=== PATIENT | female | born 1945 | race Two or more races ===

== ENCOUNTER 2017-03-20 15:29 | Inpatient (IN) | payer MEDICAID, MEDICARE, OTHER ==
[~2017-03-20] VITALS: Ht 167.6 cm; Wt 64.0 kg
[~2017-03-20 15:29] MED LIST: ABILIFY20 MG ORAL; ALENDRONATE SOD70 MG ORAL; AMBIEN5 MG ORAL; ASPIRIN-LOW81 MG ORAL; ATIVAN2 MG ORAL; CATAPRES0.1 MG ORAL; COLACE100 MG ORAL; DEPAKENE250 MG ORAL; DOCUSATE SODIU100 MG ORAL; LEVAQUIN500 MG ORAL; LEXAPRO10 MG ORAL; NORCO 5-325 TA1 EACH ORAL; NORVASC10 MG ORAL; OMEPRAZOLE20 M2 ORAL; TYLENOL325 MG ORAL
[2017-03-20 15:30] VITALS: BP 138/70
--- NOTE | 2017-03-20 16:04 | Emergency Room Report ---
History of Present Illness General Chief Complaint: Abnormal Labs Source: Patient Present Illness HPI 72-year-old female, history of schizophrenia, ? Seizures on valproic acid, presenting with altered mental status. longterm reports that patient had high ammonia level at 72. Unknown history of liver disease, patient denies history of drinking. Currently patient is ANO x3, however is confused, thinks that she lives with her parents She is currently denying any complaints at this time Allergies: Coded Allergies: BENZOCAINE (Unverified Allergy, Unknown, 07/21/14) PENICILLINS (Unverified Allergy, Unknown, 07/21/14) QUETIAPINE (Unverified Allergy, Unknown, 07/21/14) Patient History Past Medical History: see triage record Past Surgical History: none Pertinent Family History: none Reviewed Nursing Documentation: PMH: Agreed, PSxH: Agreed Nursing Documentation-PMH Hx Cardiac Problems: No Hx Hypertension: Yes Hx Diabetes: Yes Hx Cancer: No Hx Gastrointestinal Problems: Yes - GERD Hx Neurological Problems: No Review of Systems All Other Systems: negative except mentioned in HPI Physical Exam Vital Signs Date Time Temp Pulse Resp B/P (MAP) Pulse Ox O2 Delivery O2 Flow Rate FiO2 03/20/17 15:24 97.7 69 20 118/70 95 Room Air Sp02 EP Interpretation: reviewed, normal General Appearance: normal inspection, well appearing, no apparent distress, alert, non-toxic, other - confused however nad Head: normocephalic, atraumatic Eyes: bilateral eye normal inspection, bilateral eye PERRL, bilateral eye EOMI ENT: normal ENT inspection, normal pharynx, normal voice, moist mucus membranes Neck: normal inspection, full range of motion, supple Respiratory: normal inspection, lungs clear, normal breath sounds, no respiratory distress, no retraction, no wheezing, speaking full sentences, chest symmetrical Cardiovascular #1: normal inspection, regular rate, rhythm, no edema, normal capillary refill Cardiovascular #2: 2+ radial (R), 2+ radial (L) Gastrointestinal: normal inspection, non tender, soft, non-distended, no guarding Musculoskeletal: normal inspection, back normal, normal range of motion, non- tender Neurologic: alert, responsive, salesperson 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 III-XII nml as tested, motor strength/tone normal, sensory intact, normal gait, speech normal Psychiatric: other - +delusions, confused, no si/hi, no ah Skin: normal inspection, normal color, no rash, warm/dry, well hydrated, normal turgor Medical Decision Making Diagnostic Impression: Primary Impression: Acute encephalopathy Additional Impression: Confused ER Course 72-year-old female p/w AMS DDX: Sent in for hyperammonemia Dehydration, electrolyte disturbance, infectious UTI/PNA ACS, Neuro: CVA / Intracranial bleed At this time patient is awake alert, oriented x3, however is confused, and no other neurological signs or symptoms on exam, will not perform CT head for now Plan: Accucheck, labs, ua, ammonia, EKG, CXR ER course: Accucheck normal Disposition: Patient is to be admitted to [facility] Discussed with hospitalist Dr Ramsey Please note that this Emergency Department Report was dictated using TimeGeniusimporter or exporter technology software, occasionally this can lead to erroneous entry secondary to interpretation by the dictation equipment EKG Diagnostic Results EP Interpretation: Yes Rate: normal Rhythm: NSR ST Segments: No acute changes ASA given to patient: No Rhythm Strip EP Interpretation: Yes Rate: 64 Rhythm: NSR, no PVCs, no ectopy CXR Ordered: Yes 1 view Indication: AMS EP interpretation: Yes Interpretation: Borderline cardiomegaly, elevation of right hemidiaphragm Impression: Cardiomegaly Electronically signed by Nino Boogie MD Laboratory Tests Test 03/20/17 16:30 03/20/17 16:42 White Blood Count 6.0 K/UL (4.8-10.8) Red Blood Count 4.16 M/UL (4.20-5.40) L Hemoglobin 12.4 G/DL (12.0-16.0) Hematocrit 39.4 % (37.0-47.0) Mean Corpuscular Volume 95 FL (80-99) Mean Corpuscular Hemoglobin 29.7 PG (27.0-31.0) Mean Corpuscular Hemoglobin Concent 31.4 G/DL (32.0-36.0) L Red Cell Distribution Width 13.9 % (11.6-14.8) Platelet Count 124 K/UL (150-450) L Mean Platelet Volume 7.5 FL (6.5-10.1) Neutrophils (%) (Auto) 41.9 % (45.0-75.0) L Lymphocytes (%) (Auto) 46.4 % (20.0-45.0) H Monocytes (%) (Auto) 7.9 % (1.0-10.0) Eosinophils (%) (Auto) 2.7 % (0.0-3.0) Basophils (%) (Auto) 1.0 % (0.0-2.0) Sodium Level 142 MMOL/L (136-145) Potassium Level 4.2 MMOL/L (3.5-5.1) Chloride Level 105 MMOL/L (98-107) Carbon Dioxide Level 37 MMOL/L (21-32) H Anion Gap 0 mmol/L (5-15) L Blood Urea Nitrogen 24 mg/dL (7-18) H Creatinine 0.9 MG/DL (0.55-1.30) Estimate Glomerular Filtration Rate mL/min (>60) Glucose Level 99 MG/DL (74-106) Lactic Acid Level 0.90 mmol/L (0.66-2.22) Calcium Level 9.2 MG/DL (8.5-10.1) Total Bilirubin 0.1 MG/DL (0.2-1.0) L Aspartate Amino Transferase (AST) 20 U/L (15-37) Alanine Aminotransferase (ALT) 49 U/L (12-78) Alkaline Phosphatase 105 U/L (46-116) Ammonia 29 umol/L (11-32) Troponin I 0.009 ng/mL (0.000-0.056) Total Protein 6.5 G/DL (6.4-8.2) Albumin 2.7 G/DL (3.4-5.0) L Globulin 3.8 g/dL Albumin/Globulin Ratio 0.7 (1.0-2.7) L Valproic Acid Level 69 MCG/ML (50-100) Urine Color Pale yellow Urine Appearance Clear Urine pH 6.5 (4.5-8.0) Urine Specific [place] 1.015 (1.005-1.035) Urine Protein Negative (NEGATIVE) Urine Glucose (UA) Negative (NEGATIVE) Urine Ketones Negative (NEGATIVE) Urine Occult Blood Negative (NEGATIVE) Urine Nitrite Negative (NEGATIVE) Urine Bilirubin Negative (NEGATIVE) Urine Urobilinogen Normal MG/DL (0.0-1.0) Urine Leukocyte Esterase 1+ (NEGATIVE) H Urine RBC 0-2 /HPF (0 - 2) Urine WBC 2-4 /HPF (0 - 2) Urine Squamous Epithelial Cells Few /LPF (NONE/OCC) Urine Bacteria Few /HPF (NONE) Last Vital Signs Date Time Temp Pulse Resp B/P (MAP) Pulse Ox O2 Delivery O2 Flow Rate FiO2 03/20/17 15:24 97.7 69 20 118/70 95 Room Air Nino Boogie M.D. Mar 20, 2017 16:03
[2017-03-20 16:30] VITALS: BP 143/65
[2017-03-20] MEDS ORDERED: Morphine Sulfate 2mg/ml Inj IVP PRN (17:00)
[2017-03-20 17:05] LABS: EOSINOPHILS % (AUTO) 2.7 % (0.0-3.0); LYMPHOCYTES % (AUTO) 46.4 % (20.0-45.0); MEAN CORPUSCULAR HEMOGLOBIN 29.7 PG (27.0-31.0); MEAN CORPUSCULAR HGB CONC 31.4 G/DL (32.0-36.0); MEAN CORPUSCULAR VOLUME 95 FL (80-99); MEAN PLATELET VOLUME 7.5 FL (6.5-10.1); MONOCYTES % (AUTO) 7.9 % (1.0-10.0); NEUTROPHILS % (AUTO) 41.9 % (45.0-75.0); PLATELET COUNT 124 K/UL (150-450); RED BLOOD COUNT 4.16 M/UL (4.20-5.40); RED CELL DISTRIBUTION WIDTH 13.9 % (11.6-14.8)
[2017-03-20 17:08] LABS: APPEARANCE,URINE CLEAR; KETONES,URINE NEGATIVE (NEGATIVE); LEUKOCYTE ESTERASE ,URINE 1+ (NEGATIVE); NITRITE,URINE NEGATIVE (NEGATIVE); PH,URINE 6.5 (4.5-8.0); PROTEIN,URINE NEGATIVE (NEGATIVE); UROBILINOGEN,URINE NORMAL MG/DL (0.0-1.0)
--- NOTE | 2017-03-20 17:21 | Diagnostic Imaging Report ---
Indication: Chest pain Technique: One view of the chest Comparison: 07/23/2014 Findings: Again demonstrated is a retrocardiac hiatal hernia, somewhat less evident on the prior exam. There is elevation right hemidiaphragm which is a new finding. There is compressive atelectasis of the right lung base. The lungs and pleural spaces are clear. Heart size is normal. Aorta is calcified. Impression: No definite acute process Hiatal hernia Elevated right hemidiaphragm with right basilar atelectasis
[2017-03-20 17:30] VITALS: BP 161/67
[2017-03-20 17:37] LABS: BACTERIA,URINE FEW /HPF; RBC,URINE 0-2 /HPF (0 - 2); SQUAMOUS EPITHELIAL CELL,UR FEW /LPF (NONE/OCC)
[2017-03-20 17:50] LABS: AMMONIA 29 umol/L (11-32)
[2017-03-20 17:53] LABS: ANION GAP 0 mmol/L (5-15); CALCIUM 9.2 MG/DL (8.5-10.1); CARBON DIOXIDE 37 MMOL/L (21-32); CHLORIDE 105 MMOL/L (98-107); CREATININE 0.9 MG/DL (0.55-1.30); POTASSIUM 4.2 MMOL/L (3.5-5.1); SODIUM 142 MMOL/L (136-145)
[2017-03-20] MEDS ORDERED: ATIVAN1 MG ORAL (17:59)
[2017-03-20 18:04] LABS: ALANINE AMINOTRANSFERASE 49 U/L (12-78); ALBUMIN/GLOBULIN RATIO 0.7 (1.0-2.7); ASPARTATE AMINO TRANSFERASE 20 U/L (15-37); TOTAL PROTEIN 6.5 G/DL (6.4-8.2)
[2017-03-20] MEDS ORDERED: DOCUSATE SODIU100 M2 ORAL (18:23)
[2017-03-20] MEDS ORDERED: BACLOFEN10 MG ORAL (18:23)
[2017-03-20] MEDS ORDERED: CRANBERRY TABL1 EACH PO (18:23)
[2017-03-20] MEDS ORDERED: LACTULOSE20 GM/301 ORAL (18:23)
[2017-03-20] MEDS ORDERED: DIVALPROEX SOD500 MG PO (18:23)
[2017-03-20] MEDS ORDERED: DULCOLAX10 MG RC (18:23)
[2017-03-20] MEDS ORDERED: ACETAMINOPHEN325 M1 ORAL (18:23)
[2017-03-20] MEDS ORDERED: GABAPENTIN100 MG ORAL (18:23)
[2017-03-20] MEDS ORDERED: MOM30 ML ORAL (18:23)
[2017-03-20] MEDS ORDERED: TRAMADOL HCL100 M2 ORAL (18:23)
[2017-03-20] MEDS ORDERED: IBUPROFEN600 MG ORAL ×2 (18:23)
[2017-03-20 18:30] VITALS: BP 151/65
[2017-03-20 20:00] VITALS: BP 140/77
[2017-03-20] MEDS: D5 1/2NS 1,000 ML IV SCH (21:34)
[2017-03-20] MEDS: Heparin 5000 units/ml inj SUBQ SCH (21:36)
--- NOTE | 2017-03-20 21:49 | Consultation ---
History of Present Illness General Date patient seen: Mar 20, 2017 Chief Complaint: Acute weakness Referring physician: Dr. Ramsey Reason for Consultation: Abnormal chest radiograph Present Illness HPI The patient is a 72 yo gente lady with pmhx HTN, seizure disorder, severe bilateral hip and lower extremity pains uses wheel chair for mobility presents to [facility] Emergency room from custodial [facility] with a complaint of increasing weakness and confusional state. The patient appears disoriented at this time history was obtained by discussion with emergency room doctor and the patients coat agent. A preliminary chest radiograph obtained in the emergency room reveals right lung collapse with no signs of acute infiltration or pleural fluids. I was asked to consult from a pulmonary point of view regarding the abnormal chest radiograph and internal medicine point of view. The patients oxygen saturation appears adequate and no signs of rapid shallow breathing or accessory muscle use with his breathing. Due to the patients confusional state he poses a high risk for a aspiration event, strict aspiration precautions have been initiated. Allergies: Coded Allergies: BENZOCAINE (Unverified Allergy, Unknown, 07/21/14) PENICILLINS (Unverified Allergy, Unknown, 07/21/14) QUETIAPINE (Unverified Allergy, Unknown, 07/21/14) Medication History Scheduled Alendronate Sodium* (Fosamax*), 70 MG ORAL ONCE A WEEK, (Reported) Alprazolam (Alprazolam), 2 MG ORAL Q6HR, (Reported) Amlodipine Besylate (Norvasc), 10 MG ORAL DAILY, (Reported) Aripiprazole* (Abilify*), 20 MG ORAL DAILY, (Reported) Aspirin (Aspirin EC), 81 MG ORAL DAILY, (Reported) Baclofen* (Baclofen*), 10 MG ORAL THREE TIMES A DAY, (Reported) Cranberry Conc/C/Bacill Coag (Cranberry Tablet), 1 EACH PO DAILY, (Reported) Divalproex Sodium (Divalproex Sodium), 500 MG PO BID, (Reported) Docusate Sodium* (Colace*), 100 MG ORAL DAILY, (Reported) Escitalopram Oxalate* (Lexapro*), 10 MG ORAL DAILY, (Reported) Gabapentin* (Gabapentin*), 100 MG ORAL THREE TIMES A DAY, (Reported) Ibuprofen* (Motrin*), 600 MG ORAL BID, (Reported) Lactulose (Lactulose*), 44 ML ORAL BID, (Reported) Levofloxacin* (Levaquin*), 500 MG ORAL DAILY Lorazepam (Lorazepam), 0.5 GM MC Q4HR, (Reported) Lorazepam* (Lorazepam*), 0.5 MG ORAL Q4HR, (Reported) Omeprazole (Omeprazole), MG ORAL BEFORE BREAKFAST, (Reported) Valproate Sodium (Valproic Acid), 1,000 MG ORAL Q12HR, (Reported) Valproic Acid (Depakene), 1,000 MG ORAL TWICE A DAY Valproic Acid (Valproic Acid), 1,000 MG PO Q12HR, (Reported) Scheduled PRN Acetaminophen* (Acetaminophen 325MG Tablet*), 650 MG ORAL Q4H PRN for Prn Headache/Temp > 101, (Reported) Bisacodyl (Dulcolax), 10 MG RC for Constipation, (Reported) Clonidine Hcl* (Catapres*), 0.1 MG ORAL EVERY 8 HOURS PRN for For High Blood Pressure, (Reported) Hydrocodone Bit/Acetaminophen 5-325* ([place] 5-325*), 2 TAB ORAL Q6HR PRN for For Pain, (Reported) Hydrocodone/Acetaminophen 5-325* (Hydrocodone/Acetaminophen 5-325*), 1 TAB ORAL Q12HR PRN for For Pain, (Reported) Lorazepam* (Ativan*), 2 MG ORAL Q6HR PRN for For Anxiety, (Reported) Lorazepam* (Ativan*), 1 MG ORAL Q6HR PRN for For Anxiety, (Reported) Magnesium Hydroxide (Milk of Magnesia), 30 ML ORAL DAILY PRN for Constipation, ( Reported) Ondansetron (Zofran), 4 MG ORAL Q6H PRN for Nausea & Vomiting, (Reported) Tramadol Hcl (Tramadol Hcl), 50 MG ORAL Q6HR PRN for Pain Scale (6-10), ( Reported) Zolpidem Tartrate* (Ambien*), 5 MG ORAL BEDTIME PRN for Insomnia, (Reported) Patient History Healthcare decision maker Resuscitation status Advanced Directive on File Past Medical/Surgical History Past Medical/Surgical History: (1) HTN (hypertension) (2) Epileptic seizure, generalized (3) Hepatic encephalopathy (4) Acute encephalopathy (5) Hypokalemia (6) Aspiration pneumonia (7) possible rectal bleed (8) UTI (urinary tract infection) (9) Epileptic seizure, generalized (10) Aspiration pneumonia Review of Systems Constitutional: Reports: malaise, weakness Neurological: Reports: seizure, other - increased confusion Physical Exam General Appearance: confused, mild distress Lines, tubes and drains: peripheral HEENT: normocephalic, atraumatic, anicteric, PERRL Neck: non-tender, normal alignment, supple Respiratory/Chest: chest wall non-tender, lungs clear, no respiratory distress , no accessory muscle use Breasts: no masses Cardiovascular/Chest: normal peripheral pulses, normal rate, regular rhythm, no JVD Abdomen: soft, no organomegaly, no mass Genitourinary/Rectal: normal genital exam, normal rectal exam Extremities: normal inspection, no calf tenderness, normal capillary refill, trace edema Skin Exam: normal pigmentation, warm/dry 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: 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 II-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 grossly normal, responsive, disoriented Musculoskeletal: atrophy Last 24 Hour Vital Signs Date Time Temp Pulse Resp B/P (MAP) Pulse Ox O2 Delivery O2 Flow Rate FiO2 03/20/17 20:00 97.0 77 20 140/77 95 Room Air 03/20/17 18:45 78 21 151/65 100 Room Air 03/20/17 18:30 97.9 78 21 151/65 100 Room Air 03/20/17 17:30 73 21 161/67 100 Room Air 03/20/17 16:30 72 13 143/65 98 Room Air 03/20/17 15:30 97.7 66 14 138/70 98 Room Air 03/20/17 15:24 97.7 69 20 118/70 95 Room Air Intake and Output 03/20/17 03/21/17 19:00 07:00 Intake Total 0 ml Output Total 30 ml Balance -30 ml Intake Oral 0 ml Output Urine Total 30 ml Laboratory Tests Test 03/20/17 16:30 03/20/17 16:42 White Blood Count 6.0 K/UL (4.8-10.8) Red Blood Count 4.16 M/UL (4.20-5.40) L Hemoglobin 12.4 G/DL (12.0-16.0) Hematocrit 39.4 % (37.0-47.0) Mean Corpuscular Volume 95 FL (80-99) Mean Corpuscular Hemoglobin 29.7 PG (27.0-31.0) Mean Corpuscular Hemoglobin Concent 31.4 G/DL (32.0-36.0) L Red Cell Distribution Width 13.9 % (11.6-14.8) Platelet Count 124 K/UL (150-450) L Mean Platelet Volume 7.5 FL (6.5-10.1) Neutrophils (%) (Auto) 41.9 % (45.0-75.0) L Lymphocytes (%) (Auto) 46.4 % (20.0-45.0) H Monocytes (%) (Auto) 7.9 % (1.0-10.0) Eosinophils (%) (Auto) 2.7 % (0.0-3.0) Basophils (%) (Auto) 1.0 % (0.0-2.0) Sodium Level 142 MMOL/L (136-145) Potassium Level 4.2 MMOL/L (3.5-5.1) Chloride Level 105 MMOL/L (98-107) Carbon Dioxide Level 37 MMOL/L (21-32) H Anion Gap 0 mmol/L (5-15) L Blood Urea Nitrogen 24 mg/dL (7-18) H Creatinine 0.9 MG/DL (0.55-1.30) Estimat Glomerular Filtration Rate mL/min (>60) Glucose Level 99 MG/DL (74-106) Lactic Acid Level 0.90 mmol/L (0.66-2.22) Calcium Level 9.2 MG/DL (8.5-10.1) Total Bilirubin 0.1 MG/DL (0.2-1.0) L Aspartate Amino Transf (AST/SGOT) 20 U/L (15-37) Alanine Aminotransferase (ALT/SGPT) 49 U/L (12-78) Alkaline Phosphatase 105 U/L (46-116) Ammonia 29 umol/L (11-32) Troponin I 0.009 ng/mL (0.000-0.056) Total Protein 6.5 G/DL (6.4-8.2) Albumin 2.7 G/DL (3.4-5.0) L Globulin 3.8 g/dL Albumin/Globulin Ratio 0.7 (1.0-2.7) L Valproic Acid (Depakene) Level 69 MCG/ML (50-100) Urine Color Pale yellow Urine Appearance Clear Urine pH 6.5 (4.5-8.0) Urine Specific [place] 1.015 (1.005-1.035) Urine Protein Negative (NEGATIVE) Urine Glucose (UA) Negative (NEGATIVE) Urine Ketones Negative (NEGATIVE) Urine Occult Blood Negative (NEGATIVE) Urine Nitrite Negative (NEGATIVE) Urine Bilirubin Negative (NEGATIVE) Urine Urobilinogen Normal MG/DL (0.0-1.0) Urine Leukocyte Esterase 1+ (NEGATIVE) H Urine RBC 0-2 /HPF (0 - 2) Urine WBC 2-4 /HPF (0 - 2) Urine Squamous Epithelial Cells Few /LPF (NONE/OCC) Urine Bacteria Few /HPF (NONE) Height (Feet): 5 Height (Inches): 6.00 Weight (Pounds): 140 Medications Current Medications Medications (Trade) Dose Ordered Sig/Desire Route PRN Reason Start Time Stop Time Status Last Admin Dose Admin Amlodipine Besylate (Norvasc) 10 mg DAILY ORAL 03/21/17 09:00 04/20/17 08:59 Aripiprazole (Abilify) 20 mg DAILY ORAL 03/21/17 09:00 04/20/17 08:59 Dextrose (Dextrose 50%) STAT PRN IV Hypoglycemia 03/20/17 17:00 04/19/17 16:59 Dextrose/Sodium Chloride 1,000 ml @ 50 mls/hr Q20H IV 03/20/17 17:30 04/19/17 17:29 03/20/17 21:34 Heparin Sodium (Porcine) (Heparin 5000 units/ml) 5,000 units EVERY 12 HOURS SUBQ 03/20/17 21:00 04/19/17 20:59 03/20/17 21:36 Lorazepam (Ativan 2mg/ml 1ml) 0.5 mg Q4H PRN IV For Anxiety 03/20/17 17:00 03/27/17 16:59 Morphine Sulfate (Morphine Sulfate) 1 mg Q4H PRN IVP For Pain 03/20/17 17:00 03/27/17 16:59 Ondansetron HCl (Zofran) 4 mg Q6H PRN IVP Nausea & Vomiting 03/20/17 17:00 04/19/17 16:59 Valproic Acid (Depakene) 1,000 mg Q12HR ORAL 03/20/17 21:00 04/19/17 20:59 Assessment/Plan Status: stable, progressing Assessment/Plan Acute alteration of mental status Seizure disorder Schizophrenia HTN DM Possible malnutrition GERD Abnormal gait Plan Chest radiograph not significant for acute process Aspiration precautions Incentive spirometry for collapsed right lung IVF hydration DVT prophylaxis Seizure precautions, PT/OT eval and Rx Psych evaluation requested JANA HENLEY Mar 20, 2017 21:49
[2017-03-21] VITALS (7 sets, daily range): BP systolic 114–148; BP diastolic 52–84
[2017-03-21 07:09] LABS: BASOPHILS % (AUTO) 0.6 % (0.0-2.0); EOSINOPHILS % (AUTO) 0.4 % (0.0-3.0); LYMPHOCYTES % (AUTO) 28.1 % (20.0-45.0); MEAN CORPUSCULAR HGB CONC 31.9 G/DL (32.0-36.0); MEAN CORPUSCULAR VOLUME 94 FL (80-99); MONOCYTES % (AUTO) 6.8 % (1.0-10.0); NEUTROPHILS % (AUTO) 64.2 % (45.0-75.0); PLATELET COUNT 133 K/UL (150-450); RED BLOOD COUNT 4.43 M/UL (4.20-5.40); RED CELL DISTRIBUTION WIDTH 13.7 % (11.6-14.8); WHITE BLOOD COUNT 4.8 K/UL (4.8-10.8)
[2017-03-21 07:44] LABS: ALANINE AMINOTRANSFERASE 46 U/L (12-78); ALBUMIN/GLOBULIN RATIO 0.7 (1.0-2.7); ANION GAP 5 mmol/L (5-15); ASPARTATE AMINO TRANSFERASE 19 U/L (15-37); CALCIUM 9.4 MG/DL (8.5-10.1); CARBON DIOXIDE 33 MMOL/L (21-32); CHLORIDE 104 MMOL/L (98-107); CREATININE 0.6 MG/DL (0.55-1.30); POTASSIUM 3.6 MMOL/L (3.5-5.1); SODIUM 142 MMOL/L (136-145); TOTAL PROTEIN 6.8 G/DL (6.4-8.2)
--- NOTE | 2017-03-21 08:01 | Pulmonology Progress Note ---
Assessment/Plan Assessment/Plan ASSESSMENT acute toxic metabolic encephalopathy seizure disorder schizophrenia HTN DM possible malnutrition GERD abnormal gait PLAN OF CARE MS floor IVF BP management with CCB and optimize further as needed DVT prophylaxis pain management seizure precautions, continue Depakote ( level ok) continue with Abilify ammonia level wnl neuro eval appreciated PT/OT eval and Rx psych eval appreciated, psych meds as per psych dietary eval case discussed and evaluated by supervising physician Subjective Allergies: Coded Allergies: BENZOCAINE (Unverified Allergy, Unknown, 07/21/14) PENICILLINS (Unverified Allergy, Unknown, 07/21/14) QUETIAPINE (Unverified Allergy, Unknown, 07/21/14) Subjective no CP, no SOB no seizure activity afebrile, no leukocytosis Objective Last 24 Hour Vital Signs Date Time Temp Pulse Resp B/P (MAP) Pulse Ox O2 Delivery O2 Flow Rate FiO2 03/21/17 03:55 98.0 87 18 141/81 97 Room Air 03/21/17 00:00 97.7 78 20 147/84 96 Room Air 03/20/17 20:00 97.0 77 20 140/77 95 Room Air 03/20/17 18:45 78 21 151/65 100 Room Air 03/20/17 18:30 97.9 78 21 151/65 100 Room Air 03/20/17 17:30 73 21 161/67 100 Room Air 03/20/17 16:30 72 13 143/65 98 Room Air 03/20/17 15:30 97.7 66 14 138/70 98 Room Air 03/20/17 15:24 97.7 69 20 118/70 95 Room Air General Appearance: WD/WN, no acute distress HEENT: normocephalic, atraumatic, anicteric, mucous membranes moist Respiratory/Chest: lungs clear, no respiratory distress, no accessory muscle use Cardiovascular: normal peripheral pulses, normal rate, regular rhythm, no JVD Abdomen: normal bowel sounds, soft, non tender, non distended Extremities: no edema, pedal pulses normal Neurologic/Psychiatric: abnormal gait, alert, responsive Musculoskeletal: atrophy - BLE Laboratory Tests 03/20/17 16:30: White Blood Count 6.0, Red Blood Count 4.16L, Hemoglobin 12.4, Hematocrit 39.4, Mean Corpuscular Volume 95, Mean Corpuscular Hemoglobin 29.7, Mean Corpuscular Hemoglobin Concent 31.4L, Red Cell Distribution Width 13.9, Platelet Count 124L , Mean Platelet Volume 7.5, Neutrophils (%) (Auto) 41.9L, Lymphocytes (%) (Auto ) 46.4H, Monocytes (%) (Auto) 7.9, Eosinophils (%) (Auto) 2.7, Basophils (%) ( Auto) 1.0, Sodium Level 142, Potassium Level 4.2, Chloride Level 105, Carbon Dioxide Level 37H, Anion Gap 0L, Blood Urea Nitrogen 24H, Creatinine 0.9, Estimat Glomerular Filtration Rate , Glucose Level 99, Lactic Acid Level 0.90, Calcium Level 9.2, Total Bilirubin 0.1L, Aspartate Amino Transf (AST/SGOT) 20, Alanine Aminotransferase (ALT/SGPT) 49, Alkaline Phosphatase 105, Ammonia 29, Troponin I 0.009, Total Protein 6.5, Albumin 2.7L, Globulin 3.8, Albumin/ Globulin Ratio 0.7L, Valproic Acid (Depakene) Level 69 03/20/17 16:42: Urine Color Pale yellow, Urine Appearance Clear, Urine pH 6.5, Urine Specific [place] 1.015, Urine Protein Negative, Urine Glucose (UA) Negative, Urine Ketones Negative, Urine Occult Blood Negative, Urine Nitrite Negative, Urine Bilirubin Negative, Urine Urobilinogen Normal, Urine Leukocyte Esterase 1+H, Urine RBC 0-2, Urine WBC 2-4, Urine Squamous Epithelial Cells Few, Urine Bacteria Few 03/21/17 06:25: White Blood Count 4.8, Red Blood Count 4.43, Hemoglobin 13.3, Hematocrit 41.7, Mean Corpuscular Volume 94, Mean Corpuscular Hemoglobin 30.0, Mean Corpuscular Hemoglobin Concent 31.9L, Red Cell Distribution Width 13.7, Platelet Count 133L , Mean Platelet Volume 8.0, Neutrophils (%) (Auto) 64.2, Lymphocytes (%) (Auto) 28.1, Monocytes (%) (Auto) 6.8, Eosinophils (%) (Auto) 0.4, Basophils (%) (Auto ) 0.6, Sodium Level 142, Potassium Level 3.6, Chloride Level 104, Carbon Dioxide Level 33H, Anion Gap 5, Blood Urea Nitrogen 14, Creatinine 0.6, Estimat Glomerular Filtration Rate , Glucose Level 105, Calcium Level 9.4, Total Bilirubin 0.3, Aspartate Amino Transf (AST/SGOT) 19, Alanine Aminotransferase ( ALT/SGPT) 46, Alkaline Phosphatase 113, Total Protein 6.8, Albumin 2.9L, Globulin 3.9, Albumin/Globulin Ratio 0.7L Current Medications Medications (Trade) Dose Ordered Sig/Desire Route PRN Reason Start Time Stop Time Status Last Admin Dose Admin Amlodipine Besylate (Norvasc) 10 mg DAILY ORAL 03/21/17 09:00 04/20/17 08:59 Aripiprazole (Abilify) 20 mg DAILY ORAL 03/21/17 09:00 04/20/17 08:59 Dextrose (Dextrose 50%) STAT PRN IV Hypoglycemia 03/20/17 17:00 04/19/17 16:59 Dextrose/Sodium Chloride 1,000 ml @ 50 mls/hr Q20H IV 03/20/17 17:30 04/19/17 17:29 03/20/17 21:34 Heparin Sodium (Porcine) (Heparin 5000 units/ml) 5,000 units EVERY 12 HOURS SUBQ 03/20/17 21:00 04/19/17 20:59 03/20/17 21:36 Lorazepam (Ativan 2mg/ml 1ml) 0.5 mg Q4H PRN IV For Anxiety 03/20/17 17:00 03/27/17 16:59 Morphine Sulfate (Morphine Sulfate) 1 mg Q4H PRN IVP For Pain 03/20/17 17:00 03/27/17 16:59 Ondansetron HCl (Zofran) 4 mg Q6H PRN IVP Nausea & Vomiting 03/20/17 17:00 04/19/17 16:59 Valproic Acid (Depakene) 1,000 mg Q12HR ORAL 03/20/17 21:00 04/19/17 20:59 Madeleine Holley NP ([place]) Mar 21, 2017 08:01
[2017-03-21] MEDS: ARIPiprazole 10mg tab ORAL SCH (08:27)
[2017-03-21] MEDS: LORazepam Inj 2mg/ml 1ml IV PRN ×3 (08:28→18:44)
[2017-03-21] MEDS: Heparin 5000 units/ml inj SUBQ SCH ×2 (08:29→21:24)
[2017-03-21] MEDS: D5 1/2NS 1,000 ML IV SCH (12:59)
--- NOTE | 2017-03-21 15:34 | Consultation ---
History of Present Illness General Date patient seen: Mar 21, 2017 Chief Complaint: Abnormal Labs Present Illness HPI 72-year-old female, history of schizophrenia, presenting with altered mental status. [facility] reports that patient had high ammonia level at 72. the pt is on depakote for mood d/o, she was agitated and yelling this am. the pt has cognitive impairment. the pt is easily agitated the pt wanted lithium however agreed to remain on depakote Allergies: Coded Allergies: BENZOCAINE (Unverified Allergy, Unknown, 07/21/14) PENICILLINS (Unverified Allergy, Unknown, 07/21/14) QUETIAPINE (Unverified Allergy, Unknown, 07/21/14) Medication History Scheduled Alendronate Sodium* (Fosamax*), 70 MG ORAL ONCE A WEEK, (Reported) Amlodipine Besylate (Norvasc), 10 MG ORAL DAILY, (Reported) Aripiprazole* (Abilify*), 20 MG ORAL HS, (Reported) Aspirin (Aspirin EC), 81 MG ORAL DAILY, (Reported) Baclofen* (Baclofen*), 10 MG ORAL THREE TIMES A DAY, (Reported) Cranberry Conc/C/Bacill Coag (Cranberry Tablet), 1 EACH PO DAILY, (Reported) Divalproex Sodium (Divalproex Sodium), 500 MG PO BID, (Reported) Docusate Sodium (Docusate Sodium), 100 MG ORAL TWICE A DAY, (Reported) Docusate Sodium* (Colace*), 100 MG ORAL DAILY, (Reported) Docusate Sodium* (Docusate Sodium*), 100 MG ORAL DAILY, (Reported) Escitalopram Oxalate* (Lexapro*), 10 MG ORAL DAILY, (Reported) Gabapentin* (Gabapentin*), 100 MG ORAL THREE TIMES A DAY, (Reported) Ibuprofen* (Motrin*), 600 MG ORAL FOUR TIMES A DAY, (Reported) Ibuprofen* (Motrin*), 600 MG ORAL BID, (Reported) Lactulose (Lactulose*), 44 ML ORAL BID, (Reported) Levofloxacin* (Levaquin*), 500 MG ORAL DAILY Omeprazole (Omeprazole), MG ORAL BEFORE BREAKFAST, (Reported) Valproic Acid (Depakene), 1,000 MG ORAL TWICE A DAY Scheduled PRN Acetaminophen (Tylenol), 650 MG ORAL Q4HR PRN for Mild Pain (Pain Scale 1-3), ( Reported) Acetaminophen* (Acetaminophen 325MG Tablet*), 650 MG ORAL Q4H PRN for Fever/ Headache/Mild Pain, (Reported) Acetaminophen* (Acetaminophen 325MG Tablet*), 650 MG ORAL Q4H PRN for Fever/ Headache/Mild Pain, (Reported) Bisacodyl (Dulcolax), 10 MG RC for Constipation, (Reported) Clonidine Hcl* (Catapres*), 0.1 MG ORAL EVERY 8 HOURS PRN for For High Blood Pressure, (Reported) Hydrocodone Bit/Acetaminophen 5-325* (Stephan 5-325*), 2 TAB ORAL Q6HR PRN for For Pain, (Reported) Lorazepam* (Ativan*), 2 MG ORAL Q6HR PRN for For Anxiety, (Reported) Lorazepam* (Ativan*), 1 MG ORAL Q6HR PRN for For Anxiety, (Reported) Magnesium Hydroxide (Milk of Magnesia), 30 ML ORAL DAILY PRN for Constipation, ( Reported) Tramadol Hcl (Tramadol Hcl), 50 MG ORAL Q6HR PRN for Pain Scale (6-10), ( Reported) Zolpidem Tartrate* (Ambien*), 5 MG ORAL BEDTIME PRN for Insomnia, (Reported) Patient History Limited by: medical condition History Provided By: Patient, Medical Record, PMD Healthcare decision maker N/A Resuscitation status Full Code Advanced Directive on File No Past Medical/Surgical History Past Medical/Surgical History: (1) Epileptic seizure, generalized (2) Aspiration pneumonia (3) Epileptic seizure, generalized (4) Aspiration pneumonia (5) HTN (hypertension) (6) possible rectal bleed (7) Confused (8) Acute encephalopathy Review of Systems Psychiatric: Reports: prior hx, anxiety, depressed feelings, emotional problems , hallucinations Physical Exam General Appearance: no apparent distress, alert, agitated Neurologic: alert, responsive, depressed affect Last 24 Hour Vital Signs Date Time Temp Pulse Resp B/P (MAP) Pulse Ox O2 Delivery O2 Flow Rate FiO2 03/21/17 12:00 97.9 20 18 138/70 94 03/21/17 08:30 Room Air 03/21/17 08:30 97.7 78 18 143/56 100 03/21/17 08:27 87 141/81 03/21/17 03:55 98.0 87 18 141/81 97 Room Air 03/21/17 00:00 97.7 78 20 147/84 96 Room Air 03/20/17 20:00 97.0 77 20 140/77 95 Room Air 03/20/17 18:45 78 21 151/65 100 Room Air 03/20/17 18:30 97.9 78 21 151/65 100 Room Air 03/20/17 17:30 73 21 161/67 100 Room Air 03/20/17 16:30 72 13 143/65 98 Room Air 03/20/17 15:30 97.7 66 14 138/70 98 Room Air Laboratory Tests Test 03/20/17 16:30 03/20/17 16:42 03/21/17 06:25 White Blood Count 6.0 K/UL (4.8-10.8) 4.8 K/UL (4.8-10.8) Red Blood Count 4.16 M/UL (4.20-5.40) L 4.43 M/UL (4.20-5.40) Hemoglobin 12.4 G/DL (12.0-16.0) 13.3 G/DL (12.0-16.0) Hematocrit 39.4 % (37.0-47.0) 41.7 % (37.0-47.0) Mean Corpuscular Volume 95 FL (80-99) 94 FL (80-99) Mean Corpuscular Hemoglobin 29.7 PG (27.0-31.0) 30.0 PG (27.0-31.0) Mean Corpuscular Hemoglobin Concent 31.4 G/DL (32.0-36.0) L 31.9 G/DL (32.0-36.0) L Red Cell Distribution Width 13.9 % (11.6-14.8) 13.7 % (11.6-14.8) Platelet Count 124 K/UL (150-450) L 133 K/UL (150-450) L Mean Platelet Volume 7.5 FL (6.5-10.1) 8.0 FL (6.5-10.1) Neutrophils (%) (Auto) 41.9 % (45.0-75.0) L 64.2 % (45.0-75.0) Lymphocytes (%) (Auto) 46.4 % (20.0-45.0) H 28.1 % (20.0-45.0) Monocytes (%) (Auto) 7.9 % (1.0-10.0) 6.8 % (1.0-10.0) Eosinophils (%) (Auto) 2.7 % (0.0-3.0) 0.4 % (0.0-3.0) Basophils (%) (Auto) 1.0 % (0.0-2.0) 0.6 % (0.0-2.0) Sodium Level 142 MMOL/L (136-145) 142 MMOL/L (136-145) Potassium Level 4.2 MMOL/L (3.5-5.1) 3.6 MMOL/L (3.5-5.1) Chloride Level 105 MMOL/L (98-107) 104 MMOL/L (98-107) Carbon Dioxide Level 37 MMOL/L (21-32) H 33 MMOL/L (21-32) H Anion Gap 0 mmol/L (5-15) L 5 mmol/L (5-15) Blood Urea Nitrogen 24 mg/dL (7-18) H 14 mg/dL (7-18) Creatinine 0.9 MG/DL (0.55-1.30) 0.6 MG/DL (0.55-1.30) Estimat Glomerular Filtration Rate mL/min (>60) mL/min (>60) Glucose Level 99 MG/DL (74-106) 105 MG/DL (74-106) Lactic Acid Level 0.90 mmol/L (0.66-2.22) Calcium Level 9.2 MG/DL (8.5-10.1) 9.4 MG/DL (8.5-10.1) Total Bilirubin 0.1 MG/DL (0.2-1.0) L 0.3 MG/DL (0.2-1.0) Aspartate Amino Transf (AST/SGOT) 20 U/L (15-37) 19 U/L (15-37) Alanine Aminotransferase (ALT/SGPT) 49 U/L (12-78) 46 U/L (12-78) Alkaline Phosphatase 105 U/L (46-116) 113 U/L (46-116) Ammonia 29 umol/L (11-32) Troponin I 0.009 ng/mL (0.000-0.056) Total Protein 6.5 G/DL (6.4-8.2) 6.8 G/DL (6.4-8.2) Albumin 2.7 G/DL (3.4-5.0) L 2.9 G/DL (3.4-5.0) L Globulin 3.8 g/dL 3.9 g/dL Albumin/Globulin Ratio 0.7 (1.0-2.7) L 0.7 (1.0-2.7) L Valproic Acid (Depakene) Level 69 MCG/ML (50-100) Urine Color Pale yellow Urine Appearance Clear Urine pH 6.5 (4.5-8.0) Urine Specific Regent 1.015 (1.005-1.035) Urine Protein Negative (NEGATIVE) Urine Glucose (UA) Negative (NEGATIVE) Urine Ketones Negative (NEGATIVE) Urine Occult Blood Negative (NEGATIVE) Urine Nitrite Negative (NEGATIVE) Urine Bilirubin Negative (NEGATIVE) Urine Urobilinogen Normal MG/DL (0.0-1.0) Urine Leukocyte Esterase 1+ (NEGATIVE) H Urine RBC 0-2 /HPF (0 - 2) Urine WBC 2-4 /HPF (0 - 2) Urine Squamous Epithelial Cells Few /LPF (NONE/OCC) Urine Bacteria Few /HPF (NONE) Height (Feet): 5 Height (Inches): 6.00 Weight (Pounds): 141 Medications Current Medications Medications (Trade) Dose Ordered Sig/Desire Route PRN Reason Start Time Stop Time Status Last Admin Dose Admin Acetaminophen (Tylenol) 650 mg Q4H PRN ORAL Mild Pain/Temp > 100.5 03/21/17 12:00 04/20/17 11:59 03/21/17 13:06 Amlodipine Besylate (Norvasc) 10 mg DAILY ORAL 03/21/17 09:00 04/20/17 08:59 03/21/17 08:27 Aripiprazole (Abilify) 20 mg DAILY ORAL 03/21/17 09:00 04/20/17 08:59 03/21/17 08:27 Dextrose (Dextrose 50%) STAT PRN IV Hypoglycemia 03/20/17 17:00 04/19/17 16:59 Heparin Sodium (Porcine) (Heparin 5000 units/ml) 5,000 units EVERY 12 HOURS SUBQ 03/20/17 21:00 04/19/17 20:59 03/21/17 08:29 Lorazepam (Ativan 2mg/ml 1ml) 0.5 mg Q4H PRN IV For Anxiety 03/20/17 17:00 03/27/17 16:59 03/21/17 13:06 Morphine Sulfate (Morphine Sulfate) 1 mg Q4H PRN IVP For Pain 03/20/17 17:00 03/27/17 16:59 Ondansetron HCl (Zofran) 4 mg Q6H PRN IVP Nausea & Vomiting 03/20/17 17:00 04/19/17 16:59 Valproic Acid (Depakene) 500 mg Q12HR ORAL 03/21/17 21:00 04/20/17 20:59 Assessment/Plan Status: stable Assessment/Plan schizophrenia -increase depakote dose cont Tavia Diaz M.D. Mar 21, 2017 15:34
--- NOTE | 2017-03-21 16:46 | Neurology Progress Note ---
Objective Physical Exam Last Vital Signs Date Time Temp Pulse Resp B/P (MAP) Pulse Ox O2 Delivery O2 Flow Rate FiO2 03/21/17 12:00 Room Air 03/21/17 12:00 97.9 20 18 138/70 94 Laboratory Tests Test 03/21/17 06:25 White Blood Count 4.8 K/UL (4.8-10.8) Red Blood Count 4.43 M/UL (4.20-5.40) Hemoglobin 13.3 G/DL (12.0-16.0) Hematocrit 41.7 % (37.0-47.0) Mean Corpuscular Volume 94 FL (80-99) Mean Corpuscular Hemoglobin 30.0 PG (27.0-31.0) Mean Corpuscular Hemoglobin Concent 31.9 G/DL (32.0-36.0) L Red Cell Distribution Width 13.7 % (11.6-14.8) Platelet Count 133 K/UL (150-450) L Mean Platelet Volume 8.0 FL (6.5-10.1) Neutrophils (%) (Auto) 64.2 % (45.0-75.0) Lymphocytes (%) (Auto) 28.1 % (20.0-45.0) Monocytes (%) (Auto) 6.8 % (1.0-10.0) Eosinophils (%) (Auto) 0.4 % (0.0-3.0) Basophils (%) (Auto) 0.6 % (0.0-2.0) Sodium Level 142 MMOL/L (136-145) Potassium Level 3.6 MMOL/L (3.5-5.1) Chloride Level 104 MMOL/L (98-107) Carbon Dioxide Level 33 MMOL/L (21-32) H Anion Gap 5 mmol/L (5-15) Blood Urea Nitrogen 14 mg/dL (7-18) Creatinine 0.6 MG/DL (0.55-1.30) Estimat Glomerular Filtration Rate mL/min (>60) Glucose Level 105 MG/DL (74-106) Calcium Level 9.4 MG/DL (8.5-10.1) Total Bilirubin 0.3 MG/DL (0.2-1.0) Aspartate Amino Transf (AST/SGOT) 19 U/L (15-37) Alanine Aminotransferase (ALT/SGPT) 46 U/L (12-78) Alkaline Phosphatase 113 U/L (46-116) Total Protein 6.8 G/DL (6.4-8.2) Albumin 2.9 G/DL (3.4-5.0) L Globulin 3.9 g/dL Albumin/Globulin Ratio 0.7 (1.0-2.7) L Impression/Recommendations Status: stable Recommendations # [id number] EL COTTO Mar 21, 2017 16:46
--- NOTE | 2017-03-21 19:15 | History and Physical Report ---
DATE OF ADMISSION: 03/20/2017 TIME SEEN: At 1 p.m. ATTENDING PHYSICIAN: Maninder Ramsey D.O. BUS REPAIR SUPERVISOR: 1. Mamadou Tobias M.D. 2. Bertram Jesus M.D. 3. Griffin Hassan M.D. CHIEF COMPLAINT: Altered mental status. BRIEF HISTORY: This is a 72-year-old female from [facility], presented with above-mentioned diagnosis. History of hepatic encephalopathy with elevated ammonia level in long term. The patient now transferred to [place], diagnosed with the above, admitted to medical floor for treatment. Currently, calm, confused in bed, not talking much. No chest pain. No shortness of breath. No nausea, vomiting, or diarrhea. PAST MEDICAL HISTORY: Includes seizure, encephalopathy, and hypertension. PAST SURGICAL HISTORY: Per patient gallbladder. ALLERGIES: Benzocaine, penicillin, and quetiapine. MEDICATIONS: Include Norvasc, Tylenol, valproic, heparin, Ativan, Zofran and morphine. SOCIAL HISTORY: No smoking. Occasional alcohol. No intravenous drug abuse. FAMILY HISTORY: Noncontributory. PHYSICAL EXAMINATION: GENERAL: Calm, confused in bed, oriented x1, in no acute distress. VITAL SIGNS: Show temperature 97, pulse 78, respirations 18, and blood pressure 138/70. CARDIOVASCULAR: No murmur. LUNGS: Distant and clear. ABDOMEN: Bowel sounds positive. Nontender and nondistended. EXTREMITIES: No edema. NEUROLOGIC: The patient moves all extremities but slightly weak. LABORATORY DATA: Labs at this time show platelets 133, otherwise CBC is normal. CO2 is 33. Troponin is 0.009. Ammonia level initially was 29 repeat in the ER. Urinalysis 1+ leukocyte esterase. Urine tox is not given. Valproic 69. ASSESSMENT: 1. Urinary tract infection. 2. Altered mental status. 3. Heart disease. 4. Hypertension. 5. History of myocardial infarction. 6. Encephalopathy. 7. Seizure. PLAN: 1. Continue premedications. 2. Antibiotics per Infectious Disease. 3. OT, PT, and dietary evaluation. 4. CBC and BMP in the morning. 5. Resume home medications. 6. Blood pressure control. 7. Dr. Tobias, Dr. Jesus, Dr. Sr and Dr. Hutchison to consult. Maninder Ramsey D.O. DR: KADI JOB#: [id number] CC:
--- NOTE | 2017-03-21 20:30 | Consultation ---
DATE OF CONSULTATION: 03/21/2017 INFECTIOUS DISEASES CONSULTATION PRIMARY ATTENDING: Maninder Ramsey D.O. REASON FOR CONSULT: UTI. HISTORY OF PRESENT ILLNESS: A 72-year-old female, who is a assisted resident admitted yesterday with altered mental status. According to the assisted, had high ammonia level at 72. She felt it is not clear that altered mental status is because of seizure or another issue. The patient states that she had pus in the urine. PAST MEDICAL HISTORY: Positive for schizophrenia, seizure disorder, diabetes mellitus, hypertension, and gastroesophageal reflux disease. MEDICATIONS: Tylenol, amlodipine, Abilify, valproic acid, lorazepam, Zofran, and morphine. ALLERGIES: Allergic to benzocaine, penicillin, and quetiapine. SOCIAL HISTORY: [facility] resident, , has no child, twice. She was heavy smoker before, smoked three packs cigarettes. REVIEW OF SYSTEMS: No fever. No chills. No coughing. No shortness of breath. No problem passing urine. She has knee pain in the right knee. She had difficulty walking, but can use bedside commode. PHYSICAL EXAMINATION: VITAL SIGNS: Temperature 97.9 degrees, blood pressure 138/70, and pulse 78. GENERAL APPEARANCE: No acute distress, awake, alert, verbal communicative. HEAD AND NECK: [place] conjunctiva. HEART: Regular. LUNGS: Clear. ABDOMEN: Soft and nontender. EXTREMITIES: She has no edema. She has arthritic changes in the right knee. LABORATORY AND DIAGNOSTIC DATA: WBC 4.8, hemoglobin 13.3, hematocrit 41.7, and platelets 133. Sodium 142, potassium 3.6, chloride 104, bicarbonate 33, BUN 14, creatinine 0.6, and glucose 105. LFTs are within normal limits. Ammonia level was also 29. UA also showed WBC of 2 to 4, leukocyte esterase 1+, nitrite negative. IMPRESSION: Altered mental status with seizure disorder less likely metabolic toxic encephalopathy. At this time, doubt any urinary tract infection. The patient has no fever, no leukocytosis, and has no significant pyuria. The patient has hiatal hernia in chest x-ray. She has diabetes mellitus, hypertension, seizure disorder, and schizophrenia. RECOMMENDATION: We will observe off antibiotics. We will follow up the cultures ordered at the time of admission. At the end of my exam, I thank Dr. Maninder Ramsey, for involving me in the care of this patient. Austyn Mckeon M.D. DR: Jose JOB#: [id number] CC: CARISSA
--- NOTE | 2017-03-21 21:16 | Consultation ---
DATE OF CONSULTATION: 03/21/2017 NEUROLOGICAL CONSULTATION CONSULTING PHYSICIAN: Mamadou Tobias M.D. REQUESTING PHYSICIAN: Maninder Ramsey D.O. HISTORY OF PRESENT ILLNESS: This 72-year-old female is seen in neurological consultation to evaluate acute onset of confusion and disorientation. The patient is known to this facility, when in 2014, she presented with episodes of seizures. Prior to admission, she had several episodes of transient unresponsiveness, felt that patient may suffer from chronic seizure disorder and placed on Depakote. The patient was brought to this hospital with the changes in mental status with also elevated ammonia level of 72. On admission, she was quite confused stating that she lives with her parents. Her vital signs were stable. She was afebrile. Her EKG, normal sinus rhythm. Chest x-ray, borderline cardiomegaly and elevation of right hemidiaphragm. Her laboratory work included unremarkable CBC studies except platelets of 124,000. Her chemistry panel with BUN of 24, albumin 2.7, otherwise unremarkable study. Toxicology panel, Depakote level of 69. Urinalysis, normal. Imaging studies, limited to chest x-ray only. Since admission till present, there were no further paroxysmal events. The patient was described at times screaming. PAST MEDICAL HISTORY: The patient has a history of chronic psychiatric disorder, history of hypertension, and diabetes type 2. The patient now indicated that she had a bone marrow malignancy and leukemia several years ago. No evidence of this from the records noted. She continued to have episodes of which appears to hypersomnia, when she was sitting in a wheelchair get asleep, but would be arousable if necessary. She has a history of degenerative joint disease, severe bilateral hip and knee pain, this affected her ambulation so she is using wheelchair now. She is able to transfer from the bed to the wheelchair as necessary. MEDICATIONS: Her treatment prior to admission included a Fosamax, Norvasc, Abilify 20 mg at bedtime, aspirin, baclofen 10 mg t.i.d., Dulcolax, clonidine, Depakote 500 mg b.i.d., docusate, Lexapro 10 mg, gabapentin 100 mg t.i.d., Clute as needed for pain, ibuprofen, Ativan p.r.n., omeprazole, tramadol 50 mg as needed, and valproic acid 1000 mg b.i.d. The patient was seen by psychiatrist. She was described as being agitated and yelling this morning. She had cognitive impairment and easily agitated. She requested lithium, but agreed to remain on Depakote. ALLERGIES: Benzocaine, penicillin, and quetiapine. SOCIAL HISTORY: Resident of nursing facility. REVIEW OF SYSTEMS: Episodes of hypersomnia, episodes of chest pain, pain in her both hips demanding immediately MRI studies, and pain in her both knees, more on the left side, and inability to ambulate due to pain in her legs. She is unaware of having seizures. PHYSICAL EXAMINATION: GENERAL: This is a well-developed and well-nourished female, not in acute distress, lying comfortably in bed. VITAL SIGNS: Her current vital signs are stable. Blood pressure 138/70, heart rate 78, and afebrile. HEENT: Head normocephalic. There is no evidence of trauma. Eyes, ears, and throat are clear. NECK: Supple. No meningeal signs. MUSCULOSKELETAL: Palpable tenderness in both knees, ankles, and hips. Peripheral pulses 1+ and symmetric. MENTAL STATUS: She is alert and oriented to her name and age. She is a poor historian and forgetful. At times, appears somewhat incoherent and inappropriate. No aphasia or apraxia noted. CRANIAL NERVE II: Pupils both responding to light and accommodation. Extraocular movements intact. No nystagmus. CRANIAL NERVE V: Normal corneal responses. CRANIAL NERVE VII: No facial asymmetry. CRANIAL NERVE VIII: Grossly normal hearing. CRANIAL NERVES IX THROUGH XII: Tongue is in midline. Symmetric palate elevation. MOTOR EXAMINATION: Revealed normal muscle tone. Strength 5/5 in all extremities. No involuntary movement. Deep tendon reflexes 1+ and symmetric with downgoing toes on both sides. Linwood uncomfortable lifting left leg due to pain in the hip. SENSORY EXAMINATION: Normal to pin stimulation. GAIT: Not tested. The patient indicates she is unable to ambulate although she was noted today being able to transfer from bed to wheelchair. IMPRESSION: 1. This is a 72-year-old female with a history of transient unresponsiveness and single episode of seizure activity in the past, now being treated for seizure disorder. 2. Chronic psychiatric disorder, maintained on Depakote and Abilify as well as Ativan. 3. Transient elevation of ammonia level with normal liver function. 4. History of gastroesophageal reflux disease. 5. Abnormal gait, multifactorial. 6. History of hypertension. RECOMMENDATIONS: Elevation of ammonia may relate to use of Depakote although at this time, ammonia back to normal to 29 and liver function is normal. I feel the patient will need a periodic monitoring of liver enzymes at least once in 3 months given that she is on Depakote. The patient with exacerbation of underlying psychiatric disorder, which is addressed by Psychiatry. Get PT/OT. Start mobility protocol. Evaluate reason for poor ambulation including x-rays of the hips and knees. Thank you for allowing me to see this interesting patient in neurological consultation. Mamadou Tobias M.D. DR: EDWARD JOB#: [id number] CC:
[2017-03-22 04:00] VITALS: BP 149/72
[2017-03-22] MEDS: LORazepam Inj 2mg/ml 1ml IV PRN ×3 (04:35→20:46)
[2017-03-22 07:49] LABS: BASOPHILS % (AUTO) 1.5 % (0.0-2.0); EOSINOPHILS % (AUTO) 0.7 % (0.0-3.0); LYMPHOCYTES % (AUTO) 50.3 % (20.0-45.0); MEAN CORPUSCULAR HEMOGLOBIN 29.2 PG (27.0-31.0); MEAN CORPUSCULAR HGB CONC 31.1 G/DL (32.0-36.0); MEAN CORPUSCULAR VOLUME 94 FL (80-99); MEAN PLATELET VOLUME 9.8 FL (6.5-10.1); MONOCYTES % (AUTO) 4.1 % (1.0-10.0); NEUTROPHILS % (AUTO) 43.5 % (45.0-75.0); PLATELET COUNT 150 K/UL (150-450); RED BLOOD COUNT 4.84 M/UL (4.20-5.40); RED CELL DISTRIBUTION WIDTH 14.2 % (11.6-14.8); WHITE BLOOD COUNT 6.2 K/UL (4.8-10.8)
[2017-03-22 07:58] LABS: ANION GAP 4 mmol/L (5-15); CALCIUM 9.7 MG/DL (8.5-10.1); CARBON DIOXIDE 33 MMOL/L (21-32); CHLORIDE 102 MMOL/L (98-107); CREATININE 0.7 MG/DL (0.55-1.30); POTASSIUM 3.4 MMOL/L (3.5-5.1); SODIUM 139 MMOL/L (136-145)
[2017-03-22 08:00] VITALS: BP 135/56
[2017-03-22] MEDS: ARIPiprazole 10mg tab ORAL SCH (08:36)
[2017-03-22] MEDS: Heparin 5000 units/ml inj SUBQ SCH ×2 (08:37→20:43)
--- NOTE | 2017-03-22 09:00 | General Progress Note ---
Assessment/Plan Problem List: (1) UTI (urinary tract infection) ICD Codes: N39.0 - Urinary tract infection, site not specified SNOMED: 26474613 (2) Confused ICD Codes: R41.0 - Disorientation, unspecified SNOMED: 889061679 (3) HTN (hypertension) ICD Codes: I10 - HTN (hypertension) SNOMED: 44076808 (4) Epileptic seizure, generalized ICD Codes: G40.909 - Epilepsy, unspecified, not intractable, without status epilepticus SNOMED: 71585854 (5) Acute encephalopathy ICD Codes: G93.40 - Encephalopathy, unspecified SNOMED: 4976986 Status: stable, progressing, tolerating diet Assessment/Plan ot pt diet abx cbc bmp am neuro psyc f/u Subjective Constitutional: Reports: weakness Allergies: Coded Allergies: BENZOCAINE (Unverified Allergy, Unknown, 07/21/14) PENICILLINS (Unverified Allergy, Unknown, 07/21/14) QUETIAPINE (Unverified Allergy, Unknown, 07/21/14) All Systems: reviewed and negative except above Subjective confused sleepy Objective Last 24 Hour Vital Signs Date Time Temp Pulse Resp B/P (MAP) Pulse Ox O2 Delivery O2 Flow Rate FiO2 03/22/17 08:36 79 135/56 03/22/17 08:00 97.7 79 19 135/56 95 Room Air 03/22/17 04:00 98.2 65 18 149/72 96 Room Air 03/21/17 23:43 97.9 75 20 148/75 95 Room Air 03/21/17 19:45 98.1 63 20 114/52 91 Room Air 03/21/17 16:55 96.8 78 20 132/52 98 03/21/17 12:00 Room Air 03/21/17 12:00 97.9 20 18 138/70 94 Laboratory Tests 03/22/17 05:40: White Blood Count 6.2, Red Blood Count 4.84, Hemoglobin 14.2, Hematocrit 45.6, Mean Corpuscular Volume 94, Mean Corpuscular Hemoglobin 29.2, Mean Corpuscular Hemoglobin Concent 31.1L, Red Cell Distribution Width 14.2, Platelet Count 150, Mean Platelet Volume 9.8, Neutrophils (%) (Auto) 43.5L, Lymphocytes (%) (Auto) 50.3H, Monocytes (%) (Auto) 4.1, Eosinophils (%) (Auto) 0.7, Basophils (%) (Auto ) 1.5, Sodium Level 139, Potassium Level 3.4L, Chloride Level 102, Carbon Dioxide Level 33H, Anion Gap 4L, Blood Urea Nitrogen 21H, Creatinine 0.7, Estimat Glomerular Filtration Rate , Glucose Level 159H, Calcium Level 9.7 Height (Feet): 5 Height (Inches): 6.00 Weight (Pounds): 141 General Appearance: lethargic, confused EENT: normal ENT inspection Neck: normal alignment Cardiovascular: normal peripheral pulses, normal rate, regular rhythm Respiratory/Chest: chest wall non-tender, lungs clear, normal breath sounds Abdomen: normal bowel sounds, non tender, soft Extremities: normal inspection Edema: no edema noted Arm (L), no edema noted Arm (R), no edema noted Leg (L), no edema noted Leg (R), no edema noted Pedal (L), no edema noted Pedal (R), no edema noted Generalized Neurologic: motor weakness Skin: normal pigmentation, warm/dry YVES AYOUB Mar 22, 2017 08:59
--- NOTE | 2017-03-22 11:12 | Infectious Diseases Prog Note ---
Assessment/Plan Assessment/Plan antibiotics : none A 1. encephalopathy improving 2. seizures 3. DM 4. HTN 5. schizophrenia P 1. continue off antibiotics Subjective Constitutional: Denies: fever, chills Respiratory: Denies: shortness of breath, dry cough Gastrointestinal/Abdominal: Denies: nausea, vomiting, diarrhea Musculoskeletal: Reports: pain Allergies: Coded Allergies: BENZOCAINE (Unverified Allergy, Unknown, 07/21/14) PENICILLINS (Unverified Allergy, Unknown, 07/21/14) QUETIAPINE (Unverified Allergy, Unknown, 07/21/14) Objective Vital Signs Last 24 Hour Vital Signs Date Time Temp Pulse Resp B/P (MAP) Pulse Ox O2 Delivery O2 Flow Rate FiO2 03/22/17 08:36 79 135/56 03/22/17 08:00 Room Air 03/22/17 08:00 97.7 79 19 135/56 95 Room Air 03/22/17 04:00 98.2 65 18 149/72 96 Room Air 03/21/17 23:43 97.9 75 20 148/75 95 Room Air 03/21/17 19:45 98.1 63 20 114/52 91 Room Air 03/21/17 16:55 96.8 78 20 132/52 98 03/21/17 12:00 Room Air 03/21/17 12:00 97.9 20 18 138/70 94 Height (Feet): 5 Height (Inches): 6.00 Weight (Pounds): 141 Respiratory/Chest: lungs clear Cardiovascular: normal rate, regular rhythm, no gallop/murmur Abdomen: soft, non tender Extremities: no edema Microbiology Date/Time Source Procedure Growth Status 03/20/17 16:40 Blood Blood Culture - Preliminary NO GROWTH AFTER 24 HOURS Resulted 03/20/17 16:30 Blood Blood Culture - Preliminary NO GROWTH AFTER 24 HOURS Resulted 03/20/17 17:26 Nasal Nares MRSA Culture - Final NO METHICILLIN RESISTANT STAPH AUREUS... Complete Laboratory Tests Test 03/22/17 05:40 White Blood Count 6.2 K/UL (4.8-10.8) Red Blood Count 4.84 M/UL (4.20-5.40) Hemoglobin 14.2 G/DL (12.0-16.0) Hematocrit 45.6 % (37.0-47.0) Mean Corpuscular Volume 94 FL (80-99) Mean Corpuscular Hemoglobin 29.2 PG (27.0-31.0) Mean Corpuscular Hemoglobin Concent 31.1 G/DL (32.0-36.0) L Red Cell Distribution Width 14.2 % (11.6-14.8) Platelet Count 150 K/UL (150-450) Mean Platelet Volume 9.8 FL (6.5-10.1) Neutrophils (%) (Auto) 43.5 % (45.0-75.0) L Lymphocytes (%) (Auto) 50.3 % (20.0-45.0) H Monocytes (%) (Auto) 4.1 % (1.0-10.0) Eosinophils (%) (Auto) 0.7 % (0.0-3.0) Basophils (%) (Auto) 1.5 % (0.0-2.0) Sodium Level 139 MMOL/L (136-145) Potassium Level 3.4 MMOL/L (3.5-5.1) L Chloride Level 102 MMOL/L (98-107) Carbon Dioxide Level 33 MMOL/L (21-32) H Anion Gap 4 mmol/L (5-15) L Blood Urea Nitrogen 21 mg/dL (7-18) H Creatinine 0.7 MG/DL (0.55-1.30) Estimat Glomerular Filtration Rate mL/min (>60) Glucose Level 159 MG/DL (74-106) H Calcium Level 9.7 MG/DL (8.5-10.1) DENISE MEDINA Mar 22, 2017 11:12
[2017-03-22 12:00] VITALS: BP 132/73
--- NOTE | 2017-03-22 13:58 | Pulmonology Progress Note ---
Assessment/Plan Assessment/Plan ASSESSMENT acute toxic metabolic encephalopathy -resolving seizure disorder schizophrenia HTN DM possible malnutrition GERD abnormal gait PLAN OF CARE MS floor IVF BP management with CCB and optimize further as needed DVT prophylaxis pain management seizure precautions, continue Depakote ( level ok) continue with Abilify ammonia level wnl neuro eval appreciated PT/OT eval and Rx psych eval appreciated, psych meds as per psych dietary eval X ray knee additional K case discussed and evaluated by supervising physician Subjective Allergies: Coded Allergies: BENZOCAINE (Unverified Allergy, Unknown, 07/21/14) PENICILLINS (Unverified Allergy, Unknown, 07/21/14) QUETIAPINE (Unverified Allergy, Unknown, 07/21/14) Subjective no CP, no SOB no seizure activity afebrile, no leukocytosis reports doing better Objective Last 24 Hour Vital Signs Date Time Temp Pulse Resp B/P (MAP) Pulse Ox O2 Delivery O2 Flow Rate FiO2 03/22/17 12:00 97.7 72 18 132/73 95 Room Air 03/22/17 08:36 79 135/56 03/22/17 08:00 Room Air 03/22/17 08:00 97.7 79 19 135/56 95 Room Air 03/22/17 04:00 98.2 65 18 149/72 96 Room Air 03/21/17 23:43 97.9 75 20 148/75 95 Room Air 03/21/17 19:45 98.1 63 20 114/52 91 Room Air 03/21/17 16:55 96.8 78 20 132/52 98 Objective General Appearance: WD/WN, no acute distress HEENT: normocephalic, atraumatic, anicteric, mucous membranes moist Respiratory/Chest: lungs clear, no respiratory distress, no accessory muscle use Cardiovascular: normal peripheral pulses, normal rate, regular rhythm, no JVD Abdomen: normal bowel sounds, soft, non tender, non distended Extremities: no edema, pedal pulses normal Neurologic/Psychiatric: abnormal gait, alert, responsive Musculoskeletal: atrophy - BLE Microbiology Date/Time Source Procedure Growth Status 03/20/17 16:40 Blood Blood Culture - Preliminary NO GROWTH AFTER 24 HOURS Resulted 03/20/17 16:30 Blood Blood Culture - Preliminary NO GROWTH AFTER 24 HOURS Resulted 03/20/17 17:26 Nasal Nares MRSA Culture - Final NO METHICILLIN RESISTANT STAPH AUREUS... Complete Laboratory Tests 03/22/17 05:40: White Blood Count 6.2, Red Blood Count 4.84, Hemoglobin 14.2, Hematocrit 45.6, Mean Corpuscular Volume 94, Mean Corpuscular Hemoglobin 29.2, Mean Corpuscular Hemoglobin Concent 31.1L, Red Cell Distribution Width 14.2, Platelet Count 150, Mean Platelet Volume 9.8, Neutrophils (%) (Auto) 43.5L, Lymphocytes (%) (Auto) 50.3H, Monocytes (%) (Auto) 4.1, Eosinophils (%) (Auto) 0.7, Basophils (%) (Auto ) 1.5, Sodium Level 139, Potassium Level 3.4L, Chloride Level 102, Carbon Dioxide Level 33H, Anion Gap 4L, Blood Urea Nitrogen 21H, Creatinine 0.7, Estimat Glomerular Filtration Rate , Glucose Level 159H, Calcium Level 9.7 Current Medications Medications (Trade) Dose Ordered Sig/Desire Route PRN Reason Start Time Stop Time Status Last Admin Dose Admin Acetaminophen (Tylenol) 650 mg Q4H PRN ORAL Mild Pain/Temp > 100.5 03/21/17 12:00 04/20/17 11:59 03/22/17 01:26 Amlodipine Besylate (Norvasc) 10 mg DAILY ORAL 03/21/17 09:00 04/20/17 08:59 03/22/17 08:36 Aripiprazole (Abilify) 20 mg DAILY ORAL 03/21/17 09:00 04/20/17 08:59 03/22/17 08:36 Dextrose (Dextrose 50%) STAT PRN IV Hypoglycemia 03/20/17 17:00 04/19/17 16:59 Heparin Sodium (Porcine) (Heparin 5000 units/ml) 5,000 units EVERY 12 HOURS SUBQ 03/20/17 21:00 04/19/17 20:59 03/22/17 08:37 Lorazepam (Ativan 2mg/ml 1ml) 0.5 mg Q4H PRN IV For Anxiety 03/20/17 17:00 03/27/17 16:59 03/22/17 10:49 Morphine Sulfate (Morphine Sulfate) 1 mg Q4H PRN IVP For Pain 03/20/17 17:00 03/27/17 16:59 03/22/17 13:17 Ondansetron HCl (Zofran) 4 mg Q6H PRN IVP Nausea & Vomiting 03/20/17 17:00 04/19/17 16:59 Valproic Acid (Depakene) 1,000 mg Q12HR ORAL 03/21/17 21:00 04/20/17 20:59 03/22/17 08:36 [facility]kinsG[facility] HospitalMadeleine Davidson NP Mar 22, 2017 13:58
[2017-03-22] MEDS ORDERED: D5NS 1000ml IV ONE (15:33)
[2017-03-22] MEDS ORDERED: D5 1/2NS 1000ml IV ONE (15:33)
[2017-03-22 16:00] VITALS: BP 130/59
--- NOTE | 2017-03-22 18:29 | Cardiology Report ---
APPROVED REPORT EKG Measurement Heart [id number] Normal sinus rhythm Normal ECG
[2017-03-22 19:45] VITALS: BP 111/72
[2017-03-22 23:43] VITALS: BP 137/67
[2017-03-23 04:00] VITALS: BP 132/89
[2017-03-23 07:51] LABS: LYMPHOCYTES % (AUTO) 36.1 % (20.0-45.0); MEAN CORPUSCULAR HEMOGLOBIN 30.6 PG (27.0-31.0); MEAN CORPUSCULAR HGB CONC 32.3 G/DL (32.0-36.0); MEAN CORPUSCULAR VOLUME 95 FL (80-99); MEAN PLATELET VOLUME 7.3 FL (6.5-10.1); MONOCYTES % (AUTO) 6.8 % (1.0-10.0); PLATELET COUNT 132 K/UL (150-450); RED BLOOD COUNT 4.45 M/UL (4.20-5.40); RED CELL DISTRIBUTION WIDTH 14.2 % (11.6-14.8); WHITE BLOOD COUNT 5.2 K/UL (4.8-10.8)
[2017-03-23 08:11] LABS: ANION GAP 6 mmol/L (5-15); CALCIUM 9.3 MG/DL (8.5-10.1); CARBON DIOXIDE 28 MMOL/L (21-32); CHLORIDE 105 MMOL/L (98-107); CREATININE 0.6 MG/DL (0.55-1.30); POTASSIUM 3.8 MMOL/L (3.5-5.1); SODIUM 139 MMOL/L (136-145)
--- NOTE | 2017-03-23 08:22 | General Progress Note ---
Assessment/Plan Problem List: (1) UTI (urinary tract infection) ICD Codes: N39.0 - Urinary tract infection, site not specified SNOMED: 62783534 (2) Confused ICD Codes: R41.0 - Disorientation, unspecified SNOMED: 289690846 (3) HTN (hypertension) ICD Codes: I10 - HTN (hypertension) SNOMED: 98280336 (4) Epileptic seizure, generalized ICD Codes: G40.909 - Epilepsy, unspecified, not intractable, without status epilepticus SNOMED: 72025875 (5) Acute encephalopathy ICD Codes: G93.40 - Encephalopathy, unspecified SNOMED: 2722105 Status: stable, progressing, tolerating diet Assessment/Plan ot pt diet abx cbc bmp am neuro psyc f/u dc plan Subjective Constitutional: Reports: weakness Allergies: Coded Allergies: BENZOCAINE (Unverified Allergy, Unknown, 07/21/14) PENICILLINS (Unverified Allergy, Unknown, 07/21/14) QUETIAPINE (Unverified Allergy, Unknown, 07/21/14) All Systems: reviewed and negative except above Subjective confused sleepy Objective Last 24 Hour Vital Signs Date Time Temp Pulse Resp B/P (MAP) Pulse Ox O2 Delivery O2 Flow Rate FiO2 03/23/17 04:00 97.5 78 20 132/89 98 03/22/17 23:43 97.5 79 20 137/67 95 Room Air 03/22/17 20:00 Room Air 03/22/17 19:45 96.4 68 20 111/72 93 Room Air 03/22/17 16:00 98.1 70 20 130/59 95 Room Air 03/22/17 12:00 97.7 72 18 132/73 95 Room Air 03/22/17 12:00 Room Air 03/22/17 08:36 79 135/56 Laboratory Tests 03/23/17 06:15: White Blood Count 5.2, Red Blood Count 4.45, Hemoglobin 13.6, Hematocrit 42.1, Mean Corpuscular Volume 95, Mean Corpuscular Hemoglobin 30.6, Mean Corpuscular Hemoglobin Concent 32.3, Red Cell Distribution Width 14.2, Platelet Count 132L, Mean Platelet Volume 7.3, Neutrophils (%) (Auto) 55.0, Lymphocytes (%) (Auto) 36.1, Monocytes (%) (Auto) 6.8, Eosinophils (%) (Auto) 1.0, Basophils (%) (Auto ) 1.0, Sodium Level 139, Potassium Level 3.8, Chloride Level 105, Carbon Dioxide Level 28, Anion Gap 6, Blood Urea Nitrogen 29H, Creatinine 0.6, Estimat Glomerular Filtration Rate , Glucose Level 91, Calcium Level 9.3 Height (Feet): 5 Height (Inches): 6.00 Weight (Pounds): 141 General Appearance: lethargic, confused EENT: normal ENT inspection Neck: normal alignment Cardiovascular: normal peripheral pulses, normal rate, regular rhythm Respiratory/Chest: chest wall non-tender, lungs clear, normal breath sounds Abdomen: normal bowel sounds, non tender, soft Extremities: normal inspection Edema: no edema noted Arm (L), no edema noted Arm (R), no edema noted Leg (L), no edema noted Leg (R), no edema noted Pedal (L), no edema noted Pedal (R), no edema noted Generalized Neurologic: motor weakness Skin: normal pigmentation, warm/dry YVES AYOUB Mar 23, 2017 08:22
[2017-03-23] MEDS: ARIPiprazole 10mg tab ORAL SCH (08:43)
[2017-03-23] MEDS: Heparin 5000 units/ml inj SUBQ SCH ×2 (08:44→20:07)
[2017-03-23 08:47] VITALS: BP 132/67
--- NOTE | 2017-03-23 10:02 | Infectious Diseases Prog Note ---
Assessment/Plan Assessment/Plan A 1. encephalopathy improving 2. seizures 3. DM 4. HTN 5. schizophrenia P 1. continue off antibiotics Subjective ROS Limited/Unobtainable: No Constitutional: Reports: no symptoms Respiratory: Reports: no symptoms Gastrointestinal/Abdominal: Reports: no symptoms Genitourinary: Reports: no symptoms Musculoskeletal: Reports: pain Allergies: Coded Allergies: BENZOCAINE (Unverified Allergy, Unknown, 07/21/14) PENICILLINS (Unverified Allergy, Unknown, 07/21/14) QUETIAPINE (Unverified Allergy, Unknown, 07/21/14) Objective Vital Signs Last 24 Hour Vital Signs Date Time Temp Pulse Resp B/P (MAP) Pulse Ox O2 Delivery O2 Flow Rate FiO2 03/23/17 08:47 97.7 75 18 132/67 97 Room Air 03/23/17 08:43 75 132/67 03/23/17 04:00 97.5 78 20 132/89 98 03/22/17 23:43 97.5 79 20 137/67 95 Room Air 03/22/17 20:00 Room Air 03/22/17 19:45 96.4 68 20 111/72 93 Room Air 03/22/17 16:00 98.1 70 20 130/59 95 Room Air 03/22/17 12:00 97.7 72 18 132/73 95 Room Air 03/22/17 12:00 Room Air Height (Feet): 5 Height (Inches): 6.00 Weight (Pounds): 141 General Appearance: no acute distress HEENT: mucous membranes moist Respiratory/Chest: lungs clear Cardiovascular: normal rate Abdomen: soft, non tender Extremities: no edema Neurologic/Psychiatric: alert, oriented x 3, responsive Microbiology Date/Time Source Procedure Growth Status 03/20/17 16:40 Blood Blood Culture - Preliminary NO GROWTH AFTER 48 HOURS Resulted 03/20/17 16:30 Blood Blood Culture - Preliminary NO GROWTH AFTER 48 HOURS Resulted 03/20/17 17:26 Nasal Nares MRSA Culture - Final NO METHICILLIN RESISTANT STAPH AUREUS... Complete 03/20/17 17:26 Rectum VRE Culture - Final NO VANCOMYCIN RESISTANT ENTEROCOCCUS ... Complete Laboratory Tests Test 03/23/17 06:15 White Blood Count 5.2 K/UL (4.8-10.8) Red Blood Count 4.45 M/UL (4.20-5.40) Hemoglobin 13.6 G/DL (12.0-16.0) Hematocrit 42.1 % (37.0-47.0) Mean Corpuscular Volume 95 FL (80-99) Mean Corpuscular Hemoglobin 30.6 PG (27.0-31.0) Mean Corpuscular Hemoglobin Concent 32.3 G/DL (32.0-36.0) Red Cell Distribution Width 14.2 % (11.6-14.8) Platelet Count 132 K/UL (150-450) L Mean Platelet Volume 7.3 FL (6.5-10.1) Neutrophils (%) (Auto) 55.0 % (45.0-75.0) Lymphocytes (%) (Auto) 36.1 % (20.0-45.0) Monocytes (%) (Auto) 6.8 % (1.0-10.0) Eosinophils (%) (Auto) 1.0 % (0.0-3.0) Basophils (%) (Auto) 1.0 % (0.0-2.0) Sodium Level 139 MMOL/L (136-145) Potassium Level 3.8 MMOL/L (3.5-5.1) Chloride Level 105 MMOL/L (98-107) Carbon Dioxide Level 28 MMOL/L (21-32) Anion Gap 6 mmol/L (5-15) Blood Urea Nitrogen 29 mg/dL (7-18) H Creatinine 0.6 MG/DL (0.55-1.30) Estimat Glomerular Filtration Rate mL/min (>60) Glucose Level 91 MG/DL (74-106) Calcium Level 9.3 MG/DL (8.5-10.1) Current Medications Medications (Trade) Dose Ordered Sig/Desire Route PRN Reason Start Time Stop Time Status Last Admin Dose Admin Acetaminophen (Tylenol) 650 mg Q4H PRN ORAL Mild Pain/Temp > 100.5 03/21/17 12:00 04/20/17 11:59 03/23/17 05:26 Amlodipine Besylate (Norvasc) 10 mg DAILY ORAL 03/21/17 09:00 04/20/17 08:59 03/23/17 08:43 Aripiprazole (Abilify) 20 mg DAILY ORAL 03/21/17 09:00 04/20/17 08:59 03/23/17 08:43 Dextrose (Dextrose 50%) STAT PRN IV Hypoglycemia 03/20/17 17:00 04/19/17 16:59 Heparin Sodium (Porcine) (Heparin 5000 units/ml) 5,000 units EVERY 12 HOURS SUBQ 03/20/17 21:00 04/19/17 20:59 03/23/17 08:44 Lorazepam (Ativan 2mg/ml 1ml) 0.5 mg Q4H PRN IV For Anxiety 03/20/17 17:00 03/27/17 16:59 03/22/17 20:46 Morphine Sulfate (Morphine Sulfate) 1 mg Q4H PRN IVP For Pain 03/20/17 17:00 03/27/17 16:59 03/22/17 13:17 Ondansetron HCl (Zofran) 4 mg Q6H PRN IVP Nausea & Vomiting 03/20/17 17:00 04/19/17 16:59 Valproic Acid (Depakene) 1,000 mg Q12HR ORAL 03/21/17 21:00 04/20/17 20:59 03/23/17 08:43 MARVIN KLINE Mar 23, 2017 10:02
--- NOTE | 2017-03-23 10:56 | Diagnostic Imaging Report ---
Indication: Pain 2 views of the right knee were obtained. Findings: There is joint space narrowing with marginal osteophyte formation and subchondral sclerosis. No acute fracture identified. Vascular calcifications are present. Impression: No acute injury identified
--- NOTE | 2017-03-23 10:56 | Diagnostic Imaging Report ---
Indication: Pain Comparison: None Findings: Two views of the right tibia and fibula were obtained. No acute fracture, malalignment, or periosteal reaction are identified. Bones are osteopenic. Osteoarthritis of the knee noted. Soft tissues are unremarkable. Impression: Negative examination of the tibia and fibula
[2017-03-23 12:00] VITALS: BP 130/61
--- NOTE | 2017-03-23 13:00 | Pulmonology Progress Note ---
Assessment/Plan Assessment/Plan ASSESSMENT acute toxic metabolic encephalopathy -resolving seizure disorder schizophrenia HTN DM possible malnutrition GERD abnormal gait PLAN OF CARE MS floor IVF BP management with CCB and optimize further as needed DVT prophylaxis pain management seizure precautions, continue Depakote ( level ok) continue with Abilify ammonia level wnl neuro eval appreciated PT/OT eval and Rx psych eval appreciated, psych meds as per psych dietary eval X ray knee no acute injury stable for discharge dc plan as per PMD case discussed and evaluated by supervising physician Subjective Allergies: Coded Allergies: BENZOCAINE (Unverified Allergy, Unknown, 07/21/14) PENICILLINS (Unverified Allergy, Unknown, 07/21/14) QUETIAPINE (Unverified Allergy, Unknown, 07/21/14) Subjective no CP, no SOB no seizure activity afebrile, no leukocytosis clinically improving Objective Last 24 Hour Vital Signs Date Time Temp Pulse Resp B/P (MAP) Pulse Ox O2 Delivery O2 Flow Rate FiO2 03/23/17 08:47 97.7 75 18 132/67 97 Room Air 03/23/17 08:43 75 132/67 03/23/17 04:00 97.5 78 20 132/89 98 03/22/17 23:43 97.5 79 20 137/67 95 Room Air 03/22/17 20:00 Room Air 03/22/17 19:45 96.4 68 20 111/72 93 Room Air 03/22/17 16:00 98.1 70 20 130/59 95 Room Air Objective General Appearance: WD/WN, no acute distress HEENT: normocephalic, atraumatic, anicteric, mucous membranes moist Respiratory/Chest: lungs clear, no respiratory distress, no accessory muscle use Cardiovascular: normal peripheral pulses, normal rate, regular rhythm, no JVD Abdomen: normal bowel sounds, soft, non tender, non distended Extremities: no edema, pedal pulses normal Neurologic/Psychiatric: abnormal gait, alert, responsive Musculoskeletal: atrophy - BLE Microbiology Date/Time Source Procedure Growth Status 03/20/17 16:40 Blood Blood Culture - Preliminary NO GROWTH AFTER 48 HOURS Resulted 03/20/17 16:30 Blood Blood Culture - Preliminary NO GROWTH AFTER 48 HOURS Resulted 03/20/17 17:26 Nasal Nares MRSA Culture - Final NO METHICILLIN RESISTANT STAPH AUREUS... Complete 03/20/17 17:26 Rectum VRE Culture - Final NO VANCOMYCIN RESISTANT ENTEROCOCCUS ... Complete Laboratory Tests 03/23/17 06:15: White Blood Count 5.2, Red Blood Count 4.45, Hemoglobin 13.6, Hematocrit 42.1, Mean Corpuscular Volume 95, Mean Corpuscular Hemoglobin 30.6, Mean Corpuscular Hemoglobin Concent 32.3, Red Cell Distribution Width 14.2, Platelet Count 132L, Mean Platelet Volume 7.3, Neutrophils (%) (Auto) 55.0, Lymphocytes (%) (Auto) 36.1, Monocytes (%) (Auto) 6.8, Eosinophils (%) (Auto) 1.0, Basophils (%) (Auto ) 1.0, Sodium Level 139, Potassium Level 3.8, Chloride Level 105, Carbon Dioxide Level 28, Anion Gap 6, Blood Urea Nitrogen 29H, Creatinine 0.6, Estimat Glomerular Filtration Rate , Glucose Level 91, Calcium Level 9.3 Current Medications Medications (Trade) Dose Ordered Sig/Desire Route PRN Reason Start Time Stop Time Status Last Admin Dose Admin Acetaminophen (Tylenol) 650 mg Q4H PRN ORAL Mild Pain/Temp > 100.5 03/21/17 12:00 04/20/17 11:59 03/23/17 05:26 Amlodipine Besylate (Norvasc) 10 mg DAILY ORAL 03/21/17 09:00 04/20/17 08:59 03/23/17 08:43 Aripiprazole (Abilify) 20 mg DAILY ORAL 03/21/17 09:00 04/20/17 08:59 03/23/17 08:43 Dextrose (Dextrose 50%) STAT PRN IV Hypoglycemia 03/20/17 17:00 04/19/17 16:59 Heparin Sodium (Porcine) (Heparin 5000 units/ml) 5,000 units EVERY 12 HOURS SUBQ 03/20/17 21:00 04/19/17 20:59 03/23/17 08:44 Lorazepam (Ativan 2mg/ml 1ml) 0.5 mg Q4H PRN IV For Anxiety 03/20/17 17:00 03/27/17 16:59 03/22/17 20:46 Morphine Sulfate (Morphine Sulfate) 1 mg Q4H PRN IVP For Pain 03/20/17 17:00 03/27/17 16:59 03/22/17 13:17 Ondansetron HCl (Zofran) 4 mg Q6H PRN IVP Nausea & Vomiting 03/20/17 17:00 04/19/17 16:59 Valproic Acid (Depakene) 1,000 mg Q12HR ORAL 03/21/17 21:00 04/20/17 20:59 03/23/17 08:43 [facility]Madeleine Davidson NP Mar 23, 2017 13:00
[2017-03-23] MEDS: LORazepam 0.5mg tab ORAL PRN ×2 (16:03→20:06)
[2017-03-23] MEDS: Norco 5mg/325mg tab ORAL PRN (16:31)
[2017-03-23 16:32] VITALS: BP 128/58
[2017-03-23 20:00] VITALS: BP 121/71
[2017-03-24] VITALS: BP 134/59
[2017-03-24 04:00] VITALS: BP 141/89
[2017-03-24] MEDS: Norco 5mg/325mg tab ORAL PRN (04:27)
[2017-03-24] MEDS: LORazepam 0.5mg tab ORAL PRN ×3 (06:23→15:14)
[2017-03-24 08:00] VITALS: BP 108/55
[2017-03-24 08:15] LABS: BASOPHILS % (AUTO) 0.6 % (0.0-2.0); EOSINOPHILS % (AUTO) 0.8 % (0.0-3.0); LYMPHOCYTES % (AUTO) 43.9 % (20.0-45.0); MEAN CORPUSCULAR HEMOGLOBIN 29.1 PG (27.0-31.0); MEAN CORPUSCULAR HGB CONC 30.9 G/DL (32.0-36.0); MEAN CORPUSCULAR VOLUME 94 FL (80-99); MEAN PLATELET VOLUME 7.4 FL (6.5-10.1); MONOCYTES % (AUTO) 5.5 % (1.0-10.0); NEUTROPHILS % (AUTO) 49.2 % (45.0-75.0); PLATELET COUNT 162 K/UL (150-450); RED BLOOD COUNT 5.08 M/UL (4.20-5.40); RED CELL DISTRIBUTION WIDTH 13.9 % (11.6-14.8)
[2017-03-24 08:25] LABS: ANION GAP 5 mmol/L (5-15); CALCIUM 9.7 MG/DL (8.5-10.1); CARBON DIOXIDE 33 MMOL/L (21-32); CHLORIDE 102 MMOL/L (98-107); CREATININE 0.7 MG/DL (0.55-1.30); POTASSIUM 3.5 MMOL/L (3.5-5.1); SODIUM 140 MMOL/L (136-145)
[2017-03-24] MEDS: ARIPiprazole 10mg tab ORAL SCH (09:02)
[2017-03-24] MEDS: Heparin 5000 units/ml inj SUBQ SCH (09:05)
--- NOTE | 2017-03-24 09:50 | Infectious Diseases Prog Note ---
Assessment/Plan Assessment/Plan A 1. encephalopathy resolved 2. seizures 3. DM 4. HPN 5. schizophrenia P 1. continue off antibiotics Subjective ROS Limited/Unobtainable: No Constitutional: Reports: no symptoms Cardiovascular: Reports: no symptoms Gastrointestinal/Abdominal: Reports: no symptoms Genitourinary: Reports: no symptoms Allergies: Coded Allergies: BENZOCAINE (Unverified Allergy, Unknown, 07/21/14) PENICILLINS (Unverified Allergy, Unknown, 07/21/14) QUETIAPINE (Unverified Allergy, Unknown, 07/21/14) Objective Vital Signs Last 24 Hour Vital Signs Date Time Temp Pulse Resp B/P (MAP) Pulse Ox O2 Delivery O2 Flow Rate FiO2 03/24/17 09:01 68 148/78 03/24/17 08:00 97.2 78 17 108/55 96 Room Air 03/24/17 05:26 97.1 03/24/17 04:00 Room Air 03/24/17 04:00 97.1 74 20 141/89 95 Room Air 03/24/17 00:00 Room Air 03/24/17 00:00 97.3 77 20 134/59 95 Room Air 03/23/17 22:03 97.5 03/23/17 20:00 Room Air 03/23/17 20:00 97.5 76 20 121/71 95 Room Air 03/23/17 16:32 98.6 77 15 128/58 97 Room Air 03/23/17 16:00 Room Air 03/23/17 12:00 Room Air 03/23/17 12:00 97.7 77 18 130/61 97 Room Air Height (Feet): 5 Height (Inches): 6.00 Weight (Pounds): 141 General Appearance: no acute distress HEENT: mucous membranes moist Respiratory/Chest: lungs clear Cardiovascular: normal rate Abdomen: soft, non tender Neurologic/Psychiatric: alert, oriented x 3, responsive Laboratory Tests Test 03/24/17 06:37 White Blood Count 5.0 K/UL (4.8-10.8) Red Blood Count 5.08 M/UL (4.20-5.40) Hemoglobin 14.8 G/DL (12.0-16.0) Hematocrit 47.8 % (37.0-47.0) H Mean Corpuscular Volume 94 FL (80-99) Mean Corpuscular Hemoglobin 29.1 PG (27.0-31.0) Mean Corpuscular Hemoglobin Concent 30.9 G/DL (32.0-36.0) L Red Cell Distribution Width 13.9 % (11.6-14.8) Platelet Count 162 K/UL (150-450) Mean Platelet Volume 7.4 FL (6.5-10.1) Neutrophils (%) (Auto) 49.2 % (45.0-75.0) Lymphocytes (%) (Auto) 43.9 % (20.0-45.0) Monocytes (%) (Auto) 5.5 % (1.0-10.0) Eosinophils (%) (Auto) 0.8 % (0.0-3.0) Basophils (%) (Auto) 0.6 % (0.0-2.0) Sodium Level 140 MMOL/L (136-145) Potassium Level 3.5 MMOL/L (3.5-5.1) Chloride Level 102 MMOL/L (98-107) Carbon Dioxide Level 33 MMOL/L (21-32) H Anion Gap 5 mmol/L (5-15) Blood Urea Nitrogen 27 mg/dL (7-18) H Creatinine 0.7 MG/DL (0.55-1.30) Estimat Glomerular Filtration Rate mL/min (>60) Glucose Level 90 MG/DL (74-106) Calcium Level 9.7 MG/DL (8.5-10.1) Current Medications Medications (Trade) Dose Ordered Sig/Desire Route PRN Reason Start Time Stop Time Status Last Admin Dose Admin Acetaminophen (Tylenol) 650 mg Q4H PRN ORAL Mild Pain/Temp > 100.5 03/21/17 12:00 04/20/17 11:59 03/24/17 09:13 Acetaminophen/ Hydrocodone Bitart ([place] 5/325) 1 tab Q12H PRN ORAL Moderate Pain (Pain Scale 4-6) 03/23/17 16:30 03/30/17 16:29 03/24/17 04:27 Amlodipine Besylate (Norvasc) 10 mg DAILY ORAL 03/21/17 09:00 04/20/17 08:59 03/24/17 09:01 Aripiprazole (Abilify) 20 mg DAILY ORAL 03/21/17 09:00 04/20/17 08:59 03/24/17 09:02 Dextrose (Dextrose 50%) STAT PRN IV Hypoglycemia 03/20/17 17:00 04/19/17 16:59 Heparin Sodium (Porcine) (Heparin 5000 units/ml) 5,000 units EVERY 12 HOURS SUBQ 03/20/17 21:00 04/19/17 20:59 03/24/17 09:05 Lorazepam (Ativan) 0.5 mg Q4H PRN ORAL For Anxiety 03/23/17 16:00 03/30/17 15:59 03/24/17 06:23 Morphine Sulfate (Morphine Sulfate) 1 mg Q4H PRN IVP For Pain 03/20/17 17:00 03/27/17 16:59 03/22/17 13:17 Ondansetron HCl (Zofran) 4 mg Q6H PRN IVP Nausea & Vomiting 03/20/17 17:00 04/19/17 16:59 Valproic Acid (Depakene) 1,000 mg Q12HR ORAL 03/21/17 21:00 04/20/17 20:59 03/24/17 09:02 MARVIN KLINE Mar 24, 2017 09:50
[2017-03-24 12:00] VITALS: BP 177/85
--- NOTE | 2017-03-24 13:29 | General Progress Note ---
Assessment/Plan Problem List: (1) UTI (urinary tract infection) ICD Codes: N39.0 - Urinary tract infection, site not specified SNOMED: 69743919 (2) Confused ICD Codes: R41.0 - Disorientation, unspecified SNOMED: 770266039 (3) HTN (hypertension) ICD Codes: I10 - HTN (hypertension) SNOMED: 67217659 (4) Epileptic seizure, generalized ICD Codes: G40.909 - Epilepsy, unspecified, not intractable, without status epilepticus SNOMED: 93496382 (5) Acute encephalopathy ICD Codes: G93.40 - Encephalopathy, unspecified SNOMED: 3900569 Status: stable, progressing, tolerating diet Assessment/Plan ot pt diet abx dc to snf Subjective Constitutional: Reports: weakness Allergies: Coded Allergies: BENZOCAINE (Unverified Allergy, Unknown, 07/21/14) PENICILLINS (Unverified Allergy, Unknown, 07/21/14) QUETIAPINE (Unverified Allergy, Unknown, 07/21/14) All Systems: reviewed and negative except above Subjective sl confused sleepy Objective Last 24 Hour Vital Signs Date Time Temp Pulse Resp B/P (MAP) Pulse Ox O2 Delivery O2 Flow Rate FiO2 03/24/17 12:00 97.0 75 19 177/85 97 Room Air 03/24/17 10:12 97.2 03/24/17 09:01 68 148/78 03/24/17 08:00 97.2 78 17 108/55 96 Room Air 03/24/17 05:26 97.1 03/24/17 04:00 Room Air 03/24/17 04:00 97.1 74 20 141/89 95 Room Air 03/24/17 00:00 Room Air 03/24/17 00:00 97.3 77 20 134/59 95 Room Air 03/23/17 20:00 Room Air 03/23/17 20:00 97.5 76 20 121/71 95 Room Air 03/23/17 16:32 98.6 77 15 128/58 97 Room Air 03/23/17 16:00 Room Air Intake and Output 03/24/17 03/25/17 19:00 07:00 Intake Total 250 ml Balance 250 ml Intake Oral 250 ml # Voids 1 Laboratory Tests 03/24/17 06:37: White Blood Count 5.0, Red Blood Count 5.08, Hemoglobin 14.8, Hematocrit 47.8H, Mean Corpuscular Volume 94, Mean Corpuscular Hemoglobin 29.1, Mean Corpuscular Hemoglobin Concent 30.9L, Red Cell Distribution Width 13.9, Platelet Count 162, Mean Platelet Volume 7.4, Neutrophils (%) (Auto) 49.2, Lymphocytes (%) (Auto) 43.9, Monocytes (%) (Auto) 5.5, Eosinophils (%) (Auto) 0.8, Basophils (%) (Auto ) 0.6, Sodium Level 140, Potassium Level 3.5, Chloride Level 102, Carbon Dioxide Level 33H, Anion Gap 5, Blood Urea Nitrogen 27H, Creatinine 0.7, Estimat Glomerular Filtration Rate , Glucose Level 90, Calcium Level 9.7 Height (Feet): 5 Height (Inches): 6.00 Weight (Pounds): 141 General Appearance: confused EENT: normal ENT inspection Neck: normal alignment Cardiovascular: normal peripheral pulses, normal rate, regular rhythm Respiratory/Chest: chest wall non-tender, lungs clear, normal breath sounds Abdomen: normal bowel sounds, non tender, soft Extremities: normal inspection Edema: no edema noted Arm (L), no edema noted Arm (R), no edema noted Leg (L), no edema noted Leg (R), no edema noted Pedal (L), no edema noted Pedal (R), no edema noted Generalized Neurologic: responsive, motor weakness Skin: normal pigmentation, warm/dry YVES AYOUB Mar 24, 2017 13:29
[2017-03-24] MEDS ORDERED: ALPRAZolam 0.5mg tab ORAL PRN (14:00)
[2017-03-24] MEDS ORDERED: ABILIFY20 MG ORAL (14:58)
[2017-03-24] MEDS ORDERED: ACETAMINOPHEN325 M1 ORAL (14:58)
[2017-03-24] MEDS ORDERED: HYDROCODON-ACE1 EA15 ORAL (14:59)
[2017-03-24] MEDS ORDERED: LORAZEPAM0.5 GM MC (15:00)
[2017-03-24] MEDS ORDERED: VALPROIC A500 MG/10 ORAL (15:02)
[2017-03-24] MEDS ORDERED: ZOFRAN4 M1 ORAL (15:03)
[2017-03-24] MEDS ORDERED: NORVASC10 MG ORAL (15:03)
[2017-03-24] MEDS ORDERED: ALPRAZOLAM2 MG ORAL (15:04)
[2017-03-24] MEDS ORDERED: LORAZEPAM0.5 MG ORAL (15:13)
[2017-03-24] MEDS ORDERED: XANAX2 MG ORAL (15:14)
[2017-03-24] MEDS ORDERED: VALPROIC ACID250 MG PO (15:14)
[2017-03-24 15:25] VITALS: BP 127/57
--- NOTE | 2017-03-24 16:32 | Pulmonology Progress Note ---
Assessment/Plan Problems: (1) Acute encephalopathy (2) HTN (hypertension) (3) UTI (urinary tract infection) Assessment/Plan improving respiratory treatment symptomatic treatment pt/ot dc planning in progress. Subjective ROS Limited/Unobtainable: No Interval Events: no new complains Allergies: Coded Allergies: BENZOCAINE (Unverified Allergy, Unknown, 07/21/14) PENICILLINS (Unverified Allergy, Unknown, 07/21/14) QUETIAPINE (Unverified Allergy, Unknown, 07/21/14) Objective Last 24 Hour Vital Signs Date Time Temp Pulse Resp B/P (MAP) Pulse Ox O2 Delivery O2 Flow Rate FiO2 03/24/17 15:25 73 20 127/57 96 Room Air 03/24/17 12:00 97.0 75 19 177/85 97 Room Air 03/24/17 10:12 97.2 03/24/17 09:01 68 148/78 03/24/17 08:00 97.2 78 17 108/55 96 Room Air 03/24/17 05:26 97.1 03/24/17 04:00 Room Air 03/24/17 04:00 97.1 74 20 141/89 95 Room Air 03/24/17 00:00 Room Air 03/24/17 00:00 97.3 77 20 134/59 95 Room Air 03/23/17 20:00 Room Air 03/23/17 20:00 97.5 76 20 121/71 95 Room Air 03/23/17 16:32 98.6 77 15 128/58 97 Room Air Intake and Output 03/24/17 03/25/17 19:00 07:00 Intake Total 250 ml Balance 250 ml Intake Oral 250 ml # Voids 1 General Appearance: WD/WN, no acute distress HEENT: normocephalic, atraumatic Respiratory/Chest: chest wall non-tender, lungs clear Breasts: no masses Cardiovascular: normal peripheral pulses, normal rate Abdomen: normal bowel sounds, no organomegaly Extremities: no cyanosis, no clubbing Skin: no rash 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 Lymphatic: no neck adenopathy Musculoskeletal: normal muscle bulk Laboratory Tests 03/24/17 06:37: White Blood Count 5.0, Red Blood Count 5.08, Hemoglobin 14.8, Hematocrit 47.8H, Mean Corpuscular Volume 94, Mean Corpuscular Hemoglobin 29.1, Mean Corpuscular Hemoglobin Concent 30.9L, Red Cell Distribution Width 13.9, Platelet Count 162, Mean Platelet Volume 7.4, Neutrophils (%) (Auto) 49.2, Lymphocytes (%) (Auto) 43.9, Monocytes (%) (Auto) 5.5, Eosinophils (%) (Auto) 0.8, Basophils (%) (Auto ) 0.6, Sodium Level 140, Potassium Level 3.5, Chloride Level 102, Carbon Dioxide Level 33H, Anion Gap 5, Blood Urea Nitrogen 27H, Creatinine 0.7, Estimat Glomerular Filtration Rate , Glucose Level 90, Calcium Level 9.7 Current Medications Medications (Trade) Dose Ordered Sig/Desire Route PRN Reason Start Time Stop Time Status Last Admin Dose Admin Acetaminophen (Tylenol) 650 mg Q4H PRN ORAL Mild Pain/Temp > 100.5 03/21/17 12:00 04/20/17 11:59 03/24/17 09:13 Acetaminophen/ Hydrocodone Bitart ([place] 5/325) 1 tab Q12H PRN ORAL Moderate Pain (Pain Scale 4-6) 03/23/17 16:30 03/30/17 16:29 03/24/17 04:27 Alprazolam (Xanax) 2 mg Q6H PRN ORAL For Anxiety 03/24/17 14:00 03/31/17 13:59 UNV Amlodipine Besylate (Norvasc) 10 mg DAILY ORAL 03/21/17 09:00 04/20/17 08:59 03/24/17 09:01 Aripiprazole (Abilify) 20 mg DAILY ORAL 03/21/17 09:00 04/20/17 08:59 03/24/17 09:02 Dextrose (Dextrose 50%) STAT PRN IV Hypoglycemia 03/20/17 17:00 04/19/17 16:59 Heparin Sodium (Porcine) (Heparin 5000 units/ml) 5,000 units EVERY 12 HOURS SUBQ 03/20/17 21:00 04/19/17 20:59 03/24/17 09:05 Lorazepam (Ativan) 0.5 mg Q4H PRN ORAL For Anxiety 03/23/17 16:00 03/30/17 15:59 03/24/17 15:14 Morphine Sulfate (Morphine Sulfate) 1 mg Q4H PRN IVP For Pain 03/20/17 17:00 03/27/17 16:59 03/22/17 13:17 Ondansetron HCl (Zofran) 4 mg Q6H PRN IVP Nausea & Vomiting 03/20/17 17:00 04/19/17 16:59 Valproic Acid (Depakene) 1,000 mg Q12HR ORAL 03/21/17 21:00 04/20/17 20:59 03/24/17 09:02 JANA HENLEY Mar 24, 2017 16:32
--- NOTE | 2017-03-24 23:16 | General Progress Note ---
Assessment/Plan Status: stable Subjective Date patient seen: Mar 24, 2017 Neurologic/Psychiatric: Reports: anxiety Allergies: Coded Allergies: BENZOCAINE (Unverified Allergy, Unknown, 07/21/14) PENICILLINS (Unverified Allergy, Unknown, 07/21/14) QUETIAPINE (Unverified Allergy, Unknown, 07/21/14) Subjective the pt is doing well still responds to internal stimuli Objective Last 24 Hour Vital Signs Date Time Temp Pulse Resp B/P (MAP) Pulse Ox O2 Delivery O2 Flow Rate FiO2 03/24/17 15:25 73 20 127/57 96 Room Air 03/24/17 12:00 97.0 75 19 177/85 97 Room Air 03/24/17 10:12 97.2 03/24/17 09:01 68 148/78 03/24/17 08:00 97.2 78 17 108/55 96 Room Air 03/24/17 05:26 97.1 03/24/17 04:00 Room Air 03/24/17 04:00 97.1 74 20 141/89 95 Room Air 03/24/17 00:00 Room Air 03/24/17 00:00 97.3 77 20 134/59 95 Room Air Intake and Output 03/24/17 03/25/17 19:00 07:00 Intake Total 250 ml Balance 250 ml Intake Oral 250 ml # Voids 1 Laboratory Tests 03/24/17 06:37: White Blood Count 5.0, Red Blood Count 5.08, Hemoglobin 14.8, Hematocrit 47.8H, Mean Corpuscular Volume 94, Mean Corpuscular Hemoglobin 29.1, Mean Corpuscular Hemoglobin Concent 30.9L, Red Cell Distribution Width 13.9, Platelet Count 162, Mean Platelet Volume 7.4, Neutrophils (%) (Auto) 49.2, Lymphocytes (%) (Auto) 43.9, Monocytes (%) (Auto) 5.5, Eosinophils (%) (Auto) 0.8, Basophils (%) (Auto ) 0.6, Sodium Level 140, Potassium Level 3.5, Chloride Level 102, Carbon Dioxide Level 33H, Anion Gap 5, Blood Urea Nitrogen 27H, Creatinine 0.7, Estimat Glomerular Filtration Rate , Glucose Level 90, Calcium Level 9.7 Height (Feet): 5 Height (Inches): 6.00 Weight (Pounds): 141 General Appearance: WD/WN, no apparent distress, alert Neurologic: alert, oriented x 3, responsive Tavia Schwab M.D. Mar 24, 2017 23:16
--- NOTE | 2017-03-24 23:17 | Geriatric Progress Note ---
Assessment/Plan Discussed with: patient Subjective Interval Events 03/23/17 Mood/Memory: Reports: prior hx, anxiety, depressed feelings Psychiatric: Reports: hallucinations Geriatric Geriatric Last 24 Hour Vital Signs Date Time Temp Pulse Resp B/P (MAP) Pulse Ox O2 Delivery O2 Flow Rate FiO2 03/24/17 15:25 73 20 127/57 96 Room Air 03/24/17 12:00 97.0 75 19 177/85 97 Room Air 03/24/17 10:12 97.2 03/24/17 09:01 68 148/78 03/24/17 08:00 97.2 78 17 108/55 96 Room Air 03/24/17 05:26 97.1 03/24/17 04:00 Room Air 03/24/17 04:00 97.1 74 20 141/89 95 Room Air 03/24/17 00:00 Room Air 03/24/17 00:00 97.3 77 20 134/59 95 Room Air Intake and Output 03/24/17 03/25/17 19:00 07:00 Intake Total 250 ml Balance 250 ml Intake Oral 250 ml # Voids 1 Laboratory Tests Test 03/24/17 06:37 White Blood Count 5.0 K/UL (4.8-10.8) Red Blood Count 5.08 M/UL (4.20-5.40) Hemoglobin 14.8 G/DL (12.0-16.0) Hematocrit 47.8 % (37.0-47.0) H Mean Corpuscular Volume 94 FL (80-99) Mean Corpuscular Hemoglobin 29.1 PG (27.0-31.0) Mean Corpuscular Hemoglobin Concent 30.9 G/DL (32.0-36.0) L Red Cell Distribution Width 13.9 % (11.6-14.8) Platelet Count 162 K/UL (150-450) Mean Platelet Volume 7.4 FL (6.5-10.1) Neutrophils (%) (Auto) 49.2 % (45.0-75.0) Lymphocytes (%) (Auto) 43.9 % (20.0-45.0) Monocytes (%) (Auto) 5.5 % (1.0-10.0) Eosinophils (%) (Auto) 0.8 % (0.0-3.0) Basophils (%) (Auto) 0.6 % (0.0-2.0) Sodium Level 140 MMOL/L (136-145) Potassium Level 3.5 MMOL/L (3.5-5.1) Chloride Level 102 MMOL/L (98-107) Carbon Dioxide Level 33 MMOL/L (21-32) H Anion Gap 5 mmol/L (5-15) Blood Urea Nitrogen 27 mg/dL (7-18) H Creatinine 0.7 MG/DL (0.55-1.30) Estimat Glomerular Filtration Rate mL/min (>60) Glucose Level 90 MG/DL (74-106) Calcium Level 9.7 MG/DL (8.5-10.1) Height (Feet): 5 Height (Inches): 6.00 Weight (Pounds): 141 Psychiatric Orientation: person, place, time Tavia Schwab M.D. Mar 24, 2017 23:16
--- NOTE | 2017-03-25 07:46 | Consultation ---
DATE OF CONSULTATION: 03/24/2017 NOTE: POOR AUDIO QUALITY. CONSULTING PHYSICIAN: Griffin Hassan M.D. REFERRING PHYSICIAN: Maninder Ramsey D.O. HISTORY OF PRESENT ILLNESS: The patient is a 72-year-old female patient with altered mental status. This patient came to the hospital transferred from the facility to the custodial from the [facility]. She got extreme mood lability and agitation diagnosed with bipolar 2. Psychiatric consultation was requested by primary physician. ALLERGIES: Penicillin and Seroquel. PSYCHIATRIC HISTORY: Bipolar 2 with multiple psychiatric admissions. SUBSTANCE ABUSE HISTORY: Denies drug or alcohol use. MENTAL STATUS EXAMINATION: This is a 72-year-old with psychomotor agitation. Mood is irritable and agitated. Affect is labile . Mood depressed and anxious. . Orientation x3. Speech is pressured. Thought process disorganized and illogical. Thought content, she has some paranoid delusion. Insight and judgment is poor. DIAGNOSIS: Schizoaffective, bipolar type. PLAN: My plan is to treat her with 1000 mg twice a day. Also, I am going to discontinue her Ativan and change her to Xanax 2 mg q.6 h. as needed. Chart reviewed. Discussed with staff. Seen and assessed at bedside. I would like to thank Dr. Maninder Ramsey for this interesting consultation. Griffin Hassan M.D. DR: GJ/V JOB#: [id number] CC:
--- NOTE | 2017-03-26 02:45 | Consultation ---
DATE OF CONSULTATION: 03/24/2017 PSYCHOTHERAPY CONSULTATION PROGRESS NOTE CONSULTING PHYSICIAN: Jae Plaza M.D. TREATING ATTENDING PHYSICIAN: Maninder Ramsey D.O. HISTORY OF PRESENT ILLNESS: This patient is a 72-year-old female patient from [facility]. The patient was brought to the hospital for altered mental status. The patient has been confused and agitated. The patient has also been very aggressive and has had poor frustration tolerance. The patient is unable to care for her basic needs. She has had increased agitation, irritability, threatening harm towards others. The patient has been unstable with mood. She has a history of schizoaffective disorder. PAST MEDICAL HISTORY: Includes a history of seizure, encephalopathy, and hypertension. ALLERGIES: The patient is allergic to benzocaine, penicillin, and quetiapine. SUBSTANCE HISTORY: The patient denies history of alcohol use, illicit substance use, or smoking cigarettes. PSYCHIATRIC HISTORY: The patient has a history of possible bipolar disorder, rule out schizoaffective disorder. The patient has been treated with psychotropic medications in the past. SOCIAL HISTORY: The patient is a 72-year-old female patient from [facility]. The patient is financially sustained through [employer]. MENTAL STATUS EXAMINATION: The patient is alert and oriented x2, person and place. Mood is irritable. Affect is congruent. Thought process is disorganized. Thought content is confused. The patient has poor attention and concentration. Poor insight, judgment, and impulse control. The patient states that she has been feeling very agitated, does not know why. The patient states she wants to go home. She has no logical or viable plan for her self-care or her safety at this time. DIAGNOSIS: Schizoaffective disorder, bipolar type. ASSESSMENT AND PLAN: This clinician assessed the patient, assessed the patient's mental status. , addressed the patient's agitation, irritability, and poor frustration tolerance. Provided the patient with reality orientation and supportive psychotherapy. Encouraging the patient to articulate any instructions with communication skills. Continue with behavioral management. This clinician has reviewed the patient's chart and discussed the treatment with treatment team. Jae Plaza PsyD. DR: JESSY JOB#: [id number] CC:
--- NOTE | 2017-03-26 12:50 | Discharge Summary ---
Discharge Summary Hospital Course Date of Admission Mar 20, 2017 at 16:32 Date of Discharge Mar 24, 2017 at 17:43 Admitting Diagnosis ALT MENTAL STATUS HPI Cindy Luis is a 72 year old female who was admitted on Mar 20, 2017 at 16:32 for Altered Mental Status Hospital Course dc summary #[id number] Discharge Medications Continued Medications: Acetaminophen* (Acetaminophen 325MG Tablet*) 325 Mg Tablet 650 MG ORAL Q4H PRN for Fever/Headache/Mild Pain, TAB Alprazolam* (Xanax*) 2 Mg Tablet 2 MG ORAL Q6HR, #30 TAB 0 Refills Amlodipine Besylate (Norvasc) 10 Mg Tablet 10 MG ORAL DAILY, TAB Aripiprazole* (Abilify*) 20 Mg Tablet 20 MG ORAL HS, TAB Hydrocodone/Acetaminophen 5-325* (Hydrocodone/Acetaminophen 5-325*) 1 Each Tablet 1 TAB ORAL Q12HR PRN for For Pain, #30 TAB 0 Refills Lorazepam* (Lorazepam*) 0.5 Mg Tablet 0.5 MG ORAL Q4HR, TAB Ondansetron (Zofran) 4 Mg Tablet 4 MG ORAL Q6H PRN for Nausea & Vomiting, TAB Valproic Acid (Valproic Acid) 250 Mg Capsule 1000 MG PO Q12HR, CAP Discharge Condition Upon Discharge: stable Discharge Disposition Patient was discharged to SNF/Subacute Facility(03) Discharge Diagnoses: Kishan (Soren)Madeleine NP Mar 26, 2017 12:50
--- NOTE | 2017-03-27 02:15 | Discharge Summary 2 SIG ---
DATE OF ADMISSION: 03/20/2017 DATE OF DISCHARGE: 03/24/2017 REASON FOR ADMISSION: 72-year-old female, resident of long-term facility with history of schizophrenia and seizure disorder presented with altered mental status. snf reported high ammonia level -72. There was no known history of liver disease. No history of alcohol abuse. The patient also with a history of hypertension, diabetes, and GERD. Vital signs were stable. The patient appeared to be awake, alert, and oriented, but confused. No neurological signs. No gross focal. CT of the head was not performed. Accu-Chek was within normal limits. EKG revealed normal sinus rhythm. No PVC. No ectopy. No ischemic changes. Chest x-ray revealed borderline cardiomegaly with elevation of right hemidiaphragm. No acute cardiopulmonary pathology. No leukocytosis. Stable hemoglobin and hematocrit. Stable electrolytes. Lactic acid within normal limits. Troponin was negative. Depakote level - 69, within normal limits. Ammonia level -29, within normal limits. Urinalysis revealed +1 leukocyte esterase, but few bacteria and normal WBC. The patient was admitted with acute encephalopathy. HOSPITAL COURSE: The patient was admitted to Med/Surg floor. Neurology, ID, and psych consults were requested. Per neurologist, the patient had a history of transient unresponsiveness and single episode of seizure disorder in the past. She currently was treated for seizure disorder with Depakote and Keppra. Patient with evidence of chronic psychiatric disorder, was on Depakote and Abilify at home. Transient elevation of ammonia,resolved, normal liver function. According to neurologist, elevation of ammonia might have been related to use of Depakote, but at this time ammonia already back to normal and liver function within normal limits. Recommended periodic monitoring of liver enzyme every 3 months given that patient taking Depakote. The patient had exacerbation of underlying psychiatric disorder. Psychiatry evaluation was requested. The patient was diagnosed with schizoaffective disorder and psychiatric medication regimen was optimized. Neurologist also recommended to start mobility protocol and PT and OT evaluation. X-ray of the hip and knee revealed no evidence of acute bony injury. The patient was working with physical and occupational therapists. ID followed the patient, but no evidence of infection. The patient was kept off antibiotic and remained stable. Blood sugar was managed with sliding scale of insulin and was stable. Blood pressure was managed with calcium channel christopher and was stable. DVT prophylaxis provided. Initially patient was on IV fluids. Pain management provided. Seizure precautions were maintained. The patient was continued on Depakote. Level therapeutic. Patient was started on Ensure as per stockkeeper recommendations. The patient was stable for discharge back to long-term facility. FINAL DIAGNOSES: 1. Acute toxic metabolic encephalopathy, resolving, likely due to the exacerbation of psychiatric disorder 2. Seizure disorder. 3. Schizophrenia. 4. Schizoaffective disorder bipolar type 5. Hypertension. 6. Diabetes. 7. Possible malnutrition. 8. Gastroesophageal reflux disease. 9. Abnormal gait. DISCHARGE MEDICATIONS: See medication reconciliation list. DISCHARGE INSTRUCTIONS: The patient was discharged to long-term facility. Follow up with medical doctor at the facility. Maninder Ramsey D.O. Madeleine AtkinsWmchealthLety N.POmi DR: DWAYNE JOB#: [id number] CC: CARISSA
== END 2017-03-24 17:43 | DRG 92 ==
LOC: EDBD 15:29 → EDBEDREQ 16:03 → EMR 16:21 → 4E 16:32 → ENRESERV 17:29 → EDBEDREQ 17:38
DX: G92 Toxic encephalopathy (principal); E46 Unspecified protein-calorie malnutrition; N39.0 Urinary tract infection, site not specified; F25.0 Schizoaffective disorder, bipolar type; E11.9 Type 2 diabetes mellitus without complications; G40.909 Epilepsy, unspecified, not intractable, without status epilepticus; I10 Essential (primary) hypertension; Z88.4 Allergy status to anesthetic agent; Z88.0 Allergy status to penicillin; Z88.8 Allergy status to other drugs, medicaments and biological substances; I25.2 Old myocardial infarction; K21.9 Gastro-esophageal reflux disease without esophagitis; F39 Unspecified mood [affective] disorder; Z87.891 Personal history of nicotine dependence; R26.9 Unspecified abnormalities of gait and mobility
CPT/HCPCS: 36415; 71010; 80048; 80053; 80164; 81003; 82140; 83605; 84484; 85025; 87040; 87081; 93005; 99285; J8499

== ENCOUNTER 2017-03-27 17:55 | Inpatient (IN) | payer MEDICARE ==
[~2017-03-27] VITALS: Ht 167.6 cm; Wt 76.2 kg
[~2017-03-27 17:55] MED LIST changes: +ACETAMINOPHEN325 M1 ORAL; +ALPRAZOLAM2 MG ORAL; +ATIVAN1 MG ORAL; +BACLOFEN10 MG ORAL; +CRANBERRY TABL1 EACH PO; +DIVALPROEX SOD500 MG PO; +DOCUSATE SODIU100 M2 ORAL; +DULCOLAX10 MG RC; +GABAPENTIN100 MG ORAL; +HYDROCODON-ACE1 EA15 ORAL; +IBUPROFEN600 MG ORAL; +LACTULOSE20 GM/301 ORAL; +LORAZEPAM0.5 GM MC; +LORAZEPAM0.5 MG ORAL; +MOM30 ML ORAL; +TRAMADOL HCL100 M2 ORAL; +VALPROIC A500 MG/10 ORAL; +VALPROIC ACID250 MG PO; +XANAX2 MG ORAL; +ZOFRAN4 M1 ORAL
[2017-03-28] VITALS (7 sets, daily range): BP systolic 128–159; BP diastolic 49–75
[2017-03-28] MEDS ORDERED: D5 1/2NS 1,000 ML IV SCH (03:15)
[2017-03-28] MEDS ORDERED: Morphine Sulfate 2mg/ml Inj IVP PRN (03:15)
[2017-03-28] MEDS ORDERED: Miralax 17gm pkt ORAL PRN (06:45)
[2017-03-28] MEDS ORDERED: Nitroglycerin Subl 0.4mg tab SL PRN (06:45)
[2017-03-28] MEDS ORDERED: Mylanta II UD 30ml ORAL PRN (06:45)
[2017-03-28] MEDS ORDERED: Phytonadione 10 MG in D5W 55 ML IVPB ONE (06:45)
[2017-03-28] MEDS: D5 1/2NS 1,000 ML IV SCH ×2 (07:05→19:57)
[2017-03-28] MEDS: ARIPiprazole 10mg tab ORAL SCH (08:57)
[2017-03-28] MEDS: Lactulose 20gm/30ml UDC ORAL SCH ×2 (08:58→17:12)
[2017-03-28] MEDS: LORazepam 0.5mg tab ORAL SCH ×4 (08:58→21:00)
[2017-03-28] MEDS ORDERED: Depakote 500mg tab ORAL SCH (09:00)
[2017-03-28 09:53] LABS: BASOPHILS % (AUTO) 0.5 % (0.0-2.0); EOSINOPHILS % (AUTO) 0.7 % (0.0-3.0); LYMPHOCYTES % (AUTO) 17.8 % (20.0-45.0); MEAN CORPUSCULAR HEMOGLOBIN 30.5 PG (27.0-31.0); MEAN CORPUSCULAR HGB CONC 31.8 G/DL (32.0-36.0); MEAN CORPUSCULAR VOLUME 96 FL (80-99); MEAN PLATELET VOLUME 7.4 FL (6.5-10.1); MONOCYTES % (AUTO) 4.3 % (1.0-10.0); NEUTROPHILS % (AUTO) 76.8 % (45.0-75.0); PLATELET COUNT 163 K/UL (150-450); RED BLOOD COUNT 3.94 M/UL (4.20-5.40); RED CELL DISTRIBUTION WIDTH 14.5 % (11.6-14.8); WHITE BLOOD COUNT 6.7 K/UL (4.8-10.8)
[2017-03-28 10:06] LABS: PROTHROMBIN TIME 10.9 SEC (9.30-11.50)
[2017-03-28 10:22] LABS: ALANINE AMINOTRANSFERASE 174 U/L (12-78); ALBUMIN/GLOBULIN RATIO 0.7 (1.0-2.7); ANION GAP 1 mmol/L (5-15); ASPARTATE AMINO TRANSFERASE 72 U/L (15-37); CALCIUM 8.9 MG/DL (8.5-10.1); CARBON DIOXIDE 34 MMOL/L (21-32); CHLORIDE 109 MMOL/L (98-107); CREATININE 0.5 MG/DL (0.55-1.30); POTASSIUM 3.3 MMOL/L (3.5-5.1); SODIUM 144 MMOL/L (136-145); TOTAL PROTEIN 5.6 G/DL (6.4-8.2)
[2017-03-28] MEDS ORDERED: Haloperidol 5mg/ml Inj IM PRN (11:15)
[2017-03-28] MEDS: Heparin 5000 units/ml inj SUBQ SCH ×2 (13:49→21:00)
--- NOTE | 2017-03-28 14:29 | Consultation ---
History of Present Illness General Date patient seen: Mar 28, 2017 Referring physician: Dr. Ramsey Reason for Consultation: inpatient management Present Illness HPI 72 with hx of depression and cirrhosis brought in directly from [facility] ER. she was c/o 10/10 aching back pain. . Vital signs stable, and Sinus rhythm at 64 /min on the monitor. Pt periodically screams out loud about calling her doctor' s at [facility]. Pt is admitted for acute encephalopathy. Allergies: Coded Allergies: BENZOCAINE (Unverified Allergy, Unknown, 07/21/14) PENICILLINS (Unverified Allergy, Unknown, 07/21/14) QUETIAPINE (Unverified Allergy, Unknown, 07/21/14) Medication History Scheduled Alendronate Sodium* (Fosamax*), 70 MG ORAL ONCE A WEEK, (Reported) Alprazolam (Alprazolam), 2 MG ORAL Q6HR, (Reported) Amlodipine Besylate (Norvasc), 10 MG ORAL DAILY, (Reported) Aripiprazole* (Abilify*), 20 MG ORAL DAILY, (Reported) Aspirin (Aspirin EC), 81 MG ORAL DAILY, (Reported) Baclofen* (Baclofen*), 10 MG ORAL THREE TIMES A DAY, (Reported) Cranberry Conc/C/Bacill Coag (Cranberry Tablet), 1 EACH PO DAILY, (Reported) Divalproex Sodium (Divalproex Sodium), 500 MG PO BID, (Reported) Docusate Sodium* (Colace*), 100 MG ORAL DAILY, (Reported) Escitalopram Oxalate* (Lexapro*), 10 MG ORAL DAILY, (Reported) Gabapentin* (Gabapentin*), 100 MG ORAL THREE TIMES A DAY, (Reported) Ibuprofen* (Motrin*), 600 MG ORAL BID, (Reported) Lactulose (Lactulose*), 44 ML ORAL BID, (Reported) Levofloxacin* (Levaquin*), 500 MG ORAL DAILY Lorazepam (Lorazepam), 0.5 GM MC Q4HR, (Reported) Lorazepam* (Lorazepam*), 0.5 MG ORAL Q4HR, (Reported) Omeprazole (Omeprazole), MG ORAL BEFORE BREAKFAST, (Reported) Valproate Sodium (Valproic Acid), 1,000 MG ORAL Q12HR, (Reported) Valproic Acid (Depakene), 1,000 MG ORAL TWICE A DAY Valproic Acid (Valproic Acid), 1,000 MG PO Q12HR, (Reported) Scheduled PRN Acetaminophen* (Acetaminophen 325MG Tablet*), 650 MG ORAL Q4H PRN for Prn Headache/Temp > 101, (Reported) Bisacodyl (Dulcolax), 10 MG RC for Constipation, (Reported) Clonidine Hcl* (Catapres*), 0.1 MG ORAL EVERY 8 HOURS PRN for For High Blood Pressure, (Reported) Hydrocodone Bit/Acetaminophen 5-325* ([place] 5-325*), 2 TAB ORAL Q6HR PRN for For Pain, (Reported) Hydrocodone/Acetaminophen 5-325* (Hydrocodone/Acetaminophen 5-325*), 1 TAB ORAL Q12HR PRN for For Pain, (Reported) Lorazepam* (Ativan*), 2 MG ORAL Q6HR PRN for For Anxiety, (Reported) Lorazepam* (Ativan*), 1 MG ORAL Q6HR PRN for For Anxiety, (Reported) Magnesium Hydroxide (Milk of Magnesia), 30 ML ORAL DAILY PRN for Constipation, ( Reported) Ondansetron (Zofran), 4 MG ORAL Q6H PRN for Nausea & Vomiting, (Reported) Tramadol Hcl (Tramadol Hcl), 50 MG ORAL Q6HR PRN for Pain Scale (6-10), ( Reported) Zolpidem Tartrate* (Ambien*), 5 MG ORAL BEDTIME PRN for Insomnia, (Reported) Discontinued Medications Docusate Sodium (Docusate Sodium), 100 MG ORAL TWICE A DAY, (Reported) Discontinued Reason: discontinued med Ibuprofen* (Motrin*), 600 MG ORAL FOUR TIMES A DAY, (Reported) Discontinued Reason: MD discontinued med Patient History Healthcare decision maker Resuscitation status Full Code Advanced Directive on File Past Medical/Surgical History Past Medical/Surgical History: (1) HTN (hypertension) (2) Epileptic seizure, generalized Review of Systems Constitutional: Reports: no symptoms Eye: Reports: no symptoms ENT: Reports: no symptoms Physical Exam General Appearance: WD/WN Lines, tubes and drains: peripheral HEENT: anicteric Neck: non-tender, normal alignment Respiratory/Chest: chest wall non-tender, lungs clear Abdomen: normal bowel sounds, non tender Genitourinary/Rectal: normal rectal exam Skin Exam: warm/dry Last 24 Hour Vital Signs Date Time Temp Pulse Resp B/P (MAP) Pulse Ox O2 Delivery O2 Flow Rate FiO2 03/28/17 12:00 96.8 75 18 151/70 Room Air 03/28/17 11:44 75 03/28/17 09:59 75 18 145/63 97 Room Air 03/28/17 08:57 75 145/63 03/28/17 08:00 97.6 60 19 159/68 03/28/17 07:55 71 03/28/17 04:00 97.9 81 20 131/62 94 Nasal Cannula 2.0 03/28/17 04:00 64 03/28/17 00:00 57 03/28/17 00:00 97.2 63 20 136/71 99 Laboratory Tests Test 03/28/17 08:45 White Blood Count 6.7 K/UL (4.8-10.8) Red Blood Count 3.94 M/UL (4.20-5.40) L Hemoglobin 12.0 G/DL (12.0-16.0) Hematocrit 37.9 % (37.0-47.0) Mean Corpuscular Volume 96 FL (80-99) Mean Corpuscular Hemoglobin 30.5 PG (27.0-31.0) Mean Corpuscular Hemoglobin Concent 31.8 G/DL (32.0-36.0) L Red Cell Distribution Width 14.5 % (11.6-14.8) Platelet Count 163 K/UL (150-450) Mean Platelet Volume 7.4 FL (6.5-10.1) Neutrophils (%) (Auto) 76.8 % (45.0-75.0) H Lymphocytes (%) (Auto) 17.8 % (20.0-45.0) L Monocytes (%) (Auto) 4.3 % (1.0-10.0) Eosinophils (%) (Auto) 0.7 % (0.0-3.0) Basophils (%) (Auto) 0.5 % (0.0-2.0) Prothrombin Time 10.9 SEC (9.30-11.50) Prothromb Time International Ratio 1.0 (0.9-1.1) Activated Partial Thromboplast Time 28 SEC (23-33) Sodium Level 144 MMOL/L (136-145) Potassium Level 3.3 MMOL/L (3.5-5.1) L Chloride Level 109 MMOL/L (98-107) H Carbon Dioxide Level 34 MMOL/L (21-32) H Anion Gap 1 mmol/L (5-15) L Blood Urea Nitrogen 15 mg/dL (7-18) Creatinine 0.5 MG/DL (0.55-1.30) L Estimat Glomerular Filtration Rate mL/min (>60) Glucose Level 117 MG/DL (74-106) H Calcium Level 8.9 MG/DL (8.5-10.1) Total Bilirubin 0.3 MG/DL (0.2-1.0) Aspartate Amino Transf (AST/SGOT) 72 U/L (15-37) H Alanine Aminotransferase (ALT/SGPT) 174 U/L (12-78) H Alkaline Phosphatase 131 U/L (46-116) H Ammonia 44 umol/L (11-32) H Total Protein 5.6 G/DL (6.4-8.2) L Albumin 2.3 G/DL (3.4-5.0) L Globulin 3.3 g/dL Albumin/Globulin Ratio 0.7 (1.0-2.7) L Height (Feet): 5 Height (Inches): 6.00 Weight (Pounds): 168 Medications Current Medications Medications (Trade) Dose Ordered Sig/Desire Route PRN Reason Start Time Stop Time Status Last Admin Dose Admin Acetaminophen (Tylenol) 650 mg Q4H PRN ORAL fever 03/28/17 06:45 04/27/17 06:44 Al Hydroxide/Mg Hydroxide (Mylanta II) 30 ml Q6H PRN ORAL dyspepsia 03/28/17 06:45 04/27/17 06:44 Amlodipine Besylate (Norvasc) 10 mg DAILY ORAL 03/28/17 09:00 04/27/17 08:59 03/28/17 08:57 Aripiprazole (Abilify) 20 mg DAILY ORAL 03/28/17 09:00 04/27/17 08:59 03/28/17 08:57 Dextrose (Dextrose 50%) STAT PRN IV Hypoglycemia 03/28/17 06:45 04/27/17 06:44 Dextrose/Sodium Chloride 1,000 ml @ 75 mls/hr [id number] IV 03/28/17 06:37 04/27/17 06:36 03/28/17 07:05 Diphenhydramine HCl (Benadryl) 25 mg Q6H PRN ORAL Itching/Pruritis 03/28/17 06:45 04/27/17 06:44 Escitalopram Oxalate (Lexapro) 10 mg DAILY ORAL 03/28/17 09:00 04/27/17 08:59 03/28/17 08:57 Gabapentin (Neurontin) 100 mg THREE TIMES A DAY ORAL 03/28/17 09:00 04/27/17 08:59 03/28/17 13:48 Haloperidol Lactate (Haldol) 5 mg Q6H PRN IM Agitation 03/28/17 11:15 04/27/17 11:14 Heparin Sodium (Porcine) (Heparin 5000 units/ml) 5,000 units EVERY 12 HOURS SUBQ 03/28/17 12:30 04/27/17 12:29 03/28/17 13:49 Lactulose (Cephulac) 29.332 gm BID ORAL 03/28/17 09:00 04/27/17 08:59 03/28/17 08:58 Lorazepam (Ativan) 0.5 mg Q4HR ORAL 03/28/17 09:00 04/04/17 08:59 03/28/17 13:48 Morphine Sulfate (Morphine Sulfate) 2 mg EVERY 4 HOURS PRN IVP severe Pain (Pain Scale 7-10) 03/28/17 06:45 04/04/17 06:44 Nitroglycerin (Ntg) 0.4 mg Q5M X 3 DOSES PRN SL Prn Chest Pain 03/28/17 06:45 04/27/17 06:44 Ondansetron HCl (Zofran) 4 mg Q6H PRN IVP Nausea & Vomiting 03/28/17 06:45 04/27/17 06:44 Polyethylene Glycol (Miralax) 17 gm HSPRN PRN ORAL Constipation 03/28/17 06:45 04/27/17 06:44 Temazepam (Restoril) 15 mg HSPRN PRN ORAL Insomnia 03/28/17 06:45 04/04/17 06:44 Valproic Acid (Depakene) 1,000 mg Q12HR ORAL 03/28/17 11:00 04/27/17 10:59 03/28/17 12:30 Assessment/Plan Problem List: (1) Acute encephalopathy ICD Codes: G93.40 - Encephalopathy, unspecified SNOMED: 0988067 (2) Hepatic encephalopathy ICD Codes: K72.90 - Hepatic failure, unspecified without coma SNOMED: 52778990 (3) Hypokalemia ICD Codes: E87.6 - Hypokalemia SNOMED: 62095962 (4) Epileptic seizure, generalized ICD Codes: G40.909 - Epilepsy, unspecified, not intractable, without status epilepticus SNOMED: 87104464 Assessment/Plan telemetry monitoring f/u ammonia levels psych evaluation dvt prophylaxis JANA HENLEY Mar 28, 2017 14:29
--- NOTE | 2017-03-28 14:41 | GI Initial Consult Note ---
VanessaMaame Akhil N.POmi 03/28/17 1441: History of Present Illness General Date patient seen: Mar 28, 2017 Time patient seen: 14:40 Reason for Hospitalization: Hepatic Enccephalopathy Referring physician: Dr. Ramsey Reason for Consultation: Hepatic Enccephalopathy Present Illness HPI 72 with hx of depression and cirrhosis brought in directly from [facility] ER. she was c/o 10/10 aching back pain. . Vital signs stable, and Sinus rhythm at 64 /min on the monitor. Pt periodically screams out loud about calling her doctor' s at [facility]. Pt is admitted for acute encephalopathy. GI consulted for hepatic encephalopathy. HPI as noted above. ROS limited, patient agitated screaming. Denies any abdominal pain at this time. She presents today with transaminitis, elevated alkaline phosphatase and ammonia. Unknown history of endoscopic / colonoscopies. Home Meds Active Scripts Levofloxacin* (LEVAQUIN*) 500 Mg Tablet, 500 MG ORAL DAILY, #5 TAB Prov:Kishan (Vanchtein)Madeleine STRATEGY SPECIALIST 07/23/14 Valproic Acid (Depakene) 250 Mg Cap, 1000 MG ORAL TWICE A DAY, #60 CAP Prov:Kishan (Vanchtein)Madeleine STRATEGY SPECIALIST 07/23/14 Reported Medications Valproic Acid (VALPROIC ACID) 250 Mg Capsule, 1000 MG PO Q12HR, CAP 03/24/17 Lorazepam* (LORAZEPAM*) 0.5 Mg Tablet, 0.5 MG ORAL Q4HR, TAB 03/24/17 Alprazolam (ALPRAZOLAM) 2 Mg Tablet, 2 MG ORAL Q6HR, TAB 03/24/17 Amlodipine Besylate (Norvasc) 10 Mg Tablet, 10 MG ORAL DAILY, TAB 03/24/17 Ondansetron (Zofran) 4 Mg Tablet, 4 MG ORAL Q6H Y for Nausea & Vomiting, TAB 03/24/17 Valproate Sodium (VALPROIC ACID) 500 Mg/10 Ml Solution, 1000 MG ORAL Q12HR, ML 03/24/17 Lorazepam (LORAZEPAM) 0.5 Gm Powder, 0.5 GM MC Q4HR, GM 03/24/17 Hydrocodone/Acetaminophen 5-325* (HYDROCODONE/ACETAMINOPHEN 5-325*) 1 Each Tablet, 1 TAB ORAL Q12HR Y for For Pain, #30 TAB 0 Refills 03/24/17 Aripiprazole* (ABILIFY*) 20 Mg Tablet, 20 MG ORAL DAILY, TAB 03/24/17 Acetaminophen* (ACETAMINOPHEN 325MG TABLET*) 325 Mg Tablet, 650 MG ORAL Q4H Y for Prn Headache/Temp > 101, TAB 03/24/17 Tramadol Hcl (TRAMADOL HCL) 100 Mg Tab.er.24h, 50 MG ORAL Q6HR Y for Pain Scale (6-10), TAB 03/20/17 Magnesium Hydroxide (Milk of Magnesia) 400 Mg/5 Ml Oral.susp, 30 ML ORAL DAILY Y for Constipation, ML 03/20/17 Lactulose (LACTULOSE*) 20 Gm/30 Ml Solution, 44 ML ORAL BID, ML 0 Refills 03/20/17 Ibuprofen* (MOTRIN*) 600 Mg Tablet, 600 MG ORAL BID, #30 TAB 0 Refills 03/20/17 Gabapentin* (GABAPENTIN*) 100 Mg Capsule, 100 MG ORAL THREE TIMES A DAY, CAP 03/20/17 Bisacodyl (DULCOLAX) 10 Mg Supp.rect, 10 MG RC Y for Constipation, SUPP 03/20/17 Divalproex Sodium (DIVALPROEX SODIUM) 500 Mg Tablet.dr, 500 MG PO BID, TAB 03/20/17 Cranberry Conc/C/Bacill Coag (CRANBERRY TABLET) 1 Each Tablet, 1 EACH PO DAILY, TAB 03/20/17 Baclofen* (BACLOFEN*) 10 Mg Tablet, 10 MG ORAL THREE TIMES A DAY, TAB 03/20/17 Lorazepam* (ATIVAN*) 1 Mg Tablet, 1 MG ORAL Q6HR Y for For Anxiety, TAB 03/20/17 Omeprazole (OMEPRAZOLE) 20 Mg Capsule.dr, MG ORAL BEFORE BREAKFAST, CAP 07/21/14 Hydrocodone Bit/Acetaminophen 5-325* ([place] 5-325*) 1 Each Tablet, 2 TAB ORAL Q6HR Y for For Pain, TAB 0 Refills 07/21/14 Escitalopram Oxalate* (LEXAPRO*) 10 Mg Tablet, 10 MG ORAL DAILY, TAB 07/21/14 Alendronate Sodium* (FOSAMAX*) 70 Mg Tablet, 70 MG ORAL ONCE A WEEK, TAB Take with 6-8 oz water at least 30 minutes before first food; Sit upright for at least 30min after medication administration 07/21/14 Docusate Sodium* (COLACE*) 100 Mg Capsule, 100 MG ORAL DAILY, CAP 07/21/14 Clonidine Hcl* (CATAPRES*) 0.1 Mg Tablet, 0.1 MG ORAL EVERY 8 HOURS Y for For High Blood Pressure, TAB 07/21/14 Lorazepam* (ATIVAN*) 2 Mg Tablet, 2 MG ORAL Q6HR Y for For Anxiety, TAB 07/21/14 Aspirin (Aspirin EC) 81 Mg Tabec, 81 MG ORAL DAILY, TAB 07/21/14 Zolpidem Tartrate* (AMBIEN*) 5 Mg Tablet, 5 MG ORAL BEDTIME Y for Insomnia, TAB 07/21/14 Discontinued Reported Medications Ibuprofen* (MOTRIN*) 600 Mg Tablet, 600 MG ORAL FOUR TIMES A DAY, #30 TAB 0 Refills 03/20/17 Docusate Sodium (DOCUSATE SODIUM) 100 Mg Tablet, 100 MG ORAL TWICE A DAY, #60 TAB 0 Refills 03/20/17 Med list reviewed/reconciled: Yes Allergies: Coded Allergies: BENZOCAINE (Unverified Allergy, Unknown, 07/21/14) PENICILLINS (Unverified Allergy, Unknown, 07/21/14) QUETIAPINE (Unverified Allergy, Unknown, 07/21/14) Patient History PMH Narrative (1) HTN (hypertension) (2) Epileptic seizure, generalized Social History: Reports: alcohol use Review of Systems All Other Systems: negative except mentioned in HPI Physical Exam Vital Signs Date Time Temp Pulse Resp B/P (MAP) Pulse Ox O2 Delivery O2 Flow Rate FiO2 03/28/17 00:00 97.2 63 20 136/71 99 03/28/17 04:00 Nasal Cannula 2.0 Sp02 EP Interpretation: reviewed, normal Labs Laboratory Tests Test 03/28/17 08:45 White Blood Count 6.7 K/UL (4.8-10.8) Red Blood Count 3.94 M/UL (4.20-5.40) L Hemoglobin 12.0 G/DL (12.0-16.0) Hematocrit 37.9 % (37.0-47.0) Mean Corpuscular Volume 96 FL (80-99) Mean Corpuscular Hemoglobin 30.5 PG (27.0-31.0) Mean Corpuscular Hemoglobin Concent 31.8 G/DL (32.0-36.0) L Red Cell Distribution Width 14.5 % (11.6-14.8) Platelet Count 163 K/UL (150-450) Mean Platelet Volume 7.4 FL (6.5-10.1) Neutrophils (%) (Auto) 76.8 % (45.0-75.0) H Lymphocytes (%) (Auto) 17.8 % (20.0-45.0) L Monocytes (%) (Auto) 4.3 % (1.0-10.0) Eosinophils (%) (Auto) 0.7 % (0.0-3.0) Basophils (%) (Auto) 0.5 % (0.0-2.0) Prothrombin Time 10.9 SEC (9.30-11.50) Prothromb Time International Ratio 1.0 (0.9-1.1) Activated Partial Thromboplast Time 28 SEC (23-33) Sodium Level 144 MMOL/L (136-145) Potassium Level 3.3 MMOL/L (3.5-5.1) L Chloride Level 109 MMOL/L (98-107) H Carbon Dioxide Level 34 MMOL/L (21-32) H Anion Gap 1 mmol/L (5-15) L Blood Urea Nitrogen 15 mg/dL (7-18) Creatinine 0.5 MG/DL (0.55-1.30) L Estimat Glomerular Filtration Rate mL/min (>60) Glucose Level 117 MG/DL (74-106) H Calcium Level 8.9 MG/DL (8.5-10.1) Total Bilirubin 0.3 MG/DL (0.2-1.0) Aspartate Amino Transf (AST/SGOT) 72 U/L (15-37) H Alanine Aminotransferase (ALT/SGPT) 174 U/L (12-78) H Alkaline Phosphatase 131 U/L (46-116) H Ammonia 44 umol/L (11-32) H Total Protein 5.6 G/DL (6.4-8.2) L Albumin 2.3 G/DL (3.4-5.0) L Globulin 3.3 g/dL Albumin/Globulin Ratio 0.7 (1.0-2.7) L General Appearance: well appearing, no apparent distress, alert, other - periods of agitation Head: normocephalic EENT: PERRL/EOMI, normal ENT inspection Neck: supple Respiratory: normal breath sounds, no respiratory distress Cardiovascular: normal rate Gastrointestinal: normal inspection, non tender, soft, normal bowel sounds, non -distended Rectal: deferred Genitourinary: no CVA tenderness Musculoskeletal: normal inspection, back normal Neurologic: alert, responsive Skin: normal inspection, normal color, no rash, warm/dry, palpation normal, well hydrated Lymphatic: normal inspection, no adenopathy Current Medications Current Medications Medications (Trade) Dose Ordered Sig/Desire Route PRN Reason Start Time Stop Time Status Last Admin Dose Admin Acetaminophen (Tylenol) 650 mg Q4H PRN ORAL fever 03/28/17 06:45 04/27/17 06:44 Al Hydroxide/Mg Hydroxide (Mylanta II) 30 ml Q6H PRN ORAL dyspepsia 03/28/17 06:45 04/27/17 06:44 Amlodipine Besylate (Norvasc) 10 mg DAILY ORAL 03/28/17 09:00 04/27/17 08:59 03/28/17 08:57 Aripiprazole (Abilify) 20 mg DAILY ORAL 03/28/17 09:00 04/27/17 08:59 03/28/17 08:57 Dextrose (Dextrose 50%) STAT PRN IV Hypoglycemia 03/28/17 06:45 04/27/17 06:44 Dextrose/Sodium Chloride 1,000 ml @ 75 mls/hr [id number] IV 03/28/17 06:37 04/27/17 06:36 03/28/17 07:05 Diphenhydramine HCl (Benadryl) 25 mg Q6H PRN ORAL Itching/Pruritis 03/28/17 06:45 04/27/17 06:44 Escitalopram Oxalate (Lexapro) 10 mg DAILY ORAL 03/28/17 09:00 04/27/17 08:59 03/28/17 08:57 Gabapentin (Neurontin) 100 mg THREE TIMES A DAY ORAL 03/28/17 09:00 04/27/17 08:59 03/28/17 13:48 Haloperidol Lactate (Haldol) 5 mg Q6H PRN IM Agitation 03/28/17 11:15 04/27/17 11:14 Heparin Sodium (Porcine) (Heparin 5000 units/ml) 5,000 units EVERY 12 HOURS SUBQ 03/28/17 12:30 04/27/17 12:29 03/28/17 13:49 Lactulose (Cephulac) 29.332 gm BID ORAL 03/28/17 09:00 04/27/17 08:59 03/28/17 08:58 Lorazepam (Ativan) 0.5 mg Q4HR ORAL 03/28/17 09:00 04/04/17 08:59 03/28/17 13:48 Morphine Sulfate (Morphine Sulfate) 2 mg EVERY 4 HOURS PRN IVP severe Pain (Pain Scale 7-10) 03/28/17 06:45 04/04/17 06:44 Nitroglycerin (Ntg) 0.4 mg Q5M X 3 DOSES PRN SL Prn Chest Pain 03/28/17 06:45 04/27/17 06:44 Ondansetron HCl (Zofran) 4 mg Q6H PRN IVP Nausea & Vomiting 03/28/17 06:45 04/27/17 06:44 Polyethylene Glycol (Miralax) 17 gm HSPRN PRN ORAL Constipation 03/28/17 06:45 04/27/17 06:44 Temazepam (Restoril) 15 mg HSPRN PRN ORAL Insomnia 03/28/17 06:45 04/04/17 06:44 Valproic Acid (Depakene) 1,000 mg Q12HR ORAL 03/28/17 11:00 04/27/17 10:59 03/28/17 12:30 GI: Plan Problems: (1) Acute encephalopathy (2) Hepatic encephalopathy (3) possible rectal bleed (4) Aspiration pneumonia Plan fu abdominal U/S prn paracentesis cont lactulose, add Xifaxan cardiac diet after imaging studies electrolyte replacement ppi fu labs, hep panel will consider GI procedures pending work up Discussed with Dr. Avina. Thank you for this patient referral, we will follow. HERNANDO AVINA 03/30/17 1330: History of Present Illness General Reason for Hospitalization: Hepatic Enccephalopathy Present Illness Home Meds Active Scripts Levofloxacin* (LEVAQUIN*) 500 Mg Tablet, 500 MG ORAL DAILY, #5 TAB Prov:Kishan (Soren)Madeleine STRATEGY SPECIALIST 07/23/14 Valproic Acid (Depakene) 250 Mg Cap, 1000 MG ORAL TWICE A DAY, #60 CAP Prov:Kishan (Soren)Madeleine STRATEGY SPECIALIST 07/23/14 Reported Medications Valproic Acid (VALPROIC ACID) 250 Mg Capsule, 1000 MG PO Q12HR, CAP 03/24/17 Lorazepam* (LORAZEPAM*) 0.5 Mg Tablet, 0.5 MG ORAL Q4HR, TAB 03/24/17 Alprazolam (ALPRAZOLAM) 2 Mg Tablet, 2 MG ORAL Q6HR, TAB 03/24/17 Amlodipine Besylate (Norvasc) 10 Mg Tablet, 10 MG ORAL DAILY, TAB 03/24/17 Ondansetron (Zofran) 4 Mg Tablet, 4 MG ORAL Q6H Y for Nausea & Vomiting, TAB 03/24/17 Valproate Sodium (VALPROIC ACID) 500 Mg/10 Ml Solution, 1000 MG ORAL Q12HR, ML 03/24/17 Lorazepam (LORAZEPAM) 0.5 Gm Powder, 0.5 GM MC Q4HR, GM 03/24/17 Hydrocodone/Acetaminophen 5-325* (HYDROCODONE/ACETAMINOPHEN 5-325*) 1 Each Tablet, 1 TAB ORAL Q12HR Y for For Pain, #30 TAB 0 Refills 03/24/17 Aripiprazole* (ABILIFY*) 20 Mg Tablet, 20 MG ORAL DAILY, TAB 03/24/17 Acetaminophen* (ACETAMINOPHEN 325MG TABLET*) 325 Mg Tablet, 650 MG ORAL Q4H Y for Prn Headache/Temp > 101, TAB 03/24/17 Tramadol Hcl (TRAMADOL HCL) 100 Mg Tab.er.24h, 50 MG ORAL Q6HR Y for Pain Scale (6-10), TAB 03/20/17 Magnesium Hydroxide (Milk of Magnesia) 400 Mg/5 Ml Oral.susp, 30 ML ORAL DAILY Y for Constipation, ML 03/20/17 Lactulose (LACTULOSE*) 20 Gm/30 Ml Solution, 44 ML ORAL BID, ML 0 Refills 03/20/17 Ibuprofen* (MOTRIN*) 600 Mg Tablet, 600 MG ORAL BID, #30 TAB 0 Refills 03/20/17 Gabapentin* (GABAPENTIN*) 100 Mg Capsule, 100 MG ORAL THREE TIMES A DAY, CAP 03/20/17 Bisacodyl (DULCOLAX) 10 Mg Supp.rect, 10 MG RC Y for Constipation, SUPP 03/20/17 Divalproex Sodium (DIVALPROEX SODIUM) 500 Mg Tablet.dr, 500 MG PO BID, TAB 03/20/17 Cranberry Conc/C/Bacill Coag (CRANBERRY TABLET) 1 Each Tablet, 1 EACH PO DAILY, TAB 03/20/17 Baclofen* (BACLOFEN*) 10 Mg Tablet, 10 MG ORAL THREE TIMES A DAY, TAB 03/20/17 Lorazepam* (ATIVAN*) 1 Mg Tablet, 1 MG ORAL Q6HR Y for For Anxiety, TAB 03/20/17 Omeprazole (OMEPRAZOLE) 20 Mg Capsule.dr, MG ORAL BEFORE BREAKFAST, CAP 07/21/14 Hydrocodone Bit/Acetaminophen 5-325* (NORCO 5-325*) 1 Each Tablet, 2 TAB ORAL Q6HR Y for For Pain, TAB 0 Refills 07/21/14 Escitalopram Oxalate* (LEXAPRO*) 10 Mg Tablet, 10 MG ORAL DAILY, TAB 07/21/14 Alendronate Sodium* (FOSAMAX*) 70 Mg Tablet, 70 MG ORAL ONCE A WEEK, TAB Take with 6-8 oz water at least 30 minutes before first food; Sit upright for at least 30min after medication administration 07/21/14 Docusate Sodium* (COLACE*) 100 Mg Capsule, 100 MG ORAL DAILY, CAP 07/21/14 Clonidine Hcl* (CATAPRES*) 0.1 Mg Tablet, 0.1 MG ORAL EVERY 8 HOURS Y for For High Blood Pressure, TAB 07/21/14 Lorazepam* (ATIVAN*) 2 Mg Tablet, 2 MG ORAL Q6HR Y for For Anxiety, TAB 07/21/14 Aspirin (Aspirin EC) 81 Mg Tabec, 81 MG ORAL DAILY, TAB 07/21/14 Zolpidem Tartrate* (AMBIEN*) 5 Mg Tablet, 5 MG ORAL BEDTIME Y for Insomnia, TAB 07/21/14 Discontinued Reported Medications Ibuprofen* (MOTRIN*) 600 Mg Tablet, 600 MG ORAL FOUR TIMES A DAY, #30 TAB 0 Refills 03/20/17 Docusate Sodium (DOCUSATE SODIUM) 100 Mg Tablet, 100 MG ORAL TWICE A DAY, #60 TAB 0 Refills 03/20/17 Allergies: Coded Allergies: BENZOCAINE (Unverified Allergy, Unknown, 07/21/14) PENICILLINS (Unverified Allergy, Unknown, 07/21/14) QUETIAPINE (Unverified Allergy, Unknown, 07/21/14) GI: Plan Plan The patient was seen and examined at bedside and all new and available data was reviewed in the patients chart. I agree with the above findings, impression and plan. (Patient seen earlier today. Signature stamp does not reflect patient encounter time.). - [facility] Akhil N.POmi Mar 28, 2017 14:41 HERNANDO AVINA Mar 30, 2017 13:30
[2017-03-28] MEDS: Morphine Sulfate 2mg/ml Inj IVP PRN (15:15)
--- NOTE | 2017-03-28 18:07 | Neurology Progress Note ---
Objective Physical Exam Last Vital Signs Date Time Temp Pulse Resp B/P (MAP) Pulse Ox O2 Delivery O2 Flow Rate FiO2 03/28/17 16:18 68 03/28/17 16:00 97.5 17 149/75 Room Air 03/28/17 09:59 97 03/28/17 04:00 2.0 Laboratory Tests Test 03/28/17 08:45 White Blood Count 6.7 K/UL (4.8-10.8) Red Blood Count 3.94 M/UL (4.20-5.40) L Hemoglobin 12.0 G/DL (12.0-16.0) Hematocrit 37.9 % (37.0-47.0) Mean Corpuscular Volume 96 FL (80-99) Mean Corpuscular Hemoglobin 30.5 PG (27.0-31.0) Mean Corpuscular Hemoglobin Concent 31.8 G/DL (32.0-36.0) L Red Cell Distribution Width 14.5 % (11.6-14.8) Platelet Count 163 K/UL (150-450) Mean Platelet Volume 7.4 FL (6.5-10.1) Neutrophils (%) (Auto) 76.8 % (45.0-75.0) H Lymphocytes (%) (Auto) 17.8 % (20.0-45.0) L Monocytes (%) (Auto) 4.3 % (1.0-10.0) Eosinophils (%) (Auto) 0.7 % (0.0-3.0) Basophils (%) (Auto) 0.5 % (0.0-2.0) Prothrombin Time 10.9 SEC (9.30-11.50) Prothromb Time International Ratio 1.0 (0.9-1.1) Activated Partial Thromboplast Time 28 SEC (23-33) Sodium Level 144 MMOL/L (136-145) Potassium Level 3.3 MMOL/L (3.5-5.1) L Chloride Level 109 MMOL/L (98-107) H Carbon Dioxide Level 34 MMOL/L (21-32) H Anion Gap 1 mmol/L (5-15) L Blood Urea Nitrogen 15 mg/dL (7-18) Creatinine 0.5 MG/DL (0.55-1.30) L Estimat Glomerular Filtration Rate mL/min (>60) Glucose Level 117 MG/DL (74-106) H Calcium Level 8.9 MG/DL (8.5-10.1) Total Bilirubin 0.3 MG/DL (0.2-1.0) Aspartate Amino Transf (AST/SGOT) 72 U/L (15-37) H Alanine Aminotransferase (ALT/SGPT) 174 U/L (12-78) H Alkaline Phosphatase 131 U/L (46-116) H Ammonia 44 umol/L (11-32) H Total Protein 5.6 G/DL (6.4-8.2) L Albumin 2.3 G/DL (3.4-5.0) L Globulin 3.3 g/dL Albumin/Globulin Ratio 0.7 (1.0-2.7) L Impression/Recommendations Problems: (1) Hepatic encephalopathy (2) Epileptic seizure, generalized (3) UTI (urinary tract infection) (4) HTN (hypertension) Status: unchanged Recommendations #[id number] [place] Mar 28, 2017 18:07
--- NOTE | 2017-03-28 22:15 | History and Physical Report ---
DATE OF ADMISSION: 03/27/2017 TIME: At 12 noon. CONSULTANTS: 1. Bertram Jesus M.D. 2. Mamadou Tobias M.D. 3. Griffin Hassan M.D. CHIEF COMPLAINT: Encephalopathy, altered mental status. BRIEF HISTORY: This is a 72-year-old female from [facility] presented with the above-mentioned diagnosis, admitted to telemetry for further care. Currently, slightly confused in bed, anxious. No complaints. REVIEW OF SYSTEMS: No chest pain. No shortness of breath. No nausea, vomiting, or diarrhea. PAST MEDICAL HISTORY: Encephalopathy, seizure, and hypertension. PAST SURGICAL HISTORY: Gallbladder. MEDICATIONS: Haldol, Depakene, heparin, Norvasc, Abilify, Lexapro, Neurontin, ____, Ativan, Tylenol, MiraLAX, and Restoril. ALLERGIES: Benzocaine, penicillin, and quetiapine. SOCIAL HISTORY: No smoking. Occasional alcohol. No intravenous drug abuse. FAMILY HISTORY: Noncontributory. PHYSICAL EXAMINATION: GENERAL: Slightly confused in bed, oriented x2, in no acute distress. VITAL SIGNS: Temperature is 97 degrees, pulse 75, respirations 18, and blood pressure 145/63. CARDIOVASCULAR: No murmur. LUNGS: Distant and clear. ABDOMEN: Bowel sounds positive. Nontender. Nondistended. EXTREMITIES: No cyanosis, clubbing, or edema. NEUROLOGIC: The patient moves all extremities, slightly weak. LABORATORY AND DIAGNOSTIC DATA: CBC is normal. BMP shows potassium 3.3, chloride 109, creatinine 0.5, and glucose 117. Ammonia level is 44. Albumin 2.3. INR is 1.0. ASSESSMENT: 1. Hepatic encephalopathy. 2. Altered mental status. 3. Seizure. 4. Hypertension. 5. Hypokalemia. 6. . 7. Malnutrition. PLAN: 1. Continue premedications. 2. OT/PT. 3. Dietary evaluation. 4. CBC and BMP in morning. 5. Intravenous fluids. 6. Blood pressure and seizure control. 7. Dietary followup. 8. Dr. Jesus, Dr. Tobias, Dr. Hassan, Dr. Avina and Dr. Tapia to consult. Maninder Ramsey D.O. DR: SHEREEN JOB#: [id number] CC:
[2017-03-29] VITALS (7 sets, daily range): BP systolic 111–156; BP diastolic 56–69
[2017-03-29] MEDS: LORazepam 0.5mg tab ORAL SCH ×6 (00:59→20:47)
--- NOTE | 2017-03-29 01:30 | Consultation ---
DATE OF CONSULTATION: 03/28/2017 NEUROLOGICAL CONSULTATION CONSULTING PHYSICIAN: Mamadou Tobias M.D. REQUESTING PHYSICIAN: Maninder Ramsey D.O. HISTORY OF PRESENT ILLNESS: This is a 72-year-old female, resident of a nursing facility, who initially was brought to [facility] where she was complaining of severe low back pain, described as being confused, occasionally screaming. She appears to be encephalopathic. Initial laboratory studies revealed presence of abnormal liver function. She was brought to this facility for further assessment and treatment. Laboratory work was repeated. This revealed unremarkable CBC study and the coagulation panel, but chemistry panel was abnormal with potassium 3.3, carbon dioxide of 34, elevated AST 72, ALT 174, and alkaline phosphatase of 44. Since admission until present, she remained lethargic, drowsy, and at times moaning. The patient initially was seen 1-1/2 weeks ago. She was known to this facility in 2014 when she had a seizure episode, subsequently was placed on Depakote. Her mental status changes on admission were related to underlying elevated ammonia of 72. Her EKG was normal sinus rhythm. Her chest x-ray revealed borderline cardiomegaly, elevated right hemidiaphragm. Her Depakote level was therapeutic at 69. She appeared to have abnormal gait, but no lateralizing deficit. The patient had only elevation of ammonia, but normal liver function. This is different. On current admission, the patient has obviously abnormal liver function with elevated ammonia level. The patient was improved and discharged to longterm facility. She became alert and oriented, although slightly confused, which is her baseline. Her final diagnoses included diabetes, hypertension, and schizoaffective disorder, bipolar type. MEDICATIONS: Treatment prior to admission included Fosamax, Norvasc, Abilify, aspirin, baclofen, Depakote 500 mg b.i.d., Lexapro, gabapentin, as needed [place], ibuprofen, tramadol, and valproic acid 1000 mg b.i.d. ALLERGIES: Benzocaine, penicillin, and quetiapine. PAST MEDICAL HISTORY: 1. GERD. 2. Hypertension. 3. Chronic psychiatric disorder. 4. History of seizure disorder. 5. History of abnormal gait, multifactorial. REVIEW OF SYSTEMS: The patient is currently very drowsy, gave brief answers stating that she has no headache, but she still has pain in her low back and both hips. She feels that she has UTI. PHYSICAL EXAMINATION: GENERAL: A well-developed, well-nourished lady, found to be asleep. She was comfortable. VITAL SIGNS: Her vital signs were stable, blood pressure 149/75 and temperature 97.5 degrees. HEENT: Her head is normocephalic. There was no evidence of trauma. Eyes, ears, and throat are clear. NECK: Supple. No meningeal signs. MUSCULOSKELETAL: Tenderness on palpation of both hips and lower back. CRANIAL NERVE II: Pupils both responding to light and accommodation. Extraocular movements intact. No nystagmus. CRANIAL NERVE V: Normal corneal responses. CRANIAL NERVE VII: No facial asymmetry. CRANIAL NERVE VIII: Normal hearing. CRANIAL NERVE IX THROUGH XII: With normal limits. MOTOR EXAMINATION: Normal muscle tone. Strength 5/5 in both upper extremities, but reduced strength in both lower extremities. The patient was able to lift against the gravity very briefly both legs. Deep tendon reflexes 1+ bilaterally symmetric. SENSORY EXAMINATION: Consistent response with touch with a pin. Gait not tested. The patient was unable sit or stand stating that she is weak. IMPRESSION: 1. New onset of lethargy, rule out hepatic encephalopathy, rule out urosepsis. 2. Acute hepatitis. 3. Chronic seizure disorder. 4. Chronic psychiatric disorder. 5. History of gastroesophageal reflux disease. 6. History of polypharmacy. RECOMMENDATION: 1. Abnormal liver function, maybe related to treatment with valproic acid. Other etiologies including hepatitis should be considered. 2. I will put on hold Depakote. 3. Recheck hepatitis panel. 4. Monitor liver function. 5. Psychiatry will need to adjust psychiatric treatment. 6. Hold baclofen. 7. Continue with aspirin. 8. Reduce alprazolam, currently 2 mg q.6 h. 9. Obtain MRI of the brain without contrast. 10. We will follow with you. Thank you for allowing me to see this interesting patient in neurological consultation. Mamadou Tobias M.D. DR: PERRY JOB#: [id number] CC:
--- NOTE | 2017-03-29 07:14 | General Progress Note ---
Assessment/Plan Problem List: (1) HTN (hypertension) ICD Codes: I10 - HTN (hypertension) SNOMED: 39420249 (2) Hepatic encephalopathy ICD Codes: K72.90 - Hepatic failure, unspecified without coma SNOMED: 99508759 (3) Epileptic seizure, generalized ICD Codes: G40.909 - Epilepsy, unspecified, not intractable, without status epilepticus SNOMED: 95854277 Assessment/Plan dc IVF cont xifaxan fu abd us cardiac diet Subjective ROS Limited/Unobtainable: Yes Allergies: Coded Allergies: BENZOCAINE (Unverified Allergy, Unknown, 07/21/14) PENICILLINS (Unverified Allergy, Unknown, 07/21/14) QUETIAPINE (Unverified Allergy, Unknown, 07/21/14) Subjective wants to go home Objective Last 24 Hour Vital Signs Date Time Temp Pulse Resp B/P (MAP) Pulse Ox O2 Delivery O2 Flow Rate FiO2 03/29/17 06:00 98.1 66 18 138/56 91 Room Air 03/29/17 04:00 98.1 66 18 138/56 91 Room Air 03/29/17 00:00 97.7 64 18 111/64 93 Room Air 03/28/17 20:00 97.7 67 18 128/49 91 Room Air 03/28/17 16:18 68 03/28/17 16:00 97.5 79 17 149/75 Room Air 03/28/17 15:45 96.8 03/28/17 12:00 96.8 75 18 151/70 Room Air 03/28/17 11:44 75 03/28/17 09:59 75 18 145/63 97 Room Air 03/28/17 08:57 75 145/63 03/28/17 08:00 97.6 60 19 159/68 03/28/17 07:55 71 Laboratory Tests 03/28/17 08:45: White Blood Count 6.7, Red Blood Count 3.94L, Hemoglobin 12.0, Hematocrit 37.9, Mean Corpuscular Volume 96, Mean Corpuscular Hemoglobin 30.5, Mean Corpuscular Hemoglobin Concent 31.8L, Red Cell Distribution Width 14.5, Platelet Count 163, Mean Platelet Volume 7.4, Neutrophils (%) (Auto) 76.8H, Lymphocytes (%) (Auto) 17.8L, Monocytes (%) (Auto) 4.3, Eosinophils (%) (Auto) 0.7, Basophils (%) (Auto ) 0.5, Prothrombin Time 10.9, Prothromb Time International Ratio 1.0, Activated Partial Thromboplast Time 28, Sodium Level 144, Potassium Level 3.3L, Chloride Level 109H, Carbon Dioxide Level 34H, Anion Gap 1L, Blood Urea Nitrogen 15, Creatinine 0.5L, Estimat Glomerular Filtration Rate , Glucose Level 117H, Calcium Level 8.9, Total Bilirubin 0.3, Aspartate Amino Transf (AST/SGOT) 72H, Alanine Aminotransferase (ALT/SGPT) 174H, Alkaline Phosphatase 131H, Ammonia 44H , Total Protein 5.6L, Albumin 2.3L, Globulin 3.3, Albumin/Globulin Ratio 0.7L Height (Feet): 5 Height (Inches): 6.00 Weight (Pounds): 168 HERNANDO RUBALCAVA Mar 29, 2017 07:13
[2017-03-29 07:46] LABS: BASOPHILS % (AUTO) 0.7 % (0.0-2.0); EOSINOPHILS % (AUTO) 1.6 % (0.0-3.0); LYMPHOCYTES % (AUTO) 44.9 % (20.0-45.0); MEAN CORPUSCULAR HEMOGLOBIN 30.7 PG (27.0-31.0); MEAN CORPUSCULAR HGB CONC 32.3 G/DL (32.0-36.0); MEAN CORPUSCULAR VOLUME 95 FL (80-99); MEAN PLATELET VOLUME 7.5 FL (6.5-10.1); NEUTROPHILS % (AUTO) 45.8 % (45.0-75.0); PLATELET COUNT 160 K/UL (150-450); RED BLOOD COUNT 3.69 M/UL (4.20-5.40); RED CELL DISTRIBUTION WIDTH 14.5 % (11.6-14.8); WHITE BLOOD COUNT 5.7 K/UL (4.8-10.8)
[2017-03-29 08:02] LABS: ALANINE AMINOTRANSFERASE 120 U/L (12-78); ALBUMIN/GLOBULIN RATIO 0.7 (1.0-2.7); ANION GAP 2 mmol/L (5-15); ASPARTATE AMINO TRANSFERASE 41 U/L (15-37); CALCIUM 8.8 MG/DL (8.5-10.1); CARBON DIOXIDE 34 MMOL/L (21-32); CHLORIDE 106 MMOL/L (98-107); CREATININE 0.5 MG/DL (0.55-1.30); SODIUM 142 MMOL/L (136-145); TOTAL PROTEIN 5.6 G/DL (6.4-8.2)
[2017-03-29] MEDS: Lactulose 20gm/30ml UDC ORAL SCH ×2 (08:32→17:30)
[2017-03-29] MEDS: ARIPiprazole 10mg tab ORAL SCH (08:33)
[2017-03-29] MEDS: Morphine Sulfate 2mg/ml Inj IVP PRN (08:35)
[2017-03-29] MEDS: Heparin 5000 units/ml inj SUBQ SCH ×2 (08:43→20:48)
[2017-03-29] MEDS ORDERED: Pantoprazole Inj IVP SCH (09:00)
--- NOTE | 2017-03-29 09:19 | General Progress Note ---
Assessment/Plan Problem List: (1) Epileptic seizure, generalized ICD Codes: G40.909 - Epilepsy, unspecified, not intractable, without status epilepticus SNOMED: 14441272 (2) HTN (hypertension) ICD Codes: I10 - HTN (hypertension) SNOMED: 37909908 (3) Hepatic encephalopathy ICD Codes: K72.90 - Hepatic failure, unspecified without coma SNOMED: 40604947 (4) Hypokalemia ICD Codes: E87.6 - Hypokalemia SNOMED: 01725085 Status: stable, progressing, tolerating diet Assessment/Plan ot pt diet bp seizre control neuro psyc eval cbc bmp am Subjective Constitutional: Reports: weakness Allergies: Coded Allergies: BENZOCAINE (Unverified Allergy, Unknown, 07/21/14) PENICILLINS (Unverified Allergy, Unknown, 07/21/14) QUETIAPINE (Unverified Allergy, Unknown, 07/21/14) All Systems: reviewed and negative except above Subjective calm in bed Objective Last 24 Hour Vital Signs Date Time Temp Pulse Resp B/P (MAP) Pulse Ox O2 Delivery O2 Flow Rate FiO2 03/29/17 08:32 61 156/69 03/29/17 08:00 97.7 61 18 156/69 93 03/29/17 06:00 98.1 66 18 138/56 91 Room Air 03/29/17 04:00 98.1 66 18 138/56 91 Room Air 03/29/17 04:00 58 03/29/17 00:00 97.7 64 18 111/64 93 Room Air 03/29/17 00:00 64 03/28/17 20:00 65 03/28/17 20:00 97.7 67 18 128/49 91 Room Air 03/28/17 16:18 68 03/28/17 16:00 97.5 79 17 149/75 Room Air 03/28/17 15:45 96.8 03/28/17 12:00 96.8 75 18 151/70 Room Air 03/28/17 11:44 75 03/28/17 09:59 75 18 145/63 97 Room Air Laboratory Tests 03/29/17 05:47: White Blood Count 5.7, Red Blood Count 3.69L, Hemoglobin 11.4L, Hematocrit 35.1L , Mean Corpuscular Volume 95, Mean Corpuscular Hemoglobin 30.7, Mean Corpuscular Hemoglobin Concent 32.3, Red Cell Distribution Width 14.5, Platelet Count 160, Mean Platelet Volume 7.5, Neutrophils (%) (Auto) 45.8, Lymphocytes (% ) (Auto) 44.9, Monocytes (%) (Auto) 7.0, Eosinophils (%) (Auto) 1.6, Basophils ( %) (Auto) 0.7, Activated Partial Thromboplast Time 25, Sodium Level 142, Potassium Level 3.0L, Chloride Level 106, Carbon Dioxide Level 34H, Anion Gap 2L , Blood Urea Nitrogen 9, Creatinine 0.5L, Estimat Glomerular Filtration Rate , Glucose Level 100, Calcium Level 8.8, Total Bilirubin 0.2, Aspartate Amino Transf (AST/SGOT) 41H, Alanine Aminotransferase (ALT/SGPT) 120H, Alkaline Phosphatase 120H, Total Protein 5.6L, Albumin 2.3L, Globulin 3.3, Albumin/ Globulin Ratio 0.7L, Hepatitis A IgM Antibody [Pending], Hepatitis B Surface Antigen [Pending], Hepatitis B Core IgM Antibody [Pending], Hepatitis C Antibody [Pending] Height (Feet): 5 Height (Inches): 6.00 Weight (Pounds): 168 General Appearance: lethargic EENT: normal ENT inspection Neck: normal alignment Cardiovascular: normal peripheral pulses, normal rate, regular rhythm Respiratory/Chest: chest wall non-tender, lungs clear, normal breath sounds Abdomen: normal bowel sounds, non tender, soft Extremities: normal inspection Edema: no edema noted Arm (L), no edema noted Arm (R), no edema noted Leg (L), no edema noted Leg (R), no edema noted Pedal (L), no edema noted Pedal (R), no edema noted Generalized Neurologic: motor weakness Skin: normal pigmentation, warm/dry YVES AYOUB Mar 29, 2017 09:19
--- NOTE | 2017-03-29 11:11 | Diagnostic Imaging Report ---
Indication: Elevated liver function tests/abdominal pain Technique: Ultrasound of the abdomen. Comparison: None Findings: Pancreas is not well-visualized. Liver measures 15.4 cm and demonstrates mild increased echogenicity. No focal liver lesions are identified. Visualized portions of the main portal vein and the hepatic veins are grossly unremarkable although incompletely evaluated. Gallbladder is absent. Common bile duct measures 9 mm. Bilateral kidneys demonstrate normal echogenicity. There is apparent cortical scarring of the right kidney although a small hyperechoic lesion cannot be excluded. There is no hydronephrosis. No echogenic renal stones are identified. Spleen is not well seen. The visualized aorta is normal in caliber. Atherosclerotic changes are noted. Visualized portions of the inferior vena cava are unremarkable. Impression: Gallbladder nonvisualized reportedly removed. Mild nonspecific prominence of the common bile that measuring 9 mm. Clinical correlation recommended. Mild increased echogenicity of the liver may suggest mild fatty infiltration or hepatocellular disease. Clinical correlation recommended. Atherosclerotic changes. Apparent cortical scarring of the right kidney. Peripheral echogenicity adjacent to the scarring could represent adjacent perinephric fat but a small hyperechoic lesion of the right kidney cannot be excluded. Further evaluation with CT recommended as indicated.
--- NOTE | 2017-03-29 14:51 | Pulmonology Progress Note ---
Assessment/Plan Problems: (1) Acute encephalopathy (2) Hepatic encephalopathy (3) Hypokalemia (4) Epileptic seizure, generalized Assessment/Plan improving continue current meds all reviewed check labs in am med/surg d/w nurse Subjective ROS Limited/Unobtainable: No Constitutional: Reports: no symptoms HEENT: Repors: no symptoms Respiratory: Reports: no symptoms Allergies: Coded Allergies: BENZOCAINE (Unverified Allergy, Unknown, 07/21/14) PENICILLINS (Unverified Allergy, Unknown, 07/21/14) QUETIAPINE (Unverified Allergy, Unknown, 07/21/14) Objective Last 24 Hour Vital Signs Date Time Temp Pulse Resp B/P (MAP) Pulse Ox O2 Delivery O2 Flow Rate FiO2 03/29/17 12:00 98.1 61 19 140/61 94 03/29/17 08:32 61 156/69 03/29/17 08:00 97.7 61 18 156/69 93 03/29/17 08:00 63 03/29/17 06:00 98.1 66 18 138/56 91 Room Air 03/29/17 04:00 98.1 66 18 138/56 91 Room Air 03/29/17 04:00 58 03/29/17 00:00 97.7 64 18 111/64 93 Room Air 03/29/17 00:00 64 03/28/17 20:00 65 03/28/17 20:00 97.7 67 18 128/49 91 Room Air 03/28/17 16:18 68 03/28/17 16:00 97.5 79 17 149/75 Room Air 03/28/17 15:45 96.8 Objective General Appearance: WD/WN HEENT: normocephalic, atraumatic Respiratory/Chest: chest wall non-tender, normal breath sounds Breasts: no masses Cardiovascular: normal peripheral pulses Abdomen: normal bowel sounds Extremities: no cyanosis Skin: no lesions Laboratory Tests 03/29/17 05:47: White Blood Count 5.7, Red Blood Count 3.69L, Hemoglobin 11.4L, Hematocrit 35.1L , Mean Corpuscular Volume 95, Mean Corpuscular Hemoglobin 30.7, Mean Corpuscular Hemoglobin Concent 32.3, Red Cell Distribution Width 14.5, Platelet Count 160, Mean Platelet Volume 7.5, Neutrophils (%) (Auto) 45.8, Lymphocytes (% ) (Auto) 44.9, Monocytes (%) (Auto) 7.0, Eosinophils (%) (Auto) 1.6, Basophils ( %) (Auto) 0.7, Activated Partial Thromboplast Time 25, Sodium Level 142, Potassium Level 3.0L, Chloride Level 106, Carbon Dioxide Level 34H, Anion Gap 2L , Blood Urea Nitrogen 9, Creatinine 0.5L, Estimat Glomerular Filtration Rate , Glucose Level 100, Calcium Level 8.8, Total Bilirubin 0.2, Aspartate Amino Transf (AST/SGOT) 41H, Alanine Aminotransferase (ALT/SGPT) 120H, Alkaline Phosphatase 120H, Total Protein 5.6L, Albumin 2.3L, Globulin 3.3, Albumin/ Globulin Ratio 0.7L, Hepatitis A IgM Antibody [Pending], Hepatitis B Surface Antigen [Pending], Hepatitis B Core IgM Antibody [Pending], Hepatitis C Antibody [Pending] Current Medications Medications (Trade) Dose Ordered Sig/Desire Route PRN Reason Start Time Stop Time Status Last Admin Dose Admin Acetaminophen (Tylenol) 650 mg Q4H PRN ORAL fever 03/28/17 06:45 04/27/17 06:44 03/29/17 13:02 Al Hydroxide/Mg Hydroxide (Mylanta II) 30 ml Q6H PRN ORAL dyspepsia 03/28/17 06:45 04/27/17 06:44 Amlodipine Besylate (Norvasc) 10 mg DAILY ORAL 03/28/17 09:00 04/27/17 08:59 03/29/17 08:32 Aripiprazole (Abilify) 20 mg DAILY ORAL 03/28/17 09:00 04/27/17 08:59 03/29/17 08:33 Dextrose (Dextrose 50%) STAT PRN IV Hypoglycemia 03/28/17 06:45 04/27/17 06:44 Diphenhydramine HCl (Benadryl) 25 mg Q6H PRN ORAL Itching/Pruritis 03/28/17 06:45 04/27/17 06:44 Escitalopram Oxalate (Lexapro) 10 mg DAILY ORAL 03/28/17 09:00 04/27/17 08:59 03/29/17 08:32 Gabapentin (Neurontin) 100 mg THREE TIMES A DAY ORAL 03/28/17 09:00 1/7/18 08:59 03/29/17 12:52 Haloperidol Lactate (Haldol) 5 mg Q6H PRN IM Agitation 03/28/17 11:15 04/27/17 11:14 Heparin Sodium (Porcine) (Heparin 5000 units/ml) 5,000 units EVERY 12 HOURS SUBQ 03/28/17 12:30 04/27/17 12:29 03/29/17 08:43 Lactulose (Cephulac) 30 gm BID ORAL 03/29/17 09:00 04/27/17 08:59 03/29/17 08:32 Lorazepam (Ativan) 0.5 mg Q4HR ORAL 03/28/17 09:00 04/04/17 08:59 03/29/17 12:54 Morphine Sulfate (Morphine Sulfate) 2 mg EVERY 4 HOURS PRN IVP severe Pain (Pain Scale 7-10) 03/28/17 06:45 04/04/17 06:44 03/29/17 08:35 Nitroglycerin (Ntg) 0.4 mg Q5M X 3 DOSES PRN SL Prn Chest Pain 03/28/17 06:45 04/27/17 06:44 Ondansetron HCl (Zofran) 4 mg Q6H PRN IVP Nausea & Vomiting 03/28/17 06:45 04/27/17 06:44 Pantoprazole (Protonix) 40 mg DAILY IVP 03/29/17 09:00 04/28/17 08:59 03/29/17 08:32 Polyethylene Glycol (Miralax) 17 gm HSPRN PRN ORAL Constipation 03/28/17 06:45 04/27/17 06:44 Rifaximin (Xifaxan) 550 mg EVERY 12 HOURS ORAL 03/28/17 21:00 04/04/17 20:59 03/29/17 08:33 Temazepam (Restoril) 15 mg HSPRN PRN ORAL Insomnia 03/28/17 06:45 04/04/17 06:44 JANA HENLEY Mar 29, 2017 14:51
[2017-03-29] MEDS ORDERED: Nitroglycerin Subl 0.4mg tab SL PRN (18:30)
[2017-03-29] MEDS ORDERED: Mylanta II UD 30ml ORAL PRN (18:45)
[2017-03-29] MEDS ORDERED: Haloperidol 5mg/ml Inj IM PRN (23:15)
[2017-03-30] VITALS: BP 151/57
[2017-03-30] MEDS: LORazepam 0.5mg tab ORAL SCH ×6 (01:27→20:47)
[2017-03-30 04:00] VITALS: BP 143/61
--- NOTE | 2017-03-30 06:38 | General Progress Note ---
Assessment/Plan Problem List: (1) HTN (hypertension) ICD Codes: I10 - HTN (hypertension) SNOMED: 80358339 (2) Hepatic encephalopathy ICD Codes: K72.90 - Hepatic failure, unspecified without coma SNOMED: 43313045 (3) Epileptic seizure, generalized ICD Codes: G40.909 - Epilepsy, unspecified, not intractable, without status epilepticus SNOMED: 16130978 Assessment/Plan dc lactulose cont xifaxan abd us reviewed cardiac diet Subjective Allergies: Coded Allergies: BENZOCAINE (Unverified Allergy, Unknown, 07/21/14) PENICILLINS (Unverified Allergy, Unknown, 07/21/14) QUETIAPINE (Unverified Allergy, Unknown, 07/21/14) Subjective wants to go home diarrhea no vomiting confused Objective Last 24 Hour Vital Signs Date Time Temp Pulse Resp B/P (MAP) Pulse Ox O2 Delivery O2 Flow Rate FiO2 03/30/17 04:00 98.5 75 20 143/61 93 Room Air 03/30/17 00:09 97.9 03/30/17 00:00 97.7 70 18 151/57 92 Room Air 03/29/17 20:00 97.9 79 20 148/66 93 Room Air 03/29/17 16:00 97.5 74 18 142/60 92 03/29/17 12:00 98.1 61 19 140/61 94 03/29/17 08:32 61 156/69 03/29/17 08:00 97.7 61 18 156/69 93 03/29/17 08:00 63 Laboratory Tests 03/29/17 11:30: Stool Occult Blood [Pending] Impression: Gallbladder nonvisualized reportedly removed. Mild nonspecific prominence of the common bile that measuring 9 mm. Clinical correlation recommended. Mild increased echogenicity of the liver may suggest mild fatty infiltration or hepatocellular disease. Clinical correlation recommended. Atherosclerotic changes. Apparent cortical scarring of the right kidney. Peripheral echogenicity adjacent to the scarring could represent adjacent perinephric fat but a small hyperechoic lesion of the right kidney cannot be excluded. Further evaluation with CT recommended as indicated. Height (Feet): 5 Height (Inches): 6.00 Weight (Pounds): 168 General Appearance: alert, confused EENT: normal ENT inspection Neck: supple Cardiovascular: normal rate Respiratory/Chest: lungs clear Abdomen: normal bowel sounds, non tender, soft Extremities: non-tender HERNANDO RUBALCAVA Mar 30, 2017 06:38
[2017-03-30] MEDS ORDERED: Miralax 17gm pkt ORAL PRN (06:45)
[2017-03-30 08:15] VITALS: BP 137/59
--- NOTE | 2017-03-30 08:16 | General Progress Note ---
Assessment/Plan Problem List: (1) Epileptic seizure, generalized ICD Codes: G40.909 - Epilepsy, unspecified, not intractable, without status epilepticus SNOMED: 74143956 (2) HTN (hypertension) ICD Codes: I10 - HTN (hypertension) SNOMED: 59998104 (3) Hepatic encephalopathy ICD Codes: K72.90 - Hepatic failure, unspecified without coma SNOMED: 22264202 (4) Hypokalemia ICD Codes: E87.6 - Hypokalemia SNOMED: 43812888 Status: stable, progressing, tolerating diet Assessment/Plan ot pt diet bp seizre control neuro psyc eval cbc bmp am Subjective Constitutional: Reports: weakness Allergies: Coded Allergies: BENZOCAINE (Unverified Allergy, Unknown, 07/21/14) PENICILLINS (Unverified Allergy, Unknown, 07/21/14) QUETIAPINE (Unverified Allergy, Unknown, 07/21/14) All Systems: reviewed and negative except above Subjective calm in bed Objective Last 24 Hour Vital Signs Date Time Temp Pulse Resp B/P (MAP) Pulse Ox O2 Delivery O2 Flow Rate FiO2 03/30/17 04:00 98.5 75 20 143/61 93 Room Air 03/30/17 00:09 97.9 03/30/17 00:00 97.7 70 18 151/57 92 Room Air 03/29/17 20:00 97.9 79 20 148/66 93 Room Air 03/29/17 16:00 97.5 74 18 142/60 92 03/29/17 12:00 98.1 61 19 140/61 94 03/29/17 08:32 61 156/69 Laboratory Tests 03/29/17 11:30: Stool Occult Blood [Pending] 03/30/17 06:50: White Blood Count [Pending], Red Blood Count [Pending], Hemoglobin [Pending], Hematocrit [Pending], Mean Corpuscular Volume [Pending], Mean Corpuscular Hemoglobin [Pending], Mean Corpuscular Hemoglobin Concent [Pending], Red Cell Distribution Width [Pending], Platelet Count [Pending], Mean Platelet Volume [ Pending], Neutrophils (%) (Auto) [Pending], Lymphocytes (%) (Auto) [Pending], Monocytes (%) (Auto) [Pending], Eosinophils (%) (Auto) [Pending], Basophils (%) (Auto) [Pending], Sodium Level [Pending], Potassium Level [Pending], Chloride Level [Pending], Carbon Dioxide Level [Pending], Blood Urea Nitrogen [Pending], Creatinine [Pending], Estimat Glomerular Filtration Rate [Pending], Glucose Level [Pending], Calcium Level [Pending], Total Bilirubin [Pending], Aspartate Amino Transf (AST/SGOT) [Pending], Alanine Aminotransferase (ALT/SGPT) [Pending] , Alkaline Phosphatase [Pending], Total Protein [Pending], Albumin [Pending], Globulin [Pending], Alpha Fetoprotein [Pending] Height (Feet): 5 Height (Inches): 6.00 Weight (Pounds): 168 General Appearance: lethargic EENT: normal ENT inspection Neck: normal alignment Cardiovascular: normal peripheral pulses, normal rate, regular rhythm Respiratory/Chest: chest wall non-tender, lungs clear, normal breath sounds Abdomen: normal bowel sounds, non tender, soft Extremities: normal inspection Edema: no edema noted Arm (L), no edema noted Arm (R), no edema noted Leg (L), no edema noted Leg (R), no edema noted Pedal (L), no edema noted Pedal (R), no edema noted Generalized Neurologic: motor weakness Skin: normal pigmentation, warm/dry YVES AYOUB Mar 30, 2017 08:16
[2017-03-30 08:21] LABS: BASOPHILS % (AUTO) 0.4 % (0.0-2.0); EOSINOPHILS % (AUTO) 0.7 % (0.0-3.0); MEAN CORPUSCULAR HEMOGLOBIN 31.1 PG (27.0-31.0); MEAN CORPUSCULAR VOLUME 94 FL (80-99); MEAN PLATELET VOLUME 6.6 FL (6.5-10.1); MONOCYTES % (AUTO) 7.8 % (1.0-10.0); NEUTROPHILS % (AUTO) 65.2 % (45.0-75.0); PLATELET COUNT 199 K/UL (150-450); RED CELL DISTRIBUTION WIDTH 13.9 % (11.6-14.8); WHITE BLOOD COUNT 7.8 K/UL (4.8-10.8)
[2017-03-30 08:51] LABS: ALANINE AMINOTRANSFERASE 101 U/L (12-78); ALBUMIN/GLOBULIN RATIO 0.7 (1.0-2.7); ANION GAP 4 mmol/L (5-15); ASPARTATE AMINO TRANSFERASE 32 U/L (15-37); CALCIUM 8.9 MG/DL (8.5-10.1); CARBON DIOXIDE 34 MMOL/L (21-32); CHLORIDE 105 MMOL/L (98-107); CREATININE 0.6 MG/DL (0.55-1.30); POTASSIUM 3.5 MMOL/L (3.5-5.1); SODIUM 143 MMOL/L (136-145); TOTAL PROTEIN 6.4 G/DL (6.4-8.2)
[2017-03-30] MEDS ORDERED: Lactulose 20gm/30ml UDC ORAL SCH (09:00)
[2017-03-30] MEDS: Pantoprazole Inj IVP SCH (09:33)
[2017-03-30] MEDS: ARIPiprazole 10mg tab ORAL SCH (09:35)
[2017-03-30] MEDS: Heparin 5000 units/ml inj SUBQ SCH ×2 (09:38→20:48)
[2017-03-30 12:02] VITALS: BP 153/56
[2017-03-30 16:12] VITALS: BP 120/49
[2017-03-30] MEDS ORDERED: D5 1/2NS 1000ml IV ONE (16:37)
--- NOTE | 2017-03-30 17:44 | Pulmonology Progress Note ---
Assessment/Plan Problems: (1) Acute encephalopathy (2) Hepatic encephalopathy (3) Hypokalemia (4) Epileptic seizure, generalized Assessment/Plan improving continue current meds all reviewed check labs in am med/surg d/w nurse dc planning soon Subjective ROS Limited/Unobtainable: No Allergies: Coded Allergies: BENZOCAINE (Unverified Allergy, Unknown, 07/21/14) PENICILLINS (Unverified Allergy, Unknown, 07/21/14) QUETIAPINE (Unverified Allergy, Unknown, 07/21/14) Objective Last 24 Hour Vital Signs Date Time Temp Pulse Resp B/P (MAP) Pulse Ox O2 Delivery O2 Flow Rate FiO2 03/30/17 16:12 97.4 69 20 120/49 99 Room Air 03/30/17 12:02 97.0 70 20 153/56 96 Room Air 03/30/17 09:36 75 137/59 03/30/17 08:15 97.9 75 21 137/59 97 Room Air 03/30/17 04:00 98.5 75 20 143/61 93 Room Air 03/30/17 00:09 97.9 03/30/17 00:00 97.7 70 18 151/57 92 Room Air 03/29/17 20:00 97.9 79 20 148/66 93 Room Air Intake and Output 03/30/17 03/31/17 19:00 07:00 Intake Total 480 ml Balance 480 ml Intake Oral 480 ml Objective General Appearance: WD/WN HEENT: normocephalic, atraumatic Respiratory/Chest: chest wall non-tender, normal breath sounds Breasts: no masses Cardiovascular: normal peripheral pulses Abdomen: normal bowel sounds Extremities: no cyanosis Skin: no lesions Microbiology Date/Time Source Procedure Growth Status 03/28/17 05:33 Nasal Nares MRSA Culture - Final NO METHICILLIN RESISTANT STAPH AUREUS... Complete 03/28/17 05:33 Rectum VRE Culture - Final NO VANCOMYCIN RESISTANT ENTEROCOCCUS ... Complete Laboratory Tests 03/30/17 06:50: White Blood Count 7.8, Red Blood Count 4.10L, Hemoglobin 12.8, Hematocrit 38.6, Mean Corpuscular Volume 94, Mean Corpuscular Hemoglobin 31.1H, Mean Corpuscular Hemoglobin Concent 33.0, Red Cell Distribution Width 13.9, Platelet Count 199, Mean Platelet Volume 6.6, Neutrophils (%) (Auto) 65.2, Lymphocytes (%) (Auto) 26.0, Monocytes (%) (Auto) 7.8, Eosinophils (%) (Auto) 0.7, Basophils (%) (Auto ) 0.4, Sodium Level 143, Potassium Level 3.5, Chloride Level 105, Carbon Dioxide Level 34H, Anion Gap 4L, Blood Urea Nitrogen 8, Creatinine 0.6, Estimat Glomerular Filtration Rate , Glucose Level 105, Calcium Level 8.9, Total Bilirubin 0.2, Aspartate Amino Transf (AST/SGOT) 32, Alanine Aminotransferase ( ALT/SGPT) 101H, Alkaline Phosphatase 126H, Total Protein 6.4, Albumin 2.6L, Globulin 3.8, Albumin/Globulin Ratio 0.7L, Alpha Fetoprotein [Pending] Current Medications Medications (Trade) Dose Ordered Sig/Desire Route PRN Reason Start Time Stop Time Status Last Admin Dose Admin Acetaminophen (Tylenol) 650 mg Q4H PRN ORAL TEMP 03/29/17 22:45 04/28/17 22:44 03/30/17 05:01 Al Hydroxide/Mg Hydroxide (Mylanta II) 30 ml Q6H PRN ORAL dyspepsia 03/29/17 18:45 04/27/17 06:44 Amlodipine Besylate (Norvasc) 10 mg DAILY ORAL 03/30/17 09:00 04/27/17 08:59 03/30/17 09:36 Aripiprazole (Abilify) 20 mg DAILY ORAL 03/30/17 09:00 04/27/17 08:59 03/30/17 09:35 Dextrose (Dextrose 50%) STAT PRN IV Hypoglycemia 03/30/17 06:45 04/27/17 06:44 Diphenhydramine HCl (Benadryl) 25 mg Q6H PRN ORAL Itching/Pruritis 03/29/17 18:45 04/27/17 06:44 Escitalopram Oxalate (Lexapro) 10 mg DAILY ORAL 03/30/17 09:00 04/27/17 08:59 03/30/17 09:35 Gabapentin (Neurontin) 100 mg THREE TIMES A DAY ORAL 03/30/17 09:00 04/27/17 08:59 03/30/17 17:00 Haloperidol Lactate (Haldol) 5 mg Q6H PRN IM Agitation 03/29/17 23:15 04/27/17 11:14 Heparin Sodium (Porcine) (Heparin 5000 units/ml) 5,000 units EVERY 12 HOURS SUBQ 03/29/17 21:00 04/27/17 12:29 03/30/17 09:38 Lorazepam (Ativan) 0.5 mg Q4HR ORAL 03/29/17 21:00 04/04/17 08:59 03/30/17 16:54 Morphine Sulfate (Morphine Sulfate) 2 mg EVERY 4 HOURS PRN IVP severe Pain (Pain Scale 7-10) 03/29/17 21:00 04/04/17 06:44 Nitroglycerin (Ntg) 0.4 mg Q5M X 3 DOSES PRN SL Prn Chest Pain 03/29/17 18:30 04/27/17 06:44 Ondansetron HCl (Zofran) 4 mg Q6H PRN IVP Nausea & Vomiting 03/29/17 18:45 04/27/17 06:44 Pantoprazole (Protonix) 40 mg DAILY IVP 03/30/17 09:00 04/28/17 08:59 03/30/17 09:33 Polyethylene Glycol (Miralax) 17 gm HSPRN PRN ORAL Constipation 03/30/17 06:45 04/27/17 06:44 Rifaximin (Xifaxan) 550 mg EVERY 12 HOURS ORAL 03/29/17 21:00 04/04/17 20:59 03/30/17 09:36 Temazepam (Restoril) 15 mg HSPRN PRN ORAL Insomnia 03/30/17 06:45 04/04/17 06:44 JANA HENLEY Mar 30, 2017 17:44
[2017-03-30 20:00] VITALS: BP 135/74
[2017-03-31] VITALS: BP 133/70
[2017-03-31] MEDS: Morphine Sulfate 2mg/ml Inj IVP PRN ×3 (00:28→17:03)
[2017-03-31] MEDS: LORazepam 0.5mg tab ORAL SCH ×6 (01:11→20:39)
[2017-03-31 04:00] VITALS: BP 146/64
[2017-03-31 06:42] LABS: BASOPHILS % (AUTO) 1.1 % (0.0-2.0); EOSINOPHILS % (AUTO) 1.3 % (0.0-3.0); LYMPHOCYTES % (AUTO) 38.8 % (20.0-45.0); MEAN CORPUSCULAR HEMOGLOBIN 31.5 PG (27.0-31.0); MEAN CORPUSCULAR HGB CONC 33.2 G/DL (32.0-36.0); MEAN CORPUSCULAR VOLUME 95 FL (80-99); MONOCYTES % (AUTO) 6.9 % (1.0-10.0); NEUTROPHILS % (AUTO) 51.9 % (45.0-75.0); PLATELET COUNT 225 K/UL (150-450); RED CELL DISTRIBUTION WIDTH 14.3 % (11.6-14.8); WHITE BLOOD COUNT 8.1 K/UL (4.8-10.8)
[2017-03-31 07:03] LABS: ANION GAP 5 mmol/L (5-15); CALCIUM 9.2 MG/DL (8.5-10.1); CARBON DIOXIDE 32 MMOL/L (21-32); CHLORIDE 103 MMOL/L (98-107); CREATININE 0.5 MG/DL (0.55-1.30); POTASSIUM 3.4 MMOL/L (3.5-5.1); SODIUM 140 MMOL/L (136-145)
[2017-03-31 08:15] VITALS: BP 129/57
[2017-03-31] MEDS: Pantoprazole Inj IVP SCH (09:03)
[2017-03-31] MEDS: ARIPiprazole 10mg tab ORAL SCH (09:04)
[2017-03-31] MEDS: Heparin 5000 units/ml inj SUBQ SCH ×2 (09:09→20:40)
--- NOTE | 2017-03-31 09:33 | General Progress Note ---
Assessment/Plan Problem List: (1) Epileptic seizure, generalized ICD Codes: G40.909 - Epilepsy, unspecified, not intractable, without status epilepticus SNOMED: 98784417 (2) HTN (hypertension) ICD Codes: I10 - HTN (hypertension) SNOMED: 51907419 (3) Hepatic encephalopathy ICD Codes: K72.90 - Hepatic failure, unspecified without coma SNOMED: 15166898 (4) Hypokalemia ICD Codes: E87.6 - Hypokalemia SNOMED: 61734431 Status: stable, progressing, tolerating diet Assessment/Plan ot pt diet bp seizre control neuro psyc eval cbc bmp am pending mri Subjective Allergies: Coded Allergies: BENZOCAINE (Unverified Allergy, Unknown, 07/21/14) PENICILLINS (Unverified Allergy, Unknown, 07/21/14) QUETIAPINE (Unverified Allergy, Unknown, 07/21/14) All Systems: reviewed and negative except above Subjective calm in bed sl dizzy Objective Last 24 Hour Vital Signs Date Time Temp Pulse Resp B/P (MAP) Pulse Ox O2 Delivery O2 Flow Rate FiO2 03/31/17 09:03 75 129/57 03/31/17 08:15 97.7 75 20 129/57 98 Room Air 03/31/17 04:00 97.9 65 20 146/64 93 03/31/17 00:00 98.2 69 21 133/70 92 03/30/17 20:00 97.9 63 20 135/74 93 03/30/17 20:00 Room Air 03/30/17 16:12 97.4 69 20 120/49 99 Room Air 03/30/17 12:02 97.0 70 20 153/56 96 Room Air 03/30/17 09:36 75 137/59 Intake and Output 03/31/17 04/01/17 19:00 07:00 Intake Total 240 ml Balance 240 ml Intake Oral 240 ml Laboratory Tests 03/31/17 05:40: White Blood Count 8.1, Red Blood Count 4.10L, Hemoglobin 12.9, Hematocrit 38.8, Mean Corpuscular Volume 95, Mean Corpuscular Hemoglobin 31.5H, Mean Corpuscular Hemoglobin Concent 33.2, Red Cell Distribution Width 14.3, Platelet Count 225, Mean Platelet Volume 7.0, Neutrophils (%) (Auto) 51.9, Lymphocytes (%) (Auto) 38.8, Monocytes (%) (Auto) 6.9, Eosinophils (%) (Auto) 1.3, Basophils (%) (Auto ) 1.1, Sodium Level 140, Potassium Level 3.4L, Chloride Level 103, Carbon Dioxide Level 32, Anion Gap 5, Blood Urea Nitrogen 17, Creatinine 0.5L, Estimat Glomerular Filtration Rate , Glucose Level 119H, Calcium Level 9.2 Height (Feet): 5 Height (Inches): 6.00 Weight (Pounds): 168 General Appearance: lethargic EENT: normal ENT inspection Neck: normal alignment Cardiovascular: normal peripheral pulses, normal rate, regular rhythm Respiratory/Chest: chest wall non-tender, lungs clear, normal breath sounds Abdomen: normal bowel sounds, non tender, soft Extremities: normal inspection Edema: no edema noted Arm (L), no edema noted Arm (R), no edema noted Leg (L), no edema noted Leg (R), no edema noted Pedal (L), no edema noted Pedal (R), no edema noted Generalized Neurologic: motor weakness Skin: normal pigmentation, warm/dry YVES AYOUB Mar 31, 2017 09:33
--- NOTE | 2017-03-31 10:55 | GI Progress Note ---
Assessment/Plan Problems: (1) Acute encephalopathy ICD Codes: G93.40 - Encephalopathy, unspecified SNOMED: 5277103 (2) Hepatic encephalopathy ICD Codes: K72.90 - Hepatic failure, unspecified without coma SNOMED: 14315867 Status: stable Status Narrative Discussed with Dr. Avina. Assessment/Plan abd us reviewed >> Mild increased echogenicity of the liver may suggest mild fatty infiltration or hepatocellular disease. hep panel >> negative lactulose daily, cont xifaxan cardiac diet electrolyte replacement ppi fu labs dc planning Subjective Gastrointestinal/Abdominal: Reports: no symptoms Subjective ready to go home Objective Last 24 Hour Vital Signs Date Time Temp Pulse Resp B/P (MAP) Pulse Ox O2 Delivery O2 Flow Rate FiO2 03/31/17 09:03 75 129/57 03/31/17 08:15 97.7 75 20 129/57 98 Room Air 03/31/17 04:00 97.9 65 20 146/64 93 03/31/17 00:00 98.2 69 21 133/70 92 03/30/17 20:00 97.9 63 20 135/74 93 03/30/17 20:00 Room Air 03/30/17 16:12 97.4 69 20 120/49 99 Room Air 03/30/17 12:02 97.0 70 20 153/56 96 Room Air Intake and Output 03/31/17 04/01/17 19:00 07:00 Intake Total 240 ml Balance 240 ml Intake Oral 240 ml Laboratory Tests Test 03/31/17 05:40 White Blood Count 8.1 K/UL (4.8-10.8) Red Blood Count 4.10 M/UL (4.20-5.40) L Hemoglobin 12.9 G/DL (12.0-16.0) Hematocrit 38.8 % (37.0-47.0) Mean Corpuscular Volume 95 FL (80-99) Mean Corpuscular Hemoglobin 31.5 PG (27.0-31.0) H Mean Corpuscular Hemoglobin Concent 33.2 G/DL (32.0-36.0) Red Cell Distribution Width 14.3 % (11.6-14.8) Platelet Count 225 K/UL (150-450) Mean Platelet Volume 7.0 FL (6.5-10.1) Neutrophils (%) (Auto) 51.9 % (45.0-75.0) Lymphocytes (%) (Auto) 38.8 % (20.0-45.0) Monocytes (%) (Auto) 6.9 % (1.0-10.0) Eosinophils (%) (Auto) 1.3 % (0.0-3.0) Basophils (%) (Auto) 1.1 % (0.0-2.0) Sodium Level 140 MMOL/L (136-145) Potassium Level 3.4 MMOL/L (3.5-5.1) L Chloride Level 103 MMOL/L (98-107) Carbon Dioxide Level 32 MMOL/L (21-32) Anion Gap 5 mmol/L (5-15) Blood Urea Nitrogen 17 mg/dL (7-18) Creatinine 0.5 MG/DL (0.55-1.30) L Estimat Glomerular Filtration Rate mL/min (>60) Glucose Level 119 MG/DL (74-106) H Calcium Level 9.2 MG/DL (8.5-10.1) Height (Feet): 5 Height (Inches): 6.00 Weight (Pounds): 168 General Appearance: WD/WN, no apparent distress, alert Cardiovascular: normal rate Respiratory/Chest: normal breath sounds, no respiratory distress Abdominal Exam: normal bowel sounds, non tender, soft Extremities: normal range of motion, non-tender Maame Mendez N.P. Mar 31, 2017 10:55
[2017-03-31 12:15] VITALS: BP 146/57
--- NOTE | 2017-03-31 13:03 | Consultation ---
History of Present Illness General Referring physician: Dr. Ramsey Reason for Consultation: Hypokalemia Present Illness HPI This is a 72-year-old female, skilled nursing resident, with a PMHx significant for GERD, Hypertension, Chronic psychiatric disorder, seizure disorder. who was initially admitted to [facility] with complaint of severe low back pain, also due to confusion. Laboratory studies revealed abnormal liver function as well as low potassium. Allergies: Coded Allergies: BENZOCAINE (Unverified Allergy, Unknown, 07/21/14) PENICILLINS (Unverified Allergy, Unknown, 07/21/14) QUETIAPINE (Unverified Allergy, Unknown, 07/21/14) Medication History Scheduled Alendronate Sodium* (Fosamax*), 70 MG ORAL ONCE A WEEK, (Reported) Alprazolam (Alprazolam), 2 MG ORAL Q6HR, (Reported) Amlodipine Besylate (Norvasc), 10 MG ORAL DAILY, (Reported) Aripiprazole* (Abilify*), 20 MG ORAL DAILY, (Reported) Aspirin (Aspirin EC), 81 MG ORAL DAILY, (Reported) Baclofen* (Baclofen*), 10 MG ORAL THREE TIMES A DAY, (Reported) Cranberry Conc/C/Bacill Coag (Cranberry Tablet), 1 EACH PO DAILY, (Reported) Divalproex Sodium (Divalproex Sodium), 500 MG PO BID, (Reported) Docusate Sodium* (Colace*), 100 MG ORAL DAILY, (Reported) Escitalopram Oxalate* (Lexapro*), 10 MG ORAL DAILY, (Reported) Gabapentin* (Gabapentin*), 100 MG ORAL THREE TIMES A DAY, (Reported) Ibuprofen* (Motrin*), 600 MG ORAL BID, (Reported) Lactulose (Lactulose*), 44 ML ORAL BID, (Reported) Levofloxacin* (Levaquin*), 500 MG ORAL DAILY Lorazepam (Lorazepam), 0.5 GM MC Q4HR, (Reported) Lorazepam* (Lorazepam*), 0.5 MG ORAL Q4HR, (Reported) Omeprazole (Omeprazole), MG ORAL BEFORE BREAKFAST, (Reported) Valproate Sodium (Valproic Acid), 1,000 MG ORAL Q12HR, (Reported) Valproic Acid (Depakene), 1,000 MG ORAL TWICE A DAY Valproic Acid (Valproic Acid), 1,000 MG PO Q12HR, (Reported) Scheduled PRN Acetaminophen* (Acetaminophen 325MG Tablet*), 650 MG ORAL Q4H PRN for Prn Headache/Temp > 101, (Reported) Bisacodyl (Dulcolax), 10 MG RC for Constipation, (Reported) Clonidine Hcl* (Catapres*), 0.1 MG ORAL EVERY 8 HOURS PRN for For High Blood Pressure, (Reported) Hydrocodone Bit/Acetaminophen 5-325* ([place] 5-325*), 2 TAB ORAL Q6HR PRN for For Pain, (Reported) Hydrocodone/Acetaminophen 5-325* (Hydrocodone/Acetaminophen 5-325*), 1 TAB ORAL Q12HR PRN for For Pain, (Reported) Lorazepam* (Ativan*), 2 MG ORAL Q6HR PRN for For Anxiety, (Reported) Lorazepam* (Ativan*), 1 MG ORAL Q6HR PRN for For Anxiety, (Reported) Magnesium Hydroxide (Milk of Magnesia), 30 ML ORAL DAILY PRN for Constipation, ( Reported) Ondansetron (Zofran), 4 MG ORAL Q6H PRN for Nausea & Vomiting, (Reported) Tramadol Hcl (Tramadol Hcl), 50 MG ORAL Q6HR PRN for Pain Scale (6-10), ( Reported) Zolpidem Tartrate* (Ambien*), 5 MG ORAL BEDTIME PRN for Insomnia, (Reported) Patient History Limited by: medical condition History Provided By: Patient, Medical Record Healthcare decision maker Resuscitation status Full Code Advanced Directive on File Past Medical/Surgical History Past Medical/Surgical History: (1) Epileptic seizure, generalized (2) Hepatic encephalopathy (3) Aspiration pneumonia (4) UTI (urinary tract infection) Social History Social History: (1) Non-smoker (2) No illicit drug use (3) No history of alcohol use Review of Systems Constitutional: Reports: weakness Eye: Denies: no symptoms, see HPI, eye pain, blurred vision, tearing, double vision, nose pain, nose congestion, acuity changes, discharge, other ENT: Denies: no symptoms, see HPI, ear pain, ear discharge, nose pain, nose congestion, throat pain, throat swelling, mouth pain, hearing loss, nasal discharge, other Respiratory: Denies: no symptoms, see HPI, cough, orthopnea, shortness of breath, stridor, wheezing, GUTIERREZ, sputum, other Cardiovascular: Denies: no symptoms, see HPI, chest pain, edema, palpitations, syncope, PND, other Gastrointestinal: Denies: no symptoms, see HPI, abdominal pain, constipation, diarrhea, nausea, vomiting, melena, hematemesis, other Genitourinary: Denies: no symptoms, see HPI, discharge, dysuria, frequency, hematuria, pain, retention, incontinence, urgency, vag bleed/dc, other Musculoskeletal: Reports: joint pain Skin: Denies: no symptoms, see HPI, rash, change in color, change in hair/nails , dryness, lesions, other Psychiatric: Reports: anxiety Neurological: Reports: seizure Endocrine: Denies: no symptoms, see HPI, excessive sweating, flushing, intolerance to temperature, increased thirst, increased urine, unexplained weight loss, other Hematologic/Lymphatic: Denies: no symptoms, see HPI, anemia, blood clots, easy bleeding, easy bruising, swollen glands, diathesis, other Physical Exam General Appearance: no apparent distress, alert Lines, tubes and drains: peripheral HEENT: normocephalic, atraumatic Neck: non-tender, normal alignment Respiratory/Chest: lungs clear Cardiovascular/Chest: normal rate, regular rhythm Abdomen: non tender, soft, no organomegaly Extremities: non-tender, normal inspection Skin Exam: warm/dry Neurologic: alert, responsive Last 24 Hour Vital Signs Date Time Temp Pulse Resp B/P (MAP) Pulse Ox O2 Delivery O2 Flow Rate FiO2 03/31/17 12:15 98.6 72 21 146/57 99 Room Air 03/31/17 11:03 97.7 03/31/17 09:03 75 129/57 03/31/17 08:15 97.7 75 20 129/57 98 Room Air 03/31/17 04:00 97.9 65 20 146/64 93 03/31/17 00:00 98.2 69 21 133/70 92 03/30/17 20:00 97.9 63 20 135/74 93 03/30/17 20:00 Room Air 03/30/17 16:12 97.4 69 20 120/49 99 Room Air Intake and Output 03/31/17 04/01/17 19:00 07:00 Intake Total 240 ml Balance 240 ml Intake Oral 240 ml Laboratory Tests Test 03/31/17 05:40 White Blood Count 8.1 K/UL (4.8-10.8) Red Blood Count 4.10 M/UL (4.20-5.40) L Hemoglobin 12.9 G/DL (12.0-16.0) Hematocrit 38.8 % (37.0-47.0) Mean Corpuscular Volume 95 FL (80-99) Mean Corpuscular Hemoglobin 31.5 PG (27.0-31.0) H Mean Corpuscular Hemoglobin Concent 33.2 G/DL (32.0-36.0) Red Cell Distribution Width 14.3 % (11.6-14.8) Platelet Count 225 K/UL (150-450) Mean Platelet Volume 7.0 FL (6.5-10.1) Neutrophils (%) (Auto) 51.9 % (45.0-75.0) Lymphocytes (%) (Auto) 38.8 % (20.0-45.0) Monocytes (%) (Auto) 6.9 % (1.0-10.0) Eosinophils (%) (Auto) 1.3 % (0.0-3.0) Basophils (%) (Auto) 1.1 % (0.0-2.0) Sodium Level 140 MMOL/L (136-145) Potassium Level 3.4 MMOL/L (3.5-5.1) L Chloride Level 103 MMOL/L (98-107) Carbon Dioxide Level 32 MMOL/L (21-32) Anion Gap 5 mmol/L (5-15) Blood Urea Nitrogen 17 mg/dL (7-18) Creatinine 0.5 MG/DL (0.55-1.30) L Estimat Glomerular Filtration Rate mL/min (>60) Glucose Level 119 MG/DL (74-106) H Calcium Level 9.2 MG/DL (8.5-10.1) Height (Feet): 5 Height (Inches): 6.00 Weight (Pounds): 168 Medications Current Medications Medications (Trade) Dose Ordered Sig/Desire Route PRN Reason Start Time Stop Time Status Last Admin Dose Admin Acetaminophen (Tylenol) 650 mg Q4H PRN ORAL TEMP 03/29/17 22:45 1/8/18 22:44 03/30/17 05:01 Al Hydroxide/Mg Hydroxide (Mylanta II) 30 ml Q6H PRN ORAL dyspepsia 03/29/17 18:45 04/27/17 06:44 Amlodipine Besylate (Norvasc) 10 mg DAILY ORAL 03/30/17 09:00 04/27/17 08:59 03/31/17 09:03 Aripiprazole (Abilify) 20 mg DAILY ORAL 03/30/17 09:00 04/27/17 08:59 03/31/17 09:04 Dextrose (Dextrose 50%) STAT PRN IV Hypoglycemia 03/30/17 06:45 04/27/17 06:44 Diphenhydramine HCl (Benadryl) 25 mg Q6H PRN ORAL Itching/Pruritis 03/29/17 18:45 04/27/17 06:44 Escitalopram Oxalate (Lexapro) 10 mg DAILY ORAL 03/30/17 09:00 04/27/17 08:59 03/31/17 09:03 Gabapentin (Neurontin) 100 mg THREE TIMES A DAY ORAL 03/30/17 09:00 04/27/17 08:59 03/31/17 12:12 Haloperidol Lactate (Haldol) 5 mg Q6H PRN IM Agitation 03/29/17 23:15 04/27/17 11:14 Heparin Sodium (Porcine) (Heparin 5000 units/ml) 5,000 units EVERY 12 HOURS SUBQ 03/29/17 21:00 04/27/17 12:29 03/31/17 09:09 Lorazepam (Ativan) 0.5 mg Q4HR ORAL 03/29/17 21:00 04/04/17 08:59 03/31/17 12:12 Morphine Sulfate (Morphine Sulfate) 2 mg EVERY 4 HOURS PRN IVP severe Pain (Pain Scale 7-10) 03/29/17 21:00 04/04/17 06:44 03/31/17 10:33 Nitroglycerin (Ntg) 0.4 mg Q5M X 3 DOSES PRN SL Prn Chest Pain 03/29/17 18:30 04/27/17 06:44 Ondansetron HCl (Zofran) 4 mg Q6H PRN IVP Nausea & Vomiting 03/29/17 18:45 1/7/18 06:44 Pantoprazole (Protonix) 40 mg DAILY IVP 03/30/17 09:00 04/28/17 08:59 03/31/17 09:03 Polyethylene Glycol (Miralax) 17 gm HSPRN PRN ORAL Constipation 03/30/17 06:45 04/27/17 06:44 Rifaximin (Xifaxan) 550 mg EVERY 12 HOURS ORAL 03/29/17 21:00 04/04/17 20:59 03/31/17 09:04 Temazepam (Restoril) 15 mg HSPRN PRN ORAL Insomnia 03/30/17 06:45 04/04/17 06:44 Assessment/Plan Problem List: (1) HTN (hypertension) ICD Codes: I10 - HTN (hypertension) SNOMED: 27127097 (2) Epileptic seizure, generalized ICD Codes: G40.909 - Epilepsy, unspecified, not intractable, without status epilepticus SNOMED: 10514445 (3) Hepatic encephalopathy ICD Codes: K72.90 - Hepatic failure, unspecified without coma SNOMED: 44171485 (4) Hypokalemia ICD Codes: E87.6 - Hypokalemia SNOMED: 60425187 Assessment/Plan Replete K, monitor Monitor lites, correct prn Monitor neuro status Pain management PRN DVT prophylaxis AM labs Cari Muñoz N.P. Mar 31, 2017 13:03
--- NOTE | 2017-03-31 14:32 | Diagnostic Imaging Report ---
Indication: Altered level of consciousness Technique: Due to patient being claustrophobic, only a single diffusion sequence could be obtained. Comparison: 07/21/[address] Findings: Exam is extremely limited, as only a diffusion sequence was obtained. No abnormal foci of restricted diffusion are demonstrated Impression: Exam limited to a single diffusion sequence. Negative for evidence of acute infarct. No other diagnostic information available
[2017-03-31 16:17] VITALS: BP 118/63
--- NOTE | 2017-03-31 16:32 | Consultation ---
History of Present Illness General Referring physician: Dr. Ramsey Reason for Consultation: Hypokalemia Present Illness HPI 72-year-old female, [facility], with a PMHx significant for GERD, Hypertension, schizoaffective d/o. the pt endorses anxiety more lucid and organized since previous admission Allergies: Coded Allergies: BENZOCAINE (Unverified Allergy, Unknown, 07/21/14) PENICILLINS (Unverified Allergy, Unknown, 07/21/14) QUETIAPINE (Unverified Allergy, Unknown, 07/21/14) Medication History Scheduled Alendronate Sodium* (Fosamax*), 70 MG ORAL ONCE A WEEK, (Reported) Alprazolam (Alprazolam), 2 MG ORAL Q6HR, (Reported) Amlodipine Besylate (Norvasc), 10 MG ORAL DAILY, (Reported) Aripiprazole* (Abilify*), 20 MG ORAL DAILY, (Reported) Aspirin (Aspirin EC), 81 MG ORAL DAILY, (Reported) Baclofen* (Baclofen*), 10 MG ORAL THREE TIMES A DAY, (Reported) Cranberry Conc/C/Bacill Coag (Cranberry Tablet), 1 EACH PO DAILY, (Reported) Divalproex Sodium (Divalproex Sodium), 500 MG PO BID, (Reported) Docusate Sodium* (Colace*), 100 MG ORAL DAILY, (Reported) Escitalopram Oxalate* (Lexapro*), 10 MG ORAL DAILY, (Reported) Gabapentin* (Gabapentin*), 100 MG ORAL THREE TIMES A DAY, (Reported) Ibuprofen* (Motrin*), 600 MG ORAL BID, (Reported) Lactulose (Lactulose*), 44 ML ORAL BID, (Reported) Levofloxacin* (Levaquin*), 500 MG ORAL DAILY Lorazepam (Lorazepam), 0.5 GM MC Q4HR, (Reported) Lorazepam* (Lorazepam*), 0.5 MG ORAL Q4HR, (Reported) Omeprazole (Omeprazole), MG ORAL BEFORE BREAKFAST, (Reported) Valproate Sodium (Valproic Acid), 1,000 MG ORAL Q12HR, (Reported) Valproic Acid (Depakene), 1,000 MG ORAL TWICE A DAY Valproic Acid (Valproic Acid), 1,000 MG PO Q12HR, (Reported) Scheduled PRN Acetaminophen* (Acetaminophen 325MG Tablet*), 650 MG ORAL Q4H PRN for Prn Headache/Temp > 101, (Reported) Bisacodyl (Dulcolax), 10 MG RC for Constipation, (Reported) Clonidine Hcl* (Catapres*), 0.1 MG ORAL EVERY 8 HOURS PRN for For High Blood Pressure, (Reported) Hydrocodone Bit/Acetaminophen 5-325* ([place] 5-325*), 2 TAB ORAL Q6HR PRN for For Pain, (Reported) Hydrocodone/Acetaminophen 5-325* (Hydrocodone/Acetaminophen 5-325*), 1 TAB ORAL Q12HR PRN for For Pain, (Reported) Lorazepam* (Ativan*), 2 MG ORAL Q6HR PRN for For Anxiety, (Reported) Lorazepam* (Ativan*), 1 MG ORAL Q6HR PRN for For Anxiety, (Reported) Magnesium Hydroxide (Milk of Magnesia), 30 ML ORAL DAILY PRN for Constipation, ( Reported) Ondansetron (Zofran), 4 MG ORAL Q6H PRN for Nausea & Vomiting, (Reported) Tramadol Hcl (Tramadol Hcl), 50 MG ORAL Q6HR PRN for Pain Scale (6-10), ( Reported) Zolpidem Tartrate* (Ambien*), 5 MG ORAL BEDTIME PRN for Insomnia, (Reported) Discontinued Medications Docusate Sodium (Docusate Sodium), 100 MG ORAL TWICE A DAY, (Reported) Discontinued Reason: MD discontinued med Ibuprofen* (Motrin*), 600 MG ORAL FOUR TIMES A DAY, (Reported) Discontinued Reason: MD discontinued med Patient History Limited by: medical condition History Provided By: Patient, Medical Record, PMD Healthcare decision maker Resuscitation status Full Code Advanced Directive on File Past Medical/Surgical History Past Medical/Surgical History: (1) Aspiration pneumonia (2) HTN (hypertension) (3) Epileptic seizure, generalized (4) Hepatic encephalopathy (5) Acute encephalopathy (6) Hypokalemia (7) Aspiration pneumonia (8) possible rectal bleed (9) UTI (urinary tract infection) (10) Epileptic seizure, generalized Review of Systems Psychiatric: Reports: prior hx, anxiety, emotional problems Physical Exam General Appearance: no apparent distress, alert Neurologic: alert, oriented x 3, responsive, depressed affect Last 24 Hour Vital Signs Date Time Temp Pulse Resp B/P (MAP) Pulse Ox O2 Delivery O2 Flow Rate FiO2 03/31/17 16:17 98.1 69 20 118/63 99 Room Air 03/31/17 12:15 98.6 72 21 146/57 99 Room Air 03/31/17 11:03 97.7 03/31/17 09:03 75 129/57 03/31/17 08:15 97.7 75 20 129/57 98 Room Air 03/31/17 04:00 97.9 65 20 146/64 93 03/31/17 00:00 98.2 69 21 133/70 92 03/30/17 20:00 97.9 63 20 135/74 93 03/30/17 20:00 Room Air Intake and Output 03/31/17 04/01/17 19:00 07:00 Intake Total 480 ml Balance 480 ml Intake Oral 480 ml Laboratory Tests Test 03/31/17 05:40 White Blood Count 8.1 K/UL (4.8-10.8) Red Blood Count 4.10 M/UL (4.20-5.40) L Hemoglobin 12.9 G/DL (12.0-16.0) Hematocrit 38.8 % (37.0-47.0) Mean Corpuscular Volume 95 FL (80-99) Mean Corpuscular Hemoglobin 31.5 PG (27.0-31.0) H Mean Corpuscular Hemoglobin Concent 33.2 G/DL (32.0-36.0) Red Cell Distribution Width 14.3 % (11.6-14.8) Platelet Count 225 K/UL (150-450) Mean Platelet Volume 7.0 FL (6.5-10.1) Neutrophils (%) (Auto) 51.9 % (45.0-75.0) Lymphocytes (%) (Auto) 38.8 % (20.0-45.0) Monocytes (%) (Auto) 6.9 % (1.0-10.0) Eosinophils (%) (Auto) 1.3 % (0.0-3.0) Basophils (%) (Auto) 1.1 % (0.0-2.0) Sodium Level 140 MMOL/L (136-145) Potassium Level 3.4 MMOL/L (3.5-5.1) L Chloride Level 103 MMOL/L (98-107) Carbon Dioxide Level 32 MMOL/L (21-32) Anion Gap 5 mmol/L (5-15) Blood Urea Nitrogen 17 mg/dL (7-18) Creatinine 0.5 MG/DL (0.55-1.30) L Estimat Glomerular Filtration Rate mL/min (>60) Glucose Level 119 MG/DL (74-106) H Calcium Level 9.2 MG/DL (8.5-10.1) Height (Feet): 5 Height (Inches): 6.00 Weight (Pounds): 168 Medications Current Medications Medications (Trade) Dose Ordered Sig/Desire Route PRN Reason Start Time Stop Time Status Last Admin Dose Admin Acetaminophen (Tylenol) 650 mg Q4H PRN ORAL TEMP 03/29/17 22:45 04/28/17 22:44 03/30/17 05:01 Al Hydroxide/Mg Hydroxide (Mylanta II) 30 ml Q6H PRN ORAL dyspepsia 03/29/17 18:45 04/27/17 06:44 Amlodipine Besylate (Norvasc) 10 mg DAILY ORAL 03/30/17 09:00 04/27/17 08:59 03/31/17 09:03 Aripiprazole (Abilify) 20 mg DAILY ORAL 03/30/17 09:00 04/27/17 08:59 03/31/17 09:04 Dextrose (Dextrose 50%) STAT PRN IV Hypoglycemia 03/30/17 06:45 04/27/17 06:44 Diphenhydramine HCl (Benadryl) 25 mg Q6H PRN ORAL Itching/Pruritis 03/29/17 18:45 04/27/17 06:44 Escitalopram Oxalate (Lexapro) 10 mg DAILY ORAL 03/30/17 09:00 04/27/17 08:59 03/31/17 09:03 Gabapentin (Neurontin) 100 mg THREE TIMES A DAY ORAL 03/30/17 09:00 04/27/17 08:59 03/31/17 12:12 Haloperidol Lactate (Haldol) 5 mg Q6H PRN IM Agitation 03/29/17 23:15 04/27/17 11:14 Heparin Sodium (Porcine) (Heparin 5000 units/ml) 5,000 units EVERY 12 HOURS SUBQ 03/29/17 21:00 04/27/17 12:29 12/11/17 09:09 Lactulose (Cephulac) 30 gm DAILY ORAL 04/01/17 15:30 05/01/17 15:29 Lorazepam (Ativan) 0.5 mg Q4HR ORAL 03/29/17 21:00 04/04/17 08:59 03/31/17 12:12 Morphine Sulfate (Morphine Sulfate) 2 mg EVERY 4 HOURS PRN IVP severe Pain (Pain Scale 7-10) 03/29/17 21:00 04/04/17 06:44 03/31/17 10:33 Nitroglycerin (Ntg) 0.4 mg Q5M X 3 DOSES PRN SL Prn Chest Pain 03/29/17 18:30 04/27/17 06:44 Ondansetron HCl (Zofran) 4 mg Q6H PRN IVP Nausea & Vomiting 03/29/17 18:45 04/27/17 06:44 Pantoprazole (Protonix) 40 mg DAILY IVP 03/30/17 09:00 04/28/17 08:59 03/31/17 09:03 Polyethylene Glycol (Miralax) 17 gm HSPRN PRN ORAL Constipation 03/30/17 06:45 04/27/17 06:44 Rifaximin (Xifaxan) 550 mg EVERY 12 HOURS ORAL 03/29/17 21:00 04/04/17 20:59 03/31/17 09:04 Temazepam (Restoril) 15 mg HSPRN PRN ORAL Insomnia 03/30/17 06:45 04/04/17 06:44 Assessment/Plan Status: stable Assessment/Plan schizoaffective d/o -abilify 30mg Tavia Mixon M.D. Mar 31, 2017 16:31
--- NOTE | 2017-03-31 16:40 | Pulmonology Progress Note ---
Assessment/Plan Problems: (1) Acute encephalopathy (2) Hepatic encephalopathy (3) Hypokalemia (4) Epileptic seizure, generalized Assessment/Plan mri bran pending improving continue current meds all reviewed check labs in am med/surg d/w nurse neuro f/u Subjective ROS Limited/Unobtainable: No Allergies: Coded Allergies: BENZOCAINE (Unverified Allergy, Unknown, 07/21/14) PENICILLINS (Unverified Allergy, Unknown, 07/21/14) QUETIAPINE (Unverified Allergy, Unknown, 07/21/14) Objective Last 24 Hour Vital Signs Date Time Temp Pulse Resp B/P (MAP) Pulse Ox O2 Delivery O2 Flow Rate FiO2 03/31/17 16:17 98.1 69 20 118/63 99 Room Air 03/31/17 12:15 98.6 72 21 146/57 99 Room Air 03/31/17 11:03 97.7 03/31/17 09:03 75 129/57 03/31/17 08:15 97.7 75 20 129/57 98 Room Air 03/31/17 04:00 97.9 65 20 146/64 93 03/31/17 00:00 98.2 69 21 133/70 92 03/30/17 20:00 97.9 63 20 135/74 93 03/30/17 20:00 Room Air Intake and Output 03/31/17 04/01/17 19:00 07:00 Intake Total 480 ml Balance 480 ml Intake Oral 480 ml Objective General Appearance: WD/WN HEENT: normocephalic, atraumatic Respiratory/Chest: chest wall non-tender, normal breath sounds Breasts: no masses Cardiovascular: normal peripheral pulses Abdomen: normal bowel sounds Extremities: no cyanosis Skin: no lesions Laboratory Tests 03/31/17 05:40: White Blood Count 8.1, Red Blood Count 4.10L, Hemoglobin 12.9, Hematocrit 38.8, Mean Corpuscular Volume 95, Mean Corpuscular Hemoglobin 31.5H, Mean Corpuscular Hemoglobin Concent 33.2, Red Cell Distribution Width 14.3, Platelet Count 225, Mean Platelet Volume 7.0, Neutrophils (%) (Auto) 51.9, Lymphocytes (%) (Auto) 38.8, Monocytes (%) (Auto) 6.9, Eosinophils (%) (Auto) 1.3, Basophils (%) (Auto ) 1.1, Sodium Level 140, Potassium Level 3.4L, Chloride Level 103, Carbon Dioxide Level 32, Anion Gap 5, Blood Urea Nitrogen 17, Creatinine 0.5L, Estimat Glomerular Filtration Rate , Glucose Level 119H, Calcium Level 9.2 Current Medications Medications (Trade) Dose Ordered Sig/Desire Route PRN Reason Start Time Stop Time Status Last Admin Dose Admin Acetaminophen (Tylenol) 650 mg Q4H PRN ORAL TEMP 03/29/17 22:45 04/28/17 22:44 03/30/17 05:01 Al Hydroxide/Mg Hydroxide (Mylanta II) 30 ml Q6H PRN ORAL dyspepsia 03/29/17 18:45 04/27/17 06:44 Amlodipine Besylate (Norvasc) 10 mg DAILY ORAL 03/30/17 09:00 04/27/17 08:59 03/31/17 09:03 Aripiprazole (Abilify) 20 mg DAILY ORAL 03/30/17 09:00 04/27/17 08:59 03/31/17 09:04 Aripiprazole (Abilify) 20 mg DAILY ORAL 04/01/17 09:00 05/01/17 08:59 Dextrose (Dextrose 50%) STAT PRN IV Hypoglycemia 03/30/17 06:45 04/27/17 06:44 Diphenhydramine HCl (Benadryl) 25 mg Q6H PRN ORAL Itching/Pruritis 03/29/17 18:45 04/27/17 06:44 Escitalopram Oxalate (Lexapro) 10 mg DAILY ORAL 03/30/17 09:00 04/27/17 08:59 03/31/17 09:03 Gabapentin (Neurontin) 100 mg THREE TIMES A DAY ORAL 03/30/17 09:00 04/27/17 08:59 03/31/17 12:12 Haloperidol Lactate (Haldol) 5 mg Q6H PRN IM Agitation 03/29/17 23:15 04/27/17 11:14 Heparin Sodium (Porcine) (Heparin 5000 units/ml) 5,000 units EVERY 12 HOURS SUBQ 03/29/17 21:00 04/27/17 12:29 03/31/17 09:09 Lactulose (Cephulac) 30 gm DAILY ORAL 04/01/17 15:30 05/01/17 15:29 Lorazepam (Ativan) 0.5 mg Q4HR ORAL 03/29/17 21:00 04/04/17 08:59 03/31/17 12:12 Morphine Sulfate (Morphine Sulfate) 2 mg EVERY 4 HOURS PRN IVP severe Pain (Pain Scale 7-10) 03/29/17 21:00 04/04/17 06:44 03/31/17 10:33 Nitroglycerin (Ntg) 0.4 mg Q5M X 3 DOSES PRN SL Prn Chest Pain 03/29/17 18:30 04/27/17 06:44 Ondansetron HCl (Zofran) 4 mg Q6H PRN IVP Nausea & Vomiting 03/29/17 18:45 04/27/17 06:44 Pantoprazole (Protonix) 40 mg DAILY IVP 03/30/17 09:00 04/28/17 08:59 03/31/17 09:03 Polyethylene Glycol (Miralax) 17 gm HSPRN PRN ORAL Constipation 03/30/17 06:45 04/27/17 06:44 Rifaximin (Xifaxan) 550 mg EVERY 12 HOURS ORAL 03/29/17 21:00 04/04/17 20:59 03/31/17 09:04 Temazepam (Restoril) 15 mg HSPRN PRN ORAL Insomnia 03/30/17 06:45 04/04/17 06:44 JANA HENLEY Mar 31, 2017 16:40
[2017-03-31 20:00] VITALS: BP 113/72
[2017-04-01] VITALS: BP 128/69
[2017-04-01] MEDS: LORazepam 0.5mg tab ORAL SCH ×4 (00:56→14:18)
[2017-04-01 04:00] VITALS: BP 123/61
[2017-04-01] MEDS: Morphine Sulfate 2mg/ml Inj IVP PRN (04:27)
[2017-04-01 06:40] LABS: BASOPHILS % (AUTO) 0.8 % (0.0-2.0); EOSINOPHILS % (AUTO) 3.1 % (0.0-3.0); LYMPHOCYTES % (AUTO) 32.4 % (20.0-45.0); MEAN CORPUSCULAR HEMOGLOBIN 31.9 PG (27.0-31.0); MEAN CORPUSCULAR HGB CONC 33.6 G/DL (32.0-36.0); MEAN CORPUSCULAR VOLUME 95 FL (80-99); MEAN PLATELET VOLUME 6.8 FL (6.5-10.1); MONOCYTES % (AUTO) 8.7 % (1.0-10.0); PLATELET COUNT 237 K/UL (150-450); RED BLOOD COUNT 3.81 M/UL (4.20-5.40); RED CELL DISTRIBUTION WIDTH 14.4 % (11.6-14.8); WHITE BLOOD COUNT 8.1 K/UL (4.8-10.8)
[2017-04-01 07:33] LABS: ANION GAP 4 mmol/L (5-15); CARBON DIOXIDE 33 MMOL/L (21-32); CHLORIDE 104 MMOL/L (98-107); CREATININE 0.6 MG/DL (0.55-1.30); POTASSIUM 3.9 MMOL/L (3.5-5.1); SODIUM 141 MMOL/L (136-145)
[2017-04-01 08:00] VITALS: BP 138/55
[2017-04-01] MEDS ORDERED: ARIPiprazole 10mg tab ORAL SCH (09:00)
[2017-04-01 09:45] VITALS: BP 141/61
[2017-04-01] MEDS: Pantoprazole Inj IVP SCH (09:47)
[2017-04-01] MEDS: Heparin 5000 units/ml inj SUBQ SCH (09:50)
[2017-04-01 12:00] VITALS: BP 122/59
--- NOTE | 2017-04-01 13:09 | GI Progress Note ---
Assessment/Plan Problems: (1) Acute encephalopathy ICD Codes: G93.40 - Encephalopathy, unspecified SNOMED: 6532899 (2) Hepatic encephalopathy ICD Codes: K72.90 - Hepatic failure, unspecified without coma SNOMED: 65214544 Status: stable Status Narrative Discussed with Dr. Avina. Assessment/Plan abd us reviewed >> Mild increased echogenicity of the liver may suggest mild fatty infiltration or hepatocellular disease. hep panel >> negative okay for DC per GI standpoint lactulose daily, cont xifaxan cardiac diet electrolyte replacement ppi fu labs dc planning Subjective Subjective ready to go home Objective Last 24 Hour Vital Signs Date Time Temp Pulse Resp B/P (MAP) Pulse Ox O2 Delivery O2 Flow Rate FiO2 04/01/17 12:00 97.3 64 20 122/59 92 04/01/17 09:48 72 143/61 04/01/17 09:45 72 141/61 04/01/17 08:00 97.3 70 20 138/55 93 04/01/17 08:00 Room Air 04/01/17 04:57 97.7 04/01/17 04:00 98.4 90 20 123/61 96 04/01/17 04:00 96 Room Air 04/01/17 00:00 97.7 66 20 128/69 94 04/01/17 00:00 94 Room Air 03/31/17 20:00 92 Room Air 03/31/17 20:00 97.6 66 20 113/72 92 03/31/17 16:17 98.1 69 20 118/63 99 Room Air Laboratory Tests Test 04/01/17 05:15 White Blood Count 8.1 K/UL (4.8-10.8) Red Blood Count 3.81 M/UL (4.20-5.40) L Hemoglobin 12.2 G/DL (12.0-16.0) Hematocrit 36.2 % (37.0-47.0) L Mean Corpuscular Volume 95 FL (80-99) Mean Corpuscular Hemoglobin 31.9 PG (27.0-31.0) H Mean Corpuscular Hemoglobin Concent 33.6 G/DL (32.0-36.0) Red Cell Distribution Width 14.4 % (11.6-14.8) Platelet Count 237 K/UL (150-450) Mean Platelet Volume 6.8 FL (6.5-10.1) Neutrophils (%) (Auto) 55.0 % (45.0-75.0) Lymphocytes (%) (Auto) 32.4 % (20.0-45.0) Monocytes (%) (Auto) 8.7 % (1.0-10.0) Eosinophils (%) (Auto) 3.1 % (0.0-3.0) H Basophils (%) (Auto) 0.8 % (0.0-2.0) Sodium Level 141 MMOL/L (136-145) Potassium Level 3.9 MMOL/L (3.5-5.1) Chloride Level 104 MMOL/L (98-107) Carbon Dioxide Level 33 MMOL/L (21-32) H Anion Gap 4 mmol/L (5-15) L Blood Urea Nitrogen 21 mg/dL (7-18) H Creatinine 0.6 MG/DL (0.55-1.30) Estimat Glomerular Filtration Rate mL/min (>60) Glucose Level 102 MG/DL (74-106) Calcium Level 9.0 MG/DL (8.5-10.1) Height (Feet): 5 Height (Inches): 6.00 Weight (Pounds): 168 General Appearance: WD/WN, no apparent distress, alert Cardiovascular: normal rate Respiratory/Chest: normal breath sounds, no respiratory distress Abdominal Exam: normal bowel sounds, non tender, soft Extremities: normal range of motion, non-tender Maame Mendez N.P. Apr 01, 2017 13:09
--- NOTE | 2017-04-01 14:11 | General Progress Note ---
Assessment/Plan Problem List: (1) Epileptic seizure, generalized ICD Codes: G40.909 - Epilepsy, unspecified, not intractable, without status epilepticus SNOMED: 83891050 (2) HTN (hypertension) ICD Codes: I10 - HTN (hypertension) SNOMED: 30662100 (3) Hepatic encephalopathy ICD Codes: K72.90 - Hepatic failure, unspecified without coma SNOMED: 93583699 (4) Hypokalemia ICD Codes: E87.6 - Hypokalemia SNOMED: 80838896 Status: stable, progressing, tolerating diet Assessment/Plan ot pt diet bp seizre control neuro psyc dc plan Subjective Constitutional: Reports: weakness Allergies: Coded Allergies: BENZOCAINE (Unverified Allergy, Unknown, 07/21/14) PENICILLINS (Unverified Allergy, Unknown, 07/21/14) QUETIAPINE (Unverified Allergy, Unknown, 07/21/14) All Systems: reviewed and negative except above Subjective calm in bed Objective Last 24 Hour Vital Signs Date Time Temp Pulse Resp B/P (MAP) Pulse Ox O2 Delivery O2 Flow Rate FiO2 04/01/17 12:00 97.3 64 20 122/59 92 04/01/17 09:48 72 143/61 04/01/17 09:45 72 141/61 04/01/17 08:00 97.3 70 20 138/55 93 04/01/17 08:00 Room Air 04/01/17 04:57 97.7 04/01/17 04:00 98.4 90 20 123/61 96 04/01/17 04:00 96 Room Air 04/01/17 00:00 97.7 66 20 128/69 94 04/01/17 00:00 94 Room Air 03/31/17 20:00 92 Room Air 03/31/17 20:00 97.6 66 20 113/72 92 03/31/17 16:17 98.1 69 20 118/63 99 Room Air Laboratory Tests 04/01/17 05:15: White Blood Count 8.1, Red Blood Count 3.81L, Hemoglobin 12.2, Hematocrit 36.2L , Mean Corpuscular Volume 95, Mean Corpuscular Hemoglobin 31.9H, Mean Corpuscular Hemoglobin Concent 33.6, Red Cell Distribution Width 14.4, Platelet Count 237, Mean Platelet Volume 6.8, Neutrophils (%) (Auto) 55.0, Lymphocytes (% ) (Auto) 32.4, Monocytes (%) (Auto) 8.7, Eosinophils (%) (Auto) 3.1H, Basophils (%) (Auto) 0.8, Sodium Level 141, Potassium Level 3.9, Chloride Level 104, Carbon Dioxide Level 33H, Anion Gap 4L, Blood Urea Nitrogen 21H, Creatinine 0.6 , Estimat Glomerular Filtration Rate , Glucose Level 102, Calcium Level 9.0 Height (Feet): 5 Height (Inches): 6.00 Weight (Pounds): 168 General Appearance: lethargic EENT: normal ENT inspection Neck: normal alignment Cardiovascular: normal peripheral pulses, normal rate, regular rhythm Respiratory/Chest: chest wall non-tender, lungs clear, no respiratory distress Abdomen: normal bowel sounds, non tender, soft Extremities: normal inspection Edema: no edema noted Arm (L), no edema noted Arm (R), no edema noted Leg (L), no edema noted Leg (R), no edema noted Pedal (L), no edema noted Pedal (R), no edema noted Generalized Neurologic: responsive, motor weakness Skin: normal pigmentation, warm/dry YVES AYOUB Apr 01, 2017 14:11
[2017-04-01] MEDS ORDERED: Lactulose 20gm/30ml UDC ORAL SCH (15:30)
[2017-04-01 16:00] VITALS: BP 123/62
--- NOTE | 2017-04-01 16:52 | Pulmonology Progress Note ---
Assessment/Plan Problems: (1) Acute encephalopathy (2) Hepatic encephalopathy (3) Hypokalemia (4) Epileptic seizure, generalized Assessment/Plan asymptoamtic improving continue current meds all reviewed check labs in am med/surg d/w nurse neuro f/u dc planning Subjective Allergies: Coded Allergies: BENZOCAINE (Unverified Allergy, Unknown, 07/21/14) PENICILLINS (Unverified Allergy, Unknown, 07/21/14) QUETIAPINE (Unverified Allergy, Unknown, 07/21/14) Objective Last 24 Hour Vital Signs Date Time Temp Pulse Resp B/P (MAP) Pulse Ox O2 Delivery O2 Flow Rate FiO2 04/01/17 16:00 98.2 67 20 123/62 92 04/01/17 14:16 97 Room Air 04/01/17 12:00 97.3 64 20 122/59 92 04/01/17 12:00 Room Air 04/01/17 09:48 72 143/61 04/01/17 09:45 72 141/61 04/01/17 08:00 97.3 70 20 138/55 93 04/01/17 08:00 Room Air 04/01/17 04:57 97.7 04/01/17 04:00 98.4 90 20 123/61 96 04/01/17 04:00 96 Room Air 04/01/17 00:00 97.7 66 20 128/69 94 04/01/17 00:00 94 Room Air 03/31/17 20:00 92 Room Air 03/31/17 20:00 97.6 66 20 113/72 92 Objective General Appearance: WD/WN HEENT: normocephalic, atraumatic Respiratory/Chest: chest wall non-tender, normal breath sounds Breasts: no masses Cardiovascular: normal peripheral pulses Abdomen: normal bowel sounds Extremities: no cyanosis Skin: no lesions Laboratory Tests 04/01/17 05:15: White Blood Count 8.1, Red Blood Count 3.81L, Hemoglobin 12.2, Hematocrit 36.2L , Mean Corpuscular Volume 95, Mean Corpuscular Hemoglobin 31.9H, Mean Corpuscular Hemoglobin Concent 33.6, Red Cell Distribution Width 14.4, Platelet Count 237, Mean Platelet Volume 6.8, Neutrophils (%) (Auto) 55.0, Lymphocytes (% ) (Auto) 32.4, Monocytes (%) (Auto) 8.7, Eosinophils (%) (Auto) 3.1H, Basophils (%) (Auto) 0.8, Sodium Level 141, Potassium Level 3.9, Chloride Level 104, Carbon Dioxide Level 33H, Anion Gap 4L, Blood Urea Nitrogen 21H, Creatinine 0.6 , Estimat Glomerular Filtration Rate , Glucose Level 102, Calcium Level 9.0 Current Medications Medications (Trade) Dose Ordered Sig/Desire Route PRN Reason Start Time Stop Time Status Last Admin Dose Admin Acetaminophen (Tylenol) 650 mg Q4H PRN ORAL TEMP 03/29/17 22:45 04/28/17 22:44 03/30/17 05:01 Al Hydroxide/Mg Hydroxide (Mylanta II) 30 ml Q6H PRN ORAL dyspepsia 03/29/17 18:45 04/27/17 06:44 Amlodipine Besylate (Norvasc) 10 mg DAILY ORAL 03/30/17 09:00 04/27/17 08:59 04/01/17 09:48 Aripiprazole (Abilify) 20 mg DAILY ORAL 04/01/17 09:00 05/01/17 08:59 04/01/17 09:47 Dextrose (Dextrose 50%) STAT PRN IV Hypoglycemia 03/30/17 06:45 04/27/17 06:44 Diphenhydramine HCl (Benadryl) 25 mg Q6H PRN ORAL Itching/Pruritis 03/29/17 18:45 04/27/17 06:44 Escitalopram Oxalate (Lexapro) 10 mg DAILY ORAL 03/30/17 09:00 04/27/17 08:59 04/01/17 09:48 Gabapentin (Neurontin) 100 mg THREE TIMES A DAY ORAL 03/30/17 09:00 04/27/17 08:59 04/01/17 14:17 Haloperidol Lactate (Haldol) 5 mg Q6H PRN IM Agitation 03/29/17 23:15 04/27/17 11:14 Heparin Sodium (Porcine) (Heparin 5000 units/ml) 5,000 units EVERY 12 HOURS SUBQ 03/29/17 21:00 04/27/17 12:29 04/01/17 09:50 Lactulose (Cephulac) 30 gm DAILY ORAL 04/01/17 15:30 05/01/17 15:29 04/01/17 16:19 Lorazepam (Ativan) 0.5 mg Q4HR ORAL 03/29/17 21:00 04/04/17 08:59 04/01/17 14:18 Morphine Sulfate (Morphine Sulfate) 2 mg EVERY 4 HOURS PRN IVP severe Pain (Pain Scale 7-10) 03/29/17 21:00 04/04/17 06:44 04/01/17 04:27 Nitroglycerin (Ntg) 0.4 mg Q5M X 3 DOSES PRN SL Prn Chest Pain 03/29/17 18:30 04/27/17 06:44 Ondansetron HCl (Zofran) 4 mg Q6H PRN IVP Nausea & Vomiting 03/29/17 18:45 04/27/17 06:44 Pantoprazole (Protonix) 40 mg DAILY IVP 03/30/17 09:00 04/28/17 08:59 04/01/17 09:47 Polyethylene Glycol (Miralax) 17 gm HSPRN PRN ORAL Constipation 03/30/17 06:45 04/27/17 06:44 Rifaximin (Xifaxan) 550 mg EVERY 12 HOURS ORAL 03/29/17 21:00 04/04/17 20:59 04/01/17 09:48 Temazepam (Restoril) 15 mg HSPRN PRN ORAL Insomnia 03/30/17 06:45 04/04/17 06:44 JANA HENLEY Apr 01, 2017 16:52
--- NOTE | 2017-04-01 23:05 | General Progress Note ---
Assessment/Plan Status: stable Subjective Neurologic/Psychiatric: Reports: anxiety, depressed, emotional problems Allergies: Coded Allergies: BENZOCAINE (Unverified Allergy, Unknown, 07/21/14) PENICILLINS (Unverified Allergy, Unknown, 07/21/14) QUETIAPINE (Unverified Allergy, Unknown, 07/21/14) Objective Last 24 Hour Vital Signs Date Time Temp Pulse Resp B/P (MAP) Pulse Ox O2 Delivery O2 Flow Rate FiO2 04/01/17 16:00 98.2 67 20 123/62 92 04/01/17 14:16 97 Room Air 04/01/17 12:00 97.3 64 20 122/59 92 04/01/17 12:00 Room Air 04/01/17 09:48 72 143/61 04/01/17 09:45 72 141/61 04/01/17 08:00 97.3 70 20 138/55 93 04/01/17 08:00 Room Air 04/01/17 04:57 97.7 04/01/17 04:00 98.4 90 20 123/61 96 04/01/17 04:00 96 Room Air 04/01/17 00:00 97.7 66 20 128/69 94 04/01/17 00:00 94 Room Air Laboratory Tests 04/01/17 05:15: White Blood Count 8.1, Red Blood Count 3.81L, Hemoglobin 12.2, Hematocrit 36.2L , Mean Corpuscular Volume 95, Mean Corpuscular Hemoglobin 31.9H, Mean Corpuscular Hemoglobin Concent 33.6, Red Cell Distribution Width 14.4, Platelet Count 237, Mean Platelet Volume 6.8, Neutrophils (%) (Auto) 55.0, Lymphocytes (% ) (Auto) 32.4, Monocytes (%) (Auto) 8.7, Eosinophils (%) (Auto) 3.1H, Basophils (%) (Auto) 0.8, Sodium Level 141, Potassium Level 3.9, Chloride Level 104, Carbon Dioxide Level 33H, Anion Gap 4L, Blood Urea Nitrogen 21H, Creatinine 0.6 , Estimat Glomerular Filtration Rate , Glucose Level 102, Calcium Level 9.0 Height (Feet): 5 Height (Inches): 6.00 Weight (Pounds): 168 General Appearance: no apparent distress, alert, confused Neurologic: alert, responsive, depressed affect Farhadi,Pantea M.D. Apr 01, 2017 23:05
--- NOTE | 2017-04-01 23:05 | General Progress Note ---
Assessment/Plan Status: progressing Subjective Date patient seen: Mar 30, 2017 Neurologic/Psychiatric: Reports: anxiety, depressed, emotional problems Allergies: Coded Allergies: BENZOCAINE (Unverified Allergy, Unknown, 07/21/14) PENICILLINS (Unverified Allergy, Unknown, 07/21/14) QUETIAPINE (Unverified Allergy, Unknown, 07/21/14) Objective Last 24 Hour Vital Signs Date Time Temp Pulse Resp B/P (MAP) Pulse Ox O2 Delivery O2 Flow Rate FiO2 04/01/17 16:00 98.2 67 20 123/62 92 04/01/17 14:16 97 Room Air 04/01/17 12:00 97.3 64 20 122/59 92 04/01/17 12:00 Room Air 04/01/17 09:48 72 143/61 04/01/17 09:45 72 141/61 04/01/17 08:00 97.3 70 20 138/55 93 04/01/17 08:00 Room Air 04/01/17 04:57 97.7 04/01/17 04:00 98.4 90 20 123/61 96 04/01/17 04:00 96 Room Air 04/01/17 00:00 97.7 66 20 128/69 94 04/01/17 00:00 94 Room Air Laboratory Tests 04/01/17 05:15: White Blood Count 8.1, Red Blood Count 3.81L, Hemoglobin 12.2, Hematocrit 36.2L , Mean Corpuscular Volume 95, Mean Corpuscular Hemoglobin 31.9H, Mean Corpuscular Hemoglobin Concent 33.6, Red Cell Distribution Width 14.4, Platelet Count 237, Mean Platelet Volume 6.8, Neutrophils (%) (Auto) 55.0, Lymphocytes (% ) (Auto) 32.4, Monocytes (%) (Auto) 8.7, Eosinophils (%) (Auto) 3.1H, Basophils (%) (Auto) 0.8, Sodium Level 141, Potassium Level 3.9, Chloride Level 104, Carbon Dioxide Level 33H, Anion Gap 4L, Blood Urea Nitrogen 21H, Creatinine 0.6 , Estimat Glomerular Filtration Rate , Glucose Level 102, Calcium Level 9.0 Height (Feet): 5 Height (Inches): 6.00 Weight (Pounds): 168 General Appearance: no apparent distress, alert, confused Farhadi,Pantea M.D. Apr 01, 2017 23:05
--- NOTE | 2017-04-02 08:30 | Consultation ---
DATE OF CONSULTATION: 03/31/2017 PSYCHOTHERAPY CONSULTATION PROGRESS NOTE CONSULTING PHYSICIAN: Jae Plaza M.D. TREATING ATTENDING PHYSICIAN: Maninder Ramsey D.O. HISTORY OF PRESENT ILLNESS: The patient has a history of schizoaffective disorder. The patient was admitted to the hospital at [facility]. The patient [facility]. The patient was admitted to the hospital for encephalopathy, alerted mental status and anxiety. The patient is referred for psychotherapy because of her history of current anxiety, confusion, and disorganization. This clinician assessed the patient. The patient denies suicidal or homicidal thoughts of ideation. Denies any auditory or visual hallucinations. The patient is slightly confused. She states that she has cancer in her head and states that the cancer she will . She somatic complaints . This clinician assessed the patient. The patient has been confused and disorganized. PAST MEDICAL HISTORY: History of seizure, hypertension, and encephalopathy. ALLERGIES: The patient is allergic to benzocaine, penicillin, and quetiapine. SUBSTANCE ABUSE HISTORY: The patient denies history of alcohol use, illicit substance use, or smoking cigarettes. PSYCHIATRIC HISTORY: The patient has history of schizoaffective disorder, bipolar type. The patient has been treated with psychotropic medications in the past. psychiatric hospitals. SOCIAL HISTORY: The patient is a 72-year-old female patient from [facility]. She has a significant . Financially sustained through [employer]. MENTAL STATUS EXAMINATION: The patient is alert and oriented x2, person and place. Her mood is anxious. Affect is congruent. Thought process, disorganized. Thought content, slight disorganization. The patient has poor attention and concentration. Poor insight, judgment, and impulse control. This clinician assessed this patient. the patient states that she is feeling anxious. the patient's thought process. Provided her with reality orientation and supportive psychotherapy. Encouraging patient to articulate her needs utilizing communication skills the patient's and addressing current symptomatology. Continue with medication management and behavioral management. This clinician has been the patient's chart. Discussed the treatment with team. Jae Plaza PsyD. DR: NADINE JOB#: [id number] CC:
--- NOTE | 2017-04-02 21:30 | Electroencephalogram ---
DATE OF PROCEDURE: 03/28/2017 ELECTROENCEPHALOGRAPHY REPORT REQUESTING PHYSICIAN: Maninder Ramsey D.O. READING PHYSICIAN: Mamadou Tobias M.D. HISTORY: This is a 72-year-old female with a history of hepatic encephalopathy, seizure activity, hypertension, but normal CT of the brain. Currently, treated with Neurontin, Abilify, Haldol, and Norvasc. TECHNIQUE: EEG was done using 18 electrodes placed hxfjz-ek-vmiqk, uelgv-jk-qom montages according to 10/20 International System. During the recording, most wakeful background activity consists of well regulated 7 to 9 cycles hnu-uq-eyadsw voltage activities with good response to physiological stimulation. As recording progressed, there was further attenuation of background with predominance of theta wave activities from 6 to 7 bilaterally. There was no spike or wave activities. No paroxysmal event noted. IMPRESSION: Mildly abnormal EEG in an axis of slow-wave activities. COMMENT: Above abnormality may indicate a mild toxic or metabolic derangement. Absence of paroxysmal event does not rule out seizure disorder. Mamadou Tobias M.D. DR: EDWARD JOB#: [id number] CC:
--- NOTE | 2017-04-03 11:01 | Diagnostic Imaging Report ---
APPROVED REPORT CPT Code: 11964 Present Symptoms Shortness of breath BILATERAL LOWER EXTREMITY VENOUS DUPLEX: Imaging reveals a patent deep venous system bilaterally. There is no evidence of thrombus within the femoral, popliteal or tibial segments. The greater saphenous veins are also within normal limits. Doppler indicates normal spontaneous flow within these segments.
--- NOTE | 2017-04-03 15:10 | Discharge Summary ---
Discharge Summary Hospital Course Date of Admission Mar 27, 2017 at 23:05 Date of Discharge Apr 01, 2017 at 18:30 Admitting Diagnosis HPI Cindy Luis is a 72 year old female who was admitted on Mar 27, 2017 at 23:05 for Hepatic Encephalopathy Hospital Course [id number] Discharge Discharge Disposition Patient was discharged to [facility] (04) Discharge Diagnoses: Melissa Harris NP Apr 03, 2017 15:10
--- NOTE | 2017-04-04 05:00 | Discharge Summary 2 SIG ---
DATE OF ADMISSION: 03/27/2017 DATE OF DISCHARGE: 04/01/2017 CONSULTANTS: 1. Bertram Jesus M.D. 2. Mamadou Tobias M.D. 3. Jae Plaza M.D. 4. Tavia Schwab M.D. 5. Waqar Avina M.D. BRIEF HOSPITAL COURSE: The patient is a 72-year-old female from [facility], presented with encephalopathy and altered mental status. She has history of depression and cirrhosis and was a direct admit from [facility]. She was admitted for acute encephalopathy and was admitted to telemetry for neuro checks and psychiatric evaluation. She was seen by Dr. Tobias. She had elevated LFTs and was lethargic, drowsy, and moaning. She has history of seizure disorder and has been placed on Depakote. Depakote level was therapeutic at 69. She was continued on aspirin. MRI of the brain done showed limited exam, but was negative for acute infarct. She had an EEG that showed mildly abnormal EEG in axis of slow wave activities. She had elevated alkaline phosphatase and ammonia level. She was continued on lactulose and Xifaxan was added. Hepatitis panel was negative. Abdominal ultrasound showed mild increased echogenicity in the liver suggestive of mild fatty infiltration or hepatocellular disease. She underwent psychiatric evaluation as the patient was diagnosed with schizoaffective disorder and was given Abilify 30 mg every morning and continued on Depakote and Ativan. She had episodes of hypokalemia and was given potassium supplements. Venous duplex of lower extremities were negative for DVT. She was given PT evaluation and mobility treatment. Rod catheter was eventually discontinued. She was cleared for discharge back to care home. FINAL DIAGNOSES: 1. Acute hepatic encephalopathy. 2. Hypokalemia. 3. Seizure disorder. 4. Schizoaffective disorder. 5. Hypertension. DISPOSITION: The patient was discharged back to [facility]. DISCHARGE MEDICATIONS: Refer to medication list. Maninder Ramsey D.O. I have been assigned to dictate discharge summary on this account and I was not involved in the patient's management. Melissa Harris N.P. DR: Rg JOB#: [id number] CC: CARISSA
== END 2017-04-01 18:30 | DRG 442 ==
LOC: 2E 23:05 → 4E 03-29 18:06
DX: K72.90 Hepatic failure, unspecified without coma (principal); N39.0 Urinary tract infection, site not specified; G40.409 Other generalized epilepsy and epileptic syndromes, not intractable, without status epilepticus; E11.9 Type 2 diabetes mellitus without complications; F25.0 Schizoaffective disorder, bipolar type; I10 Essential (primary) hypertension; E87.6 Hypokalemia; Z88.4 Allergy status to anesthetic agent; Z88.0 Allergy status to penicillin; Z88.8 Allergy status to other drugs, medicaments and biological substances; K21.9 Gastro-esophageal reflux disease without esophagitis
CPT/HCPCS: 36415; 70551; 76700; 80048; 80053; 82105; 82140; 82270; 85025; 85610; 85730; 86705; 86709; 86803; 87081; 87340; 89050; 93970; 95819; 97803; J8499

== ENCOUNTER 2018-12-08 13:11 | Inpatient (IN) | payer MEDICARE, OTHER ==
[~2018-12-08] VITALS: Ht 167.6 cm; Wt 81.3 kg
[2018-12-08 13:20] VITALS: BP 147/81
--- NOTE | 2018-12-08 13:20 | NUR ---
ED Nurse Note: pt brought in to ER by ambulance from [facility] due to posterial neck pain 8/10 which radiates to both arms. pt aao 2 and bedbound. skin clean and intact but pale. calm and cooperative. no N/V/D. 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
--- NOTE | 2018-12-08 13:22 | NUR ---
ED Nurse Note: inner thigh redness noted on both.
--- NOTE | 2018-12-08 13:48 | Emergency Room Report ---
History of Present Illness General Chief Complaint: Pain Source: Patient Present Illness HPI 73-year-old female history of schizophrenia, COPD, diabetes, hypertension presents with acute altered mental status prior to arrival, patient unable to give a history, patient transferred for generalized weakness, worsening altered mental status, patient denies any fevers or chills, she endorses a chronic neck pain saying that someone walked all over her month prior. Unknown aggravating or alleviating factors, severity is severe. Characterization is acute psychosis Allergies: Coded Allergies: BENZOCAINE (Unverified Allergy, Unknown, 07/21/14) PENICILLINS (Unverified Allergy, Unknown, 07/21/14) QUETIAPINE (Unverified Allergy, Unknown, 07/21/14) Patient History Limited by: medical condition - Psychosis Past Medical History: see triage record Now: No Reviewed Nursing Documentation: PMH: Agreed; PSxH: Agreed Nursing Documentation-PMH Past Medical History: No History, Except For Hx Cardiac Problems: No Hx Hypertension: Yes Hx COPD: Yes Hx Diabetes: Yes Hx Cancer: No Hx Gastrointestinal Problems: Yes - GERD Hx Neurological Problems: Yes - Polyneuropathy Hx Dementia: Yes Hx Seizures: Yes Hx Weakness: Yes Hx Fatigue: Yes Review of Systems All Other Systems: limited - Psychosis, schizoaffective disorder Physical Exam Vital Signs Date Time Temp Pulse Resp B/P (MAP) Pulse Ox O2 Delivery O2 Flow Rate FiO2 12/08/18 13:22 97.7 88 20 99/53 (68) 93 Room Air Sp02 EP Interpretation: reviewed, normal General Appearance: well appearing, no apparent distress, alert Head: normocephalic, atraumatic Eyes: bilateral eye PERRL, bilateral eye EOMI ENT: uvula midline, moist mucus membranes, other - No C-spine tenderness Neck: supple, thyroid normal, supple/symm/no masses Respiratory: lungs clear, no respiratory distress, no retraction, no accessory muscle use Cardiovascular #1: normal peripheral pulses, regular rate, rhythm, no edema, no gallop, no murmur Gastrointestinal: non tender, soft, no guarding, no rebound Musculoskeletal: normal inspection Neurologic: alert, responsive, other - Alert to self Psychiatric: mood/affect normal Skin: no rash, warm/dry Medical Decision Making Diagnostic Impression: Primary Impression: Acute encephalopathy Additional Impressions: Altered mental status Qualified Codes: R41.82 - Altered mental status, unspecified UTI (urinary tract infection) Qualified Codes: N30.00 - Acute cystitis without hematuria ER Course 73-year-old female presents with acute altered mental status On the differential includes UTI, worsening psychosis, patient found to have a UTI, normal lactic acid, will start ceftriaxone, will admit patient to [facility] Patient admitted to Hospitalist Maninder Ramsey. Laboratory Tests Test 12/08/18 14:20 12/08/18 14:35 White Blood Count 7.6 K/UL (4.8-10.8) Red Blood Count 4.30 M/UL (4.20-5.40) Hemoglobin 12.9 G/DL (12.0-16.0) Hematocrit 41.6 % (37.0-47.0) Mean Corpuscular Volume 97 FL (80-99) Mean Corpuscular Hemoglobin 30.0 PG (27.0-31.0) Mean Corpuscular Hemoglobin Concent 31.1 G/DL (32.0-36.0) L Red Cell Distribution Width 14.5 % (11.6-14.8) Platelet Count 131 K/UL (150-450) L Mean Platelet Volume 6.3 FL (6.5-10.1) L Neutrophils (%) (Auto) 46.2 % (45.0-75.0) Lymphocytes (%) (Auto) 41.3 % (20.0-45.0) Monocytes (%) (Auto) 8.7 % (1.0-10.0) Eosinophils (%) (Auto) 2.7 % (0.0-3.0) Basophils (%) (Auto) 1.1 % (0.0-2.0) Prothrombin Time 10.7 SEC (9.30-11.50) Prothrombin Time INR 1.0 (0.9-1.1) PTT 20 SEC (23-33) L Sodium Level 138 MMOL/L (136-145) Potassium Level 5.2 MMOL/L (3.5-5.1) H Chloride Level 102 MMOL/L (98-107) Carbon Dioxide Level 34 MMOL/L (21-32) H Anion Gap 2 mmol/L (5-15) L Blood Urea Nitrogen 19 mg/dL (7-18) H Creatinine 0.5 MG/DL (0.55-1.30) L Estimate Glomerular Filtration Rate mL/min (>60) Glucose Level 110 MG/DL (74-106) H Lactic Acid Level 0.80 mmol/L (0.4-2.0) Calcium Level 9.2 MG/DL (8.5-10.1) Phosphorus Level 3.8 MG/DL (2.5-4.9) Magnesium Level 1.8 MG/DL (1.8-2.4) Total Bilirubin 0.3 MG/DL (0.2-1.0) Aspartate Amino Transferase (AST) 29 U/L (15-37) Alanine Aminotransferase (ALT) 9 U/L (12-78) L Alkaline Phosphatase 84 U/L (46-116) Total Creatine Kinase 100 U/L (26-308) Creatine Kinase MB 0.6 NG/ML (0.0-3.6) Creatine Kinase MB Relative Index 0.6 Troponin I 0.000 ng/mL (0.000-0.056) Pro-B-Type Natriuretic Peptide 184 pg/mL (0-125) H Total Protein 6.4 G/DL (6.4-8.2) Albumin 2.3 G/DL (3.4-5.0) L Globulin 4.1 g/dL Albumin/Globulin Ratio 0.6 (1.0-2.7) L Lipase 55 U/L (73-393) L Urine Color Yellow Urine Appearance Slightly cloudy Urine pH 5 (4.5-8.0) Urine Specific [place] 1.015 (1.005-1.035) Urine Protein 1+ (NEGATIVE) H Urine Glucose (UA) Negative (NEGATIVE) Urine Ketones Negative (NEGATIVE) Urine Blood 2+ (NEGATIVE) H Urine Nitrite Positive (NEGATIVE) H Urine Bilirubin Negative (NEGATIVE) Urine Urobilinogen Normal MG/DL (0.0-1.0) Urine Leukocyte Esterase 3+ (NEGATIVE) H Urine RBC 2-4 /HPF (0 - 2) H Urine WBC Tntc /HPF (0 - 2) H Urine Squamous Epithelial Cells Occasional /LPF Urine Bacteria Few /HPF (NONE) EKG Diagnostic Results EKG Time: 14:05 EP Interpretation: NSR, rate 83, QTc 453, no acute ST elevations, normal axis Rate: normal Rhythm: NSR ST Segments: no acute changes Rhythm Strip Diag. Results Rhythm Strip Time: 14:11 EP Interpretation: yes Rate: 84 Rhythm: NSR, no PVC's, no ectopy Chest X-Ray Diagnostic Results Chest X-Ray Diagnostic Results : Chest X-Ray Ordered: Yes # of Views/Limited/Complete: 1 View Indication: Other - ams EP Interpretation: Yes Interpretation: no consolidation, no effusion, no pneumothorax, no acute cardiopulmonary disease Impression: No acute disease - old right upper lung scarring Electronically Signed by: Ortega Wang MD CT/MRI/US Diagnostic Results CT/MRI/US Diagnostic Results : Impression Per radiology CT brain, C-spine negative for acute processes Last Vital Signs Date Time Temp Pulse Resp B/P (MAP) Pulse Ox O2 Delivery O2 Flow Rate FiO2 12/08/18 13:22 97.7 88 20 99/53 (68) 93 Room Air Disposition: ADMITTED INPATIENT Condition: Stable Ortega Wang MD Dec 08, 2018 13:48
--- NOTE | 2018-12-08 13:48 | NUR ---
ED Nurse Note: pt went down for CT scan in stable condition.
[2018-12-08] MEDS ORDERED: IBUPROFEN600 MG ORAL (13:56)
[2018-12-08] MEDS ORDERED: MIRTAZAPINE7.5 MG ORAL (13:56)
[2018-12-08] MEDS ORDERED: ASPIR 8181 MG ORAL (13:56)
[2018-12-08] MEDS ORDERED: ACETAMINOPHEN325 M1 ORAL (13:56)
[2018-12-08] MEDS ORDERED: DOCUSATE SODIU100 MG ORAL (13:56)
[2018-12-08] MEDS ORDERED: AMLODIPINE BESY10 MG ORAL (13:56)
[2018-12-08] MEDS ORDERED: RISPERDAL2 MG ORAL (13:56)
[2018-12-08] MEDS ORDERED: MILK OF MA400 MG/51 ORAL (13:56)
--- NOTE | 2018-12-08 14:04 | NUR ---
ED Nurse Note: pt came back from CT scan in stable condition.
--- NOTE | 2018-12-08 14:10 | NUR ---
ED Nurse Note: EKG at bedside.
--- NOTE | 2018-12-08 14:14 | NUR ---
ED Nurse Note: x-ray at bedside.
--- NOTE | 2018-12-08 14:28 | Diagnostic Imaging Report ---
Indications: Acute altered mental status Technique: Spiral acquisitions obtained through the brain. Angled axial and coronal 5 x 5 mm slices were reconstructed. Total dose length product 1718.5 mGycm. CTDI vol(s) 70.38,13.53 mGy. Dose reduction achieved using automated exposure control Comparison: 07/21/2014. Reference also made to brain MRI dated 03/31/2017 which only has diffusion weighted images Findings: There is again demonstrated age-related enlargement of the extra-axial CSF spaces, particularly in the frontal and anterior parietal regions, and to lesser extent the ventricles. No acute intracranial hemorrhage or edema. No mass effect nor midline shift. Normal osman-white differentiation. Visualized orbits are unremarkable. The calvarium is intact. The mastoids are clear. The included sinuses are clear. No significant interim change Impression: Age-related volume loss. Negative for acute intracranial bleed or mass effect The CT scanner at [facility] is accredited by the [employer] and the scans are performed using protocols designed to limit radiation exposure to as low as reasonably achievable to attain images of sufficient resolution adequate for diagnostic evaluation.
--- NOTE | 2018-12-08 14:37 | Diagnostic Imaging Report ---
Indication: Chronic neck pain for over a month, severe Technique: Spiral acquisitions obtained through the cervical spine. No IV contrast utilized. Multiplanar reconstructions were generated. Total dose length product 1718.5 mGycm. CTDIvol(s) 70.38,13.53 mGy. Dose reduction achieved using automated exposure control. Comparison: none Findings: Exam is somewhat limited due to motion artifact slightly degrading the images There is slight straightening of the normal cervical lordosis. Otherwise normal bony alignment. No acute fractures. No dislocations. The vertebral body heights are preserved. There is degenerative narrowing of the anterior atlantoaxial joint. At C2-3, there is mild bilateral facet arthrosis. No significant disc bulge or protrusion, disc space narrowing, spinal stenosis, or neural foraminal stenosis. At C3-4, C4-5, and C6-7 no significant disc bulge or protrusion, disc space narrowing, spinal stenosis, or neural foraminal stenosis. At C5-6, there is moderate degenerative disc space narrowing. No significant disc bulge or protrusion or spinal stenosis. There is mild right and moderate left neural foraminal stenosis. The included extraspinal soft tissues are unremarkable Impression: No acute bony trauma Mild degenerative changes as described above The CT scanner at [facility] is accredited by the [employer] and the scans are performed using protocols designed to limit radiation exposure to as low as reasonably achievable to attain images of sufficient resolution adequate for diagnostic evaluation.
[2018-12-08 14:39] LABS: BASOPHILS % (AUTO) 1.1 % (0.0-2.0); EOSINOPHILS % (AUTO) 2.7 % (0.0-3.0); HEMATOCRIT 41.6 % (37.0-47.0); HEMOGLOBIN 12.9 G/DL (12.0-16.0); LYMPHOCYTES % (AUTO) 41.3 % (20.0-45.0); MEAN CORPUSCULAR VOLUME 97 FL (80-99); MONOCYTES % (AUTO) 8.7 % (1.0-10.0); NEUTROPHILS % (AUTO) 46.2 % (45.0-75.0); PLATELET COUNT 131 K/UL (150-450); RED CELL DISTRIBUTION WIDTH 14.5 % (11.6-14.8); WHITE BLOOD COUNT 7.6 K/UL (4.8-10.8)
--- NOTE | 2018-12-08 14:41 | Diagnostic Imaging Report ---
Indication: Cough Technique: One view of the chest Comparison: 03/20/2017 Findings: The right hemidiaphragm is elevated. There is persistent opacity in the inferior right upper lobe, which appears similar to the previous exam. The left lung and bilateral pleural spaces are grossly clear. There is a large retrocardiac hiatal hernia which is not clearly evident previously but was visible on an even earlier exam of 2014. Impression: Inferior right upper lobe density. This is similar to prior exam of 03/20/2017. This may reflect recurrent acute infiltrate, chronic scarring, or recurrent atelectasis No acute process otherwise Large retrocardiac hiatal hernia
[2018-12-08 14:53] LABS: ANION GAP 2 mmol/L (5-15); BLOOD UREA NITROGEN 19 mg/dL (7-18); CALCIUM 9.2 MG/DL (8.5-10.1); CARBON DIOXIDE 34 MMOL/L (21-32); CHLORIDE 102 MMOL/L (98-107); CREATININE 0.5 MG/DL (0.55-1.30); POTASSIUM 5.2 MMOL/L (3.5-5.1); SODIUM 138 MMOL/L (136-145)
[2018-12-08 15:05] LABS: ALANINE AMINOTRANSFERASE 9 U/L (12-78); ALBUMIN 2.3 G/DL (3.4-5.0); ALBUMIN/GLOBULIN RATIO 0.6 (1.0-2.7); ALKALINE PHOSPHATASE 84 U/L (46-116); ASPARTATE AMINO TRANSFERASE 29 U/L (15-37); BILIRUBIN,TOTAL 0.3 MG/DL (0.2-1.0); CKMB 0.6 NG/ML (0.0-3.6); CREATINE KINASE 100 U/L (26-308); PHOSPHORUS 3.8 MG/DL (2.5-4.9)
[2018-12-08 15:09] LABS: APPEARANCE,URINE SLIGHTLY CLOUDY; BILIRUBIN, URINE NEGATIVE (NEGATIVE); GLUCOSE, URINE (UA) NEGATIVE (NEGATIVE); KETONES,URINE NEGATIVE (NEGATIVE); LEUKOCYTE ESTERASE ,URINE 3+ (NEGATIVE); NITRITE,URINE POSITIVE (NEGATIVE); PH,URINE 5 (4.5-8.0); PROTEIN,URINE 1+ (NEGATIVE); UROBILINOGEN,URINE NORMAL MG/DL (0.0-1.0)
[2018-12-08 15:10] LABS: COLOR,URINE YELLOW
[2018-12-08] MEDS ORDERED: cefTRIAXone 1 GM in NS 55 ML IVPB ONE (15:15)
--- NOTE | 2018-12-08 17:04 | NUR ---
ED Nurse Note: report given to NICK Regalado
--- NOTE | 2018-12-08 17:09 | NUR ---
ED Nurse Note: pt left unit with 1 residential service technician in stable condition.
--- NOTE | 2018-12-08 17:10 | NUR ---
NURSE NOTES: patient admitted to room 403[address] freedman care. dx of AMS. oriented person and place. alert. verbally responsive. no respiratory distress on o2 2l/min via NC. no pain at this time. IV on KORIN 22g. intact. skin assessment done. no pressure injury noted. redness on perineal area d/t incontinent urine. checked belongings. bed in the lowest positiion. call light within reach. notified Dr. freedman for admission orders.
--- NOTE | 2018-12-08 19:02 | NUR ---
NURSE NOTES: called dr. freedman office for new admission orders. teletray operator gave a after hour phone no. [phone]. this is for Dr. camargo phone no. called dr. freedman of cell phone and left message.
--- NOTE | 2018-12-08 19:35 | NUR ---
NURSE NOTES: Received report from NICK Singh. Patient A&O2-3. On nasal cannula 2L/min. No signs of distress or labored breathing. IV intact, patent, and saline locked. Bed in lowest position with call light in reach. Awaiting admission orders. Contacted MD after receiving report but no response.
--- NOTE | 2018-12-08 19:38 | NUR ---
HAND-OFF: Report given to NICK Light.
[2018-12-08 20:00] VITALS: BP 114/71
[2018-12-08] MEDS ORDERED: cefTRIAXone 1 GM in D5W 55 ML IVPB SCH (20:00)
[2018-12-08] MEDS ORDERED: Milk of Magnesia 30ml Ud ORAL PRN (20:45)
--- NOTE | 2018-12-08 20:45 | NUR ---
NURSE NOTES: RN informed construction plumber MD (Dr. Gipson) of 5.2 potassium. No orders were given.
[2018-12-08] MEDS: Depakote ER 500mg tab ORAL SCH (22:42)
[2018-12-09 04:00] VITALS: BP 114/60
[2018-12-09 06:44] LABS: EOSINOPHILS % (AUTO) 3.6 % (0.0-3.0); HEMATOCRIT 38.5 % (37.0-47.0); HEMOGLOBIN 11.9 G/DL (12.0-16.0); LYMPHOCYTES % (AUTO) 50.2 % (20.0-45.0); MEAN CORPUSCULAR VOLUME 98 FL (80-99); MONOCYTES % (AUTO) 8.1 % (1.0-10.0); NEUTROPHILS % (AUTO) 37.1 % (45.0-75.0); PLATELET COUNT 124 K/UL (150-450); RED BLOOD COUNT 3.92 M/UL (4.20-5.40); RED CELL DISTRIBUTION WIDTH 14.8 % (11.6-14.8); WHITE BLOOD COUNT 6.1 K/UL (4.8-10.8)
[2018-12-09 07:18] LABS: ALANINE AMINOTRANSFERASE 8 U/L (12-78); ALBUMIN 2.2 G/DL (3.4-5.0); ALBUMIN/GLOBULIN RATIO 0.6 (1.0-2.7); ALKALINE PHOSPHATASE 73 U/L (46-116); ANION GAP -2 mmol/L (5-15); ASPARTATE AMINO TRANSFERASE 12 U/L (15-37); BILIRUBIN,TOTAL 0.2 MG/DL (0.2-1.0); BLOOD UREA NITROGEN 18 mg/dL (7-18); CARBON DIOXIDE 39 MMOL/L (21-32); CHLORIDE 107 MMOL/L (98-107); CREATININE 0.6 MG/DL (0.55-1.30); POTASSIUM 4.5 MMOL/L (3.5-5.1); SODIUM 144 MMOL/L (136-145)
--- NOTE | 2018-12-09 07:42 | NUR ---
NURSE NOTES: Received pt in bed, sleeping. On nasal canula 2 L/min. Currently on NPO for abdominal US. R AC 22g, intact and patent, with saline lock. Bed in the lowest, locked, and alarm on. Call light within reach. Will continue to monitor
[2018-12-09 08:00] VITALS: BP 120/63
--- NOTE | 2018-12-09 08:41 | General Progress Note ---
Progress Note Progress Note pt seen and examined full note dictated Sera Snyder MD Dec 09, 2018 08:41
[2018-12-09] MEDS ORDERED: celeBREX 200mg Cap **SURGERY PATIENTS ONLY ORAL SCH (09:00)
[2018-12-09] MEDS: Depakote ER 500mg tab ORAL SCH ×2 (09:05→20:56)
[2018-12-09] MEDS: Docusate 100mg cap ORAL SCH (09:05)
[2018-12-09] MEDS: Aspirin EC 81mg tab ORAL SCH (09:06)
--- NOTE | 2018-12-09 09:09 | Cardiology Progress Note ---
Assessment/Plan Assessment/Plan The patient is seen and examined, full consult will be dictated. Objective Last 24 Hour Vital Signs Date Time Temp Pulse Resp B/P (MAP) Pulse Ox O2 Delivery O2 Flow Rate FiO2 12/09/18 09:04 75 120/63 12/09/18 08:00 98.0 75 20 120/63 (82) 96 12/09/18 04:00 97.6 71 20 114/60 (78) 93 12/08/18 21:00 Nasal Cannula 2.0 12/08/18 20:00 97.5 77 20 114/71 (85) 97 12/08/18 17:33 Nasal Cannula 2.0 12/08/18 17:10 98.2 81 20 107/78 98 Nasal Cannula 2.0 12/08/18 13:22 97.7 88 20 99/53 (68) 93 Room Air 12/08/18 13:20 98.2 84 17 147/81 98 Room Air Intake and Output 12/08/18 12/09/18 19:00 07:00 Intake Total 1055 ml Output Total 800 ml Balance 1055 ml -800 ml Intake Oral 0 ml IV Total 1055 ml Output Urine Total 800 ml # Voids 3 Laboratory Tests Test 12/08/18 14:20 12/08/18 14:35 12/09/18 05:10 White Blood Count 7.6 K/UL (4.8-10.8) 6.1 K/UL (4.8-10.8) Red Blood Count 4.30 M/UL (4.20-5.40) 3.92 M/UL (4.20-5.40) L Hemoglobin 12.9 G/DL (12.0-16.0) 11.9 G/DL (12.0-16.0) L Hematocrit 41.6 % (37.0-47.0) 38.5 % (37.0-47.0) Mean Corpuscular Volume 97 FL (80-99) 98 FL (80-99) Mean Corpuscular Hemoglobin 30.0 PG (27.0-31.0) 30.5 PG (27.0-31.0) Mean Corpuscular Hemoglobin Concent 31.1 G/DL (32.0-36.0) L 31.1 G/DL (32.0-36.0) L Red Cell Distribution Width 14.5 % (11.6-14.8) 14.8 % (11.6-14.8) Platelet Count 131 K/UL (150-450) L 124 K/UL (150-450) L Mean Platelet Volume 6.3 FL (6.5-10.1) L 6.0 FL (6.5-10.1) L Neutrophils (%) (Auto) 46.2 % (45.0-75.0) 37.1 % (45.0-75.0) L Lymphocytes (%) (Auto) 41.3 % (20.0-45.0) 50.2 % (20.0-45.0) H Monocytes (%) (Auto) 8.7 % (1.0-10.0) 8.1 % (1.0-10.0) Eosinophils (%) (Auto) 2.7 % (0.0-3.0) 3.6 % (0.0-3.0) H Basophils (%) (Auto) 1.1 % (0.0-2.0) 1.0 % (0.0-2.0) Prothrombin Time 10.7 SEC (9.30-11.50) Prothromb Time International Ratio 1.0 (0.9-1.1) Activated Partial Thromboplast Time 20 SEC (23-33) L Sodium Level 138 MMOL/L (136-145) 144 MMOL/L (136-145) Potassium Level 5.2 MMOL/L (3.5-5.1) H 4.5 MMOL/L (3.5-5.1) Chloride Level 102 MMOL/L (98-107) 107 MMOL/L (98-107) Carbon Dioxide Level 34 MMOL/L (21-32) H 39 MMOL/L (21-32) H Anion Gap 2 mmol/L (5-15) L -2 mmol/L (5-15) L Blood Urea Nitrogen 19 mg/dL (7-18) H 18 mg/dL (7-18) Creatinine 0.5 MG/DL (0.55-1.30) L 0.6 MG/DL (0.55-1.30) Estimat Glomerular Filtration Rate mL/min (>60) mL/min (>60) Glucose Level 110 MG/DL (74-106) H 87 MG/DL (74-106) Lactic Acid Level 0.80 mmol/L (0.4-2.0) Calcium Level 9.2 MG/DL (8.5-10.1) 9.0 MG/DL (8.5-10.1) Phosphorus Level 3.8 MG/DL (2.5-4.9) Magnesium Level 1.8 MG/DL (1.8-2.4) Total Bilirubin 0.3 MG/DL (0.2-1.0) 0.2 MG/DL (0.2-1.0) Aspartate Amino Transf (AST/SGOT) 29 U/L (15-37) 12 U/L (15-37) L Alanine Aminotransferase (ALT/SGPT) 9 U/L (12-78) L 8 U/L (12-78) L Alkaline Phosphatase 84 U/L (46-116) 73 U/L (46-116) Total Creatine Kinase 100 U/L (26-308) Creatine Kinase MB 0.6 NG/ML (0.0-3.6) Creatine Kinase MB Relative Index 0.6 Troponin I 0.000 ng/mL (0.000-0.056) Pro-B-Type Natriuretic Peptide 184 pg/mL (0-125) H Total Protein 6.4 G/DL (6.4-8.2) 5.7 G/DL (6.4-8.2) L Albumin 2.3 G/DL (3.4-5.0) L 2.2 G/DL (3.4-5.0) L Globulin 4.1 g/dL 3.5 g/dL Albumin/Globulin Ratio 0.6 (1.0-2.7) L 0.6 (1.0-2.7) L Lipase 55 U/L (73-393) L Urine Color Yellow Urine Appearance Slightly cloudy Urine pH 5 (4.5-8.0) Urine Specific [place] 1.015 (1.005-1.035) Urine Protein 1+ (NEGATIVE) H Urine Glucose (UA) Negative (NEGATIVE) Urine Ketones Negative (NEGATIVE) Urine Blood 2+ (NEGATIVE) H Urine Nitrite Positive (NEGATIVE) H Urine Bilirubin Negative (NEGATIVE) Urine Urobilinogen Normal MG/DL (0.0-1.0) Urine Leukocyte Esterase 3+ (NEGATIVE) H Urine RBC 2-4 /HPF (0 - 2) H Urine WBC Tntc /HPF (0 - 2) H Urine Squamous Epithelial Cells Occasional /LPF Urine Bacteria Few /HPF (NONE) HIV (1&2) Antibody Rapid Negative (NEGATIVE) Microbiology Date/Time Source Procedure Growth Status 12/08/18 14:35 Urine,Clean Catch Urine Culture - Preliminary Gram Negative Bacillus 1 Resulted Haile Spaulding MD Dec 09, 2018 09:09
--- NOTE | 2018-12-09 09:29 | NUR ---
Admissions CounselorPipe Buffer 73 Y/O FEmale [facility] CC: NECK PAIN THAT RADIATES TO BACK AND ARM PAIN X 1 MONTH SI: ALTERED MENTAL STATUS VS: BP: 99/53 HR: 88 RR 20 02 Sat 93% (RA) T: 97.7 NT: MEAN PLT 6.3 UR PROTEIN 1+ UR NITRITE + UR LEUKOCYTE 3+ UR RBC 2-4 CO2 35 ANION GAP 2 BUN 19 CREATININE 0.5 GLUCOSE RANDOM 110 ALANINE AMINO 9 LIPASE 55 NT-PROBNP 184 CT HEAD: Age-related volume loss. Negative for acute intracranial bleed or mass effect CT C SPINE: NEGATIVE FOR ACUTE BONY TRAUMA. Mild degenerative changes. (REFER TO CHART) CXR: Inferior right upper lobe density. This is similar to prior exam of 03/20/2017. This may reflect recurrent acute infiltrate, chronic scarring, or recurrent atelectasis. Large retrocardiac hiatal hernia IS: NS 1000ML IV ROCEPHIN 1GM IV Admitted to [facility] status DCP: Pending Hospital Stay
--- NOTE | 2018-12-09 10:58 | Diagnostic Imaging Report ---
Indication: Abdominal pain, abnormal renal function tests Technique: Zafar-scale and duplex images of the upper abdomen were obtained Comparison: 03/28/2017 Findings: Gallbladder is surgically absent. Common bile duct measures 4 mm in diameter. No intrahepatic biliary ductal dilatation. Liver demonstrates normal echogenicity, no focal abnormality. Portal vein and hepatic veins are patent. Pancreas is incompletely visualized due to overlying bowel gas, visualized portions are unremarkable. Spleen cannot be visualized Left kidney measures 10.8 cm in length. Right kidney measures 8.5 cm length. Both kidneys demonstrate normal echogenicity. There is no hydronephrosis. No focal abnormality . Abdominal aorta is partially obscured by bowel gas, visualized portions are non-aneurysmal . Impression: Limited exam, with nonvisualization of the spleen, distal aorta, and pancreas Surgically absent gallbladder. Negative for dilated bile ducts
--- NOTE | 2018-12-09 11:44 | Consultation ---
History of Present Illness General Date patient seen: Dec 09, 2018 Chief Complaint: Pain Present Illness HPI 73-year-old female Hx of seizures, schizophrenia, COPD, diabetes, hypertension presented to ER with acute altered mental status. Pt was /still is unable to give a history, patient transferred for generalized weakness, worsening altered mental status. Pt was diagnosed to have UTI and admitted to med/surg for further evaluation. Allergies: Coded Allergies: BENZOCAINE (Unverified Allergy, Unknown, 07/21/14) PENICILLINS (Unverified Allergy, Unknown, 07/21/14) QUETIAPINE (Unverified Allergy, Unknown, 07/21/14) Medication History Scheduled Acetaminophen* (Acetaminophen 325MG Tablet*), 650 MG ORAL Q4H, (Reported) Alendronate Sodium* (Fosamax*), 70 MG ORAL ONCE A WEEK, (Reported) Alprazolam (Alprazolam), 2 MG ORAL Q6HR, (Reported) Amlodipine Besylate (Norvasc), 10 MG ORAL DAILY, (Reported) Amlodipine Besylate* (Amlodipine Besylate*), 10 MG ORAL DAILY, (Reported) Aripiprazole* (Abilify*), 20 MG ORAL DAILY, (Reported) Aspirin (Aspirin EC), 81 MG ORAL DAILY, (Reported) Aspirin* (Aspir 81*), 81 MG ORAL DAILY, (Reported) Baclofen* (Baclofen*), 10 MG ORAL THREE TIMES A DAY, (Reported) Cranberry Conc/C/Bacill Coag (Cranberry Tablet), 1 EACH PO DAILY, (Reported) Divalproex Sodium (Divalproex Sodium), 500 MG PO BID, (Reported) Docusate Sodium* (Colace*), 100 MG ORAL DAILY, (Reported) Docusate Sodium* (Docusate Sodium*), 100 MG ORAL DAILY, (Reported) Escitalopram Oxalate* (Lexapro*), 10 MG ORAL DAILY, (Reported) Gabapentin* (Gabapentin*), 100 MG ORAL THREE TIMES A DAY, (Reported) Ibuprofen* (Motrin*), 600 MG ORAL BID, (Reported) Ibuprofen* (Motrin*), 600 MG ORAL BID, (Reported) Lactulose (Lactulose*), 44 ML ORAL BID, (Reported) Levofloxacin* (Levaquin*), 500 MG ORAL DAILY Lorazepam (Lorazepam), 0.5 GM MC Q4HR, (Reported) Lorazepam* (Lorazepam*), 0.5 MG ORAL Q4HR, (Reported) Magnesium Hydroxide* (Milk Of Magnesia*), 30 ML ORAL DAILY, (Reported) Mirtazapine* (Mirtazapine*), 7.5 MG ORAL BEDTIME, (Reported) Omeprazole (Omeprazole), MG ORAL BEFORE BREAKFAST, (Reported) Risperidone* (Risperdal*), 2 MG ORAL DAILY, (Reported) Valproate Sodium (Valproic Acid), 1,000 MG ORAL Q12HR, (Reported) Valproic Acid (Depakene), 1,000 MG ORAL TWICE A DAY Valproic Acid (Valproic Acid), 1,000 MG PO Q12HR, (Reported) Scheduled PRN Acetaminophen* (Acetaminophen 325MG Tablet*), 650 MG ORAL Q4H PRN for Prn Headache/Temp > 101, (Reported) Bisacodyl (Dulcolax), 10 MG RC for Constipation, (Reported) Clonidine Hcl* (Catapres*), 0.1 MG ORAL EVERY 8 HOURS PRN for For High Blood Pressure, (Reported) Hydrocodone Bit/Acetaminophen 5-325* ([place] 5-325*), 2 TAB ORAL Q6HR PRN for For Pain, (Reported) Hydrocodone/Acetaminophen 5-325* (Hydrocodone/Acetaminophen 5-325*), 1 TAB ORAL Q12HR PRN for For Pain, (Reported) Lorazepam* (Ativan*), 2 MG ORAL Q6HR PRN for For Anxiety, (Reported) Lorazepam* (Ativan*), 1 MG ORAL Q6HR PRN for For Anxiety, (Reported) Magnesium Hydroxide (Milk of Magnesia), 30 ML ORAL DAILY PRN for Constipation, ( Reported) Ondansetron (Zofran), 4 MG ORAL Q6H PRN for Nausea & Vomiting, (Reported) Tramadol Hcl (Tramadol Hcl), 50 MG ORAL Q6HR PRN for Pain Scale (6-10), ( Reported) Zolpidem Tartrate* (Ambien*), 5 MG ORAL BEDTIME PRN for Insomnia, (Reported) Patient History Healthcare decision maker Resuscitation status Advanced Directive on File Review of Systems All Other Systems: negative except mentioned in HPI Physical Exam General Appearance: WD/WN Lines, tubes and drains: peripheral HEENT: normocephalic, atraumatic Neck: non-tender, normal alignment, supple Respiratory/Chest: chest wall non-tender, lungs clear Breasts: no masses Cardiovascular/Chest: normal peripheral pulses Abdomen: normal bowel sounds Genitourinary/Rectal: normal genital exam Extremities: normal range of motion Skin Exam: normal pigmentation 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 Last 24 Hour Vital Signs Date Time Temp Pulse Resp B/P (MAP) Pulse Ox O2 Delivery O2 Flow Rate FiO2 12/09/18 09:04 75 120/63 12/09/18 09:00 Nasal Cannula 2.0 12/09/18 08:00 98.0 75 20 120/63 (82) 96 12/09/18 04:00 97.6 71 20 114/60 (78) 93 12/08/18 21:00 Nasal Cannula 2.0 12/08/18 20:00 97.5 77 20 114/71 (85) 97 12/08/18 17:33 Nasal Cannula 2.0 12/08/18 17:10 98.2 81 20 107/78 98 Nasal Cannula 2.0 12/08/18 13:22 97.7 88 20 99/53 (68) 93 Room Air 12/08/18 13:20 98.2 84 17 147/81 98 Room Air Intake and Output 12/08/18 12/09/18 19:00 07:00 Intake Total 1055 ml Output Total 800 ml Balance 1055 ml -800 ml Intake Oral 0 ml IV Total 1055 ml Output Urine Total 800 ml # Voids 3 Laboratory Tests Test 12/08/18 14:20 12/08/18 14:35 12/09/18 05:10 White Blood Count 7.6 K/UL (4.8-10.8) 6.1 K/UL (4.8-10.8) Red Blood Count 4.30 M/UL (4.20-5.40) 3.92 M/UL (4.20-5.40) L Hemoglobin 12.9 G/DL (12.0-16.0) 11.9 G/DL (12.0-16.0) L Hematocrit 41.6 % (37.0-47.0) 38.5 % (37.0-47.0) Mean Corpuscular Volume 97 FL (80-99) 98 FL (80-99) Mean Corpuscular Hemoglobin 30.0 PG (27.0-31.0) 30.5 PG (27.0-31.0) Mean Corpuscular Hemoglobin Concent 31.1 G/DL (32.0-36.0) L 31.1 G/DL (32.0-36.0) L Red Cell Distribution Width 14.5 % (11.6-14.8) 14.8 % (11.6-14.8) Platelet Count 131 K/UL (150-450) L 124 K/UL (150-450) L Mean Platelet Volume 6.3 FL (6.5-10.1) L 6.0 FL (6.5-10.1) L Neutrophils (%) (Auto) 46.2 % (45.0-75.0) 37.1 % (45.0-75.0) L Lymphocytes (%) (Auto) 41.3 % (20.0-45.0) 50.2 % (20.0-45.0) H Monocytes (%) (Auto) 8.7 % (1.0-10.0) 8.1 % (1.0-10.0) Eosinophils (%) (Auto) 2.7 % (0.0-3.0) 3.6 % (0.0-3.0) H Basophils (%) (Auto) 1.1 % (0.0-2.0) 1.0 % (0.0-2.0) Prothrombin Time 10.7 SEC (9.30-11.50) Prothromb Time International Ratio 1.0 (0.9-1.1) Activated Partial Thromboplast Time 20 SEC (23-33) L Sodium Level 138 MMOL/L (136-145) 144 MMOL/L (136-145) Potassium Level 5.2 MMOL/L (3.5-5.1) H 4.5 MMOL/L (3.5-5.1) Chloride Level 102 MMOL/L (98-107) 107 MMOL/L (98-107) Carbon Dioxide Level 34 MMOL/L (21-32) H 39 MMOL/L (21-32) H Anion Gap 2 mmol/L (5-15) L -2 mmol/L (5-15) L Blood Urea Nitrogen 19 mg/dL (7-18) H 18 mg/dL (7-18) Creatinine 0.5 MG/DL (0.55-1.30) L 0.6 MG/DL (0.55-1.30) Estimat Glomerular Filtration Rate mL/min (>60) mL/min (>60) Glucose Level 110 MG/DL (74-106) H 87 MG/DL (74-106) Lactic Acid Level 0.80 mmol/L (0.4-2.0) Calcium Level 9.2 MG/DL (8.5-10.1) 9.0 MG/DL (8.5-10.1) Phosphorus Level 3.8 MG/DL (2.5-4.9) Magnesium Level 1.8 MG/DL (1.8-2.4) Total Bilirubin 0.3 MG/DL (0.2-1.0) 0.2 MG/DL (0.2-1.0) Aspartate Amino Transf (AST/SGOT) 29 U/L (15-37) 12 U/L (15-37) L Alanine Aminotransferase (ALT/SGPT) 9 U/L (12-78) L 8 U/L (12-78) L Alkaline Phosphatase 84 U/L (46-116) 73 U/L (46-116) Total Creatine Kinase 100 U/L (26-308) Creatine Kinase MB 0.6 NG/ML (0.0-3.6) Creatine Kinase MB Relative Index 0.6 Troponin I 0.000 ng/mL (0.000-0.056) Pro-B-Type Natriuretic Peptide 184 pg/mL (0-125) H Total Protein 6.4 G/DL (6.4-8.2) 5.7 G/DL (6.4-8.2) L Albumin 2.3 G/DL (3.4-5.0) L 2.2 G/DL (3.4-5.0) L Globulin 4.1 g/dL 3.5 g/dL Albumin/Globulin Ratio 0.6 (1.0-2.7) L 0.6 (1.0-2.7) L Lipase 55 U/L (73-393) L Urine Color Yellow Urine Appearance Slightly cloudy Urine pH 5 (4.5-8.0) Urine Specific [place] 1.015 (1.005-1.035) Urine Protein 1+ (NEGATIVE) H Urine Glucose (UA) Negative (NEGATIVE) Urine Ketones Negative (NEGATIVE) Urine Blood 2+ (NEGATIVE) H Urine Nitrite Positive (NEGATIVE) H Urine Bilirubin Negative (NEGATIVE) Urine Urobilinogen Normal MG/DL (0.0-1.0) Urine Leukocyte Esterase 3+ (NEGATIVE) H Urine RBC 2-4 /HPF (0 - 2) H Urine WBC Tntc /HPF (0 - 2) H Urine Squamous Epithelial Cells Occasional /LPF Urine Bacteria Few /HPF (NONE) HIV (1&2) Antibody Rapid Negative (NEGATIVE) Microbiology Date/Time Source Procedure Growth Status 12/08/18 14:35 Urine,Clean Catch Urine Culture - Preliminary Gram Negative Bacillus 1 Resulted Height (Feet): 5 Height (Inches): 6.00 Weight (Pounds): 179 Medications Current Medications Medications (Trade) Dose Ordered Sig/Desire Route PRN Reason Start Time Stop Time Status Last Admin Dose Admin Acetaminophen (Tylenol) 650 mg Q4H PRN ORAL Mild Pain/Temp > 101 12/08/18 20:45 01/07/19 20:44 12/09/18 02:56 Amlodipine Besylate (Norvasc) 10 mg DAILY ORAL 12/09/18 09:00 01/08/19 08:59 12/09/18 09:04 Aspirin (Ecotrin) 81 mg DAILY ORAL 12/09/18 09:00 01/08/19 08:59 12/09/18 09:06 Bisacodyl (Dulcolax) 10 mg DAILYPRN PRN RECTAL Constipation 12/08/18 20:45 01/07/19 20:44 Ceftriaxone Sodium 1 gm/ Dextrose 55 ml @ 110 mls/hr Q24H IVPB 12/09/18 16:00 12/16/18 15:59 Divalproex Sodium (Depakote ER) 1,000 mg EVERY 12 HOURS ORAL 12/08/18 21:00 01/07/19 20:59 12/09/18 09:05 Docusate Sodium (Colace) 100 mg DAILY ORAL 12/09/18 09:00 01/08/19 08:59 12/09/18 09:05 Gabapentin (Neurontin) 100 mg THREE TIMES A DAY ORAL 12/09/18 09:00 01/08/19 08:59 12/09/18 09:04 Ibuprofen (Advil) 400 mg BID ORAL 12/09/18 09:00 01/08/19 08:59 12/09/18 09:05 Magnesium Hydroxide (Mom) 30 ml QHS PRN ORAL constipation 12/08/18 20:45 01/07/19 20:44 Meloxicam (Mobic) 3.75 mg DAILY ORAL 12/09/18 09:00 01/08/19 08:59 12/09/18 09:06 Mirtazapine (Remeron) 7.5 mg BEDTIME ORAL 12/08/18 21:00 01/07/19 20:59 12/08/18 22:42 Risperidone (RisperDAL) 2 mg BID ORAL 12/09/18 09:00 01/08/19 08:59 12/09/18 09:04 Assessment/Plan Problem List: (1) Acute encephalopathy ICD Codes: G93.40 - Encephalopathy, unspecified SNOMED: 8313683 (2) UTI (urinary tract infection) ICD Codes: N39.0 - Urinary tract infection, site not specified SNOMED: 66463983 (3) Schizo-affective schizophrenia ICD Codes: F25.0 - Schizoaffective disorder, bipolar type SNOMED: 449804774 (4) History of seizure ICD Codes: Z87.898 - Personal history of other specified conditions SNOMED: 489975641 (5) Diabetes mellitus ICD Codes: E11.9 - Type 2 diabetes mellitus without complications SNOMED: 36608053 Assessment/Plan: check urine cultures iv abx neuro evaluation continue psych meds sliding scale diabetic diet f/u electrolytes. Bertram Jesus MD Dec 09, 2018 11:44
[2018-12-09] MEDS ORDERED: cefTRIAXone 1 GM in D5W 55 ML IVPB SCH (11:45)
[2018-12-09 12:00] VITALS: BP 109/56
[2018-12-09] MEDS ORDERED: Dextrose 50% 25ml Syringe IV PRN (12:30)
--- NOTE | 2018-12-09 15:02 | Consultation ---
History of Present Illness General Chief Complaint: Pain Present Illness Allergies: Coded Allergies: BENZOCAINE (Unverified Allergy, Unknown, 07/21/14) PENICILLINS (Unverified Allergy, Unknown, 07/21/14) QUETIAPINE (Unverified Allergy, Unknown, 07/21/14) Medication History Scheduled Acetaminophen* (Acetaminophen 325MG Tablet*), 650 MG ORAL Q4H, (Reported) Alendronate Sodium* (Fosamax*), 70 MG ORAL ONCE A WEEK, (Reported) Alprazolam (Alprazolam), 2 MG ORAL Q6HR, (Reported) Amlodipine Besylate (Norvasc), 10 MG ORAL DAILY, (Reported) Amlodipine Besylate* (Amlodipine Besylate*), 10 MG ORAL DAILY, (Reported) Aripiprazole* (Abilify*), 20 MG ORAL DAILY, (Reported) Aspirin (Aspirin EC), 81 MG ORAL DAILY, (Reported) Aspirin* (Aspir 81*), 81 MG ORAL DAILY, (Reported) Baclofen* (Baclofen*), 10 MG ORAL THREE TIMES A DAY, (Reported) Cranberry Conc/C/Bacill Coag (Cranberry Tablet), 1 EACH PO DAILY, (Reported) Divalproex Sodium (Divalproex Sodium), 500 MG PO BID, (Reported) Docusate Sodium* (Colace*), 100 MG ORAL DAILY, (Reported) Docusate Sodium* (Docusate Sodium*), 100 MG ORAL DAILY, (Reported) Escitalopram Oxalate* (Lexapro*), 10 MG ORAL DAILY, (Reported) Gabapentin* (Gabapentin*), 100 MG ORAL THREE TIMES A DAY, (Reported) Ibuprofen* (Motrin*), 600 MG ORAL BID, (Reported) Ibuprofen* (Motrin*), 600 MG ORAL BID, (Reported) Lactulose (Lactulose*), 44 ML ORAL BID, (Reported) Levofloxacin* (Levaquin*), 500 MG ORAL DAILY Lorazepam (Lorazepam), 0.5 GM MC Q4HR, (Reported) Lorazepam* (Lorazepam*), 0.5 MG ORAL Q4HR, (Reported) Magnesium Hydroxide* (Milk Of Magnesia*), 30 ML ORAL DAILY, (Reported) Mirtazapine* (Mirtazapine*), 7.5 MG ORAL BEDTIME, (Reported) Omeprazole (Omeprazole), MG ORAL BEFORE BREAKFAST, (Reported) Risperidone* (Risperdal*), 2 MG ORAL DAILY, (Reported) Valproate Sodium (Valproic Acid), 1,000 MG ORAL Q12HR, (Reported) Valproic Acid (Depakene), 1,000 MG ORAL TWICE A DAY Valproic Acid (Valproic Acid), 1,000 MG PO Q12HR, (Reported) Scheduled PRN Acetaminophen* (Acetaminophen 325MG Tablet*), 650 MG ORAL Q4H PRN for Prn Headache/Temp > 101, (Reported) Bisacodyl (Dulcolax), 10 MG RC for Constipation, (Reported) Clonidine Hcl* (Catapres*), 0.1 MG ORAL EVERY 8 HOURS PRN for For High Blood Pressure, (Reported) Hydrocodone Bit/Acetaminophen 5-325* ([place] 5-325*), 2 TAB ORAL Q6HR PRN for For Pain, (Reported) Hydrocodone/Acetaminophen 5-325* (Hydrocodone/Acetaminophen 5-325*), 1 TAB ORAL Q12HR PRN for For Pain, (Reported) Lorazepam* (Ativan*), 2 MG ORAL Q6HR PRN for For Anxiety, (Reported) Lorazepam* (Ativan*), 1 MG ORAL Q6HR PRN for For Anxiety, (Reported) Magnesium Hydroxide (Milk of Magnesia), 30 ML ORAL DAILY PRN for Constipation, ( Reported) Ondansetron (Zofran), 4 MG ORAL Q6H PRN for Nausea & Vomiting, (Reported) Tramadol Hcl (Tramadol Hcl), 50 MG ORAL Q6HR PRN for Pain Scale (6-10), ( Reported) Zolpidem Tartrate* (Ambien*), 5 MG ORAL BEDTIME PRN for Insomnia, (Reported) Patient History Healthcare decision maker Resuscitation status Advanced Directive on File Physical Exam Last 24 Hour Vital Signs Date Time Temp Pulse Resp B/P (MAP) Pulse Ox O2 Delivery O2 Flow Rate FiO2 12/09/18 12:00 97.7 75 19 109/56 (73) 94 12/09/18 09:04 75 120/63 12/09/18 09:00 Nasal Cannula 2.0 12/09/18 08:00 98.0 75 20 120/63 (82) 96 12/09/18 04:00 97.6 71 20 114/60 (78) 93 12/08/18 21:00 Nasal Cannula 2.0 12/08/18 20:00 97.5 77 20 114/71 (85) 97 12/08/18 17:33 Nasal Cannula 2.0 12/08/18 17:10 98.2 81 20 107/78 98 Nasal Cannula 2.0 Intake and Output 12/08/18 12/09/18 19:00 07:00 Intake Total 1055 ml Output Total 800 ml Balance 1055 ml -800 ml Intake Oral 0 ml IV Total 1055 ml Output Urine Total 800 ml # Voids 3 Laboratory Tests Test 12/09/18 05:10 White Blood Count 6.1 K/UL (4.8-10.8) Red Blood Count 3.92 M/UL (4.20-5.40) L Hemoglobin 11.9 G/DL (12.0-16.0) L Hematocrit 38.5 % (37.0-47.0) Mean Corpuscular Volume 98 FL (80-99) Mean Corpuscular Hemoglobin 30.5 PG (27.0-31.0) Mean Corpuscular Hemoglobin Concent 31.1 G/DL (32.0-36.0) L Red Cell Distribution Width 14.8 % (11.6-14.8) Platelet Count 124 K/UL (150-450) L Mean Platelet Volume 6.0 FL (6.5-10.1) L Neutrophils (%) (Auto) 37.1 % (45.0-75.0) L Lymphocytes (%) (Auto) 50.2 % (20.0-45.0) H Monocytes (%) (Auto) 8.1 % (1.0-10.0) Eosinophils (%) (Auto) 3.6 % (0.0-3.0) H Basophils (%) (Auto) 1.0 % (0.0-2.0) Sodium Level 144 MMOL/L (136-145) Potassium Level 4.5 MMOL/L (3.5-5.1) Chloride Level 107 MMOL/L (98-107) Carbon Dioxide Level 39 MMOL/L (21-32) H Anion Gap -2 mmol/L (5-15) L Blood Urea Nitrogen 18 mg/dL (7-18) Creatinine 0.6 MG/DL (0.55-1.30) Estimat Glomerular Filtration Rate mL/min (>60) Glucose Level 87 MG/DL (74-106) Calcium Level 9.0 MG/DL (8.5-10.1) Total Bilirubin 0.2 MG/DL (0.2-1.0) Aspartate Amino Transf (AST/SGOT) 12 U/L (15-37) L Alanine Aminotransferase (ALT/SGPT) 8 U/L (12-78) L Alkaline Phosphatase 73 U/L (46-116) Total Protein 5.7 G/DL (6.4-8.2) L Albumin 2.2 G/DL (3.4-5.0) L Globulin 3.5 g/dL Albumin/Globulin Ratio 0.6 (1.0-2.7) L HIV (1&2) Antibody Rapid Negative (NEGATIVE) Height (Feet): 5 Height (Inches): 6.00 Weight (Pounds): 179 Medications Current Medications Medications (Trade) Dose Ordered Sig/Desire Route PRN Reason Start Time Stop Time Status Last Admin Dose Admin Acetaminophen (Tylenol) 650 mg Q4H PRN ORAL Mild Pain/Temp > 101 12/08/18 20:45 01/07/19 20:44 12/09/18 02:56 Amlodipine Besylate (Norvasc) 10 mg DAILY ORAL 12/09/18 09:00 01/08/19 08:59 12/09/18 09:04 Aspirin (Ecotrin) 81 mg DAILY ORAL 12/09/18 09:00 01/08/19 08:59 12/09/18 09:06 Bisacodyl (Dulcolax) 10 mg DAILYPRN PRN RECTAL Constipation 12/08/18 20:45 01/07/19 20:44 Ceftriaxone Sodium 1 gm/ Dextrose 55 ml @ 110 mls/hr Q24H IVPB 12/09/18 16:00 12/16/18 15:59 Dextrose (Dextrose 50%) 25 ml Q30M PRN IV Hypoglycemia 12/09/18 12:30 01/08/19 12:16 Dextrose (Dextrose 50%) 50 ml Q30M PRN IV hypoglycemia 12/09/18 12:30 01/08/19 12:29 Divalproex Sodium (Depakote ER) 1,000 mg EVERY 12 HOURS ORAL 12/08/18 21:00 01/07/19 20:59 12/09/18 09:05 Docusate Sodium (Colace) 100 mg DAILY ORAL 12/09/18 09:00 01/08/19 08:59 12/09/18 09:05 Gabapentin (Neurontin) 100 mg THREE TIMES A DAY ORAL 12/09/18 09:00 01/08/19 08:59 12/09/18 13:40 Ibuprofen (Advil) 400 mg BID ORAL 12/09/18 09:00 01/08/19 08:59 12/09/18 09:05 Insulin Aspart (NovoLOG) BEFORE MEALS AND HS SUBQ 12/09/18 16:30 01/08/19 16:29 Magnesium Hydroxide (Mom) 30 ml QHS PRN ORAL constipation 12/08/18 20:45 01/07/19 20:44 Meloxicam (Mobic) 3.75 mg DAILY ORAL 12/09/18 09:00 01/08/19 08:59 12/09/18 09:06 Mirtazapine (Remeron) 7.5 mg BEDTIME ORAL 12/08/18 21:00 01/07/19 20:59 12/08/18 22:42 Risperidone (RisperDAL) 2 mg BID ORAL 12/09/18 09:00 01/08/19 08:59 12/09/18 09:04 Assessment/Plan Assessment/Plan: Hematology Consultation REQ : Maninder Ramsey DOS: 12/09/18 RFC: Low platelets 122k, anemia, history of elevated tumor markers ID Called by Dr. Natacha Ramsey to al, she is a 73-year-old female history of schizophrenia, COPD, diabetes, hypertension presents with acute altered mental status prior to arrival, patient unable to give a history, patient transferred for generalized weakness, worsening altered mental status, patient denies any fevers or chills, she endorses a chronic neck pain saying that someone walked all over her month prior. Unknown aggravating or alleviating factors, severity is severe. Characterization is acute psychosis, psych consulted. Noted to have low plts and h/h and hematology was consulted as well. Allergies: BENZOCAINE (Unverified Allergy, Unknown, 07/21/14) PENICILLINS (Unverified Allergy, Unknown, 07/21/14) QUETIAPINE (Unverified Allergy, Unknown, 07/21/14) Patient History Limited by: medical condition - Psychosis Past Medical History: see triage record Now: No Reviewed Nursing Documentation: PMH: Agreed; PSxH: Agreed Nursing Documentation-PMH Past Medical History: No History, Except For Hx Cardiac Problems: No Hx Hypertension: Yes Hx COPD: Yes Hx Diabetes: Yes Hx Cancer: No Hx Gastrointestinal Problems: Yes - GERD Hx Neurological Problems: Yes - Polyneuropathy Hx Dementia: Yes Hx Seizures: Yes Hx Weakness: Yes Review of Systems All Other Systems: limited - Psychosis, schizoaffective disorder Physical Exam: Vitals: reviewed General Appearance: NAD HEENT: normocephalic, atraumatic Neck: non-tender, normal alignment Respiratory/Chest: normal breath sounds bilaterally Cardiovascular/Chest: normal peripheral pulses, normal rate Abdomen: normal bowel sounds, soft, Labs: noted Imaging: reviewed Assessment and Recs: # Thrombocytopenia - potential causes multifactorial, evaluate liver and viral etiologies to begin, also could be related to underlying medications patient has received. --> Hep panel and HIv are negative --> US abd to evaluate for cirrhosis and hsm ordered --> Peripheral smear ordered to evaluate for blasts /schistocytes --> abx and other meds have been reviewed --> ok for ppx if plt >50k w/ either heparin or lovenox --> Transfuse if Plt < 20k and fever, or if Plt < 10k without fever --> psych meds reviewed as well # Anemia of chronic disease (or of iron deficiency) due to underlying chronic medical issues, multifactorial --> Anemia workup has been ordered, rule out gi bleed --> No evidence of hemolysis is noted, peripheral smear has been reviewed. --> Hgb goal >7. Transfuse prn. --> Epogen or iron at this time is not particularly indicated --> Medications have been reviewed --> low threshold for gi evaluation in case has occult + # Elevated tumor markers in 2017, reviewed labs --> CEA and afp ordered --> if higher, consider gi eval prn # Acute encephalopathy with Altered mental status --> psych eval prn --> rx uti with CTX # Acute cystitis without hematuria The timing of this note does not necessarily reflect the time of the patient was seen. GREATLY APPRECIATE CONSULTATION. Cirilo Del Castillo MD Dec 09, 2018 15:02
[2018-12-09 16:00] VITALS: BP 91/55
[2018-12-09] MEDS: cefTRIAXone 1 GM in D5W 55 ML IVPB SCH (16:00)
[2018-12-09] MEDS: NovoLOG Insulin Flexpen SUBQ SCH ×2 (16:30→20:58)
--- NOTE | 2018-12-09 16:33 | NUR ---
NURSE NOTES: Urine was collected and brought to lab
--- NOTE | 2018-12-09 16:38 | NUR ---
CASE MANAGEMENT: NOTE INTERQUAL MET
--- NOTE | 2018-12-09 16:48 | Consultation ---
History of Present Illness General Date patient seen: Dec 09, 2018 Chief Complaint: Pain Present Illness HPI 73 y/o F with hx of schizoaffective disorder, AOCD, CODP, Dm2, GERD, polyneuropathy, seizure disorder, HTN presented to ED on 12/08 with worsening altered mental status, generalized weakness No fever/chills Allergies: Coded Allergies: BENZOCAINE (Unverified Allergy, Unknown, 07/21/14) PENICILLINS (Unverified Allergy, Unknown, 07/21/14) QUETIAPINE (Unverified Allergy, Unknown, 07/21/14) Medication History Scheduled Acetaminophen* (Acetaminophen 325MG Tablet*), 650 MG ORAL Q4H, (Reported) Alendronate Sodium* (Fosamax*), 70 MG ORAL ONCE A WEEK, (Reported) Alprazolam (Alprazolam), 2 MG ORAL Q6HR, (Reported) Amlodipine Besylate (Norvasc), 10 MG ORAL DAILY, (Reported) Amlodipine Besylate* (Amlodipine Besylate*), 10 MG ORAL DAILY, (Reported) Aripiprazole* (Abilify*), 20 MG ORAL DAILY, (Reported) Aspirin (Aspirin EC), 81 MG ORAL DAILY, (Reported) Aspirin* (Aspir 81*), 81 MG ORAL DAILY, (Reported) Baclofen* (Baclofen*), 10 MG ORAL THREE TIMES A DAY, (Reported) Cranberry Conc/C/Bacill Coag (Cranberry Tablet), 1 EACH PO DAILY, (Reported) Divalproex Sodium (Divalproex Sodium), 500 MG PO BID, (Reported) Docusate Sodium* (Colace*), 100 MG ORAL DAILY, (Reported) Docusate Sodium* (Docusate Sodium*), 100 MG ORAL DAILY, (Reported) Escitalopram Oxalate* (Lexapro*), 10 MG ORAL DAILY, (Reported) Gabapentin* (Gabapentin*), 100 MG ORAL THREE TIMES A DAY, (Reported) Ibuprofen* (Motrin*), 600 MG ORAL BID, (Reported) Ibuprofen* (Motrin*), 600 MG ORAL BID, (Reported) Lactulose (Lactulose*), 44 ML ORAL BID, (Reported) Levofloxacin* (Levaquin*), 500 MG ORAL DAILY Lorazepam (Lorazepam), 0.5 GM MC Q4HR, (Reported) Lorazepam* (Lorazepam*), 0.5 MG ORAL Q4HR, (Reported) Magnesium Hydroxide* (Milk Of Magnesia*), 30 ML ORAL DAILY, (Reported) Mirtazapine* (Mirtazapine*), 7.5 MG ORAL BEDTIME, (Reported) Omeprazole (Omeprazole), MG ORAL BEFORE BREAKFAST, (Reported) Risperidone* (Risperdal*), 2 MG ORAL DAILY, (Reported) Valproate Sodium (Valproic Acid), 1,000 MG ORAL Q12HR, (Reported) Valproic Acid (Depakene), 1,000 MG ORAL TWICE A DAY Valproic Acid (Valproic Acid), 1,000 MG PO Q12HR, (Reported) Scheduled PRN Acetaminophen* (Acetaminophen 325MG Tablet*), 650 MG ORAL Q4H PRN for Prn Headache/Temp > 101, (Reported) Bisacodyl (Dulcolax), 10 MG RC for Constipation, (Reported) Clonidine Hcl* (Catapres*), 0.1 MG ORAL EVERY 8 HOURS PRN for For High Blood Pressure, (Reported) Hydrocodone Bit/Acetaminophen 5-325* ([place] 5-325*), 2 TAB ORAL Q6HR PRN for For Pain, (Reported) Hydrocodone/Acetaminophen 5-325* (Hydrocodone/Acetaminophen 5-325*), 1 TAB ORAL Q12HR PRN for For Pain, (Reported) Lorazepam* (Ativan*), 2 MG ORAL Q6HR PRN for For Anxiety, (Reported) Lorazepam* (Ativan*), 1 MG ORAL Q6HR PRN for For Anxiety, (Reported) Magnesium Hydroxide (Milk of Magnesia), 30 ML ORAL DAILY PRN for Constipation, ( Reported) Ondansetron (Zofran), 4 MG ORAL Q6H PRN for Nausea & Vomiting, (Reported) Tramadol Hcl (Tramadol Hcl), 50 MG ORAL Q6HR PRN for Pain Scale (6-10), ( Reported) Zolpidem Tartrate* (Ambien*), 5 MG ORAL BEDTIME PRN for Insomnia, (Reported) Patient History Healthcare decision maker Resuscitation status Advanced Directive on File Patient History Narrative Pmhx: as above Shx: reviewed Fhx: non contributory Review of Systems All Other Systems: negative except mentioned in HPI Physical Exam Physical Exam Narrative General Appearance: NAD HEENT: normocephalic, atraumatic Neck: non-tender, normal alignment Respiratory/Chest: normal breath sounds bilaterally Cardiovascular/Chest: normal peripheral pulses, normal rate Abdomen: normal bowel sounds, soft, Last 24 Hour Vital Signs Date Time Temp Pulse Resp B/P (MAP) Pulse Ox O2 Delivery O2 Flow Rate FiO2 12/09/18 12:00 97.7 75 19 109/56 (73) 94 12/09/18 09:04 75 120/63 12/09/18 09:00 Nasal Cannula 2.0 12/09/18 08:00 98.0 75 20 120/63 (82) 96 12/09/18 04:00 97.6 71 20 114/60 (78) 93 12/08/18 21:00 Nasal Cannula 2.0 12/08/18 20:00 97.5 77 20 114/71 (85) 97 12/08/18 17:33 Nasal Cannula 2.0 12/08/18 17:10 98.2 81 20 107/78 98 Nasal Cannula 2.0 Intake and Output 12/08/18 12/09/18 19:00 07:00 Intake Total 1055 ml Output Total 800 ml Balance 1055 ml -800 ml Intake Oral 0 ml IV Total 1055 ml Output Urine Total 800 ml # Voids 3 Laboratory Tests Test 12/09/18 05:10 White Blood Count 6.1 K/UL (4.8-10.8) Red Blood Count 3.92 M/UL (4.20-5.40) L Hemoglobin 11.9 G/DL (12.0-16.0) L Hematocrit 38.5 % (37.0-47.0) Mean Corpuscular Volume 98 FL (80-99) Mean Corpuscular Hemoglobin 30.5 PG (27.0-31.0) Mean Corpuscular Hemoglobin Concent 31.1 G/DL (32.0-36.0) L Red Cell Distribution Width 14.8 % (11.6-14.8) Platelet Count 124 K/UL (150-450) L Mean Platelet Volume 6.0 FL (6.5-10.1) L Neutrophils (%) (Auto) 37.1 % (45.0-75.0) L Lymphocytes (%) (Auto) 50.2 % (20.0-45.0) H Monocytes (%) (Auto) 8.1 % (1.0-10.0) Eosinophils (%) (Auto) 3.6 % (0.0-3.0) H Basophils (%) (Auto) 1.0 % (0.0-2.0) Sodium Level 144 MMOL/L (136-145) Potassium Level 4.5 MMOL/L (3.5-5.1) Chloride Level 107 MMOL/L (98-107) Carbon Dioxide Level 39 MMOL/L (21-32) H Anion Gap -2 mmol/L (5-15) L Blood Urea Nitrogen 18 mg/dL (7-18) Creatinine 0.6 MG/DL (0.55-1.30) Estimat Glomerular Filtration Rate mL/min (>60) Glucose Level 87 MG/DL (74-106) Calcium Level 9.0 MG/DL (8.5-10.1) Total Bilirubin 0.2 MG/DL (0.2-1.0) Aspartate Amino Transf (AST/SGOT) 12 U/L (15-37) L Alanine Aminotransferase (ALT/SGPT) 8 U/L (12-78) L Alkaline Phosphatase 73 U/L (46-116) Total Protein 5.7 G/DL (6.4-8.2) L Albumin 2.2 G/DL (3.4-5.0) L Globulin 3.5 g/dL Albumin/Globulin Ratio 0.6 (1.0-2.7) L Alpha Fetoprotein Pending Carcinoembryonic Antigen Pending HIV (1&2) Antibody Rapid Negative (NEGATIVE) Height (Feet): 5 Height (Inches): 6.00 Weight (Pounds): 179 Medications Current Medications Medications (Trade) Dose Ordered Sig/Desire Route PRN Reason Start Time Stop Time Status Last Admin Dose Admin Acetaminophen (Tylenol) 650 mg Q4H PRN ORAL Mild Pain/Temp > 101 12/08/18 20:45 01/07/19 20:44 12/09/18 02:56 Amlodipine Besylate (Norvasc) 10 mg DAILY ORAL 12/09/18 09:00 01/08/19 08:59 12/09/18 09:04 Aspirin (Ecotrin) 81 mg DAILY ORAL 12/09/18 09:00 01/08/19 08:59 12/09/18 09:06 Bisacodyl (Dulcolax) 10 mg DAILYPRN PRN RECTAL Constipation 12/08/18 20:45 01/07/19 20:44 Ceftriaxone Sodium 1 gm/ Dextrose 55 ml @ 110 mls/hr Q24H IVPB 12/09/18 16:00 12/16/18 15:59 Dextrose (Dextrose 50%) 25 ml Q30M PRN IV Hypoglycemia 12/09/18 12:30 01/08/19 12:16 Dextrose (Dextrose 50%) 50 ml Q30M PRN IV hypoglycemia 12/09/18 12:30 01/08/19 12:29 Divalproex Sodium (Depakote ER) 1,000 mg EVERY 12 HOURS ORAL 12/08/18 21:00 01/07/19 20:59 12/09/18 09:05 Docusate Sodium (Colace) 100 mg DAILY ORAL 12/09/18 09:00 01/08/19 08:59 12/09/18 09:05 Gabapentin (Neurontin) 100 mg THREE TIMES A DAY ORAL 12/09/18 09:00 01/08/19 08:59 12/09/18 13:40 Ibuprofen (Advil) 400 mg BID ORAL 12/09/18 09:00 01/08/19 08:59 12/09/18 09:05 Insulin Aspart (NovoLOG) BEFORE MEALS AND HS SUBQ 12/09/18 16:30 01/08/19 16:29 Magnesium Hydroxide (Mom) 30 ml QHS PRN ORAL constipation 12/08/18 20:45 01/07/19 20:44 Meloxicam (Mobic) 3.75 mg DAILY ORAL 12/09/18 09:00 01/08/19 08:59 12/09/18 09:06 Mirtazapine (Remeron) 7.5 mg BEDTIME ORAL 12/08/18 21:00 01/07/19 20:59 12/08/18 22:42 Risperidone (RisperDAL) 2 mg BID ORAL 12/09/18 09:00 01/08/19 08:59 12/09/18 09:04 Assessment/Plan Assessment/Plan: Abx: Ceftriaxone 12/08- Assessment: Afebrile No leukocytosis Pyuria/bacteriuria- ?UTI -u.a wbc tnct, nit +, leuk +3; ucx >100k GNR Altered mental status schizoaffective disorder AOCD CODP Dm2 GERD polyneuropathy seizure disorder HTN Plan: -Continue empiric Ceftriaxone #2/3 -f/u cx -Monitor CBC/CMP, temperatures Thank you for this consultation. Will continue to follow along with you. Discussed with Mariaelena Flores M.D. Dec 09, 2018 16:48
--- NOTE | 2018-12-09 19:00 | NUR ---
NURSE NOTES: Patient refused side rails to be padded
[2018-12-09] MEDS ORDERED: DIVALPROEX SOD500 M2 PO (19:05)
[2018-12-09] MEDS ORDERED: BAYER CHEWABLE81 MG PO (19:05)
[2018-12-09] MEDS ORDERED: IBUPROFEN200 MG ORAL (19:05)
--- NOTE | 2018-12-09 19:38 | NUR ---
HAND-OFF: Report given to NICK Christian.
--- NOTE | 2018-12-09 19:40 | NUR ---
NURSE NOTES: Patient awake in bed, confused, no complaint of pain at this time. Instructed the use of call light. Call light and needs in reach. Bed in lowest positioh, lock engaged and alarm on. Will continue to monitor.
[2018-12-09 20:00] VITALS: BP 114/61
[2018-12-10] VITALS: BP 107/59
--- NOTE | 2018-12-10 03:00 | History and Physical Report ---
DATE OF ADMISSION: 12/08/[address] Maninder Ramsey's patient. I am covering for Dr. Maninder Ramsey. HISTORY OF PRESENT ILLNESS: The patient comes in because of generalized weakness and is admitted for urinary tract infection, rule out dehydration. The patient does state that he is weak and pain all over. The patient denies nausea, vomiting, or diarrhea. No fever or chills. Denies shortness of breath. Denies cough. Does have dysuria. PAST MEDICAL HISTORY: Schizoaffective, diabetes mellitus, hypertension, seizure, hepatic encephalopathy, history of constipation, GERD, psychosis, osteoporosis, constipation, and chronic pain syndrome. PAST SURGICAL HISTORY: Cholecystectomy. ALLERGIES: . MEDICATIONS: aspirin, Abilify, Norvasc, lactulose, omeprazole, and valproic acid. SOCIAL HISTORY: History of smoking. Denies alcohol or illicit drugs. FAMILY HISTORY: Noncontributory. REVIEW OF SYSTEMS: HEENT: Denies headaches. PULMONARY: Denies shortness of breath. Denies cough. CARDIOVASCULAR: Denies chest pain or orthopnea. GASTROINTESTINAL: Denies nausea, vomiting, or diarrhea. EXTREMITIES: Pain all over and weak all over. NEUROLOGIC: Denies any changes in vision or speech pattern. PHYSICAL EXAMINATION: VITAL SIGNS: Temperature is 97.7, pulse 75, and blood pressure 109/56. HEENT: PERRLA. NECK: Supple. No lymphadenopathy. CHEST: Clear to auscultation. CARDIOVASCULAR: Regular rate and rhythm. No murmurs or extra sounds. GASTROINTESTINAL: Soft, nondistended, and nontender. No organomegaly. EXTREMITIES: 1+ edema. Reflexes equal on both sides. Generalized weakness. LABORATORY DATA: WBC of 7.6, hemoglobin 12.9, and platelets 131,000. Sodium 138, potassium 4.2, BUN 15, and creatinine 0.5. Glucose 110. ASSESSMENT AND PLAN: Weakness, UTI, rule out dehydration. I have consulted , , and Dr. Spaulding for the management of the above-mentioned diagnoses. There was a question of chest pain. I have consulted Dr. Spaulding to clarify to make sure that chest pain is being addressed. Robb Gipson M.D. DR: ABEL JOB#: [id number] CC:
--- NOTE | 2018-12-10 03:00 | Consultation ---
DATE OF CONSULTATION: 12/09/2018 NOTE: POOR AUDIO NEPHROLOGY CONSULTATION CONSULTING PHYSICIAN: Sera Snyder M.D. REFERRING PHYSICIAN: Robb Gipson M.D., who is covering for Maninder Ramsey D.O. REASON FOR CONSULTATION: Hyperkalemia and prerenal azotemia. HISTORY OF PRESENT ILLNESS: The patient is a 73-year-old female with past medical history significant for history of diabetes, hypertension, dyslipidemia, and COPD, found to be more altered than her baseline. She was sent to the emergency room at [facility]. Upon arrival, the patient was found to have temperature of 97. She was mildly hypotensive with blood pressure of 99/52, pulse rate 88, and respiratory rate 19. The patient subsequently was treated for the UTI some fluid, was admitted in the hospital. I was called for management of renal disease and electrolyte imbalance. PAST MEDICAL HISTORY: 1. History of acute renal failure in the past. 2. History of CAD. 3. History of hypertension. 4. History of COPD. 5. History of diabetes. 6. History of GERD. 7. History of dementia. 8. History of bipolar disease as well as paranoid schizophrenia. FAMILY HISTORY: Noncontributory. SOCIAL HISTORY: [facility] resident. There is no history of tobacco, alcohol, or drug use. HOME MEDICATIONS: 1. Tylenol 650 mg q.6 h. p.r.n. pain. 2. Topamax mg daily. 3. Alprazolam 2 mg p.r.n. 4. Norvasc 10 mg daily. 5. Abilify 20 mg daily. 6. Aspirin 81 mg daily. 7. Baclofen 10 mg daily. 8. Colace 100 mg p.o. b.i.d. 9. Gabapentin 100 mg three times a day. 10. Motrin 600 mg daily. 11. 25 mg p.r.n. 12. Mirtazapine 7.5 mg daily. 13. Omeprazole 20 mg daily. 14. Valproic acid 1000 mg p.o. daily. 15. Clonidine 0.1 mg p.r.n. for blood pressure more than 160. 16. Lorazepam p.r.n. 17. Ambien 5 mg daily. 18. Tramadol 50 mg daily. REVIEW OF SYSTEMS: Limited due to the patient's condition and mental status. PHYSICAL EXAMINATION: VITAL SIGNS: The patient has temperature of 98 and blood pressure 109/67. HEAD AND NECK: No JVP. No LAD. No thyromegaly. Extraocular movement intact. Pupils are reactive to light and accommodation. LUNGS: Clear to auscultation. CARDIAC: Regular rate and rhythm. S1, S2. No murmur. No rub. ABDOMEN: Soft, nontender, and nondistended. EXTREMITIES: No edema. No clubbing. No cyanosis. NEUROLOGIC: Cranial nerves II to XII within normal limits. Upper and lower extremities are grossly intact. LABORATORY DATA: Lab values revealed sodium 144, potassium 4.5 down from 5.2, chloride and creatinine 0.6. Calcium is 9. AST 12, ALT 8, and alkaline phosphatase 73. Total protein 5.7, albumin 3.2. CBC revealed WBC 5.6, hemoglobin 11.9, hematocrit 38, and platelet count 124,000 drop from 131,000. UA revealed specific gravity of 1.015, protein 1+, blood 2+ nitrite positive, wbc's too numerous to count, and rbc's 2 to 4. ASSESSMENT: 1. resolved. 2. Prerenal azotemia. 3. acute renal failure. 4. multiple myeloma. 5. Altered mental status. 6. Urinary tract infection. PLAN: Plan for the patient to check the random urine protein-creatinine ratio to calculate the proteinuria. Check urine sodium and creatinine to calculate fractional excretion of sodium. Ultrasound of the kidneys to evaluate the kidney size. Low potassium diet. Monitor renal function and electrolytes closely. Again, I would like to thank Dr. Gipson, for allowing me to participate in the care of this patient. Sera Snyder M.D. DR: CRISTOPHER JOB#: [id number] CC:
[2018-12-10 04:00] VITALS: BP 117/45
[2018-12-10] MEDS: NovoLOG Insulin Flexpen SUBQ SCH ×4 (06:30→20:20)
[2018-12-10 06:34] LABS: BASOPHILS % (AUTO) 0.9 % (0.0-2.0); HEMATOCRIT 39.2 % (37.0-47.0); MEAN CORPUSCULAR VOLUME 98 FL (80-99); NEUTROPHILS % (AUTO) 44.2 % (45.0-75.0); PLATELET COUNT 121 K/UL (150-450); RED BLOOD COUNT 3.99 M/UL (4.20-5.40); RED CELL DISTRIBUTION WIDTH 14.7 % (11.6-14.8); WHITE BLOOD COUNT 7.1 K/UL (4.8-10.8)
[2018-12-10 06:59] LABS: ALANINE AMINOTRANSFERASE 8 U/L (12-78); ALBUMIN 2.2 G/DL (3.4-5.0); ALBUMIN/GLOBULIN RATIO 0.6 (1.0-2.7); ALKALINE PHOSPHATASE 74 U/L (46-116); ANION GAP 1 mmol/L (5-15); ASPARTATE AMINO TRANSFERASE 12 U/L (15-37); BILIRUBIN,TOTAL 0.3 MG/DL (0.2-1.0); BLOOD UREA NITROGEN 24 mg/dL (7-18); CALCIUM 9.2 MG/DL (8.5-10.1); CARBON DIOXIDE 38 MMOL/L (21-32); CHLORIDE 104 MMOL/L (98-107); CREATININE 0.6 MG/DL (0.55-1.30); PHOSPHORUS 3.5 MG/DL (2.5-4.9); POTASSIUM 4.3 MMOL/L (3.5-5.1); SODIUM 143 MMOL/L (136-145)
--- NOTE | 2018-12-10 07:30 | NUR ---
HAND-OFF: Report given to NICK Farley.
--- NOTE | 2018-12-10 07:46 | NUR ---
NURSE NOTES: Patient awake, confused; on nasal cannula 2 Liter, no sing of distress and no sing of shortness of breath; no sing of chest pain; IV RAC 20G TKO; side rails up x2, bed at lowest position, breaks engaged, bed alarm on. call light within reach; will keep monitoring.
[2018-12-10 08:00] VITALS: BP 124/58
[2018-12-10] MEDS: Aspirin EC 81mg tab ORAL SCH (09:32)
[2018-12-10] MEDS: Depakote ER 500mg tab ORAL SCH ×2 (09:32→20:20)
[2018-12-10] MEDS: Docusate 100mg cap ORAL SCH (09:32)
--- NOTE | 2018-12-10 10:02 | Nephrology Progress Note ---
Assessment/Plan Assessment pre-renal azotemia hyperkalemia proteinuria UTI ALOC Plan continue current meds monitoring renal function avoid nsaid replace electrolyte as need it low K diet repeat u/a Objective Objective Last 24 Hour Vital Signs Date Time Temp Pulse Resp B/P (MAP) Pulse Ox O2 Delivery O2 Flow Rate FiO2 12/10/18 09:32 63 124/58 12/10/18 08:00 97.3 63 19 124/58 (80) 95 12/10/18 04:00 98.3 67 18 117/45 (69) 96 12/10/18 00:00 98.4 74 18 107/59 (75) 100 12/09/18 21:00 Nasal Cannula 2.0 12/09/18 20:00 97.9 80 18 114/61 (78) 97 12/09/18 16:00 97.1 77 18 91/55 (67) 99 12/09/18 12:00 97.7 75 19 109/56 (73) 94 Intake and Output 12/09/18 12/10/18 18:59 06:59 Intake Total 800 ml 200 ml Balance 800 ml 200 ml Intake Oral 800 ml 200 ml # Voids 7 3 Laboratory Tests 12/09/18 16:20: Urine Eosinophils None seen, Urine Random Creatinine [Pending], Urine Random Microalbumin [Pending], Urine Random Total Protein 11, Urine Random Sodium 114H , Urine Creatinine 23.8L, Urine Microalbumin/Creatinine Ratio [Pending] 12/10/18 05:35: White Blood Count 7.1, Red Blood Count 3.99L, Hemoglobin 12.0, Hematocrit 39.2, Mean Corpuscular Volume 98, Mean Corpuscular Hemoglobin 30.1, Mean Corpuscular Hemoglobin Concent 30.7L, Red Cell Distribution Width 14.7, Platelet Count 121L , Mean Platelet Volume 6.1L, Neutrophils (%) (Auto) 44.2L, Lymphocytes (%) (Auto ) 45.0, Monocytes (%) (Auto) 8.0, Eosinophils (%) (Auto) 2.0, Basophils (%) ( Auto) 0.9, Erythrocyte Sedimentation Rate 9, Sodium Level 143, Potassium Level 4.3, Chloride Level 104, Carbon Dioxide Level 38H, Anion Gap 1L, Blood Urea Nitrogen 24H, Creatinine 0.6, Estimat Glomerular Filtration Rate , Glucose Level 87, Calcium Level 9.2, Phosphorus Level 3.5, Magnesium Level 1.9, Total Bilirubin 0.3, Aspartate Amino Transf (AST/SGOT) 12L, Alanine Aminotransferase ( ALT/SGPT) 8L, Alkaline Phosphatase 74, C-Reactive Protein, Quantitative < 0.4, Total Protein 5.8L, Albumin 2.2L, Globulin 3.6, Albumin/Globulin Ratio 0.6L Height (Feet): 5 Height (Inches): 6.00 Weight (Pounds): 179 Objective HEAD AND NECK: No JVP. No LAD. No thyromegaly. Extraocular movement intact. Pupils are reactive to light and accommodation. LUNGS: Clear to auscultation. CARDIAC: Regular rate and rhythm. S1, S2. No murmur. No rub. ABDOMEN: Soft, nontender, and nondistended. EXTREMITIES: No edema. No clubbing. No cyanosis. NEUROLOGIC: Cranial nerves II to XII within normal limits. Upper and lower extremities are grossly intact. Sera Snyder MD Dec 10, 2018 10:02
--- NOTE | 2018-12-10 10:39 | Hematology/Onc Progress Note ---
Assessment/Plan Assessment/Plan Assessment and Recs: # Thrombocytopenia - potential causes multifactorial, evaluate liver and viral etiologies to begin, also could be related to underlying medications patient has received. --> Hep panel and HIv are negative --> US abd shows no hsm/cirrhosis --> Peripheral smear ordered to evaluate for blasts /schistocytes is negative --> abx and other meds have been reviewed --> ok for ppx if plt >50k w/ either heparin or lovenox --> Transfuse if Plt < 20k and fever, or if Plt < 10k without fever --> psych meds reviewed as well --> plt trend 131-->124-->121 # Anemia of chronic disease due to underlying chronic medical issues, multifactorial --> Anemia workup has been ordered, rule out gi bleed --> No evidence of hemolysis is noted, peripheral smear has been reviewed. --> Hgb goal >7. Transfuse prn. --> Epogen or iron at this time is not particularly indicated --> Medications have been reviewed --> low threshold for gi evaluation in case has occult + --> trend hgb 11.9-->12 # Elevated tumor markers in 2017, reviewed labs --> CEA and afp ordered --> if higher, consider gi eval prn # Acute encephalopathy with altered mental status --> psych eval prn --> rx uti with CTX # Acute cystitis without hematuria The timing of this note does not necessarily reflect the time of the patient was seen. GREATLY APPRECIATE CONSULTATION. Subjective Constitutional: Denies: no symptoms, chills, fever, malaise, weakness, other HEENT: Denies: no symptoms, eye pain, blurred vision, tearing, double vision, ear pain, ear discharge, nose pain, nose congestion, throat pain, throat swelling, mouth pain, mouth swelling, other Cardiovascular: Denies: no symptoms, chest pain, edema, irregular heart rate, lightheadedness, palpitations, syncope, other Respiratory: Denies: no symptoms, cough, shortness of breath, SOB with excertion, SOB at rest, sputum, wheezing, other Gastrointestinal/Abdominal: Denies: no symptoms, abdomen distended, abdominal pain, black stools, tarry stools, blood in stool, constipated, diarrhea, difficulty swallowing, nausea, poor appetite, poor fluid intake, rectal bleeding , vomiting, other Genitourinary: Denies: no symptoms, burning, discharge, frequency, flank pain, hematuria, incontinence, pain, urgency, other Neurologic/Psychiatric: Denies: no symptoms, anxiety, depressed, emotional problems, headache, numbness, paresthesia, pre-existing deficit, seizure, tingling, tremors, weakness, other Endocrine: Denies: no symptoms, excessive sweating, flushing, intolerance to cold, intolerance to heat, increased hunger, increased thirst, increased urine, unexplained weight gain, unexplained weight loss, other Allergies: Coded Allergies: BENZOCAINE (Unverified Allergy, Unknown, 07/21/14) PENICILLINS (Unverified Allergy, Unknown, 07/21/14) QUETIAPINE (Unverified Allergy, Unknown, 07/21/14) Subjective 12/10: is awake, confused, on nc, labs reviewed Objective Objective Current Medications Medications (Trade) Dose Ordered Sig/Desire Route PRN Reason Start Time Stop Time Status Last Admin Dose Admin Acetaminophen (Tylenol) 650 mg Q4H PRN ORAL Mild Pain/Temp > 101 12/08/18 20:45 01/07/19 20:44 12/10/18 05:02 Amlodipine Besylate (Norvasc) 10 mg DAILY ORAL 12/09/18 09:00 01/08/19 08:59 12/10/18 09:32 Aspirin (Ecotrin) 81 mg DAILY ORAL 12/09/18 09:00 01/08/19 08:59 12/10/18 09:32 Bisacodyl (Dulcolax) 10 mg DAILYPRN PRN RECTAL Constipation 12/08/18 20:45 01/07/19 20:44 Ceftriaxone Sodium 1 gm/ Dextrose 55 ml @ 110 mls/hr Q24H IVPB 12/09/18 16:00 12/16/18 15:59 12/09/18 16:00 Dextrose (Dextrose 50%) 25 ml Q30M PRN IV Hypoglycemia 12/09/18 12:30 01/08/19 12:16 Dextrose (Dextrose 50%) 50 ml Q30M PRN IV hypoglycemia 12/09/18 12:30 01/08/19 12:29 Divalproex Sodium (Depakote ER) 1,000 mg EVERY 12 HOURS ORAL 12/08/18 21:00 01/07/19 20:59 12/10/18 09:32 Docusate Sodium (Colace) 100 mg DAILY ORAL 12/09/18 09:00 01/08/19 08:59 12/10/18 09:32 Gabapentin (Neurontin) 100 mg THREE TIMES A DAY ORAL 12/09/18 09:00 01/08/19 08:59 12/10/18 09:31 Ibuprofen (Advil) 400 mg BID ORAL 12/09/18 09:00 01/08/19 08:59 12/10/18 09:33 Insulin Aspart (NovoLOG) BEFORE MEALS AND HS SUBQ 12/09/18 16:30 01/08/19 16:29 Magnesium Hydroxide (Mom) 30 ml QHS PRN ORAL constipation 12/08/18 20:45 01/07/19 20:44 Meloxicam (Mobic) 3.75 mg DAILY ORAL 12/09/18 09:00 01/08/19 08:59 12/10/18 09:32 Mirtazapine (Remeron) 7.5 mg BEDTIME ORAL 12/08/18 21:00 01/07/19 20:59 12/09/18 20:55 Risperidone (RisperDAL) 2 mg BID ORAL 12/09/18 09:00 01/08/19 08:59 12/10/18 09:32 Last 24 Hour Vital Signs Date Time Temp Pulse Resp B/P (MAP) Pulse Ox O2 Delivery O2 Flow Rate FiO2 12/10/18 09:32 63 124/58 12/10/18 08:00 97.3 63 19 124/58 (80) 95 12/10/18 04:00 98.3 67 18 117/45 (69) 96 12/10/18 00:00 98.4 74 18 107/59 (75) 100 12/09/18 21:00 Nasal Cannula 2.0 12/09/18 20:00 97.9 80 18 114/61 (78) 97 12/09/18 16:00 97.1 77 18 91/55 (67) 99 12/09/18 12:00 97.7 75 19 109/56 (73) 94 12/09/18 09:04 75 120/63 12/09/18 09:00 Nasal Cannula 2.0 12/09/18 08:00 98.0 75 20 120/63 (82) 96 12/09/18 04:00 97.6 71 20 114/60 (78) 93 12/08/18 21:00 Nasal Cannula 2.0 12/08/18 20:00 97.5 77 20 114/71 (85) 97 12/08/18 17:33 Nasal Cannula 2.0 12/08/18 17:10 98.2 81 20 107/78 98 Nasal Cannula 2.0 12/08/18 13:22 97.7 88 20 99/53 (68) 93 Room Air 12/08/18 13:20 98.2 84 17 147/81 98 Room Air Intake and Output 12/09/18 12/10/18 18:59 06:59 Intake Total 800 ml 200 ml Balance 800 ml 200 ml Intake Oral 800 ml 200 ml # Voids 7 3 Labs Test 12/08/18 14:20 12/08/18 14:35 12/09/18 05:10 12/09/18 16:20 White Blood Count 7.6 K/UL (4.8-10.8) 6.1 K/UL (4.8-10.8) Red Blood Count 4.30 M/UL (4.20-5.40) 3.92 M/UL (4.20-5.40) Hemoglobin 12.9 G/DL (12.0-16.0) 11.9 G/DL (12.0-16.0) Hematocrit 41.6 % (37.0-47.0) 38.5 % (37.0-47.0) Mean Corpuscular Volume 97 FL (80-99) 98 FL (80-99) Mean Corpuscular Hemoglobin 30.0 PG (27.0-31.0) 30.5 PG (27.0-31.0) Mean Corpuscular Hemoglobin Concent 31.1 G/DL (32.0-36.0) 31.1 G/DL (32.0-36.0) Red Cell Distribution Width 14.5 % (11.6-14.8) 14.8 % (11.6-14.8) Platelet Count 131 K/UL (150-450) 124 K/UL (150-450) Mean Platelet Volume 6.3 FL (6.5-10.1) 6.0 FL (6.5-10.1) Neutrophils (%) (Auto) 46.2 % (45.0-75.0) 37.1 % (45.0-75.0) Lymphocytes (%) (Auto) 41.3 % (20.0-45.0) 50.2 % (20.0-45.0) Monocytes (%) (Auto) 8.7 % (1.0-10.0) 8.1 % (1.0-10.0) Eosinophils (%) (Auto) 2.7 % (0.0-3.0) 3.6 % (0.0-3.0) Basophils (%) (Auto) 1.1 % (0.0-2.0) 1.0 % (0.0-2.0) Prothrombin Time 10.7 SEC (9.30-11.50) Prothromb Time International Ratio 1.0 (0.9-1.1) Activated Partial Thromboplast Time 20 SEC (23-33) Sodium Level 138 MMOL/L (136-145) 144 MMOL/L (136-145) Potassium Level 5.2 MMOL/L (3.5-5.1) 4.5 MMOL/L (3.5-5.1) Chloride Level 102 MMOL/L (98-107) 107 MMOL/L (98-107) Carbon Dioxide Level 34 MMOL/L (21-32) 39 MMOL/L (21-32) Anion Gap 2 mmol/L (5-15) -2 mmol/L (5-15) Blood Urea Nitrogen 19 mg/dL (7-18) 18 mg/dL (7-18) Creatinine 0.5 MG/DL (0.55-1.30) 0.6 MG/DL (0.55-1.30) Estimat Glomerular Filtration Rate mL/min (>60) mL/min (>60) Glucose Level 110 MG/DL (74-106) 87 MG/DL (74-106) Lactic Acid Level 0.80 mmol/L (0.4-2.0) Calcium Level 9.2 MG/DL (8.5-10.1) 9.0 MG/DL (8.5-10.1) Phosphorus Level 3.8 MG/DL (2.5-4.9) Magnesium Level 1.8 MG/DL (1.8-2.4) Total Bilirubin 0.3 MG/DL (0.2-1.0) 0.2 MG/DL (0.2-1.0) Aspartate Amino Transf (AST/SGOT) 29 U/L (15-37) 12 U/L (15-37) Alanine Aminotransferase (ALT/SGPT) 9 U/L (12-78) 8 U/L (12-78) Alkaline Phosphatase 84 U/L (46-116) 73 U/L (46-116) Total Creatine Kinase 100 U/L (26-308) Creatine Kinase MB 0.6 NG/ML (0.0-3.6) Creatine Kinase MB Relative Index 0.6 Troponin I 0.000 ng/mL (0.000-0.056) Pro-B-Type Natriuretic Peptide 184 pg/mL (0-125) Total Protein 6.4 G/DL (6.4-8.2) 5.7 G/DL (6.4-8.2) Albumin 2.3 G/DL (3.4-5.0) 2.2 G/DL (3.4-5.0) Globulin 4.1 g/dL 3.5 g/dL Albumin/Globulin Ratio 0.6 (1.0-2.7) 0.6 (1.0-2.7) Lipase 55 U/L (73-393) Urine Color Yellow Urine Appearance Slightly cloudy Urine pH 5 (4.5-8.0) Urine Specific [place] 1.015 (1.005-1.035) Urine Protein 1+ (NEGATIVE) Urine Glucose (UA) Negative (NEGATIVE) Urine Ketones Negative (NEGATIVE) Urine Blood 2+ (NEGATIVE) Urine Nitrite Positive (NEGATIVE) Urine Bilirubin Negative (NEGATIVE) Urine Urobilinogen Normal MG/DL (0.0-1.0) Urine Leukocyte Esterase 3+ (NEGATIVE) Urine RBC 2-4 /HPF (0 - 2) Urine WBC Tntc /HPF (0 - 2) Urine Squamous Epithelial Cells Occasional /LPF Urine Bacteria Few /HPF (NONE) HIV (1&2) Antibody Rapid Negative (NEGATIVE) Urine Eosinophils None seen (NONE SEEN) Urine Random Total Protein 11 MG/DL (< 11.9) Urine Random Sodium 114 mmol/L (20-110) Urine Creatinine 23.8 MG/DL (30.0-125.0) Test 12/10/18 05:35 White Blood Count 7.1 K/UL (4.8-10.8) Red Blood Count 3.99 M/UL (4.20-5.40) Hemoglobin 12.0 G/DL (12.0-16.0) Hematocrit 39.2 % (37.0-47.0) Mean Corpuscular Volume 98 FL (80-99) Mean Corpuscular Hemoglobin 30.1 PG (27.0-31.0) Mean Corpuscular Hemoglobin Concent 30.7 G/DL (32.0-36.0) Red Cell Distribution Width 14.7 % (11.6-14.8) Platelet Count 121 K/UL (150-450) Mean Platelet Volume 6.1 FL (6.5-10.1) Neutrophils (%) (Auto) 44.2 % (45.0-75.0) Lymphocytes (%) (Auto) 45.0 % (20.0-45.0) Monocytes (%) (Auto) 8.0 % (1.0-10.0) Eosinophils (%) (Auto) 2.0 % (0.0-3.0) Basophils (%) (Auto) 0.9 % (0.0-2.0) Erythrocyte Sedimentation Rate 9 MM/HR (0-30) Sodium Level 143 MMOL/L (136-145) Potassium Level 4.3 MMOL/L (3.5-5.1) Chloride Level 104 MMOL/L (98-107) Carbon Dioxide Level 38 MMOL/L (21-32) Anion Gap 1 mmol/L (5-15) Blood Urea Nitrogen 24 mg/dL (7-18) Creatinine 0.6 MG/DL (0.55-1.30) Estimat Glomerular Filtration Rate mL/min (>60) Glucose Level 87 MG/DL (74-106) Calcium Level 9.2 MG/DL (8.5-10.1) Phosphorus Level 3.5 MG/DL (2.5-4.9) Magnesium Level 1.9 MG/DL (1.8-2.4) Total Bilirubin 0.3 MG/DL (0.2-1.0) Aspartate Amino Transf (AST/SGOT) 12 U/L (15-37) Alanine Aminotransferase (ALT/SGPT) 8 U/L (12-78) Alkaline Phosphatase 74 U/L (46-116) C-Reactive Protein, Quantitative < 0.4 mg/dL (0.00-0.90) Total Protein 5.8 G/DL (6.4-8.2) Albumin 2.2 G/DL (3.4-5.0) Globulin 3.6 g/dL Albumin/Globulin Ratio 0.6 (1.0-2.7) Height (Feet): 5 Height (Inches): 6.00 Weight (Pounds): 179 Objective Physical Exam: Vitals: reviewed General Appearance: NAD HEENT: normocephalic, atraumatic Neck: non-tender, normal alignment Respiratory/Chest: normal breath sounds bilaterally Cardiovascular/Chest: normal peripheral pulses, normal rate Abdomen: normal bowel sounds, soft Cirilo Del Castillo MD Dec 10, 2018 10:39
--- NOTE | 2018-12-10 11:59 | Pulmonology Progress Note ---
Assessment/Plan Problems: (1) Acute encephalopathy (2) UTI (urinary tract infection) (3) Schizo-affective schizophrenia (4) History of seizure (5) Diabetes mellitus Assessment/Plan still not talking much cultures reviewed no new complains continue current regimen oncology social worker to find family members to discuss plan of care. Subjective ROS Limited/Unobtainable: No Constitutional: Reports: no symptoms HEENT: Repors: no symptoms Allergies: Coded Allergies: BENZOCAINE (Unverified Allergy, Unknown, 07/21/14) PENICILLINS (Unverified Allergy, Unknown, 07/21/14) QUETIAPINE (Unverified Allergy, Unknown, 07/21/14) Objective Last 24 Hour Vital Signs Date Time Temp Pulse Resp B/P (MAP) Pulse Ox O2 Delivery O2 Flow Rate FiO2 12/10/18 09:32 63 124/58 12/10/18 09:00 Nasal Cannula 2.0 12/10/18 08:00 97.3 63 19 124/58 (80) 95 12/10/18 04:00 98.3 67 18 117/45 (69) 96 12/10/18 00:00 98.4 74 18 107/59 (75) 100 12/09/18 21:00 Nasal Cannula 2.0 12/09/18 20:00 97.9 80 18 114/61 (78) 97 12/09/18 16:00 97.1 77 18 91/55 (67) 99 12/09/18 12:00 97.7 75 19 109/56 (73) 94 Intake and Output 12/09/18 12/10/18 18:59 06:59 Intake Total 800 ml 200 ml Balance 800 ml 200 ml Intake Oral 800 ml 200 ml # Voids 7 3 General Appearance: WD/WN HEENT: normocephalic, atraumatic Respiratory/Chest: chest wall non-tender, lungs clear Cardiovascular: normal peripheral pulses, normal rate Abdomen: normal bowel sounds, soft, non tender, no organomegaly Genitourinary: normal external genitalia Extremities: no clubbing Skin: no rash 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 Lymphatic: no neck adenopathy Microbiology Date/Time Source Procedure Growth Status 12/08/18 14:20 Blood Blood Culture - Preliminary NO GROWTH AFTER 24 HOURS Resulted 12/08/18 14:05 Blood Blood Culture - Preliminary NO GROWTH AFTER 24 HOURS Resulted 12/08/18 14:35 Urine,Clean Catch Urine Culture - Final Escherichia Coli Complete Laboratory Tests 12/09/18 16:20: Urine Eosinophils None seen, Urine Random Creatinine [Pending], Urine Random Microalbumin [Pending], Urine Random Total Protein 11, Urine Random Sodium 114H , Urine Creatinine 23.8L, Urine Microalbumin/Creatinine Ratio [Pending] 12/10/18 05:35: White Blood Count 7.1, Red Blood Count 3.99L, Hemoglobin 12.0, Hematocrit 39.2, Mean Corpuscular Volume 98, Mean Corpuscular Hemoglobin 30.1, Mean Corpuscular Hemoglobin Concent 30.7L, Red Cell Distribution Width 14.7, Platelet Count 121L , Mean Platelet Volume 6.1L, Neutrophils (%) (Auto) 44.2L, Lymphocytes (%) (Auto ) 45.0, Monocytes (%) (Auto) 8.0, Eosinophils (%) (Auto) 2.0, Basophils (%) ( Auto) 0.9, Erythrocyte Sedimentation Rate 9, Sodium Level 143, Potassium Level 4.3, Chloride Level 104, Carbon Dioxide Level 38H, Anion Gap 1L, Blood Urea Nitrogen 24H, Creatinine 0.6, Estimat Glomerular Filtration Rate , Glucose Level 87, Calcium Level 9.2, Phosphorus Level 3.5, Magnesium Level 1.9, Total Bilirubin 0.3, Aspartate Amino Transf (AST/SGOT) 12L, Alanine Aminotransferase ( ALT/SGPT) 8L, Alkaline Phosphatase 74, C-Reactive Protein, Quantitative < 0.4, Total Protein 5.8L, Albumin 2.2L, Globulin 3.6, Albumin/Globulin Ratio 0.6L Current Medications Medications (Trade) Dose Ordered Sig/Desire Route PRN Reason Start Time Stop Time Status Last Admin Dose Admin Acetaminophen (Tylenol) 650 mg Q4H PRN ORAL Mild Pain/Temp > 101 12/08/18 20:45 01/07/19 20:44 12/10/18 05:02 Amlodipine Besylate (Norvasc) 10 mg DAILY ORAL 12/09/18 09:00 01/08/19 08:59 12/10/18 09:32 Aspirin (Ecotrin) 81 mg DAILY ORAL 12/09/18 09:00 01/08/19 08:59 12/10/18 09:32 Bisacodyl (Dulcolax) 10 mg DAILYPRN PRN RECTAL Constipation 12/08/18 20:45 01/07/19 20:44 Ceftriaxone Sodium 1 gm/ Dextrose 55 ml @ 110 mls/hr Q24H IVPB 12/09/18 16:00 12/16/18 15:59 12/09/18 16:00 Dextrose (Dextrose 50%) 25 ml Q30M PRN IV Hypoglycemia 12/09/18 12:30 01/08/19 12:16 Dextrose (Dextrose 50%) 50 ml Q30M PRN IV hypoglycemia 12/09/18 12:30 01/08/19 12:29 Divalproex Sodium (Depakote ER) 1,000 mg EVERY 12 HOURS ORAL 12/08/18 21:00 01/07/19 20:59 12/10/18 09:32 Docusate Sodium (Colace) 100 mg DAILY ORAL 12/09/18 09:00 01/08/19 08:59 12/10/18 09:32 Gabapentin (Neurontin) 100 mg THREE TIMES A DAY ORAL 12/09/18 09:00 01/08/19 08:59 12/10/18 09:31 Ibuprofen (Advil) 400 mg BID ORAL 12/09/18 09:00 01/08/19 08:59 12/10/18 09:33 Insulin Aspart (NovoLOG) BEFORE MEALS AND HS SUBQ 12/09/18 16:30 01/08/19 16:29 Magnesium Hydroxide (Mom) 30 ml QHS PRN ORAL constipation 12/08/18 20:45 01/07/19 20:44 Meloxicam (Mobic) 3.75 mg DAILY ORAL 12/09/18 09:00 01/08/19 08:59 12/10/18 09:32 Mirtazapine (Remeron) 7.5 mg BEDTIME ORAL 12/08/18 21:00 01/07/19 20:59 12/09/18 20:55 Risperidone (RisperDAL) 2 mg BID ORAL 12/09/18 09:00 01/08/19 08:59 12/10/18 09:32 Bertram Jesus MD Dec 10, 2018 11:59
[2018-12-10 12:00] VITALS: BP 105/57
--- NOTE | 2018-12-10 13:47 | NUR ---
Social Service Note Patient has been a resident of [facility] since 07/2016. Patient was referred to the public guardian [phone], referral denied and case deemed a non-handle. SW left a message for the SW at [place] [phone] regarding POLST and patient's involvement in plan of care. Patient full code at this time. Patient will require MD documentation for consent if needed. Will monitor and be available as needed.
[2018-12-10 16:00] VITALS: BP 110/53
[2018-12-10] MEDS: cefTRIAXone 1 GM in D5W 55 ML IVPB SCH (16:23)
--- NOTE | 2018-12-10 18:14 | Infectious Diseases Prog Note ---
Assessment/Plan Assessment/Plan Abx: Ceftriaxone 12/08- Assessment: Afebrile No leukocytosis Pyuria/bacteriuria- ?UTI -u.a wbc tnct, nit +, leuk +3; ucx >100k E.coli ( R cipro/levo, bactrim) Altered mental status schizoaffective disorder AOCD CODP Dm2 GERD polyneuropathy seizure disorder HTN Plan: -Continue empiric Ceftriaxone 06/21 -f/u cx -Monitor CBC/CMP, temperatures Thank you for this consultation. Will continue to follow along with you. Discussed with RN Subjective Allergies: Coded Allergies: BENZOCAINE (Unverified Allergy, Unknown, 07/21/14) PENICILLINS (Unverified Allergy, Unknown, 07/21/14) QUETIAPINE (Unverified Allergy, Unknown, 07/21/14) Objective Vital Signs Last 24 Hour Vital Signs Date Time Temp Pulse Resp B/P (MAP) Pulse Ox O2 Delivery O2 Flow Rate FiO2 12/10/18 17:40 97.4 12/10/18 16:00 97.4 70 17 110/53 (72) 95 12/10/18 12:00 98.2 69 20 105/57 (73) 95 12/10/18 09:32 63 124/58 12/10/18 09:00 Nasal Cannula 2.0 12/10/18 08:00 97.3 63 19 124/58 (80) 95 12/10/18 04:00 98.3 67 18 117/45 (69) 96 12/10/18 00:00 98.4 74 18 107/59 (75) 100 12/09/18 21:00 Nasal Cannula 2.0 12/09/18 20:00 97.9 80 18 114/61 (78) 97 Height (Feet): 5 Height (Inches): 6.00 Weight (Pounds): 179 Objective General Appearance: NAD HEENT: normocephalic, atraumatic Neck: non-tender, normal alignment Respiratory/Chest: normal breath sounds bilaterally Cardiovascular/Chest: normal peripheral pulses, normal rate Abdomen: normal bowel sounds, soft, Microbiology Date/Time Source Procedure Growth Status 12/08/18 14:20 Blood Blood Culture - Preliminary NO GROWTH AFTER 24 HOURS Resulted 12/08/18 14:05 Blood Blood Culture - Preliminary NO GROWTH AFTER 24 HOURS Resulted 12/08/18 14:35 Urine,Clean Catch Urine Culture - Final Escherichia Coli Complete Laboratory Tests Test 12/10/18 05:35 White Blood Count 7.1 K/UL (4.8-10.8) Red Blood Count 3.99 M/UL (4.20-5.40) L Hemoglobin 12.0 G/DL (12.0-16.0) Hematocrit 39.2 % (37.0-47.0) Mean Corpuscular Volume 98 FL (80-99) Mean Corpuscular Hemoglobin 30.1 PG (27.0-31.0) Mean Corpuscular Hemoglobin Concent 30.7 G/DL (32.0-36.0) L Red Cell Distribution Width 14.7 % (11.6-14.8) Platelet Count 121 K/UL (150-450) L Mean Platelet Volume 6.1 FL (6.5-10.1) L Neutrophils (%) (Auto) 44.2 % (45.0-75.0) L Lymphocytes (%) (Auto) 45.0 % (20.0-45.0) Monocytes (%) (Auto) 8.0 % (1.0-10.0) Eosinophils (%) (Auto) 2.0 % (0.0-3.0) Basophils (%) (Auto) 0.9 % (0.0-2.0) Erythrocyte Sedimentation Rate 9 MM/HR (0-30) Sodium Level 143 MMOL/L (136-145) Potassium Level 4.3 MMOL/L (3.5-5.1) Chloride Level 104 MMOL/L (98-107) Carbon Dioxide Level 38 MMOL/L (21-32) H Anion Gap 1 mmol/L (5-15) L Blood Urea Nitrogen 24 mg/dL (7-18) H Creatinine 0.6 MG/DL (0.55-1.30) Estimat Glomerular Filtration Rate mL/min (>60) Glucose Level 87 MG/DL (74-106) Calcium Level 9.2 MG/DL (8.5-10.1) Phosphorus Level 3.5 MG/DL (2.5-4.9) Magnesium Level 1.9 MG/DL (1.8-2.4) Total Bilirubin 0.3 MG/DL (0.2-1.0) Aspartate Amino Transf (AST/SGOT) 12 U/L (15-37) L Alanine Aminotransferase (ALT/SGPT) 8 U/L (12-78) L Alkaline Phosphatase 74 U/L (46-116) C-Reactive Protein, Quantitative < 0.4 mg/dL (0.00-0.90) Total Protein 5.8 G/DL (6.4-8.2) L Albumin 2.2 G/DL (3.4-5.0) L Globulin 3.6 g/dL Albumin/Globulin Ratio 0.6 (1.0-2.7) L Current Medications Medications (Trade) Dose Ordered Sig/Desire Route PRN Reason Start Time Stop Time Status Last Admin Dose Admin Acetaminophen (Tylenol) 650 mg Q4H PRN ORAL Mild Pain/Temp > 101 12/08/18 20:45 01/07/19 20:44 12/10/18 05:02 Amlodipine Besylate (Norvasc) 10 mg DAILY ORAL 12/09/18 09:00 01/08/19 08:59 12/10/18 09:32 Aspirin (Ecotrin) 81 mg DAILY ORAL 12/09/18 09:00 01/08/19 08:59 12/10/18 09:32 Bisacodyl (Dulcolax) 10 mg DAILYPRN PRN RECTAL Constipation 12/08/18 20:45 01/07/19 20:44 Ceftriaxone Sodium 1 gm/ Dextrose 55 ml @ 110 mls/hr Q24H IVPB 12/09/18 16:00 12/16/18 15:59 12/10/18 16:23 Dextrose (Dextrose 50%) 25 ml Q30M PRN IV Hypoglycemia 12/09/18 12:30 01/08/19 12:16 Dextrose (Dextrose 50%) 50 ml Q30M PRN IV hypoglycemia 12/09/18 12:30 01/08/19 12:29 Divalproex Sodium (Depakote ER) 1,000 mg EVERY 12 HOURS ORAL 12/08/18 21:00 01/07/19 20:59 12/10/18 09:32 Docusate Sodium (Colace) 100 mg DAILY ORAL 12/09/18 09:00 01/08/19 08:59 12/10/18 09:32 Gabapentin (Neurontin) 100 mg THREE TIMES A DAY ORAL 12/09/18 09:00 01/08/19 08:59 12/10/18 17:09 Ibuprofen (Advil) 400 mg BID ORAL 12/09/18 09:00 01/08/19 08:59 12/10/18 17:10 Insulin Aspart (NovoLOG) BEFORE MEALS AND HS SUBQ 12/09/18 16:30 01/08/19 16:29 12/10/18 16:32 Magnesium Hydroxide (Mom) 30 ml QHS PRN ORAL constipation 12/08/18 20:45 01/07/19 20:44 Meloxicam (Mobic) 3.75 mg DAILY ORAL 12/09/18 09:00 01/08/19 08:59 12/10/18 09:32 Mirtazapine (Remeron) 7.5 mg BEDTIME ORAL 12/08/18 21:00 01/07/19 20:59 12/09/18 20:55 Risperidone (RisperDAL) 2 mg BID ORAL 12/09/18 09:00 01/08/19 08:59 12/10/18 17:10 Mariaelena Murray M.D. Dec 10, 2018 18:14
--- NOTE | 2018-12-10 19:30 | NUR ---
NURSE NOTES: Patient asleep in bed, not in acute respiratory distress. Call light in reach. Bed in lowest position, lock on and alarm on. Will continue to monitor.
[2018-12-10 20:00] VITALS: BP 109/50
--- NOTE | 2018-12-10 20:06 | NUR ---
HAND-OFF: Report given to NICK Linton.
--- NOTE | 2018-12-10 21:02 | General Progress Note ---
Assessment/Plan Problem List: (1) Schizo-affective schizophrenia ICD Codes: F25.0 - Schizoaffective disorder, bipolar type SNOMED: 324932150 (2) History of seizure ICD Codes: Z87.898 - Personal history of other specified conditions SNOMED: 246429203 (3) HTN (hypertension) ICD Codes: I10 - HTN (hypertension) SNOMED: 63606026 (4) UTI (urinary tract infection) ICD Codes: N39.0 - Urinary tract infection, site not specified SNOMED: 63647222 Status: progressing Assessment/Plan: weak ams abx per id afebrile seizure (non today) Subjective ROS Limited/Unobtainable: Yes Allergies: Coded Allergies: BENZOCAINE (Unverified Allergy, Unknown, 07/21/14) PENICILLINS (Unverified Allergy, Unknown, 07/21/14) QUETIAPINE (Unverified Allergy, Unknown, 07/21/14) Objective Last 24 Hour Vital Signs Date Time Temp Pulse Resp B/P (MAP) Pulse Ox O2 Delivery O2 Flow Rate FiO2 12/10/18 20:00 97.0 67 19 109/50 (69) 92 12/10/18 17:40 97.4 12/10/18 16:00 97.4 70 17 110/53 (72) 95 12/10/18 12:00 98.2 69 20 105/57 (73) 95 12/10/18 09:32 63 124/58 12/10/18 09:00 Nasal Cannula 2.0 12/10/18 08:00 97.3 63 19 124/58 (80) 95 12/10/18 04:00 98.3 67 18 117/45 (69) 96 12/10/18 00:00 98.4 74 18 107/59 (75) 100 Intake and Output 12/09/18 12/10/18 19:00 07:00 Intake Total 800 ml 200 ml Balance 800 ml 200 ml Intake Oral 800 ml 200 ml # Voids 7 3 Laboratory Tests 12/10/18 05:35: White Blood Count 7.1, Red Blood Count 3.99L, Hemoglobin 12.0, Hematocrit 39.2, Mean Corpuscular Volume 98, Mean Corpuscular Hemoglobin 30.1, Mean Corpuscular Hemoglobin Concent 30.7L, Red Cell Distribution Width 14.7, Platelet Count 121L , Mean Platelet Volume 6.1L, Neutrophils (%) (Auto) 44.2L, Lymphocytes (%) (Auto ) 45.0, Monocytes (%) (Auto) 8.0, Eosinophils (%) (Auto) 2.0, Basophils (%) ( Auto) 0.9, Erythrocyte Sedimentation Rate 9, Sodium Level 143, Potassium Level 4.3, Chloride Level 104, Carbon Dioxide Level 38H, Anion Gap 1L, Blood Urea Nitrogen 24H, Creatinine 0.6, Estimat Glomerular Filtration Rate , Glucose Level 87, Calcium Level 9.2, Phosphorus Level 3.5, Magnesium Level 1.9, Total Bilirubin 0.3, Aspartate Amino Transf (AST/SGOT) 12L, Alanine Aminotransferase ( ALT/SGPT) 8L, Alkaline Phosphatase 74, C-Reactive Protein, Quantitative < 0.4, Total Protein 5.8L, Albumin 2.2L, Globulin 3.6, Albumin/Globulin Ratio 0.6L Height (Feet): 5 Height (Inches): 6.00 Weight (Pounds): 179 Neck: normal alignment Cardiovascular: normal rate Robb Gipson MD Dec 10, 2018 21:02
[2018-12-10] MEDS: LORazepam 1mg tab ORAL PRN (23:02)
--- NOTE | 2018-12-10 23:57 | Cardiology Progress Note ---
Assessment/Plan Assessment/Plan 1. Hypotension, responded well to IV fluid administration, continue hydration. 2. UTI, continue IV antibiotic therapy. 3. DM, consider ASA and statins. 4. COPD 5. Hx seizure D/O 6. GERD 7. Polyneuropathy 8. Thrombocytopenia. Subjective Subjective No cardiac events noted. Objective Last 24 Hour Vital Signs Date Time Temp Pulse Resp B/P (MAP) Pulse Ox O2 Delivery O2 Flow Rate FiO2 12/10/18 21:00 Nasal Cannula 2.0 12/10/18 20:00 97.0 67 19 109/50 (69) 92 12/10/18 17:40 97.4 12/10/18 16:00 97.4 70 17 110/53 (72) 95 12/10/18 12:00 98.2 69 20 105/57 (73) 95 12/10/18 09:32 63 124/58 12/10/18 09:00 Nasal Cannula 2.0 12/10/18 08:00 97.3 63 19 124/58 (80) 95 12/10/18 04:00 98.3 67 18 117/45 (69) 96 12/10/18 00:00 98.4 74 18 107/59 (75) 100 Intake and Output 12/09/18 12/10/18 19:00 07:00 Intake Total 800 ml 200 ml Balance 800 ml 200 ml Intake Oral 800 ml 200 ml # Voids 7 3 Laboratory Tests Test 12/10/18 05:35 White Blood Count 7.1 K/UL (4.8-10.8) Red Blood Count 3.99 M/UL (4.20-5.40) L Hemoglobin 12.0 G/DL (12.0-16.0) Hematocrit 39.2 % (37.0-47.0) Mean Corpuscular Volume 98 FL (80-99) Mean Corpuscular Hemoglobin 30.1 PG (27.0-31.0) Mean Corpuscular Hemoglobin Concent 30.7 G/DL (32.0-36.0) L Red Cell Distribution Width 14.7 % (11.6-14.8) Platelet Count 121 K/UL (150-450) L Mean Platelet Volume 6.1 FL (6.5-10.1) L Neutrophils (%) (Auto) 44.2 % (45.0-75.0) L Lymphocytes (%) (Auto) 45.0 % (20.0-45.0) Monocytes (%) (Auto) 8.0 % (1.0-10.0) Eosinophils (%) (Auto) 2.0 % (0.0-3.0) Basophils (%) (Auto) 0.9 % (0.0-2.0) Erythrocyte Sedimentation Rate 9 MM/HR (0-30) Sodium Level 143 MMOL/L (136-145) Potassium Level 4.3 MMOL/L (3.5-5.1) Chloride Level 104 MMOL/L (98-107) Carbon Dioxide Level 38 MMOL/L (21-32) H Anion Gap 1 mmol/L (5-15) L Blood Urea Nitrogen 24 mg/dL (7-18) H Creatinine 0.6 MG/DL (0.55-1.30) Estimat Glomerular Filtration Rate mL/min (>60) Glucose Level 87 MG/DL (74-106) Calcium Level 9.2 MG/DL (8.5-10.1) Phosphorus Level 3.5 MG/DL (2.5-4.9) Magnesium Level 1.9 MG/DL (1.8-2.4) Total Bilirubin 0.3 MG/DL (0.2-1.0) Aspartate Amino Transf (AST/SGOT) 12 U/L (15-37) L Alanine Aminotransferase (ALT/SGPT) 8 U/L (12-78) L Alkaline Phosphatase 74 U/L (46-116) C-Reactive Protein, Quantitative < 0.4 mg/dL (0.00-0.90) Total Protein 5.8 G/DL (6.4-8.2) L Albumin 2.2 G/DL (3.4-5.0) L Globulin 3.6 g/dL Albumin/Globulin Ratio 0.6 (1.0-2.7) L Microbiology Date/Time Source Procedure Growth Status 12/08/18 14:20 Blood Blood Culture - Preliminary NO GROWTH AFTER 24 HOURS Resulted 12/08/18 14:05 Blood Blood Culture - Preliminary NO GROWTH AFTER 24 HOURS Resulted 12/08/18 14:35 Urine,Clean Catch Urine Culture - Final Escherichia Coli Complete Objective HEENT: Pupils are reactive to light and accommodation. Extraocular movement intact. NECK: JVP less than 5 cm, no carotid bruit. LUNGS: Clear to auscultation. CARDIAC: Regular rate and rhythm. Normal S1, S2. No murmur, gallops or rub. ABDOMEN: Soft, nontender, and nondistended, + BS. EXTREMITIES: No edema, clubbing or cyanosis. Haile Spaulding MD Dec 10, 2018 23:57
[2018-12-11] VITALS: BP 133/63
--- NOTE | 2018-12-11 00:31 | Consultation ---
DATE OF CONSULTATION: 12/09/2018 PSYCHOTHERAPY CONSULTATION PROGRESS NOTE CONSULTING PHYSICIAN: Jae Plaza PsyD. TREATING ATTENDING: Maninder Ramsey D.O. HISTORY OF PRESENT ILLNESS: This is a 73-year-old female patient with a history of schizophrenia. The patient was brought into the hospital for altered mental status. The patient has been very weak, disorganized, and irritable; however, she denies suicidal or homicidal thoughts of ideation. Denies any auditory or visual hallucinations, slightly paranoid, states that something is happening all over her body and she feels that people may have poisoned her. However, she has been cooperative, it is just she feels weak and states she is not having the energy . PAST MEDICAL HISTORY: Includes history of hypertension, seizures, hepatic encephalopathy, constipation. ALLERGIES: The patient is allergic to benzocaine, penicillin, quetiapine. SUBSTANCE USE HISTORY: The patient denies history of alcohol use, illicit substance use, or smoking cigarettes. PAST PSYCHIATRIC HISTORY: The patient has a history of schizophrenia and possibly schizoaffective disorder and has been treated with psychotropic medications in the past. SOCIAL HISTORY: The patient is a 73-year-old single female patient, residing in nursing facility. Financially sustained through [employer]. MENTAL STATUS EXAMINATION: She is alert and oriented to person and place. Affect blunted. Thought process is negative. She has poor attention and concentration. Poor insight and judgement and impulse control. THIS CLINICIAN ASSESSED THIS PATIENT. PROVIDED THE PATIENT WITH: 1. Reality orientation with focus on improving cognitive function of the patient who is very confused and disorganized. Oriented to person, place, time, and situation. 2. Provided the patient with supportive psychotherapy which would provide the patient with positive . We discussed rational and reality-based thoughts . Encouraging the patient to participate in treatment milieu. DIAGNOSIS: Paranoid schizophrenia. Plan is to maintain medication compliance, assist with positive coping skills, stabilizing the thoughts and behavior. Psychotherapy provided to this patient, 15 minutes. This clinician has reviewed the patient's chart and discussed the treatment with treatment team. Jae Plaza PsyD. DR: Blanca JOB#: [id number] CC:
--- NOTE | 2018-12-11 03:45 | Consultation ---
DATE OF CONSULTATION: 12/10/2018 CARDIOLOGY CONSULTATION CONSULTING PHYSICIAN: Haile Spaulding M.D. REFERRING PHYSICIAN: Robb Gipson M.D. REASON FOR CONSULTATION: Management of hypotension. HISTORY OF PRESENT ILLNESS: The patient is a very unfortunate 73-year-old female with prior history of schizophrenia, COPD, diabetes mellitus, hypertension, who presents to the hospital with altered level of consciousness as well as generalized weakness. At the time of arrival to this facility, she did not have any complaints of chest pain or shortness of breath. Her blood pressure was somewhat low at 99/53 mmHg, pulse rate of 88. In the emergency department, she underwent preliminary workup including blood tests and imaging studies. A 12-lead electrocardiogram was significant for sinus rhythm at a rate of 83 with QT interval at 453 milliseconds and no acute ischemic changes. Chest x-ray was significant for the right upper lung scarring, but no acute cardiopulmonary disease, although there was large retrocardiac hiatal hernia as well. CT of the head in the emergency department revealed no acute intracranial bleed or mass effect. Initial troponin I level was 0, however, proBNP was 84. The patient was found to have urinary tract infection and associated encephalopathy, was admitted to Med/Surg unit. Cardiology consultation was made at request of Dr. Gipson, who is covering for Dr. Ramsey for evaluation and management of hypotension. PAST MEDICAL HISTORY: 1. Diabetes mellitus. 2. COPD. 3. Hypertension. 4. GERD. 5. Polyneuropathy. 6. Dementia. 7. Seizure disorder. REVIEW OF SYSTEMS: HEENT: Denies any headache, diplopia, or blurred vision. CONSTITUTIONAL: Denies any fever, chills, night sweats, or weight loss. CARDIOVASCULAR: Denies any chest pain, shortness breath, PND, orthopnea, or leg swelling. PULMONARY: Denies any cough, hemoptysis, or wheezing. GASTROINTESTINAL: Denies any nausea, vomiting, diarrhea, constipation, abdominal pain, or GI bleed. : Denies any hematuria, dysuria, or incontinence. NEUROLOGIC: Altered level of consciousness, but no signs of lateralization. ALLERGIES: Benzocaine, penicillins, quetiapine. FAMILY HISTORY: No premature coronary artery disease in the first-degree relatives. SOCIAL HISTORY: No history of tobacco, alcohol, or illicit drug use. PHYSICAL EXAMINATION: VITAL SIGNS: Blood pressure was 99/53, pulse of 88, respirations 20, O2 saturation 92% on room air, and temperature 97.7 degrees Fahrenheit. GENERAL: The patient is a very unfortunate 73-year-old female, in no apparent respiratory distress. Alert. HEENT: Atraumatic and normocephalic. Anicteric. Pupils are equal, round, and reactive to light and accommodation. Extraocular muscles intact. NECK: JVP is less than 5 cm. No carotid bruit. Carotid upstroke is 2+ bilaterally. CARDIOVASCULAR: Normal S1, S2. Regular rate and rhythm. No murmurs, gallops, or rubs. PMI is at fourth intercostal space in the midclavicular line. LUNGS: Clear to auscultation bilaterally. ABDOMEN: Soft, nontender, and nondistended. No hepatosplenomegaly. Positive bowel sounds. EXTREMITIES: No evidence of edema, clubbing, or cyanosis. LABORATORY FINDINGS: Sodium 138, potassium is 5.2, chloride 102, bicarbonate 34, BUN of 19, creatinine 0.5, glucose 110, calcium is 9.2. Troponin I was 0. ProBNP 184. INR is 1.0. WBC 7.6, hemoglobin of 12.9, hematocrit 41.6, and platelet count is 131. ASSESSMENT/PLAN: The patient is a very unfortunate 73-year-old female, who is seen in Cardiology consultation. 1. Hypotension, in view of urine tract infection. We would like to initiate aggressive IV hydration. The patient also requires to continue intravenous antibiotics. She received a dose of ceftriaxone in the emergency department for the UTI and Infectious Disease consultation. At this time, the patient appears to be mentating well and blood pressure has responded well to intravenous hydration. 2. Prerenal azotemia with slight hyperkalemia. IV hydration. Nephrology consultation. 3. History of COPD. 4. History of diabetes mellitus. 5. History of GERD. I would like to thank, Dr. Gipson, for allowing me to participate in the care of this patient. Haile Spaulding M.D. DR: DENNIS JOB#: [id number] CC:
[2018-12-11 04:00] VITALS: BP 137/40
[2018-12-11] MEDS: NovoLOG Insulin Flexpen SUBQ SCH ×4 (05:33→21:00)
--- NOTE | 2018-12-11 07:22 | NUR ---
HAND-OFF: Report given to NICK Farley.
--- NOTE | 2018-12-11 07:56 | NUR ---
NURSE NOTES: Patient awake, alert x2, confused and forget-full; on nasal cannula 2 Liter, no sign of distress and shortness of breath; no sing of chest pain; IV Right-AC TKO; bed at lowest position, side rails up x2, breaks engaged; call light within reach; will keep monitoring. will monitor blood sugar as scheduled.
[2018-12-11 08:00] VITALS: BP 129/61
[2018-12-11] MEDS: Aspirin EC 81mg tab ORAL SCH (08:44)
[2018-12-11] MEDS: Docusate 100mg cap ORAL SCH (08:44)
[2018-12-11] MEDS: Depakote ER 500mg tab ORAL SCH ×2 (08:45→21:41)
--- NOTE | 2018-12-11 08:57 | General Progress Note ---
Assessment/Plan Problem List: (1) UTI (urinary tract infection) ICD Codes: N39.0 - Urinary tract infection, site not specified SNOMED: 50139736 (2) History of seizure ICD Codes: Z87.898 - Personal history of other specified conditions SNOMED: 033052223 (3) Schizo-affective schizophrenia ICD Codes: F25.0 - Schizoaffective disorder, bipolar type SNOMED: 206239514 (4) Diabetes mellitus ICD Codes: E11.9 - Type 2 diabetes mellitus without complications SNOMED: 63303864 (5) HTN (hypertension) ICD Codes: I10 - HTN (hypertension) SNOMED: 04714567 (6) Epileptic seizure, generalized ICD Codes: G40.909 - Epilepsy, unspecified, not intractable, without status epilepticus SNOMED: 39341526 (7) Aspiration pneumonia ICD Codes: J69.0 - Pneumonitis due to inhalation of food and vomit SNOMED: 404501422 (8) Hepatic encephalopathy ICD Codes: K72.90 - Hepatic failure, unspecified without coma SNOMED: 71175719 (9) Acute encephalopathy ICD Codes: G93.40 - Encephalopathy, unspecified SNOMED: 3345068 Status: progressing Assessment/Plan: pt ot diet abx cbc bmp am Subjective Constitutional: Reports: weakness Allergies: Coded Allergies: BENZOCAINE (Unverified Allergy, Unknown, 07/21/14) PENICILLINS (Unverified Allergy, Unknown, 07/21/14) QUETIAPINE (Unverified Allergy, Unknown, 07/21/14) All Systems: reviewed and negative except above Subjective calm in bed Objective Last 24 Hour Vital Signs Date Time Temp Pulse Resp B/P (MAP) Pulse Ox O2 Delivery O2 Flow Rate FiO2 12/11/18 08:44 82 129/61 12/11/18 08:00 97.5 82 20 129/61 (83) 98 12/11/18 04:00 97.0 71 19 137/40 (72) 94 12/11/18 00:00 97.8 73 18 133/63 (86) 92 12/10/18 21:00 Nasal Cannula 2.0 12/10/18 20:00 97.0 67 19 109/50 (69) 92 12/10/18 17:40 97.4 12/10/18 16:00 97.4 70 17 110/53 (72) 95 12/10/18 12:00 98.2 69 20 105/57 (73) 95 12/10/18 09:32 63 124/58 12/10/18 09:00 Nasal Cannula 2.0 Intake and Output 12/10/18 12/11/18 19:00 07:00 Intake Total 710 ml Balance 710 ml Intake Oral 600 ml IV Total 110 ml # Voids 3 3 # Bowel Movements 1 1 Height (Feet): 5 Height (Inches): 6.00 Weight (Pounds): 179 General Appearance: confused EENT: normal ENT inspection Neck: normal alignment Cardiovascular: normal peripheral pulses, normal rate, regular rhythm Respiratory/Chest: chest wall non-tender, lungs clear, normal breath sounds Abdomen: normal bowel sounds, non tender, soft Extremities: normal inspection Edema: no edema noted Arm (L), no edema noted Arm (R), no edema noted Leg (L), no edema noted Leg (R), no edema noted Pedal (L), no edema noted Pedal (R), no edema noted Generalized Neurologic: responsive, motor weakness Skin: normal pigmentation, warm/dry Maninder Ramsey DO Dec 11, 2018 08:57
--- NOTE | 2018-12-11 11:34 | Pulmonology Progress Note ---
Assessment/Plan Problems: (1) Acute encephalopathy (2) UTI (urinary tract infection) (3) Schizo-affective schizophrenia (4) History of seizure (5) Diabetes mellitus Assessment/Plan afebrile still not talking much cultures reviewed no new complains continue current regimen social services assistant to find family members to discuss plan of care. Subjective ROS Limited/Unobtainable: No Constitutional: Reports: no symptoms HEENT: Repors: no symptoms Respiratory: Reports: no symptoms Allergies: Coded Allergies: BENZOCAINE (Unverified Allergy, Unknown, 07/21/14) PENICILLINS (Unverified Allergy, Unknown, 07/21/14) QUETIAPINE (Unverified Allergy, Unknown, 07/21/14) Objective Last 24 Hour Vital Signs Date Time Temp Pulse Resp B/P (MAP) Pulse Ox O2 Delivery O2 Flow Rate FiO2 12/11/18 09:15 97.5 12/11/18 09:00 Nasal Cannula 2.0 12/11/18 08:44 82 129/61 12/11/18 08:00 97.5 82 20 129/61 (83) 98 12/11/18 04:00 97.0 71 19 137/40 (72) 94 12/11/18 00:00 97.8 73 18 133/63 (86) 92 12/10/18 21:00 Nasal Cannula 2.0 12/10/18 20:00 97.0 67 19 109/50 (69) 92 12/10/18 16:00 97.4 70 17 110/53 (72) 95 12/10/18 12:00 98.2 69 20 105/57 (73) 95 Intake and Output 12/10/18 12/11/18 18:59 06:59 Intake Total 710 ml Balance 710 ml Intake Oral 600 ml IV Total 110 ml # Voids 3 3 # Bowel Movements 1 1 General Appearance: WD/WN HEENT: normocephalic, atraumatic Respiratory/Chest: chest wall non-tender, lungs clear Breasts: no masses Cardiovascular: normal peripheral pulses Abdomen: normal bowel sounds, soft, non tender Genitourinary: normal external genitalia Neurologic/Psychiatric: plastic finisher II-XII grossly normal, no motor/sensory deficits Lymphatic: no neck adenopathy Microbiology Date/Time Source Procedure Growth Status 12/08/18 14:20 Blood Blood Culture - Preliminary NO GROWTH AFTER 48 HOURS Resulted 12/08/18 14:05 Blood Blood Culture - Preliminary NO GROWTH AFTER 48 HOURS Resulted 12/08/18 14:55 Nasal Nares Left MRSA Culture - Final NO METHICILLIN RESISTANT STAPH AUREUS... Complete 12/08/18 14:35 Urine,Clean Catch Urine Culture - Final Escherichia Coli Complete 12/08/18 14:55 Rectum VRE Culture - Final NO VANCOMYCIN RESISTANT ENTEROCOCCUS ... Complete Current Medications Medications (Trade) Dose Ordered Sig/Desire Route PRN Reason Start Time Stop Time Status Last Admin Dose Admin Acetaminophen (Tylenol) 650 mg Q4H PRN ORAL Mild Pain/Temp > 101 12/08/18 20:45 01/07/19 20:44 12/10/18 23:02 Amlodipine Besylate (Norvasc) 10 mg DAILY ORAL 12/09/18 09:00 01/08/19 08:59 12/11/18 08:44 Aspirin (Ecotrin) 81 mg DAILY ORAL 12/09/18 09:00 01/08/19 08:59 12/11/18 08:44 Bisacodyl (Dulcolax) 10 mg DAILYPRN PRN RECTAL Constipation 12/08/18 20:45 01/07/19 20:44 Dextrose (Dextrose 50%) 25 ml Q30M PRN IV Hypoglycemia 12/09/18 12:30 01/08/19 12:16 Dextrose (Dextrose 50%) 50 ml Q30M PRN IV hypoglycemia 12/09/18 12:30 01/08/19 12:29 Divalproex Sodium (Depakote ER) 1,000 mg EVERY 12 HOURS ORAL 12/08/18 21:00 01/07/19 20:59 12/11/18 08:45 Docusate Sodium (Colace) 100 mg DAILY ORAL 12/09/18 09:00 01/08/19 08:59 12/11/18 08:44 Gabapentin (Neurontin) 100 mg THREE TIMES A DAY ORAL 12/09/18 09:00 01/08/19 08:59 12/11/18 08:44 Ibuprofen (Advil) 400 mg BID ORAL 12/09/18 09:00 01/08/19 08:59 12/11/18 08:45 Insulin Aspart (NovoLOG) BEFORE MEALS AND HS SUBQ 12/09/18 16:30 01/08/19 16:29 12/10/18 16:32 Lorazepam (Ativan) 1 mg BID PRN ORAL For Anxiety 12/10/18 22:30 12/17/18 22:29 12/10/18 23:02 Magnesium Hydroxide (Mom) 30 ml QHS PRN ORAL constipation 12/08/18 20:45 01/07/19 20:44 Meloxicam (Mobic) 3.75 mg DAILY ORAL 12/09/18 09:00 01/08/19 08:59 12/11/18 08:44 Mirtazapine (Remeron) 7.5 mg BEDTIME ORAL 12/08/18 21:00 01/07/19 20:59 12/10/18 20:19 Risperidone (RisperDAL) 2 mg BID ORAL 12/09/18 09:00 01/08/19 08:59 12/11/18 08:44 Bertram eJsus MD Dec 11, 2018 11:34
[2018-12-11 12:00] VITALS: BP 139/60
--- NOTE | 2018-12-11 12:06 | CDS Physician Query ---
Clarification is required for compliance, coding accuracy, and to reflect severity of illness for this patient Dear Dr. Jesus Date: 12/11/18 CDS: Severo Hernandez "Acute Encephalopathy" is documented in Consult and PNs Patient is admitted with UTI and Hypotension. Rx: IV Ceftriaxone IV Fluids Please indicate the type of Encephalopathy: [ ] Metabolic Encephalopathy [ ] Toxic Encephalopathy [ ] Encephalopathy due to Schizophrenia [ ] Encephalopathy, Other [ ] Clinically Undetermined Present on Admission: [ ] Yes [ ] No [ ] Clinically Undetermined Physician signature Date Please also document in your Progress Notes and/or Discharge Summary and indicate if the condition was present on admission MTDD
--- NOTE | 2018-12-11 12:19 | Infectious Diseases Prog Note ---
Assessment/Plan Assessment/Plan Assessment: Afebrile No leukocytosis Pyuria/bacteriuria- ?UTI, sp rx -u.a wbc tnct, nit +, leuk +3; ucx >100k E.coli ( R cipro/levo, bactrim) Altered mental status schizoaffective disorder AOCD CODP Dm2 GERD polyneuropathy seizure disorder HTN Plan: -Continue to monitor off abx -12/10 SP Ceftriaxone #3 -f/u cx -Monitor CBC/CMP, temperatures Thank you for this consultation. Will continue to follow along with you. Discussed with RN Subjective Allergies: Coded Allergies: BENZOCAINE (Unverified Allergy, Unknown, 07/21/14) PENICILLINS (Unverified Allergy, Unknown, 07/21/14) QUETIAPINE (Unverified Allergy, Unknown, 07/21/14) Subjective afebrile no leukocytosis Bcx NTD Objective Vital Signs Last 24 Hour Vital Signs Date Time Temp Pulse Resp B/P (MAP) Pulse Ox O2 Delivery O2 Flow Rate FiO2 12/11/18 09:15 97.5 12/11/18 09:00 Nasal Cannula 2.0 12/11/18 08:44 82 129/61 12/11/18 08:00 97.5 82 20 129/61 (83) 98 12/11/18 04:00 97.0 71 19 137/40 (72) 94 12/11/18 00:00 97.8 73 18 133/63 (86) 92 12/10/18 21:00 Nasal Cannula 2.0 12/10/18 20:00 97.0 67 19 109/50 (69) 92 12/10/18 16:00 97.4 70 17 110/53 (72) 95 Height (Feet): 5 Height (Inches): 6.00 Weight (Pounds): 179 Objective General Appearance: NAD HEENT: normocephalic, atraumatic Neck: non-tender, normal alignment Respiratory/Chest: normal breath sounds bilaterally Cardiovascular/Chest: normal peripheral pulses, normal rate Abdomen: normal bowel sounds, soft, Microbiology Date/Time Source Procedure Growth Status 12/08/18 14:20 Blood Blood Culture - Preliminary NO GROWTH AFTER 48 HOURS Resulted 12/08/18 14:05 Blood Blood Culture - Preliminary NO GROWTH AFTER 48 HOURS Resulted 12/08/18 14:55 Nasal Nares Left MRSA Culture - Final NO METHICILLIN RESISTANT STAPH AUREUS... Complete 12/08/18 14:35 Urine,Clean Catch Urine Culture - Final Escherichia Coli Complete 12/08/18 14:55 Rectum VRE Culture - Final NO VANCOMYCIN RESISTANT ENTEROCOCCUS ... Complete Current Medications Medications (Trade) Dose Ordered Sig/Desire Route PRN Reason Start Time Stop Time Status Last Admin Dose Admin Acetaminophen (Tylenol) 650 mg Q4H PRN ORAL Mild Pain/Temp > 101 12/08/18 20:45 01/07/19 20:44 12/10/18 23:02 Amlodipine Besylate (Norvasc) 10 mg DAILY ORAL 12/09/18 09:00 01/08/19 08:59 12/11/18 08:44 Aspirin (Ecotrin) 81 mg DAILY ORAL 12/09/18 09:00 01/08/19 08:59 12/11/18 08:44 Bisacodyl (Dulcolax) 10 mg DAILYPRN PRN RECTAL Constipation 12/08/18 20:45 01/07/19 20:44 Dextrose (Dextrose 50%) 25 ml Q30M PRN IV Hypoglycemia 12/09/18 12:30 01/08/19 12:16 Dextrose (Dextrose 50%) 50 ml Q30M PRN IV hypoglycemia 12/09/18 12:30 01/08/19 12:29 Divalproex Sodium (Depakote ER) 1,000 mg EVERY 12 HOURS ORAL 12/08/18 21:00 01/07/19 20:59 12/11/18 08:45 Docusate Sodium (Colace) 100 mg DAILY ORAL 12/09/18 09:00 01/08/19 08:59 12/11/18 08:44 Gabapentin (Neurontin) 100 mg THREE TIMES A DAY ORAL 12/09/18 09:00 01/08/19 08:59 12/11/18 08:44 Ibuprofen (Advil) 400 mg BID ORAL 12/09/18 09:00 01/08/19 08:59 12/11/18 08:45 Insulin Aspart (NovoLOG) BEFORE MEALS AND HS SUBQ 12/09/18 16:30 01/08/19 16:29 12/10/18 16:32 Lorazepam (Ativan) 1 mg BID PRN ORAL For Anxiety 12/10/18 22:30 12/17/18 22:29 12/10/18 23:02 Magnesium Hydroxide (Mom) 30 ml QHS PRN ORAL constipation 12/08/18 20:45 01/07/19 20:44 Meloxicam (Mobic) 3.75 mg DAILY ORAL 12/09/18 09:00 01/08/19 08:59 12/11/18 08:44 Mirtazapine (Remeron) 7.5 mg BEDTIME ORAL 12/08/18 21:00 01/07/19 20:59 12/10/18 20:19 Risperidone (RisperDAL) 2 mg BID ORAL 12/09/18 09:00 01/08/19 08:59 12/11/18 08:44 Mariaelena Murray M.D. Dec 11, 2018 12:19
--- NOTE | 2018-12-11 13:28 | NUR ---
CASE MANAGEMENT: REVIEW 12/11/2018 SI:UTI. ENCEPHALOPATHY. T 97.5 HR 76 RR 20 B/P 139/60 SATS 94% ON 2L/NC NO LABS TODAY IS:DEPAKOTE PO Q12H REMERON PO QHS ADVIL PO BID RISPERDAL PO BID ASA PO QD MOBIC PO QD INSULIN ASPART SUBQ AC/HS GABAPENTIN PO TID MED/SURG STATUS
--- NOTE | 2018-12-11 14:43 | Hematology/Onc Progress Note ---
Assessment/Plan Assessment/Plan Assessment and Recs: # Thrombocytopenia - potential causes multifactorial, evaluate liver and viral etiologies to begin, also could be related to underlying medications patient has received. --> Hep panel and HIv are negative --> US abd shows no hsm/cirrhosis --> Peripheral smear ordered to evaluate for blasts /schistocytes is negative --> abx and other meds have been reviewed (currently off abx) --> ok for ppx if plt >50k w/ either heparin or lovenox --> Transfuse if Plt < 20k and fever, or if Plt < 10k without fever --> psych meds reviewed as well --> plt trend 131-->124-->121 # Anemia of chronic disease due to underlying chronic medical issues, multifactorial --> Anemia workup has been ordered, rule out gi bleed --> No evidence of hemolysis is noted, peripheral smear has been reviewed. --> Hgb goal >7. Transfuse prn. --> Epogen or iron at this time is not particularly indicated --> Medications have been reviewed --> low threshold for gi evaluation in case has occult + --> trend hgb 11.9-->12 # Elevated tumor markers in 2017, reviewed labs --> CEA 7-->9.7 and afp12--> 10.5 --> these are essentially unchanged # Acute encephalopathy with altered mental status --> psych eval prn --> rx uti with CTX # Acute cystitis without hematuria The timing of this note does not necessarily reflect the time of the patient was seen. GREATLY APPRECIATE CONSULTATION. Subjective Allergies: Coded Allergies: BENZOCAINE (Unverified Allergy, Unknown, 07/21/14) PENICILLINS (Unverified Allergy, Unknown, 07/21/14) QUETIAPINE (Unverified Allergy, Unknown, 07/21/14) Subjective 12/10: awake, confused, on nc, labs reviewed 12/11: remains awake and confused, nc 2L, afebrile Objective Objective Current Medications Medications (Trade) Dose Ordered Sig/Desire Route PRN Reason Start Time Stop Time Status Last Admin Dose Admin Acetaminophen (Tylenol) 650 mg Q4H PRN ORAL Mild Pain/Temp > 101 12/08/18 20:45 01/07/19 20:44 12/10/18 23:02 Amlodipine Besylate (Norvasc) 10 mg DAILY ORAL 12/09/18 09:00 01/08/19 08:59 12/11/18 08:44 Aspirin (Ecotrin) 81 mg DAILY ORAL 12/09/18 09:00 01/08/19 08:59 12/11/18 08:44 Bisacodyl (Dulcolax) 10 mg DAILYPRN PRN RECTAL Constipation 12/08/18 20:45 01/07/19 20:44 Dextrose (Dextrose 50%) 25 ml Q30M PRN IV Hypoglycemia 12/09/18 12:30 01/08/19 12:16 Dextrose (Dextrose 50%) 50 ml Q30M PRN IV hypoglycemia 12/09/18 12:30 01/08/19 12:29 Divalproex Sodium (Depakote ER) 1,000 mg EVERY 12 HOURS ORAL 12/08/18 21:00 01/07/19 20:59 12/11/18 08:45 Docusate Sodium (Colace) 100 mg DAILY ORAL 12/09/18 09:00 01/08/19 08:59 12/11/18 08:44 Gabapentin (Neurontin) 100 mg THREE TIMES A DAY ORAL 12/09/18 09:00 01/08/19 08:59 12/11/18 12:21 Ibuprofen (Advil) 400 mg BID ORAL 12/09/18 09:00 01/08/19 08:59 12/11/18 08:45 Insulin Aspart (NovoLOG) BEFORE MEALS AND HS SUBQ 12/09/18 16:30 01/08/19 16:29 12/10/18 16:32 Lorazepam (Ativan) 1 mg BID PRN ORAL For Anxiety 12/10/18 22:30 12/17/18 22:29 12/10/18 23:02 Magnesium Hydroxide (Mom) 30 ml QHS PRN ORAL constipation 12/08/18 20:45 01/07/19 20:44 Meloxicam (Mobic) 3.75 mg DAILY ORAL 12/09/18 09:00 01/08/19 08:59 12/11/18 08:44 Mirtazapine (Remeron) 7.5 mg BEDTIME ORAL 12/08/18 21:00 01/07/19 20:59 12/10/18 20:19 Risperidone (RisperDAL) 2 mg BID ORAL 12/09/18 09:00 01/08/19 08:59 12/11/18 08:44 Last 24 Hour Vital Signs Date Time Temp Pulse Resp B/P (MAP) Pulse Ox O2 Delivery O2 Flow Rate FiO2 12/11/18 12:00 97.5 76 20 139/60 (86) 94 12/11/18 09:15 97.5 12/11/18 09:00 Nasal Cannula 2.0 12/11/18 08:44 82 129/61 12/11/18 08:00 97.5 82 20 129/61 (83) 98 12/11/18 04:00 97.0 71 19 137/40 (72) 94 12/11/18 00:00 97.8 73 18 133/63 (86) 92 12/10/18 21:00 Nasal Cannula 2.0 12/10/18 20:00 97.0 67 19 109/50 (69) 92 12/10/18 16:00 97.4 70 17 110/53 (72) 95 12/10/18 12:00 98.2 69 20 105/57 (73) 95 12/10/18 09:32 63 124/58 12/10/18 09:00 Nasal Cannula 2.0 12/10/18 08:00 97.3 63 19 124/58 (80) 95 12/10/18 04:00 98.3 67 18 117/45 (69) 96 12/10/18 00:00 98.4 74 18 107/59 (75) 100 12/09/18 21:00 Nasal Cannula 2.0 12/09/18 20:00 97.9 80 18 114/61 (78) 97 12/09/18 16:00 97.1 77 18 91/55 (67) 99 Intake and Output 12/10/18 12/11/18 18:59 06:59 Intake Total 710 ml Balance 710 ml Intake Oral 600 ml IV Total 110 ml # Voids 3 3 # Bowel Movements 1 1 Labs Test 12/09/18 05:10 12/09/18 16:20 12/10/18 05:35 White Blood Count 6.1 K/UL (4.8-10.8) 7.1 K/UL (4.8-10.8) Red Blood Count 3.92 M/UL (4.20-5.40) 3.99 M/UL (4.20-5.40) Hemoglobin 11.9 G/DL (12.0-16.0) 12.0 G/DL (12.0-16.0) Hematocrit 38.5 % (37.0-47.0) 39.2 % (37.0-47.0) Mean Corpuscular Volume 98 FL (80-99) 98 FL (80-99) Mean Corpuscular Hemoglobin 30.5 PG (27.0-31.0) 30.1 PG (27.0-31.0) Mean Corpuscular Hemoglobin Concent 31.1 G/DL (32.0-36.0) 30.7 G/DL (32.0-36.0) Red Cell Distribution Width 14.8 % (11.6-14.8) 14.7 % (11.6-14.8) Platelet Count 124 K/UL (150-450) 121 K/UL (150-450) Mean Platelet Volume 6.0 FL (6.5-10.1) 6.1 FL (6.5-10.1) Neutrophils (%) (Auto) 37.1 % (45.0-75.0) 44.2 % (45.0-75.0) Lymphocytes (%) (Auto) 50.2 % (20.0-45.0) 45.0 % (20.0-45.0) Monocytes (%) (Auto) 8.1 % (1.0-10.0) 8.0 % (1.0-10.0) Eosinophils (%) (Auto) 3.6 % (0.0-3.0) 2.0 % (0.0-3.0) Basophils (%) (Auto) 1.0 % (0.0-2.0) 0.9 % (0.0-2.0) Sodium Level 144 MMOL/L (136-145) 143 MMOL/L (136-145) Potassium Level 4.5 MMOL/L (3.5-5.1) 4.3 MMOL/L (3.5-5.1) Chloride Level 107 MMOL/L (98-107) 104 MMOL/L (98-107) Carbon Dioxide Level 39 MMOL/L (21-32) 38 MMOL/L (21-32) Anion Gap -2 mmol/L (5-15) 1 mmol/L (5-15) Blood Urea Nitrogen 18 mg/dL (7-18) 24 mg/dL (7-18) Creatinine 0.6 MG/DL (0.55-1.30) 0.6 MG/DL (0.55-1.30) Estimat Glomerular Filtration Rate mL/min (>60) mL/min (>60) Glucose Level 87 MG/DL (74-106) 87 MG/DL (74-106) Calcium Level 9.0 MG/DL (8.5-10.1) 9.2 MG/DL (8.5-10.1) Total Bilirubin 0.2 MG/DL (0.2-1.0) 0.3 MG/DL (0.2-1.0) Aspartate Amino Transf (AST/SGOT) 12 U/L (15-37) 12 U/L (15-37) Alanine Aminotransferase (ALT/SGPT) 8 U/L (12-78) 8 U/L (12-78) Alkaline Phosphatase 73 U/L (46-116) 74 U/L (46-116) Total Protein 5.7 G/DL (6.4-8.2) 5.8 G/DL (6.4-8.2) Albumin 2.2 G/DL (3.4-5.0) 2.2 G/DL (3.4-5.0) Globulin 3.5 g/dL 3.6 g/dL Albumin/Globulin Ratio 0.6 (1.0-2.7) 0.6 (1.0-2.7) Alpha Fetoprotein 10.5 ng/mL (0.0-8.3) Carcinoembryonic Antigen 9.7 ng/mL (0.0-4.7) HIV (1&2) Antibody Rapid Negative (NEGATIVE) Urine Eosinophils None seen (NONE SEEN) Urine Random Total Protein 11 MG/DL (< 11.9) Urine Random Sodium 114 mmol/L (20-110) Urine Creatinine 23.8 MG/DL (30.0-125.0) Erythrocyte Sedimentation Rate 9 MM/HR (0-30) Phosphorus Level 3.5 MG/DL (2.5-4.9) Magnesium Level 1.9 MG/DL (1.8-2.4) C-Reactive Protein, Quantitative < 0.4 mg/dL (0.00-0.90) Height (Feet): 5 Height (Inches): 6.00 Weight (Pounds): 179 Objective Physical Exam: Vitals: reviewed General Appearance: NAD HEENT: normocephalic, atraumatic Neck: non-tender, normal alignment Respiratory/Chest: normal breath sounds bilaterally Cardiovascular/Chest: normal peripheral pulses, normal rate Abdomen: normal bowel sounds, soft Cirilo Del Castillo MD Dec 11, 2018 14:43
[2018-12-11 16:00] VITALS: BP 139/63
--- NOTE | 2018-12-11 17:05 | NUR ---
P.T NOTE: P.T EVALUATION COMPLETED AND TREATMENT INITIATED. PLEASE REFER TO P.T EVALUATION FOR CURRENT FUNCTIONAL STATUS.
[2018-12-11] MEDS ORDERED: DIVALPROEX SOD500 M2 PO (17:25)
[2018-12-11] MEDS ORDERED: COLACE100 MG ORAL (17:25)
[2018-12-11] MEDS ORDERED: NOVOLOG100 UNIT/4 SQ (17:27)
[2018-12-11] MEDS ORDERED: NOVOLOG100 UNIT/5 SQ (17:28)
[2018-12-11] MEDS ORDERED: NOVOLOG100 UNITS1 SQ (17:29)
[2018-12-11] MEDS ORDERED: MOBIC7.5 MG ORAL (17:30)
[2018-12-11] MEDS: LORazepam 1mg tab ORAL PRN (18:33)
--- NOTE | 2018-12-11 19:15 | Consultation ---
DATE OF CONSULTATION: 12/11/2018 CONSULTING PHYSICIAN: Tavia Schwab M.D. HISTORY OF PRESENT ILLNESS: This is a 73-year-old female, I am familiar with her from previous admission. The patient is delusional and responding to internal stimuli. She stated that she is hearing her brother is talking to her and the voices are angry. She has thoughts of killing her brother. She is easily agitated and screaming. She is currently on risperidone, mirtazapine, and Ativan. The patient denied any suicidal or homicidal ideation. However, the patient is easily agitated and having memory impairment. PAST PSYCHIATRIC HISTORY: She had history of schizoaffective disorder. PAST MEDICAL HISTORY: Significant for hypertension, pneumonia, hepatic encephalopathy, and UTI. ALLERGIES: Includes benzocaine, penicillin, and quetiapine. MENTAL STATUS EXAMINATION: The patient is alert and oriented times to self and place. Poor insight into her current medical condition. Mood is anxious. Affect is constricted with congruent mood. Thought process is concrete. Thought content, no suicidal or homicidal ideation. PLAN: 1. Depakote 1000 mg every 12 hours. 2. Risperidone 2 mg twice a day. 3. Mirtazapine 7.5 mg at bedtime. 4. Ativan p.r.n. 5. The patient is not an imminent danger to self or others. Tavia Schwab M.D. DR: RYAN JOB#: [id number] CC:
--- NOTE | 2018-12-11 19:20 | NUR ---
NURSE NOTES: Received pt sleeping in bed. Pt is on NC 2L. Purewick working well. IV site intact and patent, TKO. No acute distress and breathing difficulty noted at this time. Bed locked, lowest position, alarm on, side rails up x 2, call light within reach. Will continue to monitor.
--- NOTE | 2018-12-11 19:30 | NUR ---
HAND-OFF: Report given to NICK Carlisle.
[2018-12-11 20:00] VITALS: BP 108/54
--- NOTE | 2018-12-11 20:39 | Cardiology Progress Note ---
Assessment/Plan Assessment/Plan 1. Hypotension, responded well to IV fluid administration. 2. UTI, continue IV antibiotic therapy. 3. DM, consider ASA and statins. 4. COPD 5. Hx seizure D/O 6. GERD 7. Polyneuropathy 8. Thrombocytopenia. Subjective Subjective No cardiac events noted. Denies chest pain or SOB. Objective Last 24 Hour Vital Signs Date Time Temp Pulse Resp B/P (MAP) Pulse Ox O2 Delivery O2 Flow Rate FiO2 12/11/18 18:04 97.5 12/11/18 16:00 97.5 78 20 139/63 (88) 99 12/11/18 12:00 97.5 76 20 139/60 (86) 94 12/11/18 09:00 Nasal Cannula 2.0 12/11/18 08:44 82 129/61 12/11/18 08:00 97.5 82 20 129/61 (83) 98 12/11/18 04:00 97.0 71 19 137/40 (72) 94 12/11/18 00:00 97.8 73 18 133/63 (86) 92 12/10/18 21:00 Nasal Cannula 2.0 Intake and Output 12/10/18 12/11/18 19:00 07:00 Intake Total 710 ml Balance 710 ml Intake Oral 600 ml IV Total 110 ml # Voids 3 3 # Bowel Movements 1 1 Objective HEENT: Pupils are reactive to light and accommodation. Extraocular movement intact. NECK: JVP less than 5 cm, no carotid bruit. LUNGS: Clear to auscultation. CARDIAC: Regular rate and rhythm. Normal S1, S2. No murmur, gallops or rub. ABDOMEN: Soft, nontender, and nondistended, + BS. EXTREMITIES: No edema, clubbing or cyanosis. Haile Spaulding MD Dec 11, 2018 20:39
[2018-12-12] VITALS: BP 155/77
[2018-12-12 04:00] VITALS: BP 142/62
[2018-12-12] MEDS: NovoLOG Insulin Flexpen SUBQ SCH ×4 (05:42→20:14)
--- NOTE | 2018-12-12 07:12 | NUR ---
HAND-OFF: Report given to NICK Sequeira.
[2018-12-12 07:22] LABS: HEMATOCRIT 39.5 % (37.0-47.0); HEMOGLOBIN 12.3 G/DL (12.0-16.0); MEAN CORPUSCULAR VOLUME 97 FL (80-99); PLATELET COUNT 117 K/UL (150-450); RED BLOOD COUNT 4.06 M/UL (4.20-5.40); RED CELL DISTRIBUTION WIDTH 14.2 % (11.6-14.8); WHITE BLOOD COUNT 5.5 K/UL (4.8-10.8)
[2018-12-12 07:37] LABS: ANION GAP 1 mmol/L (5-15); BLOOD UREA NITROGEN 21 mg/dL (7-18); CALCIUM 9.6 MG/DL (8.5-10.1); CARBON DIOXIDE 38 MMOL/L (21-32); CHLORIDE 103 MMOL/L (98-107); CREATININE 0.4 MG/DL (0.55-1.30); POTASSIUM 3.9 MMOL/L (3.5-5.1); SODIUM 142 MMOL/L (136-145)
[2018-12-12 08:00] VITALS: BP 131/75
--- NOTE | 2018-12-12 08:00 | NUR ---
NURSE NOTES: received pt in bed, awake, yelling, having delusion. On NC 2L/min, no respiratory distress noted. Pt took off Pureweek, incontinent x2. RAC IV access. Call light within easy reach, siderails upx3, bedlockedat the lowest position possible, on bed alar. Will continue to monitor pt and follow up with the plan of care.
[2018-12-12] MEDS: Aspirin EC 81mg tab ORAL SCH (08:18)
[2018-12-12] MEDS: Depakote ER 500mg tab ORAL SCH ×2 (08:19→20:13)
[2018-12-12] MEDS: Docusate 100mg cap ORAL SCH (08:22)
[2018-12-12] MEDS: LORazepam 1mg tab ORAL PRN ×2 (08:41→21:36)
--- NOTE | 2018-12-12 09:55 | General Progress Note ---
Assessment/Plan Problem List: (1) UTI (urinary tract infection) ICD Codes: N39.0 - Urinary tract infection, site not specified SNOMED: 45284625 (2) History of seizure ICD Codes: Z87.898 - Personal history of other specified conditions SNOMED: 063158878 (3) Schizo-affective schizophrenia ICD Codes: F25.0 - Schizoaffective disorder, bipolar type SNOMED: 437864344 (4) Diabetes mellitus ICD Codes: E11.9 - Type 2 diabetes mellitus without complications SNOMED: 87860957 (5) HTN (hypertension) ICD Codes: I10 - HTN (hypertension) SNOMED: 85480989 (6) Epileptic seizure, generalized ICD Codes: G40.909 - Epilepsy, unspecified, not intractable, without status epilepticus SNOMED: 48041644 (7) Aspiration pneumonia ICD Codes: J69.0 - Pneumonitis due to inhalation of food and vomit SNOMED: 600956860 (8) Hepatic encephalopathy ICD Codes: K72.90 - Hepatic failure, unspecified without coma SNOMED: 39873587 (9) Acute encephalopathy ICD Codes: G93.40 - Encephalopathy, unspecified SNOMED: 8642575 Status: stable, progressing Assessment/Plan: pt ot diet abx cbc bmp am psyc transfer Subjective Constitutional: Reports: weakness Allergies: Coded Allergies: BENZOCAINE (Unverified Allergy, Unknown, 07/21/14) PENICILLINS (Unverified Allergy, Unknown, 07/21/14) QUETIAPINE (Unverified Allergy, Unknown, 07/21/14) All Systems: reviewed and negative except above Subjective calm in bed Objective Last 24 Hour Vital Signs Date Time Temp Pulse Resp B/P (MAP) Pulse Ox O2 Delivery O2 Flow Rate FiO2 12/12/18 08:19 81 131/75 12/12/18 08:00 97.5 81 19 131/75 (93) 96 12/12/18 04:00 97.4 74 20 142/62 (88) 94 12/12/18 00:00 98.0 76 24 155/77 (103) 94 12/11/18 21:00 Nasal Cannula 2.0 12/11/18 20:00 97.8 69 24 108/54 (72) 94 12/11/18 18:04 97.5 12/11/18 16:00 97.5 78 20 139/63 (88) 99 12/11/18 12:00 97.5 76 20 139/60 (86) 94 Intake and Output 12/11/18 12/12/18 19:00 07:00 Intake Total 480 ml Output Total 800 ml Balance -320 ml Intake Oral 480 ml Output Urine Total 800 ml # Voids 2 3 Laboratory Tests 12/12/18 06:00: White Blood Count 5.5, Red Blood Count 4.06L, Hemoglobin 12.3, Hematocrit 39.5, Mean Corpuscular Volume 97, Mean Corpuscular Hemoglobin 30.2, Mean Corpuscular Hemoglobin Concent 31.1L, Red Cell Distribution Width 14.2, Platelet Count 117L , Mean Platelet Volume 5.9L, Neutrophils (%) (Auto) , Lymphocytes (%) (Auto) , Monocytes (%) (Auto) , Eosinophils (%) (Auto) , Basophils (%) (Auto) , Neutrophils % (Manual) [Pending], Lymphocytes % (Manual) [Pending], Platelet Estimate [Pending], Platelet Morphology [Pending], Sodium Level 142, Potassium Level 3.9, Chloride Level 103, Carbon Dioxide Level 38H, Anion Gap 1L, Blood Urea Nitrogen 21H, Creatinine 0.4L, Estimat Glomerular Filtration Rate , Glucose Level 81, Calcium Level 9.6 Height (Feet): 5 Height (Inches): 6.00 Weight (Pounds): 179 General Appearance: lethargic, confused EENT: normal ENT inspection Neck: normal alignment Cardiovascular: normal peripheral pulses, normal rate, regular rhythm Respiratory/Chest: chest wall non-tender, lungs clear, normal breath sounds Abdomen: normal bowel sounds, non tender, soft Extremities: normal inspection Edema: no edema noted Arm (L), no edema noted Arm (R), no edema noted Leg (L), no edema noted Leg (R), no edema noted Pedal (L), no edema noted Pedal (R), no edema noted Generalized Neurologic: motor weakness Skin: normal pigmentation, warm/dry Maninder Ramsey DO Dec 12, 2018 09:55
[2018-12-12 12:00] VITALS: BP 141/72
[2018-12-12 16:00] VITALS: BP 116/55
[2018-12-12] MEDS ORDERED: NS 500ML ONE (16:58)
--- NOTE | 2018-12-12 19:19 | NUR ---
HAND-OFF: Report given to NICK Castaneda.
[2018-12-12 20:00] VITALS: BP 131/64
--- NOTE | 2018-12-12 20:00 | NUR ---
NURSE NOTES: Patient received sleeping with sudden screaming and yelling. Needs attended. Call light in reach. Patient moved closer to nurse's station [phone]. No belongings with patient but belongings list showed she came with sweater, pants and comb. Inspected room and older room, no signs of belongings. diesel automotive technician made aware.
[2018-12-12] MEDS ORDERED: Triamcinolone 0.1% 15gm Cr TOPIC SCH (20:15)
--- NOTE | 2018-12-12 21:50 | Cardiology Progress Note ---
Assessment/Plan Assessment/Plan 1. Hypotension, responded well to IV fluid administration. 2. UTI, continue IV antibiotic therapy. 3. DM, consider ASA and statins. 4. COPD 5. Hx seizure D/O 6. GERD 7. Polyneuropathy 8. Thrombocytopenia. Subjective Subjective No cardiac events noted. Comfortable. Objective Last 24 Hour Vital Signs Date Time Temp Pulse Resp B/P (MAP) Pulse Ox O2 Delivery O2 Flow Rate FiO2 12/12/18 21:00 Room Air 12/12/18 20:00 98.4 83 19 131/64 (86) 94 12/12/18 18:26 98.1 12/12/18 16:00 98.1 93 19 116/55 (75) 94 12/12/18 12:00 97.8 78 19 141/72 (95) 98 12/12/18 09:00 Nasal Cannula 2.0 12/12/18 08:19 81 131/75 12/12/18 08:00 97.5 81 19 131/75 (93) 96 12/12/18 04:00 97.4 74 20 142/62 (88) 94 12/12/18 00:00 98.0 76 24 155/77 (103) 94 Intake and Output 12/11/18 12/12/18 19:00 07:00 Intake Total 480 ml Output Total 800 ml Balance -320 ml Intake Oral 480 ml Output Urine Total 800 ml # Voids 2 3 Laboratory Tests Test 12/12/18 06:00 White Blood Count 5.5 K/UL (4.8-10.8) Red Blood Count 4.06 M/UL (4.20-5.40) L Hemoglobin 12.3 G/DL (12.0-16.0) Hematocrit 39.5 % (37.0-47.0) Mean Corpuscular Volume 97 FL (80-99) Mean Corpuscular Hemoglobin 30.2 PG (27.0-31.0) Mean Corpuscular Hemoglobin Concent 31.1 G/DL (32.0-36.0) L Red Cell Distribution Width 14.2 % (11.6-14.8) Platelet Count 117 K/UL (150-450) L Mean Platelet Volume 5.9 FL (6.5-10.1) L Neutrophils (%) (Auto) % (45.0-75.0) Lymphocytes (%) (Auto) % (20.0-45.0) Monocytes (%) (Auto) % (1.0-10.0) Eosinophils (%) (Auto) % (0.0-3.0) Basophils (%) (Auto) % (0.0-2.0) Differential Total Cells Counted 100 Neutrophils % (Manual) 41 % (45-75) L Lymphocytes % (Manual) 52 % (20-45) H Monocytes % (Manual) 6 % (1-10) Eosinophils % (Manual) 1 % (0-3) Basophils % (Manual) 0 % (0-2) Band Neutrophils 0 % (0-8) Platelet Estimate Decreased L Platelet Morphology Normal Hypochromasia 1+ Sodium Level 142 MMOL/L (136-145) Potassium Level 3.9 MMOL/L (3.5-5.1) Chloride Level 103 MMOL/L (98-107) Carbon Dioxide Level 38 MMOL/L (21-32) H Anion Gap 1 mmol/L (5-15) L Blood Urea Nitrogen 21 mg/dL (7-18) H Creatinine 0.4 MG/DL (0.55-1.30) L Estimat Glomerular Filtration Rate mL/min (>60) Glucose Level 81 MG/DL (74-106) Calcium Level 9.6 MG/DL (8.5-10.1) Objective HEENT: Pupils are reactive to light and accommodation. Extraocular movement intact. NECK: JVP less than 5 cm, no carotid bruit. LUNGS: Clear to auscultation. CARDIAC: Regular rate and rhythm. Normal S1, S2. No murmur, gallops or rub. ABDOMEN: Soft, nontender, and nondistended, + BS. EXTREMITIES: No edema, clubbing or cyanosis. Haile Spaulding MD Dec 12, 2018 21:50
--- NOTE | 2018-12-12 22:07 | Pulmonology Progress Note ---
Assessment/Plan Problems: (1) Acute encephalopathy (2) UTI (urinary tract infection) (3) Schizo-affective schizophrenia (4) History of seizure (5) Diabetes mellitus Assessment/Plan afebrile c/o back pain cultures reviewed no new complains continue current regimen Subjective ROS Limited/Unobtainable: No Allergies: Coded Allergies: BENZOCAINE (Unverified Allergy, Unknown, 07/21/14) PENICILLINS (Unverified Allergy, Unknown, 07/21/14) QUETIAPINE (Unverified Allergy, Unknown, 07/21/14) Objective Last 24 Hour Vital Signs Date Time Temp Pulse Resp B/P (MAP) Pulse Ox O2 Delivery O2 Flow Rate FiO2 12/12/18 21:00 Room Air 12/12/18 20:00 98.4 83 19 131/64 (86) 94 12/12/18 18:26 98.1 12/12/18 16:00 98.1 93 19 116/55 (75) 94 12/12/18 12:00 97.8 78 19 141/72 (95) 98 12/12/18 09:00 Nasal Cannula 2.0 12/12/18 08:19 81 131/75 12/12/18 08:00 97.5 81 19 131/75 (93) 96 12/12/18 04:00 97.4 74 20 142/62 (88) 94 12/12/18 00:00 98.0 76 24 155/77 (103) 94 Intake and Output 12/11/18 12/12/18 19:00 07:00 Intake Total 480 ml Output Total 800 ml Balance -320 ml Intake Oral 480 ml Output Urine Total 800 ml # Voids 2 3 Objective General Appearance: WD/WN HEENT: normocephalic, atraumatic Respiratory/Chest: chest wall non-tender, lungs clear Cardiovascular: normal peripheral pulses, normal rate Abdomen: normal bowel sounds, soft, non tender Genitourinary: normal external genitalia Extremities: no clubbing Skin: no rash, no ulcers Neurologic/Psychiatric: accounting supervisor II-XII grossly normal Musculoskeletal: normal muscle bulk Laboratory Tests 12/12/18 06:00: White Blood Count 5.5, Red Blood Count 4.06L, Hemoglobin 12.3, Hematocrit 39.5, Mean Corpuscular Volume 97, Mean Corpuscular Hemoglobin 30.2, Mean Corpuscular Hemoglobin Concent 31.1L, Red Cell Distribution Width 14.2, Platelet Count 117L , Mean Platelet Volume 5.9L, Neutrophils (%) (Auto) , Lymphocytes (%) (Auto) , Monocytes (%) (Auto) , Eosinophils (%) (Auto) , Basophils (%) (Auto) , Differential Total Cells Counted 100, Neutrophils % (Manual) 41L, Lymphocytes % (Manual) 52H, Monocytes % (Manual) 6, Eosinophils % (Manual) 1, Basophils % ( Manual) 0, Band Neutrophils 0, Platelet Estimate DecreasedL, Platelet Morphology Normal, Hypochromasia 1+, Sodium Level 142, Potassium Level 3.9, Chloride Level 103, Carbon Dioxide Level 38H, Anion Gap 1L, Blood Urea Nitrogen 21H, Creatinine 0.4L, Estimat Glomerular Filtration Rate , Glucose Level 81, Calcium Level 9.6 Current Medications Medications (Trade) Dose Ordered Sig/Desire Route PRN Reason Start Time Stop Time Status Last Admin Dose Admin Acetaminophen (Tylenol) 650 mg Q4H PRN ORAL Mild Pain/Temp > 101 12/08/18 20:45 01/07/19 20:44 12/12/18 00:57 Amlodipine Besylate (Norvasc) 10 mg DAILY ORAL 12/09/18 09:00 01/08/19 08:59 12/12/18 08:19 Aspirin (Ecotrin) 81 mg DAILY ORAL 12/09/18 09:00 01/08/19 08:59 12/12/18 08:18 Bisacodyl (Dulcolax) 10 mg DAILYPRN PRN RECTAL Constipation 12/08/18 20:45 01/07/19 20:44 Dextrose (Dextrose 50%) 25 ml Q30M PRN IV Hypoglycemia 12/09/18 12:30 01/08/19 12:16 Dextrose (Dextrose 50%) 50 ml Q30M PRN IV hypoglycemia 12/09/18 12:30 01/08/19 12:29 Divalproex Sodium (Depakote ER) 1,000 mg EVERY 12 HOURS ORAL 12/08/18 21:00 01/07/19 20:59 12/12/18 20:13 Docusate Sodium (Colace) 100 mg DAILY ORAL 12/09/18 09:00 01/08/19 08:59 12/12/18 08:22 Gabapentin (Neurontin) 100 mg THREE TIMES A DAY ORAL 12/09/18 09:00 01/08/19 08:59 12/12/18 17:55 Ibuprofen (Advil) 400 mg BID ORAL 12/09/18 09:00 01/08/19 08:59 12/12/18 17:56 Insulin Aspart (NovoLOG) BEFORE MEALS AND HS SUBQ 12/09/18 16:30 01/08/19 16:29 12/12/18 20:14 Lorazepam (Ativan) 1 mg BID PRN ORAL For Anxiety 12/10/18 22:30 12/17/18 22:29 12/12/18 21:36 Magnesium Hydroxide (Mom) 30 ml QHS PRN ORAL constipation 12/08/18 20:45 01/07/19 20:44 Meloxicam (Mobic) 3.75 mg DAILY ORAL 12/09/18 09:00 01/08/19 08:59 12/12/18 08:22 Mirtazapine (Remeron) 7.5 mg BEDTIME ORAL 12/08/18 21:00 01/07/19 20:59 12/12/18 20:13 Risperidone (RisperDAL) 2 mg BID ORAL 12/09/18 09:00 01/08/19 08:59 12/12/18 17:55 Bertram Jesus MD Dec 12, 2018 22:07
[2018-12-13] VITALS: BP 118/71
[2018-12-13 04:00] VITALS: BP 128/64
[2018-12-13] MEDS: NovoLOG Insulin Flexpen SUBQ SCH ×4 (06:30→20:22)
--- NOTE | 2018-12-13 07:22 | NUR ---
HAND-OFF: Report given to Fabby ROMERO.
--- NOTE | 2018-12-13 07:26 | NUR ---
NURSE NOTES: received pt in bed, awake, calm, in room air, no respiratory distress noted. RAC IV access. Call light within easy reach, siderails upx3 and padded, bed locked at the lowest position possible, on bed alarm. Will continue to monitor pt and follow up with the plan of care.
[2018-12-13 07:51] LABS: HEMOGLOBIN 13.3 G/DL (12.0-16.0); MEAN CORPUSCULAR VOLUME 96 FL (80-99); PLATELET COUNT 108 K/UL (150-450); RED BLOOD COUNT 4.39 M/UL (4.20-5.40); RED CELL DISTRIBUTION WIDTH 14.2 % (11.6-14.8)
[2018-12-13 08:00] VITALS: BP 127/77
[2018-12-13] MEDS: Depakote ER 500mg tab ORAL SCH ×2 (08:12→20:16)
[2018-12-13] MEDS: Docusate 100mg cap ORAL SCH ×2 (08:13→08:22)
[2018-12-13] MEDS: Aspirin EC 81mg tab ORAL SCH (08:13)
[2018-12-13 08:34] LABS: ANION GAP 3 mmol/L (5-15); BLOOD UREA NITROGEN 14 mg/dL (7-18); CALCIUM 9.8 MG/DL (8.5-10.1); CARBON DIOXIDE 37 MMOL/L (21-32); CHLORIDE 102 MMOL/L (98-107); CREATININE 0.5 MG/DL (0.55-1.30); SODIUM 142 MMOL/L (136-145)
--- NOTE | 2018-12-13 08:34 | General Progress Note ---
Assessment/Plan Problem List: (1) UTI (urinary tract infection) ICD Codes: N39.0 - Urinary tract infection, site not specified SNOMED: 96777011 (2) History of seizure ICD Codes: Z87.898 - Personal history of other specified conditions SNOMED: 379687514 (3) Schizo-affective schizophrenia ICD Codes: F25.0 - Schizoaffective disorder, bipolar type SNOMED: 276874486 (4) Diabetes mellitus ICD Codes: E11.9 - Type 2 diabetes mellitus without complications SNOMED: 17947676 (5) HTN (hypertension) ICD Codes: I10 - HTN (hypertension) SNOMED: 86825532 (6) Epileptic seizure, generalized ICD Codes: G40.909 - Epilepsy, unspecified, not intractable, without status epilepticus SNOMED: 91898098 (7) Aspiration pneumonia ICD Codes: J69.0 - Pneumonitis due to inhalation of food and vomit SNOMED: 171835238 (8) Hepatic encephalopathy ICD Codes: K72.90 - Hepatic failure, unspecified without coma SNOMED: 02425320 (9) Acute encephalopathy ICD Codes: G93.40 - Encephalopathy, unspecified SNOMED: 2484334 Status: stable, progressing Assessment/Plan: pt ot diet abx cbc bmp am psyc transfer Subjective Constitutional: Reports: weakness Allergies: Coded Allergies: BENZOCAINE (Unverified Allergy, Unknown, 07/21/14) PENICILLINS (Unverified Allergy, Unknown, 07/21/14) QUETIAPINE (Unverified Allergy, Unknown, 07/21/14) All Systems: reviewed and negative except above Subjective calm in bed Objective Last 24 Hour Vital Signs Date Time Temp Pulse Resp B/P (MAP) Pulse Ox O2 Delivery O2 Flow Rate FiO2 12/13/18 08:12 84 127/77 12/13/18 08:00 97.5 84 16 127/77 (94) 96 12/13/18 04:00 97.8 79 19 128/64 (85) 98 12/13/18 00:00 98.4 79 19 118/71 (87) 95 12/12/18 23:46 98.4 12/12/18 21:00 Room Air 12/12/18 20:00 98.4 83 19 131/64 (86) 94 12/12/18 18:26 98.1 12/12/18 16:00 98.1 93 19 116/55 (75) 94 12/12/18 12:00 97.8 78 19 141/72 (95) 98 12/12/18 09:00 Nasal Cannula 2.0 Intake and Output 12/12/18 12/13/18 19:00 07:00 Intake Total 480 ml 480 ml Balance 480 ml 480 ml Intake Oral 480 ml 480 ml # Voids 6 4 # Bowel Movements 2 1 Laboratory Tests 12/13/18 06:25: White Blood Count 6.0, Red Blood Count 4.39, Hemoglobin 13.3, Hematocrit 42.0, Mean Corpuscular Volume 96, Mean Corpuscular Hemoglobin 30.4, Mean Corpuscular Hemoglobin Concent 31.7L, Red Cell Distribution Width 14.2, Platelet Count 108L , Mean Platelet Volume 6.3L, Neutrophils (%) (Auto) , Lymphocytes (%) (Auto) , Monocytes (%) (Auto) , Eosinophils (%) (Auto) , Basophils (%) (Auto) , Neutrophils % (Manual) [Pending], Lymphocytes % (Manual) [Pending], Platelet Estimate [Pending], Platelet Morphology [Pending] 12/13/18 06:48: Sodium Level [Pending], Potassium Level [Pending], Chloride Level [Pending], Carbon Dioxide Level [Pending], Blood Urea Nitrogen [Pending], Creatinine [ Pending], Estimat Glomerular Filtration Rate [Pending], Glucose Level [Pending] , Calcium Level [Pending] Height (Feet): 5 Height (Inches): 6.00 Weight (Pounds): 179 General Appearance: lethargic, confused EENT: normal ENT inspection Neck: normal alignment Cardiovascular: normal peripheral pulses, normal rate, regular rhythm Respiratory/Chest: chest wall non-tender, lungs clear, normal breath sounds Abdomen: normal bowel sounds, non tender, soft Extremities: normal inspection Edema: no edema noted Arm (L), no edema noted Arm (R), no edema noted Leg (L), no edema noted Leg (R), no edema noted Pedal (L), no edema noted Pedal (R), no edema noted Generalized Neurologic: motor weakness Skin: normal pigmentation, warm/dry Maninder Ramsey DO Dec 13, 2018 08:34
[2018-12-13 12:00] VITALS: BP 128/77
--- NOTE | 2018-12-13 12:22 | Hematology/Onc Progress Note ---
Assessment/Plan Assessment/Plan Assessment and Recs: # Thrombocytopenia - potential causes multifactorial, evaluate liver and viral etiologies to begin, also could be related to underlying medications patient has received. --> Hep panel and HIv are negative --> US abd shows no hsm/cirrhosis --> Peripheral smear ordered to evaluate for blasts /schistocytes is negative --> abx and other meds have been reviewed (currently off abx) --> ok for ppx if plt >50k w/ either heparin or lovenox --> Transfuse if Plt < 20k and fever, or if Plt < 10k without fever --> psych meds reviewed as well --> plt trend 131-->124-->121-->108k # Anemia of chronic disease due to underlying chronic medical issues, multifactorial --> Anemia workup has been ordered, rule out gi bleed --> No evidence of hemolysis is noted, peripheral smear has been reviewed. --> Hgb goal >7. Transfuse prn. --> Epogen or iron at this time is not particularly indicated --> Medications have been reviewed --> low threshold for gi evaluation in case has occult + --> trend hgb 11.9-->12 # Elevated tumor markers in 2017, reviewed labs --> CEA 7-->9.7 and afp12--> 10.5 --> these are essentially unchanged # Acute encephalopathy with altered mental status --> psych eval prn --> rx uti with CTX # Acute cystitis without hematuria The timing of this note does not necessarily reflect the time of the patient was seen. GREATLY APPRECIATE CONSULTATION. Subjective Constitutional: Denies: no symptoms, chills, fever, malaise, weakness, other HEENT: Denies: no symptoms, eye pain, blurred vision, tearing, double vision, ear pain, ear discharge, nose pain, nose congestion, throat pain, throat swelling, mouth pain, mouth swelling, other Respiratory: Denies: no symptoms, cough, shortness of breath, SOB with excertion, SOB at rest, sputum, wheezing, other Gastrointestinal/Abdominal: Denies: no symptoms, abdomen distended, abdominal pain, black stools, tarry stools, blood in stool, constipated, diarrhea, difficulty swallowing, nausea, poor appetite, poor fluid intake, rectal bleeding , vomiting, other Genitourinary: Denies: no symptoms, burning, discharge, frequency, flank pain, hematuria, incontinence, pain, urgency, other Neurologic/Psychiatric: Denies: no symptoms, anxiety, depressed, emotional problems, headache, numbness, paresthesia, pre-existing deficit, seizure, tingling, tremors, weakness, other Endocrine: Denies: no symptoms, excessive sweating, flushing, intolerance to cold, intolerance to heat, increased hunger, increased thirst, increased urine, unexplained weight gain, unexplained weight loss, other Allergies: Coded Allergies: BENZOCAINE (Unverified Allergy, Unknown, 07/21/14) PENICILLINS (Unverified Allergy, Unknown, 07/21/14) QUETIAPINE (Unverified Allergy, Unknown, 07/21/14) Subjective 12/10: awake, confused, on nc, labs reviewed 12/11: remains awake and confused, nc 2L, afebrile 12/13: no bleedng, no chills, no night sweats, no major changes, no distress Objective Objective Current Medications Medications (Trade) Dose Ordered Sig/Desire Route PRN Reason Start Time Stop Time Status Last Admin Dose Admin Acetaminophen (Tylenol) 650 mg Q4H PRN ORAL Mild Pain/Temp > 101 12/08/18 20:45 01/07/19 20:44 12/12/18 23:16 Amlodipine Besylate (Norvasc) 10 mg DAILY ORAL 12/09/18 09:00 01/08/19 08:59 12/13/18 08:12 Aspirin (Ecotrin) 81 mg DAILY ORAL 12/09/18 09:00 01/08/19 08:59 12/13/18 08:13 Bisacodyl (Dulcolax) 10 mg DAILYPRN PRN RECTAL Constipation 12/08/18 20:45 01/07/19 20:44 Dextrose (Dextrose 50%) 25 ml Q30M PRN IV Hypoglycemia 12/09/18 12:30 01/08/19 12:16 Dextrose (Dextrose 50%) 50 ml Q30M PRN IV hypoglycemia 12/09/18 12:30 01/08/19 12:29 Divalproex Sodium (Depakote ER) 1,000 mg EVERY 12 HOURS ORAL 12/08/18 21:00 01/07/19 20:59 12/13/18 08:12 Docusate Sodium (Colace) 100 mg DAILY ORAL 12/09/18 09:00 01/08/19 08:59 12/12/18 08:22 Gabapentin (Neurontin) 100 mg THREE TIMES A DAY ORAL 12/09/18 09:00 01/08/19 08:59 12/13/18 08:12 Ibuprofen (Advil) 400 mg BID ORAL 12/09/18 09:00 01/08/19 08:59 12/13/18 08:14 Insulin Aspart (NovoLOG) BEFORE MEALS AND HS SUBQ 12/09/18 16:30 01/08/19 16:29 12/12/18 20:14 Lorazepam (Ativan) 1 mg BID PRN ORAL For Anxiety 12/10/18 22:30 12/17/18 22:29 12/12/18 21:36 Magnesium Hydroxide (Mom) 30 ml QHS PRN ORAL constipation 12/08/18 20:45 01/07/19 20:44 Meloxicam (Mobic) 3.75 mg DAILY ORAL 12/09/18 09:00 01/08/19 08:59 12/13/18 08:15 Mirtazapine (Remeron) 7.5 mg BEDTIME ORAL 12/08/18 21:00 01/07/19 20:59 12/12/18 20:13 Risperidone (RisperDAL) 2 mg BID ORAL 12/09/18 09:00 01/08/19 08:59 12/13/18 08:13 Last 24 Hour Vital Signs Date Time Temp Pulse Resp B/P (MAP) Pulse Ox O2 Delivery O2 Flow Rate FiO2 12/13/18 12:00 97.6 78 18 128/77 (94) 96 12/13/18 09:00 Room Air 12/13/18 08:44 97.5 12/13/18 08:12 84 127/77 12/13/18 08:00 97.5 84 16 127/77 (94) 96 12/13/18 04:00 97.8 79 19 128/64 (85) 98 12/13/18 00:00 98.4 79 19 118/71 (87) 95 12/12/18 23:46 98.4 12/12/18 21:00 Room Air 12/12/18 20:00 98.4 83 19 131/64 (86) 94 12/12/18 16:00 98.1 93 19 116/55 (75) 94 12/12/18 12:00 97.8 78 19 141/72 (95) 98 12/12/18 09:00 Nasal Cannula 2.0 12/12/18 08:19 81 131/75 12/12/18 08:00 97.5 81 19 131/75 (93) 96 12/12/18 04:00 97.4 74 20 142/62 (88) 94 12/12/18 00:00 98.0 76 24 155/77 (103) 94 12/11/18 21:00 Nasal Cannula 2.0 12/11/18 20:00 97.8 69 24 108/54 (72) 94 12/11/18 16:00 97.5 78 20 139/63 (88) 99 Intake and Output 12/12/18 12/13/18 19:00 07:00 Intake Total 480 ml 480 ml Balance 480 ml 480 ml Intake Oral 480 ml 480 ml # Voids 6 4 # Bowel Movements 2 1 Labs Test 12/12/18 06:00 12/13/18 06:25 12/13/18 06:48 White Blood Count 5.5 K/UL (4.8-10.8) 6.0 K/UL (4.8-10.8) Red Blood Count 4.06 M/UL (4.20-5.40) 4.39 M/UL (4.20-5.40) Hemoglobin 12.3 G/DL (12.0-16.0) 13.3 G/DL (12.0-16.0) Hematocrit 39.5 % (37.0-47.0) 42.0 % (37.0-47.0) Mean Corpuscular Volume 97 FL (80-99) 96 FL (80-99) Mean Corpuscular Hemoglobin 30.2 PG (27.0-31.0) 30.4 PG (27.0-31.0) Mean Corpuscular Hemoglobin Concent 31.1 G/DL (32.0-36.0) 31.7 G/DL (32.0-36.0) Red Cell Distribution Width 14.2 % (11.6-14.8) 14.2 % (11.6-14.8) Platelet Count 117 K/UL (150-450) 108 K/UL (150-450) Mean Platelet Volume 5.9 FL (6.5-10.1) 6.3 FL (6.5-10.1) Neutrophils (%) (Auto) % (45.0-75.0) % (45.0-75.0) Lymphocytes (%) (Auto) % (20.0-45.0) % (20.0-45.0) Monocytes (%) (Auto) % (1.0-10.0) % (1.0-10.0) Eosinophils (%) (Auto) % (0.0-3.0) % (0.0-3.0) Basophils (%) (Auto) % (0.0-2.0) % (0.0-2.0) Differential Total Cells Counted 100 100 Neutrophils % (Manual) 41 % (45-75) 39 % (45-75) Lymphocytes % (Manual) 52 % (20-45) 48 % (20-45) Monocytes % (Manual) 6 % (1-10) 12 % (1-10) Eosinophils % (Manual) 1 % (0-3) 1 % (0-3) Basophils % (Manual) 0 % (0-2) 0 % (0-2) Band Neutrophils 0 % (0-8) 0 % (0-8) Platelet Estimate Decreased Decreased Platelet Morphology Normal Normal Hypochromasia 1+ Sodium Level 142 MMOL/L (136-145) 142 MMOL/L (136-145) Potassium Level 3.9 MMOL/L (3.5-5.1) 4.0 MMOL/L (3.5-5.1) Chloride Level 103 MMOL/L (98-107) 102 MMOL/L (98-107) Carbon Dioxide Level 38 MMOL/L (21-32) 37 MMOL/L (21-32) Anion Gap 1 mmol/L (5-15) 3 mmol/L (5-15) Blood Urea Nitrogen 21 mg/dL (7-18) 14 mg/dL (7-18) Creatinine 0.4 MG/DL (0.55-1.30) 0.5 MG/DL (0.55-1.30) Estimat Glomerular Filtration Rate mL/min (>60) mL/min (>60) Glucose Level 81 MG/DL (74-106) 85 MG/DL (74-106) Calcium Level 9.6 MG/DL (8.5-10.1) 9.8 MG/DL (8.5-10.1) Red Blood Cell Morphology Normal Anisocytosis Height (Feet): 5 Height (Inches): 6.00 Weight (Pounds): 179 Objective Physical Exam: Vitals: reviewed General Appearance: NAD HEENT: normocephalic, atraumatic Neck: non-tender, normal alignment Respiratory/Chest: normal breath sounds bilaterally Cardiovascular/Chest: normal peripheral pulses, normal rate Abdomen: normal bowel sounds, soft Cirilo Del Castillo MD Dec 13, 2018 12:22
--- NOTE | 2018-12-13 13:31 | Cardiology Report ---
APPROVED REPORT EKG Measurement Heart [id number] [place] [id number] [id number] Normal sinus rhythm Possible Inferior infarct, age undetermined Abnormal ECG
[2018-12-13 16:00] VITALS: BP 108/69
--- NOTE | 2018-12-13 17:54 | Infectious Diseases Prog Note ---
Assessment/Plan Assessment/Plan Assessment: Afebrile No leukocytosis Pyuria/bacteriuria- ?UTI, sp rx -u.a wbc tnct, nit +, leuk +3; ucx >100k E.coli ( R cipro/levo, bactrim) Altered mental status schizoaffective disorder AOCD CODP Dm2 GERD polyneuropathy seizure disorder HTN Plan: -Continue to monitor off abx -12/10 SP Ceftriaxone #3 -f/u cx -Monitor CBC/CMP, temperatures Thank you for this consultation. Will continue to follow along with you. Discussed with RN Subjective Allergies: Coded Allergies: BENZOCAINE (Unverified Allergy, Unknown, 07/21/14) PENICILLINS (Unverified Allergy, Unknown, 07/21/14) QUETIAPINE (Unverified Allergy, Unknown, 07/21/14) Subjective afebrile no leukocytosis Bcx NTD Objective Vital Signs Last 24 Hour Vital Signs Date Time Temp Pulse Resp B/P (MAP) Pulse Ox O2 Delivery O2 Flow Rate FiO2 12/13/18 16:00 97.7 83 17 108/69 (82) 95 12/13/18 12:00 97.6 78 18 128/77 (94) 96 12/13/18 09:00 Room Air 12/13/18 08:44 97.5 12/13/18 08:12 84 127/77 12/13/18 08:00 97.5 84 16 127/77 (94) 96 12/13/18 04:00 97.8 79 19 128/64 (85) 98 12/13/18 00:00 98.4 79 19 118/71 (87) 95 12/12/18 23:46 98.4 12/12/18 21:00 Room Air 12/12/18 20:00 98.4 83 19 131/64 (86) 94 Height (Feet): 5 Height (Inches): 6.00 Weight (Pounds): 179 Objective General Appearance: NAD HEENT: normocephalic, atraumatic Neck: non-tender, normal alignment Respiratory/Chest: normal breath sounds bilaterally Cardiovascular/Chest: normal peripheral pulses, normal rate Abdomen: normal bowel sounds, soft, Laboratory Tests Test 12/13/18 06:25 12/13/18 06:48 White Blood Count 6.0 K/UL (4.8-10.8) Red Blood Count 4.39 M/UL (4.20-5.40) Hemoglobin 13.3 G/DL (12.0-16.0) Hematocrit 42.0 % (37.0-47.0) Mean Corpuscular Volume 96 FL (80-99) Mean Corpuscular Hemoglobin 30.4 PG (27.0-31.0) Mean Corpuscular Hemoglobin Concent 31.7 G/DL (32.0-36.0) L Red Cell Distribution Width 14.2 % (11.6-14.8) Platelet Count 108 K/UL (150-450) L Mean Platelet Volume 6.3 FL (6.5-10.1) L Neutrophils (%) (Auto) % (45.0-75.0) Lymphocytes (%) (Auto) % (20.0-45.0) Monocytes (%) (Auto) % (1.0-10.0) Eosinophils (%) (Auto) % (0.0-3.0) Basophils (%) (Auto) % (0.0-2.0) Differential Total Cells Counted 100 Neutrophils % (Manual) 39 % (45-75) L Lymphocytes % (Manual) 48 % (20-45) H Monocytes % (Manual) 12 % (1-10) H Eosinophils % (Manual) 1 % (0-3) Basophils % (Manual) 0 % (0-2) Band Neutrophils 0 % (0-8) Platelet Estimate Decreased L Platelet Morphology Normal Red Blood Cell Morphology Normal Anisocytosis Sodium Level 142 MMOL/L (136-145) Potassium Level 4.0 MMOL/L (3.5-5.1) Chloride Level 102 MMOL/L (98-107) Carbon Dioxide Level 37 MMOL/L (21-32) H Anion Gap 3 mmol/L (5-15) L Blood Urea Nitrogen 14 mg/dL (7-18) Creatinine 0.5 MG/DL (0.55-1.30) L Estimat Glomerular Filtration Rate mL/min (>60) Glucose Level 85 MG/DL (74-106) Calcium Level 9.8 MG/DL (8.5-10.1) Current Medications Medications (Trade) Dose Ordered Sig/Desire Route PRN Reason Start Time Stop Time Status Last Admin Dose Admin Acetaminophen (Tylenol) 650 mg Q4H PRN ORAL Mild Pain/Temp > 101 12/08/18 20:45 01/07/19 20:44 12/12/18 23:16 Amlodipine Besylate (Norvasc) 10 mg DAILY ORAL 12/09/18 09:00 01/08/19 08:59 12/13/18 08:12 Aspirin (Ecotrin) 81 mg DAILY ORAL 12/09/18 09:00 01/08/19 08:59 12/13/18 08:13 Bisacodyl (Dulcolax) 10 mg DAILYPRN PRN RECTAL Constipation 12/08/18 20:45 01/07/19 20:44 Dextrose (Dextrose 50%) 25 ml Q30M PRN IV Hypoglycemia 12/09/18 12:30 01/08/19 12:16 Dextrose (Dextrose 50%) 50 ml Q30M PRN IV hypoglycemia 12/09/18 12:30 01/08/19 12:29 Divalproex Sodium (Depakote ER) 1,000 mg EVERY 12 HOURS ORAL 12/08/18 21:00 01/07/19 20:59 12/13/18 08:12 Docusate Sodium (Colace) 100 mg DAILY ORAL 12/09/18 09:00 01/08/19 08:59 12/12/18 08:22 Gabapentin (Neurontin) 100 mg THREE TIMES A DAY ORAL 12/09/18 09:00 01/08/19 08:59 12/13/18 13:13 Ibuprofen (Advil) 400 mg BID ORAL 12/09/18 09:00 01/08/19 08:59 12/13/18 08:14 Insulin Aspart (NovoLOG) BEFORE MEALS AND HS SUBQ 12/09/18 16:30 01/08/19 16:29 12/12/18 20:14 Lorazepam (Ativan) 1 mg BID PRN ORAL For Anxiety 12/10/18 22:30 12/17/18 22:29 12/12/18 21:36 Magnesium Hydroxide (Mom) 30 ml QHS PRN ORAL constipation 12/08/18 20:45 01/07/19 20:44 Meloxicam (Mobic) 3.75 mg DAILY ORAL 12/09/18 09:00 01/08/19 08:59 12/13/18 08:15 Mirtazapine (Remeron) 7.5 mg BEDTIME ORAL 12/08/18 21:00 01/07/19 20:59 12/12/18 20:13 Risperidone (RisperDAL) 2 mg BID ORAL 12/09/18 09:00 01/08/19 08:59 12/13/18 08:13 Mariaelena Murray M.D. Dec 13, 2018 17:54
--- NOTE | 2018-12-13 19:06 | NUR ---
HAND-OFF: Report given to NICK Pool
--- NOTE | 2018-12-13 19:31 | Pulmonology Progress Note ---
Assessment/Plan Problems: (1) Acute encephalopathy (2) UTI (urinary tract infection) (3) Schizo-affective schizophrenia (4) History of seizure (5) Diabetes mellitus Assessment/Plan afebrile c/o back pain cultures reviewed no new complains continue current regimen Subjective ROS Limited/Unobtainable: No Constitutional: Reports: no symptoms HEENT: Repors: no symptoms Allergies: Coded Allergies: BENZOCAINE (Unverified Allergy, Unknown, 07/21/14) PENICILLINS (Unverified Allergy, Unknown, 07/21/14) QUETIAPINE (Unverified Allergy, Unknown, 07/21/14) Objective Last 24 Hour Vital Signs Date Time Temp Pulse Resp B/P (MAP) Pulse Ox O2 Delivery O2 Flow Rate FiO2 12/13/18 16:00 97.7 83 17 108/69 (82) 95 12/13/18 12:00 97.6 78 18 128/77 (94) 96 12/13/18 09:00 Room Air 12/13/18 08:44 97.5 12/13/18 08:12 84 127/77 12/13/18 08:00 97.5 84 16 127/77 (94) 96 12/13/18 04:00 97.8 79 19 128/64 (85) 98 12/13/18 00:00 98.4 79 19 118/71 (87) 95 12/12/18 23:46 98.4 12/12/18 21:00 Room Air 12/12/18 20:00 98.4 83 19 131/64 (86) 94 Intake and Output 12/12/18 12/13/18 18:59 06:59 Intake Total 480 ml 480 ml Balance 480 ml 480 ml Intake Oral 480 ml 480 ml # Voids 6 4 # Bowel Movements 2 1 Objective General Appearance: WD/WN HEENT: normocephalic, atraumatic Respiratory/Chest: chest wall non-tender, lungs clear Cardiovascular: normal peripheral pulses, normal rate Abdomen: normal bowel sounds, soft, non tender Genitourinary: normal external genitalia Extremities: no clubbing Skin: no rash, no ulcers Neurologic/Psychiatric: ct mri technologist II-XII grossly normal Musculoskeletal: normal muscle bulk Laboratory Tests 12/13/18 06:25: White Blood Count 6.0, Red Blood Count 4.39, Hemoglobin 13.3, Hematocrit 42.0, Mean Corpuscular Volume 96, Mean Corpuscular Hemoglobin 30.4, Mean Corpuscular Hemoglobin Concent 31.7L, Red Cell Distribution Width 14.2, Platelet Count 108L , Mean Platelet Volume 6.3L, Neutrophils (%) (Auto) , Lymphocytes (%) (Auto) , Monocytes (%) (Auto) , Eosinophils (%) (Auto) , Basophils (%) (Auto) , Differential Total Cells Counted 100, Neutrophils % (Manual) 39L, Lymphocytes % (Manual) 48H, Monocytes % (Manual) 12H, Eosinophils % (Manual) 1, Basophils % ( Manual) 0, Band Neutrophils 0, Platelet Estimate DecreasedL, Platelet Morphology Normal, Red Blood Cell Morphology Normal, Anisocytosis 12/13/18 06:48: Sodium Level 142, Potassium Level 4.0, Chloride Level 102, Carbon Dioxide Level 37H, Anion Gap 3L, Blood Urea Nitrogen 14, Creatinine 0.5L, Estimat Glomerular Filtration Rate , Glucose Level 85, Calcium Level 9.8 Current Medications Medications (Trade) Dose Ordered Sig/Desire Route PRN Reason Start Time Stop Time Status Last Admin Dose Admin Acetaminophen (Tylenol) 650 mg Q4H PRN ORAL Mild Pain/Temp > 101 12/08/18 20:45 01/07/19 20:44 12/12/18 23:16 Amlodipine Besylate (Norvasc) 10 mg DAILY ORAL 12/09/18 09:00 01/08/19 08:59 12/13/18 08:12 Aspirin (Ecotrin) 81 mg DAILY ORAL 12/09/18 09:00 01/08/19 08:59 12/13/18 08:13 Bisacodyl (Dulcolax) 10 mg DAILYPRN PRN RECTAL Constipation 12/08/18 20:45 01/07/19 20:44 Dextrose (Dextrose 50%) 25 ml Q30M PRN IV Hypoglycemia 12/09/18 12:30 01/08/19 12:16 Dextrose (Dextrose 50%) 50 ml Q30M PRN IV hypoglycemia 12/09/18 12:30 01/08/19 12:29 Divalproex Sodium (Depakote ER) 1,000 mg EVERY 12 HOURS ORAL 12/08/18 21:00 01/07/19 20:59 12/13/18 08:12 Docusate Sodium (Colace) 100 mg DAILY ORAL 12/09/18 09:00 01/08/19 08:59 12/12/18 08:22 Gabapentin (Neurontin) 100 mg THREE TIMES A DAY ORAL 12/09/18 09:00 01/08/19 08:59 12/13/18 19:11 Ibuprofen (Advil) 400 mg BID ORAL 12/09/18 09:00 01/08/19 08:59 12/13/18 19:11 Insulin Aspart (NovoLOG) BEFORE MEALS AND HS SUBQ 12/09/18 16:30 01/08/19 16:29 12/12/18 20:14 Lorazepam (Ativan) 1 mg BID PRN ORAL For Anxiety 12/10/18 22:30 12/17/18 22:29 12/12/18 21:36 Magnesium Hydroxide (Mom) 30 ml QHS PRN ORAL constipation 12/08/18 20:45 01/07/19 20:44 Meloxicam (Mobic) 3.75 mg DAILY ORAL 12/09/18 09:00 01/08/19 08:59 12/13/18 08:15 Mirtazapine (Remeron) 7.5 mg BEDTIME ORAL 12/08/18 21:00 01/07/19 20:59 12/12/18 20:13 Risperidone (RisperDAL) 2 mg BID ORAL 12/09/18 09:00 01/08/19 08:59 12/13/18 19:11 Bertram Jesus MD Dec 13, 2018 19:31
--- NOTE | 2018-12-13 19:47 | NUR ---
NURSE NOTES: Received patient in bed, awake, confused, oriented x2. IV site is clean dry and intact, no acute distress at this time, VSS, afebrile. Call light within reach, bed is lowered, locked and alarm is on. Will continue to monitor for safety and comfort.
[2018-12-13 20:00] VITALS: BP 115/63
[2018-12-14] VITALS: BP 121/54
[2018-12-14 04:00] VITALS: BP 107/51
[2018-12-14] MEDS: NovoLOG Insulin Flexpen SUBQ SCH ×4 (06:19→21:02)
--- NOTE | 2018-12-14 07:00 | NUR ---
HAND-OFF: Report given to Fabby ROMERO.
[2018-12-14 07:13] LABS: HEMATOCRIT 40.9 % (37.0-47.0); HEMOGLOBIN 12.7 G/DL (12.0-16.0); MEAN CORPUSCULAR VOLUME 97 FL (80-99); PLATELET COUNT 90 K/UL (150-450); RED BLOOD COUNT 4.22 M/UL (4.20-5.40); RED CELL DISTRIBUTION WIDTH 14.7 % (11.6-14.8); WHITE BLOOD COUNT 5.5 K/UL (4.8-10.8)
[2018-12-14 07:25] LABS: ANION GAP 3 mmol/L (5-15); BLOOD UREA NITROGEN 24 mg/dL (7-18); CALCIUM 9.6 MG/DL (8.5-10.1); CARBON DIOXIDE 37 MMOL/L (21-32); CHLORIDE 105 MMOL/L (98-107); CREATININE 0.6 MG/DL (0.55-1.30); POTASSIUM 3.9 MMOL/L (3.5-5.1); SODIUM 145 MMOL/L (136-145)
--- NOTE | 2018-12-14 07:30 | NUR ---
NURSE NOTES: received pt in bed, asleep, no respiratory distress noted. RAC IV access saline locked. Call light within easy reach, siderails upx3 and padded, bed locked at the lowest position possible, on bed alarm. Will continue to monitor pt and follow up with the plan of care.
[2018-12-14 08:00] VITALS: BP 135/72
--- NOTE | 2018-12-14 08:44 | General Progress Note ---
Assessment/Plan Problem List: (1) UTI (urinary tract infection) ICD Codes: N39.0 - Urinary tract infection, site not specified SNOMED: 93718404 (2) History of seizure ICD Codes: Z87.898 - Personal history of other specified conditions SNOMED: 416263320 (3) Schizo-affective schizophrenia ICD Codes: F25.0 - Schizoaffective disorder, bipolar type SNOMED: 621262692 (4) Diabetes mellitus ICD Codes: E11.9 - Type 2 diabetes mellitus without complications SNOMED: 19178093 (5) HTN (hypertension) ICD Codes: I10 - HTN (hypertension) SNOMED: 39622144 (6) Epileptic seizure, generalized ICD Codes: G40.909 - Epilepsy, unspecified, not intractable, without status epilepticus SNOMED: 04947944 (7) Aspiration pneumonia ICD Codes: J69.0 - Pneumonitis due to inhalation of food and vomit SNOMED: 264278361 (8) Hepatic encephalopathy ICD Codes: K72.90 - Hepatic failure, unspecified without coma SNOMED: 63763014 (9) Acute encephalopathy ICD Codes: G93.40 - Encephalopathy, unspecified SNOMED: 6211175 Status: stable, progressing Assessment/Plan: pt ot diet abx cbc bmp am psyc transfer Subjective Constitutional: Reports: weakness Allergies: Coded Allergies: BENZOCAINE (Unverified Allergy, Unknown, 07/21/14) PENICILLINS (Unverified Allergy, Unknown, 07/21/14) QUETIAPINE (Unverified Allergy, Unknown, 07/21/14) All Systems: reviewed and negative except above Subjective calm in bed Objective Last 24 Hour Vital Signs Date Time Temp Pulse Resp B/P (MAP) Pulse Ox O2 Delivery O2 Flow Rate FiO2 12/14/18 04:00 96.8 65 19 107/51 (69) 12/14/18 00:00 97.0 79 19 121/54 (76) 12/13/18 21:11 Room Air 12/13/18 20:00 97.7 78 19 115/63 (80) 12/13/18 16:00 97.7 83 17 108/69 (82) 95 12/13/18 12:00 97.6 78 18 128/77 (94) 96 12/13/18 09:00 Room Air Intake and Output 12/13/18 12/14/18 19:00 07:00 Intake Total 720 ml Balance 720 ml Intake Oral 720 ml # Voids 4 Laboratory Tests 12/14/18 05:46: White Blood Count 5.5, Red Blood Count 4.22, Hemoglobin 12.7, Hematocrit 40.9, Mean Corpuscular Volume 97, Mean Corpuscular Hemoglobin 30.1, Mean Corpuscular Hemoglobin Concent 31.1L, Red Cell Distribution Width 14.7, Platelet Count 90L, Mean Platelet Volume 6.3L, Neutrophils (%) (Auto) , Lymphocytes (%) (Auto) , Monocytes (%) (Auto) , Eosinophils (%) (Auto) , Basophils (%) (Auto) , Neutrophils % (Manual) [Pending], Lymphocytes % (Manual) [Pending], Platelet Estimate [Pending], Platelet Morphology [Pending], Sodium Level 145, Potassium Level 3.9, Chloride Level 105, Carbon Dioxide Level 37H, Anion Gap 3L, Blood Urea Nitrogen 24H, Creatinine 0.6, Estimat Glomerular Filtration Rate , Glucose Level 87, Calcium Level 9.6 Height (Feet): 5 Height (Inches): 6.00 Weight (Pounds): 179 General Appearance: lethargic, confused EENT: normal ENT inspection Neck: normal alignment Cardiovascular: normal peripheral pulses, normal rate, regular rhythm Respiratory/Chest: chest wall non-tender, lungs clear, normal breath sounds Abdomen: normal bowel sounds, non tender, soft Extremities: normal inspection Edema: no edema noted Arm (L), no edema noted Arm (R), no edema noted Leg (L), no edema noted Leg (R), no edema noted Pedal (L), no edema noted Pedal (R), no edema noted Generalized Neurologic: motor weakness Skin: normal pigmentation, warm/dry Maninder Ramsey DO Dec 14, 2018 08:44
[2018-12-14] MEDS: Docusate 100mg cap ORAL SCH (08:49)
[2018-12-14] MEDS: Depakote ER 500mg tab ORAL SCH ×2 (08:51→21:01)
[2018-12-14] MEDS: Aspirin EC 81mg tab ORAL SCH (08:51)
--- NOTE | 2018-12-14 11:43 | Pulmonology Progress Note ---
Assessment/Plan Problems: (1) Acute encephalopathy (2) UTI (urinary tract infection) (3) Schizo-affective schizophrenia (4) History of seizure (5) Diabetes mellitus Assessment/Plan afebrile c/o back pain, wants a back brace cultures reviewed no new complains continue current regimen Subjective ROS Limited/Unobtainable: No Constitutional: Reports: no symptoms HEENT: Repors: no symptoms Respiratory: Reports: no symptoms Allergies: Coded Allergies: BENZOCAINE (Unverified Allergy, Unknown, 07/21/14) PENICILLINS (Unverified Allergy, Unknown, 07/21/14) QUETIAPINE (Unverified Allergy, Unknown, 07/21/14) Objective Last 24 Hour Vital Signs Date Time Temp Pulse Resp B/P (MAP) Pulse Ox O2 Delivery O2 Flow Rate FiO2 12/14/18 09:22 97.2 12/14/18 09:00 Room Air 12/14/18 08:53 71 135/72 12/14/18 08:00 97.2 71 18 135/72 (93) 95 12/14/18 04:00 96.8 65 19 107/51 (69) 12/14/18 00:00 97.0 79 19 121/54 (76) 12/13/18 21:11 Room Air 12/13/18 20:00 97.7 78 19 115/63 (80) 12/13/18 16:00 97.7 83 17 108/69 (82) 95 12/13/18 12:00 97.6 78 18 128/77 (94) 96 Intake and Output 12/13/18 12/14/18 19:00 07:00 Intake Total 720 ml Balance 720 ml Intake Oral 720 ml # Voids 4 Objective General Appearance: WD/WN HEENT: normocephalic, atraumatic Respiratory/Chest: chest wall non-tender, lungs clear Cardiovascular: normal peripheral pulses, normal rate Abdomen: normal bowel sounds, soft, non tender Genitourinary: normal external genitalia Extremities: no clubbing Skin: no rash, no ulcers 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 Musculoskeletal: normal muscle bulk Laboratory Tests 12/14/18 05:46: White Blood Count 5.5, Red Blood Count 4.22, Hemoglobin 12.7, Hematocrit 40.9, Mean Corpuscular Volume 97, Mean Corpuscular Hemoglobin 30.1, Mean Corpuscular Hemoglobin Concent 31.1L, Red Cell Distribution Width 14.7, Platelet Count 90L, Mean Platelet Volume 6.3L, Neutrophils (%) (Auto) , Lymphocytes (%) (Auto) , Monocytes (%) (Auto) , Eosinophils (%) (Auto) , Basophils (%) (Auto) , Differential Total Cells Counted 100, Neutrophils % (Manual) 33L, Lymphocytes % (Manual) 57H, Monocytes % (Manual) 10, Eosinophils % (Manual) 0, Basophils % ( Manual) 0, Band Neutrophils 0, Platelet Estimate DecreasedL, Platelet Morphology Normal, Hypochromasia 1+, Anisocytosis 1+, Sodium Level 145, Potassium Level 3.9, Chloride Level 105, Carbon Dioxide Level 37H, Anion Gap 3L , Blood Urea Nitrogen 24H, Creatinine 0.6, Estimat Glomerular Filtration Rate , Glucose Level 87, Calcium Level 9.6 Current Medications Medications (Trade) Dose Ordered Sig/Desire Route PRN Reason Start Time Stop Time Status Last Admin Dose Admin Acetaminophen (Tylenol) 650 mg Q4H PRN ORAL Mild Pain/Temp > 101 12/08/18 20:45 01/07/19 20:44 12/14/18 05:02 Amlodipine Besylate (Norvasc) 10 mg DAILY ORAL 12/09/18 09:00 01/08/19 08:59 12/14/18 08:53 Aspirin (Ecotrin) 81 mg DAILY ORAL 12/09/18 09:00 01/08/19 08:59 12/14/18 08:51 Bisacodyl (Dulcolax) 10 mg DAILYPRN PRN RECTAL Constipation 12/08/18 20:45 01/07/19 20:44 Dextrose (Dextrose 50%) 25 ml Q30M PRN IV Hypoglycemia 12/09/18 12:30 01/08/19 12:16 Dextrose (Dextrose 50%) 50 ml Q30M PRN IV hypoglycemia 12/09/18 12:30 01/08/19 12:29 Divalproex Sodium (Depakote ER) 1,000 mg EVERY 12 HOURS ORAL 12/08/18 21:00 01/07/19 20:59 12/14/18 08:51 Docusate Sodium (Colace) 100 mg DAILY ORAL 12/09/18 09:00 01/08/19 08:59 12/14/18 08:49 Gabapentin (Neurontin) 100 mg THREE TIMES A DAY ORAL 12/09/18 09:00 01/08/19 08:59 12/14/18 08:49 Ibuprofen (Advil) 400 mg BID ORAL 12/09/18 09:00 01/08/19 08:59 12/14/18 08:52 Insulin Aspart (NovoLOG) BEFORE MEALS AND HS SUBQ 12/09/18 16:30 01/08/19 16:29 12/12/18 20:14 Lorazepam (Ativan) 1 mg BID PRN ORAL For Anxiety 12/10/18 22:30 12/17/18 22:29 12/12/18 21:36 Magnesium Hydroxide (Mom) 30 ml QHS PRN ORAL constipation 12/08/18 20:45 01/07/19 20:44 Meloxicam (Mobic) 3.75 mg DAILY ORAL 12/09/18 09:00 01/08/19 08:59 12/14/18 08:49 Mirtazapine (Remeron) 7.5 mg BEDTIME ORAL 12/08/18 21:00 01/07/19 20:59 12/13/18 20:16 Risperidone (RisperDAL) 2 mg BID ORAL 12/09/18 09:00 01/08/19 08:59 12/14/18 08:48 Bertram Jesus MD Dec 14, 2018 11:43
[2018-12-14 12:00] VITALS: BP 113/90
--- NOTE | 2018-12-14 13:52 | NUR ---
CASE MANAGEMENT: REVIEW 12/14/2018 SI:UTI. ENCEPHALOPATHY. T 97.2 HR 71 RR 18 B/P 135/72 SATS 95% ON RA CO2 37 BUN 24 IS:DEPAKOTE PO Q12H REMERON PO QHS ADVIL PO BID RISPERDAL PO BID ASA PO QD MOBIC PO QD INSULIN ASPART SUBQ AC/HS GABAPENTIN PO TID MED/SURG STATUS
--- NOTE | 2018-12-14 15:47 | Hematology/Onc Progress Note ---
Assessment/Plan Assessment/Plan Assessment and Recs: # Thrombocytopenia - potential causes multifactorial, evaluate liver and viral etiologies to begin, also could be related to underlying medications patient has received. --> Hep panel and HIv are negative --> US abd shows no hsm/cirrhosis --> Peripheral smear ordered to evaluate for blasts /schistocytes is negative --> abx and other meds have been reviewed (currently off abx) --> ok for ppx if plt >50k w/ either heparin or lovenox --> Transfuse if Plt < 20k and fever, or if Plt < 10k without fever --> psych meds reviewed as well --> plt trend 131-->124-->121-->108k->90k # Anemia of chronic disease due to underlying chronic medical issues, multifactorial --> Anemia workup has been ordered, rule out gi bleed --> No evidence of hemolysis is noted, peripheral smear has been reviewed. --> Hgb goal >7. Transfuse prn. --> Epogen or iron at this time is not particularly indicated --> Medications have been reviewed --> low threshold for gi evaluation in case has occult + --> trend hgb 11.9-->12 # Elevated tumor markers in 2017, reviewed labs --> CEA 7-->9.7 and afp12--> 10.5 --> these are essentially stable need to monitor over time SINCe elevated # Acute encephalopathy with altered mental status --> psych eval prn --> rx uti with CTX # Acute cystitis without hematuria The timing of this note does not necessarily reflect the time of the patient was seen. GREATLY APPRECIATE CONSULTATION. Subjective Constitutional: Denies: no symptoms, chills, fever, malaise, weakness, other HEENT: Denies: no symptoms, eye pain, blurred vision, tearing, double vision, ear pain, ear discharge, nose pain, nose congestion, throat pain, throat swelling, mouth pain, mouth swelling, other Cardiovascular: Denies: no symptoms, chest pain, edema, irregular heart rate, lightheadedness, palpitations, syncope, other Respiratory: Denies: no symptoms, cough, shortness of breath, SOB with excertion, SOB at rest, sputum, wheezing, other Gastrointestinal/Abdominal: Denies: no symptoms, abdomen distended, abdominal pain, black stools, tarry stools, blood in stool, constipated, diarrhea, difficulty swallowing, nausea, poor appetite, poor fluid intake, rectal bleeding , vomiting, other Genitourinary: Denies: no symptoms, burning, discharge, frequency, flank pain, hematuria, incontinence, pain, urgency, other Neurologic/Psychiatric: Denies: no symptoms, anxiety, depressed, emotional problems, headache, numbness, paresthesia, pre-existing deficit, seizure, tingling, tremors, weakness, other Allergies: Coded Allergies: BENZOCAINE (Unverified Allergy, Unknown, 07/21/14) PENICILLINS (Unverified Allergy, Unknown, 07/21/14) QUETIAPINE (Unverified Allergy, Unknown, 07/21/14) Subjective 12/10: awake, confused, on nc, labs reviewed 12/11: remains awake and confused, nc 2L, afebrile 12/13: no bleedng, no chills, no night sweats, no major changes, no distress 12/14: no night sweats, no bleeding or chills, plt 90k Objective Objective Current Medications Medications (Trade) Dose Ordered Sig/Desire Route PRN Reason Start Time Stop Time Status Last Admin Dose Admin Acetaminophen (Tylenol) 650 mg Q4H PRN ORAL Mild Pain/Temp > 101 12/08/18 20:45 01/07/19 20:44 12/14/18 05:02 Amlodipine Besylate (Norvasc) 10 mg DAILY ORAL 12/09/18 09:00 01/08/19 08:59 12/14/18 08:53 Aspirin (Ecotrin) 81 mg DAILY ORAL 12/09/18 09:00 01/08/19 08:59 12/14/18 08:51 Bisacodyl (Dulcolax) 10 mg DAILYPRN PRN RECTAL Constipation 12/08/18 20:45 01/07/19 20:44 Dextrose (Dextrose 50%) 25 ml Q30M PRN IV Hypoglycemia 12/09/18 12:30 01/08/19 12:16 Dextrose (Dextrose 50%) 50 ml Q30M PRN IV hypoglycemia 12/09/18 12:30 01/08/19 12:29 Divalproex Sodium (Depakote ER) 1,000 mg EVERY 12 HOURS ORAL 12/08/18 21:00 01/07/19 20:59 12/14/18 08:51 Docusate Sodium (Colace) 100 mg DAILY ORAL 12/09/18 09:00 01/08/19 08:59 12/14/18 08:49 Gabapentin (Neurontin) 100 mg THREE TIMES A DAY ORAL 12/09/18 09:00 01/08/19 08:59 12/14/18 14:58 Ibuprofen (Advil) 400 mg BID ORAL 12/09/18 09:00 01/08/19 08:59 12/14/18 08:52 Insulin Aspart (NovoLOG) BEFORE MEALS AND HS SUBQ 12/09/18 16:30 01/08/19 16:29 12/12/18 20:14 Lorazepam (Ativan) 1 mg BID PRN ORAL For Anxiety 12/10/18 22:30 12/17/18 22:29 12/12/18 21:36 Magnesium Hydroxide (Mom) 30 ml QHS PRN ORAL constipation 12/08/18 20:45 01/07/19 20:44 Meloxicam (Mobic) 3.75 mg DAILY ORAL 12/09/18 09:00 01/08/19 08:59 12/14/18 08:49 Mirtazapine (Remeron) 7.5 mg BEDTIME ORAL 12/08/18 21:00 01/07/19 20:59 12/13/18 20:16 Risperidone (RisperDAL) 2 mg BID ORAL 12/09/18 09:00 01/08/19 08:59 12/14/18 08:48 Last 24 Hour Vital Signs Date Time Temp Pulse Resp B/P (MAP) Pulse Ox O2 Delivery O2 Flow Rate FiO2 12/14/18 12:00 97.5 74 17 113/90 (98) 97 12/14/18 09:22 97.2 12/14/18 09:00 Room Air 12/14/18 08:53 71 135/72 12/14/18 08:00 97.2 71 18 135/72 (93) 95 12/14/18 04:00 96.8 65 19 107/51 (69) 12/14/18 00:00 97.0 79 19 121/54 (76) 12/13/18 21:11 Room Air 12/13/18 20:00 97.7 78 19 115/63 (80) 12/13/18 16:00 97.7 83 17 108/69 (82) 95 12/13/18 12:00 97.6 78 18 128/77 (94) 96 12/13/18 09:00 Room Air 12/13/18 08:12 84 127/77 12/13/18 08:00 97.5 84 16 127/77 (94) 96 12/13/18 04:00 97.8 79 19 128/64 (85) 98 12/13/18 00:00 98.4 79 19 118/71 (87) 95 12/12/18 23:46 98.4 12/12/18 21:00 Room Air 12/12/18 20:00 98.4 83 19 131/64 (86) 94 12/12/18 16:00 98.1 93 19 116/55 (75) 94 Intake and Output 12/13/18 12/14/18 19:00 07:00 Intake Total 720 ml Balance 720 ml Intake Oral 720 ml # Voids 4 Labs Test 12/12/18 06:00 12/13/18 06:25 12/13/18 06:48 12/14/18 05:46 White Blood Count 5.5 K/UL (4.8-10.8) 6.0 K/UL (4.8-10.8) 5.5 K/UL (4.8-10.8) Red Blood Count 4.06 M/UL (4.20-5.40) 4.39 M/UL (4.20-5.40) 4.22 M/UL (4.20-5.40) Hemoglobin 12.3 G/DL (12.0-16.0) 13.3 G/DL (12.0-16.0) 12.7 G/DL (12.0-16.0) Hematocrit 39.5 % (37.0-47.0) 42.0 % (37.0-47.0) 40.9 % (37.0-47.0) Mean Corpuscular Volume 97 FL (80-99) 96 FL (80-99) 97 FL (80-99) Mean Corpuscular Hemoglobin 30.2 PG (27.0-31.0) 30.4 PG (27.0-31.0) 30.1 PG (27.0-31.0) Mean Corpuscular Hemoglobin Concent 31.1 G/DL (32.0-36.0) 31.7 G/DL (32.0-36.0) 31.1 G/DL (32.0-36.0) Red Cell Distribution Width 14.2 % (11.6-14.8) 14.2 % (11.6-14.8) 14.7 % (11.6-14.8) Platelet Count 117 K/UL (150-450) 108 K/UL (150-450) 90 K/UL (150-450) Mean Platelet Volume 5.9 FL (6.5-10.1) 6.3 FL (6.5-10.1) 6.3 FL (6.5-10.1) Neutrophils (%) (Auto) % (45.0-75.0) % (45.0-75.0) % (45.0-75.0) Lymphocytes (%) (Auto) % (20.0-45.0) % (20.0-45.0) % (20.0-45.0) Monocytes (%) (Auto) % (1.0-10.0) % (1.0-10.0) % (1.0-10.0) Eosinophils (%) (Auto) % (0.0-3.0) % (0.0-3.0) % (0.0-3.0) Basophils (%) (Auto) % (0.0-2.0) % (0.0-2.0) % (0.0-2.0) Differential Total Cells Counted 100 100 100 Neutrophils % (Manual) 41 % (45-75) 39 % (45-75) 33 % (45-75) Lymphocytes % (Manual) 52 % (20-45) 48 % (20-45) 57 % (20-45) Monocytes % (Manual) 6 % (1-10) 12 % (1-10) 10 % (1-10) Eosinophils % (Manual) 1 % (0-3) 1 % (0-3) 0 % (0-3) Basophils % (Manual) 0 % (0-2) 0 % (0-2) 0 % (0-2) Band Neutrophils 0 % (0-8) 0 % (0-8) 0 % (0-8) Platelet Estimate Decreased Decreased Decreased Platelet Morphology Normal Normal Normal Hypochromasia 1+ 1+ Sodium Level 142 MMOL/L (136-145) 142 MMOL/L (136-145) 145 MMOL/L (136-145) Potassium Level 3.9 MMOL/L (3.5-5.1) 4.0 MMOL/L (3.5-5.1) 3.9 MMOL/L (3.5-5.1) Chloride Level 103 MMOL/L (98-107) 102 MMOL/L (98-107) 105 MMOL/L (98-107) Carbon Dioxide Level 38 MMOL/L (21-32) 37 MMOL/L (21-32) 37 MMOL/L (21-32) Anion Gap 1 mmol/L (5-15) 3 mmol/L (5-15) 3 mmol/L (5-15) Blood Urea Nitrogen 21 mg/dL (7-18) 14 mg/dL (7-18) 24 mg/dL (7-18) Creatinine 0.4 MG/DL (0.55-1.30) 0.5 MG/DL (0.55-1.30) 0.6 MG/DL (0.55-1.30) Estimat Glomerular Filtration Rate mL/min (>60) mL/min (>60) mL/min (>60) Glucose Level 81 MG/DL (74-106) 85 MG/DL (74-106) 87 MG/DL (74-106) Calcium Level 9.6 MG/DL (8.5-10.1) 9.8 MG/DL (8.5-10.1) 9.6 MG/DL (8.5-10.1) Red Blood Cell Morphology Normal Anisocytosis 1+ Height (Feet): 5 Height (Inches): 6.00 Weight (Pounds): 179 Objective Physical Exam: Vitals: reviewed General Appearance: NAD HEENT: normocephalic, atraumatic Neck: non-tender, normal alignment Respiratory/Chest: normal breath sounds bilaterally Cardiovascular/Chest: normal peripheral pulses, normal rate Abdomen: normal bowel sounds, soft Cirilo Del Castillo MD Dec 14, 2018 15:47
[2018-12-14 16:00] VITALS: BP 135/72
--- NOTE | 2018-12-14 19:34 | Infectious Diseases Prog Note ---
Assessment/Plan Assessment/Plan Assessment: Afebrile No leukocytosis Pyuria/bacteriuria- ?UTI, sp rx -u.a wbc tnct, nit +, leuk +3; ucx >100k E.coli ( R cipro/levo, bactrim) -Bcx neg Altered mental status schizoaffective disorder AOCD CODP Dm2 GERD polyneuropathy seizure disorder HTN Plan: -Continue to monitor off abx -12/10 SP Ceftriaxone #3 -f/u cx -Monitor CBC/CMP, temperatures Thank you for this consultation. Will continue to follow along with you. Discussed with RN Subjective Allergies: Coded Allergies: BENZOCAINE (Unverified Allergy, Unknown, 07/21/14) PENICILLINS (Unverified Allergy, Unknown, 07/21/14) QUETIAPINE (Unverified Allergy, Unknown, 07/21/14) Subjective afebrile no leukocytosis Bcx Neg Objective Vital Signs Last 24 Hour Vital Signs Date Time Temp Pulse Resp B/P (MAP) Pulse Ox O2 Delivery O2 Flow Rate FiO2 12/14/18 18:12 97.2 12/14/18 16:00 97.2 71 18 135/72 (93) 93 12/14/18 12:00 97.5 74 17 113/90 (98) 97 12/14/18 09:00 Room Air 12/14/18 08:53 71 135/72 12/14/18 08:00 97.2 71 18 135/72 (93) 95 12/14/18 04:00 96.8 65 19 107/51 (69) 12/14/18 00:00 97.0 79 19 121/54 (76) 12/13/18 21:11 Room Air 12/13/18 20:00 97.7 78 19 115/63 (80) Height (Feet): 5 Height (Inches): 6.00 Weight (Pounds): 179 Objective General Appearance: NAD HEENT: normocephalic, atraumatic Neck: non-tender, normal alignment Respiratory/Chest: normal breath sounds bilaterally Cardiovascular/Chest: normal peripheral pulses, normal rate Abdomen: normal bowel sounds, soft, Laboratory Tests Test 12/14/18 05:46 White Blood Count 5.5 K/UL (4.8-10.8) Red Blood Count 4.22 M/UL (4.20-5.40) Hemoglobin 12.7 G/DL (12.0-16.0) Hematocrit 40.9 % (37.0-47.0) Mean Corpuscular Volume 97 FL (80-99) Mean Corpuscular Hemoglobin 30.1 PG (27.0-31.0) Mean Corpuscular Hemoglobin Concent 31.1 G/DL (32.0-36.0) L Red Cell Distribution Width 14.7 % (11.6-14.8) Platelet Count 90 K/UL (150-450) L Mean Platelet Volume 6.3 FL (6.5-10.1) L Neutrophils (%) (Auto) % (45.0-75.0) Lymphocytes (%) (Auto) % (20.0-45.0) Monocytes (%) (Auto) % (1.0-10.0) Eosinophils (%) (Auto) % (0.0-3.0) Basophils (%) (Auto) % (0.0-2.0) Differential Total Cells Counted 100 Neutrophils % (Manual) 33 % (45-75) L Lymphocytes % (Manual) 57 % (20-45) H Monocytes % (Manual) 10 % (1-10) Eosinophils % (Manual) 0 % (0-3) Basophils % (Manual) 0 % (0-2) Band Neutrophils 0 % (0-8) Platelet Estimate Decreased L Platelet Morphology Normal Hypochromasia 1+ Anisocytosis 1+ Sodium Level 145 MMOL/L (136-145) Potassium Level 3.9 MMOL/L (3.5-5.1) Chloride Level 105 MMOL/L (98-107) Carbon Dioxide Level 37 MMOL/L (21-32) H Anion Gap 3 mmol/L (5-15) L Blood Urea Nitrogen 24 mg/dL (7-18) H Creatinine 0.6 MG/DL (0.55-1.30) Estimat Glomerular Filtration Rate mL/min (>60) Glucose Level 87 MG/DL (74-106) Calcium Level 9.6 MG/DL (8.5-10.1) Current Medications Medications (Trade) Dose Ordered Sig/Desire Route PRN Reason Start Time Stop Time Status Last Admin Dose Admin Acetaminophen (Tylenol) 650 mg Q4H PRN ORAL Mild Pain/Temp > 101 12/08/18 20:45 01/07/19 20:44 12/14/18 05:02 Amlodipine Besylate (Norvasc) 10 mg DAILY ORAL 12/09/18 09:00 01/08/19 08:59 12/14/18 08:53 Aspirin (Ecotrin) 81 mg DAILY ORAL 12/09/18 09:00 01/08/19 08:59 12/14/18 08:51 Bisacodyl (Dulcolax) 10 mg DAILYPRN PRN RECTAL Constipation 12/08/18 20:45 01/07/19 20:44 Dextrose (Dextrose 50%) 25 ml Q30M PRN IV Hypoglycemia 12/09/18 12:30 01/08/19 12:16 Dextrose (Dextrose 50%) 50 ml Q30M PRN IV hypoglycemia 12/09/18 12:30 01/08/19 12:29 Divalproex Sodium (Depakote ER) 1,000 mg EVERY 12 HOURS ORAL 12/08/18 21:00 01/07/19 20:59 12/14/18 08:51 Docusate Sodium (Colace) 100 mg DAILY ORAL 12/09/18 09:00 01/08/19 08:59 12/14/18 08:49 Gabapentin (Neurontin) 100 mg THREE TIMES A DAY ORAL 12/09/18 09:00 01/08/19 08:59 12/14/18 17:41 Ibuprofen (Advil) 400 mg BID ORAL 12/09/18 09:00 01/08/19 08:59 12/14/18 17:42 Insulin Aspart (NovoLOG) BEFORE MEALS AND HS SUBQ 12/09/18 16:30 01/08/19 16:29 12/12/18 20:14 Lorazepam (Ativan) 1 mg BID PRN ORAL For Anxiety 12/10/18 22:30 12/17/18 22:29 12/12/18 21:36 Magnesium Hydroxide (Mom) 30 ml QHS PRN ORAL constipation 12/08/18 20:45 01/07/19 20:44 Meloxicam (Mobic) 3.75 mg DAILY ORAL 12/09/18 09:00 01/08/19 08:59 12/14/18 08:49 Mirtazapine (Remeron) 7.5 mg BEDTIME ORAL 12/08/18 21:00 01/07/19 20:59 12/13/18 20:16 Risperidone (RisperDAL) 2 mg BID ORAL 12/09/18 09:00 01/08/19 08:59 12/14/18 17:41 Mariaelena Murray M.D. Dec 14, 2018 19:34
--- NOTE | 2018-12-14 19:45 | NUR ---
HAND-OFF: Report given to NICK Carreon.
[2018-12-14 20:00] VITALS: BP 107/55
--- NOTE | 2018-12-14 20:00 | NUR ---
NURSE NOTES: Received patient awake in bed, finishing dinner, no s/s of acute distress, no c/o pain at this time. Fall and safety precautions taken.
--- NOTE | 2018-12-14 20:02 | Cardiology Progress Note ---
Assessment/Plan Assessment/Plan 1. Hypotension, responded well to IV fluid administration. 2. UTI, continue IV antibiotic therapy. 3. DM, consider ASA and statins. 4. COPD 5. Hx seizure D/O 6. GERD 7. Polyneuropathy 8. Thrombocytopenia. Subjective Subjective No cardiac events noted. Denies chest pain or SOB. Objective Last 24 Hour Vital Signs Date Time Temp Pulse Resp B/P (MAP) Pulse Ox O2 Delivery O2 Flow Rate FiO2 12/14/18 18:12 97.2 12/14/18 16:00 97.2 71 18 135/72 (93) 93 12/14/18 12:00 97.5 74 17 113/90 (98) 97 12/14/18 09:00 Room Air 12/14/18 08:53 71 135/72 12/14/18 08:00 97.2 71 18 135/72 (93) 95 12/14/18 04:00 96.8 65 19 107/51 (69) 12/14/18 00:00 97.0 79 19 121/54 (76) 12/13/18 21:11 Room Air Intake and Output 12/13/18 12/14/18 18:59 06:59 Intake Total 720 ml Balance 720 ml Intake Oral 720 ml # Voids 4 Laboratory Tests Test 12/14/18 05:46 White Blood Count 5.5 K/UL (4.8-10.8) Red Blood Count 4.22 M/UL (4.20-5.40) Hemoglobin 12.7 G/DL (12.0-16.0) Hematocrit 40.9 % (37.0-47.0) Mean Corpuscular Volume 97 FL (80-99) Mean Corpuscular Hemoglobin 30.1 PG (27.0-31.0) Mean Corpuscular Hemoglobin Concent 31.1 G/DL (32.0-36.0) L Red Cell Distribution Width 14.7 % (11.6-14.8) Platelet Count 90 K/UL (150-450) L Mean Platelet Volume 6.3 FL (6.5-10.1) L Neutrophils (%) (Auto) % (45.0-75.0) Lymphocytes (%) (Auto) % (20.0-45.0) Monocytes (%) (Auto) % (1.0-10.0) Eosinophils (%) (Auto) % (0.0-3.0) Basophils (%) (Auto) % (0.0-2.0) Differential Total Cells Counted 100 Neutrophils % (Manual) 33 % (45-75) L Lymphocytes % (Manual) 57 % (20-45) H Monocytes % (Manual) 10 % (1-10) Eosinophils % (Manual) 0 % (0-3) Basophils % (Manual) 0 % (0-2) Band Neutrophils 0 % (0-8) Platelet Estimate Decreased L Platelet Morphology Normal Hypochromasia 1+ Anisocytosis 1+ Sodium Level 145 MMOL/L (136-145) Potassium Level 3.9 MMOL/L (3.5-5.1) Chloride Level 105 MMOL/L (98-107) Carbon Dioxide Level 37 MMOL/L (21-32) H Anion Gap 3 mmol/L (5-15) L Blood Urea Nitrogen 24 mg/dL (7-18) H Creatinine 0.6 MG/DL (0.55-1.30) Estimat Glomerular Filtration Rate mL/min (>60) Glucose Level 87 MG/DL (74-106) Calcium Level 9.6 MG/DL (8.5-10.1) Objective HEENT: Pupils are reactive to light and accommodation. Extraocular movement intact. NECK: JVP less than 5 cm, no carotid bruit. LUNGS: Clear to auscultation. CARDIAC: Regular rate and rhythm. Normal S1, S2. No murmur, gallops or rub. ABDOMEN: Soft, nontender, and nondistended, + BS. EXTREMITIES: No edema, clubbing or cyanosis. Haile Spaulding MD Dec 14, 2018 20:02
[2018-12-15] VITALS: BP 98/51
[2018-12-15 04:00] VITALS: BP 87/53
[2018-12-15] MEDS: NovoLOG Insulin Flexpen SUBQ SCH ×3 (06:12→17:07)
[2018-12-15 07:15] LABS: ANION GAP 5 mmol/L (5-15); BLOOD UREA NITROGEN 31 mg/dL (7-18); CALCIUM 9.6 MG/DL (8.5-10.1); CARBON DIOXIDE 36 MMOL/L (21-32); CHLORIDE 104 MMOL/L (98-107); CREATININE 0.6 MG/DL (0.55-1.30); POTASSIUM 4.3 MMOL/L (3.5-5.1); SODIUM 144 MMOL/L (136-145)
[2018-12-15 07:23] LABS: HEMOGLOBIN 13.5 G/DL (12.0-16.0); MEAN CORPUSCULAR VOLUME 98 FL (80-99); PLATELET COUNT 87 K/UL (150-450); RED BLOOD COUNT 4.49 M/UL (4.20-5.40); RED CELL DISTRIBUTION WIDTH 14.6 % (11.6-14.8); WHITE BLOOD COUNT 6.7 K/UL (4.8-10.8)
--- NOTE | 2018-12-15 07:30 | NUR ---
HAND-OFF: Report given to NICK Leigh.
--- NOTE | 2018-12-15 07:35 | NUR ---
NURSE NOTES: Received report from NICK Molina. Pt in bed, asleep, respirations regular and unlabored, no apparent distress noted, bed in lowest position, call light within reach.
[2018-12-15 08:00] VITALS: BP 115/60
[2018-12-15] MEDS: Aspirin EC 81mg tab ORAL SCH (09:10)
[2018-12-15] MEDS: Docusate 100mg cap ORAL SCH (09:10)
[2018-12-15] MEDS: Depakote ER 500mg tab ORAL SCH (09:10)
--- NOTE | 2018-12-15 10:02 | NUR ---
Social Service Note ABHIJIT spoke with [facility] [phone]. Due to patient's being non-ambulatory they do not have beds on their specialized unit and cannot accept patient at this time. ABHIJIT informed Dr. Ramsey and CM. Patient's bed hold will today. Will continue to monitor.
[2018-12-15 12:00] VITALS: BP 123/64
--- NOTE | 2018-12-15 12:19 | Pulmonology Progress Note ---
Assessment/Plan Problems: (1) Acute encephalopathy (2) UTI (urinary tract infection) (3) Schizo-affective schizophrenia (4) History of seizure (5) Diabetes mellitus Assessment/Plan doing better afebrile c/o back pain, wants a back brace cultures reviewed no new complains continue current regimen [place] Subjective ROS Limited/Unobtainable: No Constitutional: Reports: no symptoms HEENT: Repors: no symptoms Respiratory: Reports: no symptoms Allergies: Coded Allergies: BENZOCAINE (Unverified Allergy, Unknown, 07/21/14) PENICILLINS (Unverified Allergy, Unknown, 07/21/14) QUETIAPINE (Unverified Allergy, Unknown, 07/21/14) Objective Last 24 Hour Vital Signs Date Time Temp Pulse Resp B/P (MAP) Pulse Ox O2 Delivery O2 Flow Rate FiO2 12/15/18 12:00 97.8 72 16 123/64 (83) 99 12/15/18 09:42 97.6 12/15/18 09:00 Room Air 12/15/18 09:00 75 115/60 12/15/18 08:00 97.6 75 17 115/60 (78) 98 12/15/18 04:00 97.3 72 17 87/53 (64) 98 12/15/18 00:00 97.5 72 17 98/51 (67) 95 12/14/18 23:00 Room Air 12/14/18 20:00 96.3 72 17 107/55 (72) 91 12/14/18 16:00 97.2 71 18 135/72 (93) 93 Intake and Output 12/14/18 12/15/18 19:00 07:00 Intake Total 600 ml Balance 600 ml Intake Oral 600 ml # Voids 3 3 Objective General Appearance: WD/WN HEENT: normocephalic, atraumatic Respiratory/Chest: chest wall non-tender, lungs clear Cardiovascular: normal peripheral pulses, normal rate Abdomen: normal bowel sounds, soft, non tender Genitourinary: normal external genitalia Extremities: no clubbing Skin: no rash, no ulcers 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 Musculoskeletal: normal muscle bulk Laboratory Tests 12/15/18 05:50: White Blood Count 6.7, Red Blood Count 4.49, Hemoglobin 13.5, Hematocrit 44.0, Mean Corpuscular Volume 98, Mean Corpuscular Hemoglobin 30.1, Mean Corpuscular Hemoglobin Concent 30.7L, Red Cell Distribution Width 14.6, Platelet Count 87L, Mean Platelet Volume 8.3, Neutrophils (%) (Auto) , Lymphocytes (%) (Auto) , Monocytes (%) (Auto) , Eosinophils (%) (Auto) , Basophils (%) (Auto) , Differential Total Cells Counted 100, Neutrophils % (Manual) 54, Lymphocytes % ( Manual) 39, Monocytes % (Manual) 6, Eosinophils % (Manual) 1, Basophils % ( Manual) 0, Band Neutrophils 0, Platelet Estimate DecreasedL, Platelet Morphology Normal, Sodium Level 144, Potassium Level 4.3, Chloride Level 104, Carbon Dioxide Level 36H, Anion Gap 5, Blood Urea Nitrogen 31H, Creatinine 0.6, Estimat Glomerular Filtration Rate , Glucose Level 97, Calcium Level 9.6 Current Medications Medications (Trade) Dose Ordered Sig/Desire Route PRN Reason Start Time Stop Time Status Last Admin Dose Admin Acetaminophen (Tylenol) 650 mg Q4H PRN ORAL Mild Pain/Temp > 101 12/08/18 20:45 01/07/19 20:44 12/14/18 05:02 Amlodipine Besylate (Norvasc) 10 mg DAILY ORAL 12/09/18 09:00 01/08/19 08:59 12/14/18 08:53 Aspirin (Ecotrin) 81 mg DAILY ORAL 12/09/18 09:00 01/08/19 08:59 12/15/18 09:10 Bisacodyl (Dulcolax) 10 mg DAILYPRN PRN RECTAL Constipation 12/08/18 20:45 01/07/19 20:44 Dextrose (Dextrose 50%) 25 ml Q30M PRN IV Hypoglycemia 12/09/18 12:30 01/08/19 12:16 Dextrose (Dextrose 50%) 50 ml Q30M PRN IV hypoglycemia 12/09/18 12:30 01/08/19 12:29 Divalproex Sodium (Depakote ER) 1,000 mg EVERY 12 HOURS ORAL 12/08/18 21:00 01/07/19 20:59 12/15/18 09:10 Docusate Sodium (Colace) 100 mg DAILY ORAL 12/09/18 09:00 01/08/19 08:59 8/27/19 09:10 Gabapentin (Neurontin) 100 mg THREE TIMES A DAY ORAL 12/09/18 09:00 01/08/19 08:59 12/15/18 12:05 Ibuprofen (Advil) 400 mg BID ORAL 12/09/18 09:00 01/08/19 08:59 12/15/18 09:12 Insulin Aspart (NovoLOG) BEFORE MEALS AND HS SUBQ 12/09/18 16:30 01/08/19 16:29 12/15/18 12:06 Lorazepam (Ativan) 1 mg BID PRN ORAL For Anxiety 12/10/18 22:30 12/17/18 22:29 12/12/18 21:36 Magnesium Hydroxide (Mom) 30 ml QHS PRN ORAL constipation 12/08/18 20:45 01/07/19 20:44 Meloxicam (Mobic) 3.75 mg DAILY ORAL 12/09/18 09:00 01/08/19 08:59 12/15/18 09:10 Mirtazapine (Remeron) 7.5 mg BEDTIME ORAL 12/08/18 21:00 01/07/19 20:59 12/14/18 21:01 Risperidone (RisperDAL) 6 mg BEDTIME ORAL 12/15/18 21:00 01/14/19 20:59 Bertram Jesus MD Dec 15, 2018 12:19
--- NOTE | 2018-12-15 13:33 | Infectious Diseases Prog Note ---
Assessment/Plan Assessment/Plan Assessment: Afebrile No leukocytosis Pyuria/bacteriuria- ?UTI, sp rx -u.a wbc tnct, nit +, leuk +3; ucx >100k E.coli ( R cipro/levo, bactrim) -Bcx neg Altered mental status schizoaffective disorder AOCD CODP Dm2 GERD polyneuropathy seizure disorder HTN Plan: -Continue to monitor off abx -ok to discharge off abx -12/10 SP Ceftriaxone #3 -f/u cx -Monitor CBC/CMP, temperatures Thank you for this consultation. Will continue to follow along with you. Discussed with RN Subjective Allergies: Coded Allergies: BENZOCAINE (Unverified Allergy, Unknown, 07/21/14) PENICILLINS (Unverified Allergy, Unknown, 07/21/14) QUETIAPINE (Unverified Allergy, Unknown, 07/21/14) Subjective afebrile no leukocytosis Objective Vital Signs Last 24 Hour Vital Signs Date Time Temp Pulse Resp B/P (MAP) Pulse Ox O2 Delivery O2 Flow Rate FiO2 12/15/18 12:00 97.8 72 16 123/64 (83) 99 12/15/18 09:42 97.6 12/15/18 09:00 Room Air 12/15/18 09:00 75 115/60 12/15/18 08:00 97.6 75 17 115/60 (78) 98 12/15/18 04:00 97.3 72 17 87/53 (64) 98 12/15/18 00:00 97.5 72 17 98/51 (67) 95 12/14/18 23:00 Room Air 12/14/18 20:00 96.3 72 17 107/55 (72) 91 12/14/18 16:00 97.2 71 18 135/72 (93) 93 Height (Feet): 5 Height (Inches): 6.00 Weight (Pounds): 179 Objective General Appearance: NAD HEENT: normocephalic, atraumatic Neck: non-tender, normal alignment Respiratory/Chest: normal breath sounds bilaterally Cardiovascular/Chest: normal peripheral pulses, normal rate Abdomen: normal bowel sounds, soft, Laboratory Tests Test 12/15/18 05:50 White Blood Count 6.7 K/UL (4.8-10.8) Red Blood Count 4.49 M/UL (4.20-5.40) Hemoglobin 13.5 G/DL (12.0-16.0) Hematocrit 44.0 % (37.0-47.0) Mean Corpuscular Volume 98 FL (80-99) Mean Corpuscular Hemoglobin 30.1 PG (27.0-31.0) Mean Corpuscular Hemoglobin Concent 30.7 G/DL (32.0-36.0) L Red Cell Distribution Width 14.6 % (11.6-14.8) Platelet Count 87 K/UL (150-450) L Mean Platelet Volume 8.3 FL (6.5-10.1) Neutrophils (%) (Auto) % (45.0-75.0) Lymphocytes (%) (Auto) % (20.0-45.0) Monocytes (%) (Auto) % (1.0-10.0) Eosinophils (%) (Auto) % (0.0-3.0) Basophils (%) (Auto) % (0.0-2.0) Differential Total Cells Counted 100 Neutrophils % (Manual) 54 % (45-75) Lymphocytes % (Manual) 39 % (20-45) Monocytes % (Manual) 6 % (1-10) Eosinophils % (Manual) 1 % (0-3) Basophils % (Manual) 0 % (0-2) Band Neutrophils 0 % (0-8) Platelet Estimate Decreased L Platelet Morphology Normal Sodium Level 144 MMOL/L (136-145) Potassium Level 4.3 MMOL/L (3.5-5.1) Chloride Level 104 MMOL/L (98-107) Carbon Dioxide Level 36 MMOL/L (21-32) H Anion Gap 5 mmol/L (5-15) Blood Urea Nitrogen 31 mg/dL (7-18) H Creatinine 0.6 MG/DL (0.55-1.30) Estimat Glomerular Filtration Rate mL/min (>60) Glucose Level 97 MG/DL (74-106) Calcium Level 9.6 MG/DL (8.5-10.1) Current Medications Medications (Trade) Dose Ordered Sig/Desire Route PRN Reason Start Time Stop Time Status Last Admin Dose Admin Acetaminophen (Tylenol) 650 mg Q4H PRN ORAL Mild Pain/Temp > 101 12/08/18 20:45 01/07/19 20:44 12/14/18 05:02 Amlodipine Besylate (Norvasc) 10 mg DAILY ORAL 12/09/18 09:00 01/08/19 08:59 12/14/18 08:53 Aspirin (Ecotrin) 81 mg DAILY ORAL 12/09/18 09:00 01/08/19 08:59 12/15/18 09:10 Bisacodyl (Dulcolax) 10 mg DAILYPRN PRN RECTAL Constipation 12/08/18 20:45 01/07/19 20:44 Dextrose (Dextrose 50%) 25 ml Q30M PRN IV Hypoglycemia 12/09/18 12:30 01/08/19 12:16 Dextrose (Dextrose 50%) 50 ml Q30M PRN IV hypoglycemia 12/09/18 12:30 01/08/19 12:29 Divalproex Sodium (Depakote ER) 1,000 mg EVERY 12 HOURS ORAL 12/08/18 21:00 01/07/19 20:59 12/15/18 09:10 Docusate Sodium (Colace) 100 mg DAILY ORAL 12/09/18 09:00 01/08/19 08:59 12/15/18 09:10 Gabapentin (Neurontin) 100 mg THREE TIMES A DAY ORAL 12/09/18 09:00 01/08/19 08:59 12/15/18 12:05 Ibuprofen (Advil) 400 mg BID ORAL 12/09/18 09:00 01/08/19 08:59 12/15/18 09:12 Insulin Aspart (NovoLOG) BEFORE MEALS AND HS SUBQ 12/09/18 16:30 01/08/19 16:29 12/15/18 12:06 Lorazepam (Ativan) 1 mg BID PRN ORAL For Anxiety 12/10/18 22:30 12/17/18 22:29 12/12/18 21:36 Magnesium Hydroxide (Mom) 30 ml QHS PRN ORAL constipation 12/08/18 20:45 01/07/19 20:44 Meloxicam (Mobic) 3.75 mg DAILY ORAL 12/09/18 09:00 01/08/19 08:59 12/15/18 09:10 Mirtazapine (Remeron) 7.5 mg BEDTIME ORAL 12/08/18 21:00 01/07/19 20:59 12/14/18 21:01 Risperidone (RisperDAL) 6 mg BEDTIME ORAL 12/15/18 21:00 01/14/19 20:59 Mariaelena Murray M.D. Dec 15, 2018 13:33
--- NOTE | 2018-12-15 13:44 | NUR ---
DISCHARGE PLANNING: NOTE PATIENT IS ACCEPTED TO ROOM 26A AT [facility] FAXED TO [facility]. CLEARANCE OBTAINED. DR AYOUB MADE AWARE. AWAITING DC ORDER.
--- NOTE | 2018-12-15 14:39 | General Progress Note ---
Assessment/Plan Problem List: (1) UTI (urinary tract infection) ICD Codes: N39.0 - Urinary tract infection, site not specified SNOMED: 17582085 (2) History of seizure ICD Codes: Z87.898 - Personal history of other specified conditions SNOMED: 394194575 (3) Schizo-affective schizophrenia ICD Codes: F25.0 - Schizoaffective disorder, bipolar type SNOMED: 946762956 (4) Diabetes mellitus ICD Codes: E11.9 - Type 2 diabetes mellitus without complications SNOMED: 65912968 (5) HTN (hypertension) ICD Codes: I10 - HTN (hypertension) SNOMED: 59041912 (6) Epileptic seizure, generalized ICD Codes: G40.909 - Epilepsy, unspecified, not intractable, without status epilepticus SNOMED: 31383787 (7) Aspiration pneumonia ICD Codes: J69.0 - Pneumonitis due to inhalation of food and vomit SNOMED: 845340780 (8) Hepatic encephalopathy ICD Codes: K72.90 - Hepatic failure, unspecified without coma SNOMED: 51440362 (9) Acute encephalopathy ICD Codes: G93.40 - Encephalopathy, unspecified SNOMED: 3527960 Status: stable, progressing Assessment/Plan: pt ot diet abx dc if clear Subjective Constitutional: Reports: weakness Allergies: Coded Allergies: BENZOCAINE (Unverified Allergy, Unknown, 07/21/14) PENICILLINS (Unverified Allergy, Unknown, 07/21/14) QUETIAPINE (Unverified Allergy, Unknown, 07/21/14) All Systems: reviewed and negative except above Subjective o2nc calm in bed Objective Last 24 Hour Vital Signs Date Time Temp Pulse Resp B/P (MAP) Pulse Ox O2 Delivery O2 Flow Rate FiO2 12/15/18 12:00 97.8 72 16 123/64 (83) 99 12/15/18 09:42 97.6 12/15/18 09:00 Room Air 12/15/18 09:00 75 115/60 12/15/18 08:00 97.6 75 17 115/60 (78) 98 12/15/18 04:00 97.3 72 17 87/53 (64) 98 12/15/18 00:00 97.5 72 17 98/51 (67) 95 12/14/18 23:00 Room Air 12/14/18 20:00 96.3 72 17 107/55 (72) 91 12/14/18 16:00 97.2 71 18 135/72 (93) 93 Intake and Output 12/14/18 12/15/18 19:00 07:00 Intake Total 600 ml Balance 600 ml Intake Oral 600 ml # Voids 3 3 Laboratory Tests 12/15/18 05:50: White Blood Count 6.7, Red Blood Count 4.49, Hemoglobin 13.5, Hematocrit 44.0, Mean Corpuscular Volume 98, Mean Corpuscular Hemoglobin 30.1, Mean Corpuscular Hemoglobin Concent 30.7L, Red Cell Distribution Width 14.6, Platelet Count 87L, Mean Platelet Volume 8.3, Neutrophils (%) (Auto) , Lymphocytes (%) (Auto) , Monocytes (%) (Auto) , Eosinophils (%) (Auto) , Basophils (%) (Auto) , Differential Total Cells Counted 100, Neutrophils % (Manual) 54, Lymphocytes % ( Manual) 39, Monocytes % (Manual) 6, Eosinophils % (Manual) 1, Basophils % ( Manual) 0, Band Neutrophils 0, Platelet Estimate DecreasedL, Platelet Morphology Normal, Sodium Level 144, Potassium Level 4.3, Chloride Level 104, Carbon Dioxide Level 36H, Anion Gap 5, Blood Urea Nitrogen 31H, Creatinine 0.6, Estimat Glomerular Filtration Rate , Glucose Level 97, Calcium Level 9.6 Height (Feet): 5 Height (Inches): 6.00 Weight (Pounds): 179 General Appearance: lethargic EENT: normal ENT inspection Neck: normal alignment Cardiovascular: normal peripheral pulses, normal rate, regular rhythm Respiratory/Chest: chest wall non-tender, lungs clear, normal breath sounds Abdomen: normal bowel sounds, non tender, soft Extremities: normal inspection Edema: no edema noted Arm (L), no edema noted Arm (R), no edema noted Leg (L), no edema noted Leg (R), no edema noted Pedal (L), no edema noted Pedal (R), no edema noted Generalized Neurologic: motor weakness Skin: normal pigmentation, warm/dry Maninder Ramsey DO Dec 15, 2018 14:39
--- NOTE | 2018-12-15 14:55 | NUR ---
DISCHARGE DISPOSITION: PLEASE READ PATIENT TO BE DISCHARGED TO [facility] [address] [facility] ROOM [address]A T: [phone]>> CALL FOR REPORT [facility] ETA 5220 [address] NO FAMILY TO NOTIFY
--- NOTE | 2018-12-15 15:37 | NUR ---
NURSE NOTES: Called report to MARK García at [facility]
[2018-12-15 16:00] VITALS: BP 113/48
--- NOTE | 2018-12-15 16:56 | Progress Note ---
DATE: 12/14/2018 SUBJECTIVE: The patient continues to be delusional and responds to internal stimuli. Continues to have auditory hallucinations, speaking about her daughter. The patient is forgetful. MENTAL STATUS EXAMINATION: The patient is alert and oriented times self, place, and situation she is in. Mood is anxious. Affect is constricted. Congruent with mood. Thought process is linear and goal oriented. Thought content, no suicidal or homicidal ideations. ASSESSMENT: Schizophrenia. PLAN: 1. Increase the risperidone to 6 mg at bedtime. 2. Continue the mirtazapine 7.5 mg at bedtime. 3. Continue the Ativan. 4. Provide the patient with reality orientation and supportive therapy. Tavia Schwab M.D. DR: FREEDOM JOB#: [id number] CC:
--- NOTE | 2018-12-15 18:48 | NUR ---
NURSE NOTES: Pt discharged with all belongings, IV removed intact and ID band removed, pt stable for discharge back to [facility]
--- NOTE | 2018-12-15 19:30 | Progress Note ---
DATE: 12/15/2018 SUBJECTIVE: The patient is presenting with auditory hallucination. She is calmer today. Has not been yelling today. More redirectable. No behavior issues. MENTAL STATUS EXAMINATION: The patient is alert, oriented times self and place. Mood is anxious. Affect is constricted, congruent with mood. Thought process is concrete. Thought content, no suicidal or homicidal ideation. ASSESSMENT: Stable. PLAN: 1. We will continue current medication. 2. Provide the patient with reality orientation and supportive therapy. Tavia Schwab M.D. DR: KRISTIN JOB#: [id number] CC:
--- NOTE | 2018-12-15 23:46 | Cardiology Progress Note ---
Assessment/Plan Assessment/Plan 1. Hypotension, responded well to IV fluid administration, normotensive. 2. UTI, continue IV antibiotic therapy. 3. DM, consider ASA and statins. 4. COPD 5. Hx seizure D/O 6. GERD 7. Polyneuropathy 8. Thrombocytopenia. Subjective Subjective No cardiac events is reported. Objective Last 24 Hour Vital Signs Date Time Temp Pulse Resp B/P (MAP) Pulse Ox O2 Delivery O2 Flow Rate FiO2 12/15/18 17:36 97.9 12/15/18 16:00 97.9 77 15 113/48 (69) 94 12/15/18 12:00 97.8 72 16 123/64 (83) 99 12/15/18 09:00 Room Air 12/15/18 09:00 75 115/60 12/15/18 08:00 97.6 75 17 115/60 (78) 98 12/15/18 04:00 97.3 72 17 87/53 (64) 98 12/15/18 00:00 97.5 72 17 98/51 (67) 95 Intake and Output 12/14/18 12/15/18 18:59 06:59 Intake Total 600 ml Balance 600 ml Intake Oral 600 ml # Voids 3 3 Laboratory Tests Test 12/15/18 05:50 White Blood Count 6.7 K/UL (4.8-10.8) Red Blood Count 4.49 M/UL (4.20-5.40) Hemoglobin 13.5 G/DL (12.0-16.0) Hematocrit 44.0 % (37.0-47.0) Mean Corpuscular Volume 98 FL (80-99) Mean Corpuscular Hemoglobin 30.1 PG (27.0-31.0) Mean Corpuscular Hemoglobin Concent 30.7 G/DL (32.0-36.0) L Red Cell Distribution Width 14.6 % (11.6-14.8) Platelet Count 87 K/UL (150-450) L Mean Platelet Volume 8.3 FL (6.5-10.1) Neutrophils (%) (Auto) % (45.0-75.0) Lymphocytes (%) (Auto) % (20.0-45.0) Monocytes (%) (Auto) % (1.0-10.0) Eosinophils (%) (Auto) % (0.0-3.0) Basophils (%) (Auto) % (0.0-2.0) Differential Total Cells Counted 100 Neutrophils % (Manual) 54 % (45-75) Lymphocytes % (Manual) 39 % (20-45) Monocytes % (Manual) 6 % (1-10) Eosinophils % (Manual) 1 % (0-3) Basophils % (Manual) 0 % (0-2) Band Neutrophils 0 % (0-8) Platelet Estimate Decreased L Platelet Morphology Normal Sodium Level 144 MMOL/L (136-145) Potassium Level 4.3 MMOL/L (3.5-5.1) Chloride Level 104 MMOL/L (98-107) Carbon Dioxide Level 36 MMOL/L (21-32) H Anion Gap 5 mmol/L (5-15) Blood Urea Nitrogen 31 mg/dL (7-18) H Creatinine 0.6 MG/DL (0.55-1.30) Estimat Glomerular Filtration Rate mL/min (>60) Glucose Level 97 MG/DL (74-106) Calcium Level 9.6 MG/DL (8.5-10.1) Objective HEENT: Pupils are reactive to light and accommodation. Extraocular movement intact. NECK: JVP less than 5 cm, no carotid bruit. LUNGS: Clear to auscultation. CARDIAC: Regular rate and rhythm. Normal S1, S2. No murmur, gallops or rub. ABDOMEN: Soft, nontender, and nondistended, + BS. EXTREMITIES: No edema, clubbing or cyanosis. Haile Spaulding MD Dec 15, 2018 23:46
--- NOTE | 2018-12-16 06:00 | Consultation ---
DATE OF CONSULTATION: 12/15/2018 HISTORY OF PRESENT ILLNESS: This is a 73-year-old female patient. Apparently, the patient came in with altered mental status and confusion. She also had generalized weakness and she also had status post urinary tract infection and dehydration. She states she is weak and had pain all over her body that is reason for coming to the [facility]. She also has overlying diagnosis of schizoaffective, bipolar type, still has a lot of mood lability, confusion, disorganized thought process. She has got overall decline in cognition, below baseline that is why her attending has requested daily psychiatric consultation at this time. She does have some problems with helplessness, hopelessness, low energy, poor appetite, and loss of interest in activity at this time. She talks extensively about how she shes state she is very paranoid and delusional on interview today. She says "I am tired senior living and wanted to go back." She is very paranoid. The patient is very confused and disorganized. She has got no logical plan for own self-care. PAST MEDICAL HISTORY: She has a history of diabetes, hypertension, seizure disorder, hepatic encephalopathy, GERD, and osteoporosis. She has a history of chronic pain as well. ALLERGIES: Penicillin, Seroquel, and benzocaine. MEDICATIONS: Psychiatric medications on admission Depakote 1000 mg q.12 h., Neurontin 100 mg three times a day, and Ativan 1 mg twice a day p.r.n. anxiety. She is also on Risperdal 6 mg nightly. SUBSTANCE ABUSE HISTORY: Denies. PAIN ASSESSMENT: 06/28 pain. DEVELOPMENTAL PROBLEMS: Denies. FAMILY PSYCHIATRIC HISTORY: Denies. PSYCHIATRIC HISTORY: Schizoaffective, bipolar type. She has had multiple psychiatric admissions. SOCIAL HISTORY: The patient lives in a senior living known as [facility]. Financially supported by [employer] and [employer]. STRENGTHS: She is motivated to get better. She has a place to live. She is healthy. WEAKNESSES: She is impulsive, minimal support system. MENTAL STATUS EXAMINATION: This is a 73-year-old female. Appearance is disheveled. Attitude, irritable and agitated. Affect labile. Intellect poor because she does not know current events and does not know the last four presidents. Mood, depressed and anxious. Motor activity, psychomotor agitation. Attention span is poor because she cannot do serial sevens or spell world backwards. Orientation x2. She is oriented to person and place, not time and situation. Speech is pressured and nonsensical. Thought process, disorganized and illogical. Thought content, she has auditory hallucinations and paranoid delusions. Perception is poor because of perceptual disturbance, auditory hallucinations, and paranoid delusions. Abstract reasoning is poor because she does not understand proverbs, only has concrete thinking. Insight is poor because she Judgment is poor because she does not accept consequences of her actions. Short-term memory 2/3 word recall after 3 minutes delay so poor short-term memory. Long-term memory is intact based on knowledge of long-term events in her life such as high school that she went to. Denies suicidal or homicidal thoughts. Gait is normal. She has no abnormal movements. There is no history of . DIAGNOSES: Schizoaffective, bipolar type, rule out depression with psychotic features, rule out dementia with psychosis. PLAN: My plan for this patient is to treat her with medication regimen, Depakote 1000 mg q.12 h., Risperdal 6 mg nghtly, Neurontin 100 mg three times a day, Ativan at a dose of 1 mg b.i.d. p.r.n. anxiety and agitation. Twenty minutes of cognitive behavioral therapy to help identify automatic negative thoughts and help her convert negative thoughts to more positive thoughts to reduce depression, anxiety, mood lability. Chart was reviewed and discussed with staff. The patient was seen and assessed at bedside. I would like to thank, Dr. Maninder Ramsey, for this interesting consultation. Griffin Hassan M.D. DR: Chrissie JOB#: [id number] CC:
--- NOTE | 2018-12-16 21:23 | Discharge Summary ---
Discharge Summary Discharge Summary _ DATE OF ADMISSION: 12/08/2018 DATE OF DISCHARGE: 12/09/2018 DISCHARGED BY: Dr. Maninder Ramsey CONSULTANTS: Dr. Griffin Plaza, [facility] HOSPITAL COURSE: Patient is a 73-year-old female, who came in due to generalized weakness. She has history of schizophrenia, COPD, diabetes, and hypertension. She presented with acute altered mental status prior to arrival. Patient was unable to give history. She had worsening altered mental status and endorsed chronic neck pain. She denied any fever or chills. On evaluation at the ED, blood pressure was slightly low at 99/53, heart rate 88. Blood work did not show any leukocytosis. Hemoglobin and hematocrit were stable. Platelet count 131. Sodium was elevated to 5.2. Troponin was negative. Urinalysis showed positive nitrite, +3 leukocyte esterase, 2-4 urine RBC and many to count urine WBC. EKG showed normal sinus rhythm with no acute ST elevation. Chest x-ray showed an old right upper lung scarring. CT of the brain showed age-related volume loss. Negative for acute intracranial bleed or mass-effect. Cervical spine CT did not show any acute bony trauma. There was mild degenerative changes. He was then admitted for evaluation of acute encephalopathy. He was admitted to medical floor. She was given empiric ceftriaxone. She was given IV hydration. FDC medications were continued. Blood glucose was monitored and was placed on sliding scale. Electrolytes were monitored. She was placed on low-sodium diet. Patient has thrombocytopenia. Potential cause multifactorial. Hepatitis and HIV are negative. Abdominal ultrasound did not show any hepatosplenomegaly nor cirrhosis. Patient had anemia due to underlying chronic medical condition. She did not require any blood transfusion nor iron supplementation. Urine culture showed growth of E. coli. She received 3 doses of ceftriaxone. IV antibiotic was discontinued. Psychiatric evaluation was done. Patient was given Depakote, risperidone and Remeron. She was assessed to be not an imminent danger to self or others. She was eventually discharged back to SNF. FINAL DIAGNOSES: Acute metabolic encephalopathy, present on admission Hypotension, responded to IV administration Urinary tract infection Diabetes mellitus COPD Seizure disorder GERD Polyneuropathy Thrombocytopenia Schizoaffective schizophrenia Hypertension: DISPOSITION: Patient was discharged to a SNF. DISCHARGE MEDICATIONS: Refer to Discharge Medication List. I have been assigned to complete a discharge summary on this account, I was not involved with the patient's management.--FRANKIE Marroquin Jacqueline Robles NP Dec 16, 2018 21:23
== END 2018-12-15 18:40 | DRG 689 ==
LOC: EDBD 13:11 → EMR 14:00 → EDBEDREQ 14:51 → 4E 16:54
DX: N39.0 Urinary tract infection, site not specified (principal); G93.41 Metabolic encephalopathy; F20.0 Paranoid schizophrenia; I95.9 Hypotension, unspecified; Z88.4 Allergy status to anesthetic agent; Z88.0 Allergy status to penicillin; Z88.8 Allergy status to other drugs, medicaments and biological substances; B96.20 Unspecified Escherichia coli [E. coli] as the cause of diseases classified elsewhere; K21.9 Gastro-esophageal reflux disease without esophagitis; D69.6 Thrombocytopenia, unspecified; D63.8 Anemia in other chronic diseases classified elsewhere; J44.9 Chronic obstructive pulmonary disease, unspecified; E11.9 Type 2 diabetes mellitus without complications; G62.9 Polyneuropathy, unspecified; I25.10 Atherosclerotic heart disease of native coronary artery without angina pectoris; E87.5 Hyperkalemia; Z79.82 Long term (current) use of aspirin; I10 Essential (primary) hypertension; F03.90 Unspecified dementia, unspecified severity, without behavioral disturbance, psychotic disturbance, mood disturbance, and anxiety; G40.909 Epilepsy, unspecified, not intractable, without status epilepticus; M81.0 Age-related osteoporosis without current pathological fracture; F20.9 Schizophrenia, unspecified
CPT/HCPCS: 36415; 70450; 71045; 72125; 76700; 80048; 80053; 81003; 82043; 82044; 82105; 82378; 82550; 82553; 82570; 82962; 83605; 83690; 83735; 83880; 84100; 84300; 84484; 85007; 85025; 85610; 85651; 85730; 86140; 86703; 87040; 87081; 87086; 87181; 89050; 93005; 96361; 96365; 99285; J1815